=== PATIENT | female | born 1930 ===

== ENCOUNTER 2017-01-12 11:45 | Emergency (ER) | payer MEDICARE ==
[2017-01-12 11:45] VITALS: PULSE 76; BMI 27.4
--- NOTE | 2017-01-12 12:41 | RAD ---
PROCEDURE: CHEST RADIOGRAPH, 1 VIEW HISTORY: SOB COMPARISON: 08/20/2016. FINDINGS: LUNGS: There is persistent pulmonary venous congestion and redistribution. There is also mild interstitial pulmonary edema. No focal consolidation. PLEURA: No pneumothorax or pleural fluid seen. CARDIOVASCULAR: There is mild cardiomegaly. Status post CABG and prosthetic while. OSSEOUS STRUCTURES: No significant abnormalities. VISUALIZED UPPER ABDOMEN: Normal. OTHER FINDINGS: None. IMPRESSION: Persistent pulmonary venous congestion and mild interstitial pulmonary edema.
--- NOTE | 2017-01-12 12:43 | C.PDOC ---
History Of Present Illness <Karla Ferrell - Last Filed: 01/12/17 16:48> <Carmine Daigle - Last Filed: 01/12/17 17:18> Patient is a 86 y/o female, whose past medical history includes Afib, HTN, CHF, and valvular replacement, presents to the emergency department for evaluation of bilateral leg swelling for the last 3 days. Patient states her legs feels heavy, but denies any pain. Notes that yesterday her legs were more swollen than today. Patient is complaint with all her meds. Patient admits to shortness of breath with excertion, but denies any chest pain, palpitations, extremity weakness/numbness, headache, dizziness, fever, chills, or any other associated symptoms at this time. (Karla Ferrell) History Per: Patient History/Exam Limitations: no limitations Onset/Duration Of Symptoms: Days (3) Current Symptoms Are (Timing): Still Present Severity: None Pain Scale Rating Of: 0 Recent travel outside of the [place]: No Additional History Per: Patient <Karla Ferrell - Last Filed: 01/12/17 16:48> <Carmine Daigle - Last Filed: 01/12/17 17:18> Time Seen by Provider: 01/12/17 12:14 Chief Complaint (Nursing): Lower Extremity Problem/Injury Past Medical History Reviewed: Historical Data, Nursing Documentation, Vital Signs - Medical History PMH: Atrial Fibrillation, CHF, Depression, Diabetes, HTN, Hyperlipidemia, Hypothyroidism Denies: Chronic Kidney Disease Surgical History: Appendectomy, CABG, Coronary Stent Family History: States: Unknown Family Hx - Social History Hx Tobacco Use: No Hx Alcohol Use: No Hx Substance Use: No - Immunization History Hx Tetanus Toxoid Vaccination: No Hx Influenza Vaccination: No Hx Pneumococcal Vaccination: No <Karla Ferrell - Last Filed: 01/12/17 16:48> Review Of Systems Except As Marked, All Systems Reviewed And Found Negative. Constitutional: Negative for: Fever, Chills Cardiovascular: Positive for: Edema (swelling to bilateral legs). Negative for : Chest Pain, Palpitations, Light Headedness Respiratory: Positive for: SOB with Excertion. Negative for: Cough, Hemoptysis , Sputum Musculoskeletal: Negative for: Leg Pain Skin: Negative for: Rash, Bruising Neurological: Negative for: Weakness, Numbness, Headache, Dizziness <Karla Ferrell Rodrigo Last Filed: 01/12/17 16:48> Physical Exam - Physical Exam Appears: Non-toxic, No Acute Distress Skin: Normal Color, Warm, Dry Head: Atraumatic, Normacephalic Eye(s): bilateral: Normal Inspection Neck: Normal ROM, Supple Chest: Symmetrical Cardiovascular: Rhythm Regular, No Murmur Respiratory: Normal Breath Sounds, No Rales, No Rhonchi, No Wheezing Gastrointestinal/Abdominal: Soft, No Tenderness Extremity: Normal ROM, Pedal Edema (2+ bilateral), Calf Tenderness (right calf tenderness with palpation), Capillary Refill (< 2 sec.), No Deformity Extremity: Bilateral: Atraumatic Pulses: Left Dorsalis Pedis: Normal, Right Dorsalis Pedis: Normal Neurological/Psych: Oriented x3, Normal Speech, Normal Cognition, Normal Motor, Normal Sensation <Karla Ferrell Rodrigo Last Filed: 01/12/17 16:48> ED Course And Treatment - Laboratory Results Result Diagrams: 01/12/17 13:05 01/12/17 13:05 Lab Interpretation: Abnormal ECG: Interpreted By Me, Viewed By Me ECG Rhythm: Atrial Fibrillation ECG Interpretation: No Changes From Prior Interpretation Of ECG: T wave inversion in lateral leads. Unchanged from prior ECG on 08/21/16. Rate From EC (bpm) O2 Sat by Pulse Oximetry: 95 (on RA) Pulse Ox Interpretation: Normal - Radiology CXR: Interpreted by Me, Viewed By Me, Read By Radiologist CXR Interpretation: Yes: Other (Persistent pulmonary venous congestion and mild interstitial pulmonary edema.) Progress Note: EKG, CXR, blood work, venous duplex scan ordered. Patient was treated with Lasix. INR elevated. Labs and case discussed with Dr Daigle Reassessment Condition: Improved (On reassessment, patient is resting comfortably, no acute distress. Denies any chest pain at this time.) <Karla Ferrell Last Filed: 01/12/17 16:48> - Laboratory Results Result Diagrams: 01/12/17 13:05 01/12/17 13:05 <Carmine Daigle Last Filed: 01/12/17 17:18> Medical Decision Making <Karla Ferrell Sonu Filed: 01/12/17 16:48> <Carmine Daigle - Last Filed: 01/12/17 17:18> Medical Decision Makin Venous doppler report reviewed with no abnormal findings Case was discussed with attending who also examined patient at bedside. Dr Daigle agreed patient stable for discharge. Patient was instructed to continue with all her medications and to elevate legs at home. Advise follow up with PCP or return to ER for any worsening symptoms including chest pain or SOB. Patient verbalized understanding (Karla Ferrell) Disposition Counseled Patient/Family Regarding: Diagnosis, Need For Followup - Disposition Disposition Time: 15:03 - POA Present On Arrival: None <Karla Ferrell - Last Filed: 01/12/17 16:48> <Carmine Daigle - Last Filed: 01/12/17 17:18> - Disposition Referrals: Samuel Rome MD [Non-Staff] - Disposition: HOME/ ROUTINE Condition: STABLE Additional Instructions: Courtney laboratorios y ultrasonido ash normales Por favor contine tomando courtney medicamentos y trate de mantener las piernas levantadas cuando est en casa descansando Realice el seguimiento con vazquez mdico de cabecera o regrese al servicio de urgencias en cualquier momento si los sntomas persisten o empeoran. Instructions: Heart Failure (DC), Leg Edema (ED) Print Language: [place] - Clinical Impression Clinical Impression: CHF (congestive heart failure), Leg edema - PA / ROTARY FURNACE TENDER / Resident Statement JEREMY has reviewed & agrees with the documentation as recorded. - Scribe Statement The provider has reviewed the documentation as recorded by the Scribe <Karla Ferrell - Last Filed: 01/12/17 16:48> - PA / ROTARY FURNACE TENDER / Resident Statement JEREMY has reviewed & agrees with the documentation as recorded. JEREMY has examined the patient and agrees with the treatment plan. <Carmine Daigle - Last Filed: 01/12/17 17:18> - Scribe Statement Corey Boucher All medical record entries made by the Scribe were at my direction and personally dictated by me. I have reviewed the chart and agree that the record accurately reflects my personal performance of the history, physical exam, medical decision making, and the department course for this patient. I have also personally directed, reviewed, and agree with the discharge instructions and disposition. (Karla Ferrell)
[2017-01-12 13:11] VITALS: RESP 18
[2017-01-12 13:20] LABS: BASO % 0.7 % (0.0-2.0); EOS # 0.1 K/uL (0.0-0.7); EOS % 2.3 % (0.0-4.0); HEMOGLOBIN 11.3 g/dL (11.0-16.0); LYMPH # 1.4 K/uL (1.0-4.3); MEAN CORPUSCULAR HEMOGLOBIN 29.5 pg (27.0-31.0); MEAN CORPUSCULAR HGB CONC 32.2 g/dL (33.0-37.0); MEAN PLATELET VOLUME 7.7 fL (7.2-11.7); MONO # 0.6 K/uL (0.0-0.8); MONO % 13.5 % (0.0-10.0); NEUT # 2.3 K/uL (1.8-7.0); NEUT % 52.5 % (50.0-75.0); RBC 3.82 Mil/uL (3.80-5.20); RED CELL DISTRIBUTION WIDTH 14.4 % (11.5-14.5); WHITE BLOOD COUNT 4.5 K/uL (4.8-10.8)
[2017-01-12 13:22] LABS: MEAN CELL VOLUME 91.6 fL (81.0-99.0)
[2017-01-12 13:27] LABS: ALBUMIN 3.4 g/dL (3.5-5.0)
[2017-01-12 13:30] LABS: GFR AFRICAN-AMERICAN > 60; GFR NON-AFRICAN AMERICAN 53
[2017-01-12 13:31] LABS: ALB/GLOB RATIO 0.9 (1.0-2.1); ALT/SGPT 44 U/L (9-52); AST/SGOT 48 U/L (14-36); BLOOD UREA NITROGEN 19 mg/dL (7-17); CALCIUM 8.6 mg/dl (8.6-10.4)
[2017-01-12 13:35] LABS: INR 7.2
[2017-01-12 13:37] LABS: PROTHROMBIN TIME 87.3 SECONDS (9.7-12.2)
[2017-01-12 13:40] LABS: B-TYPE NATRIURETIC PEPTIDE 1070 pg/mL (0-900)
[2017-01-12 15:37] VITALS: BP 151/91; PULSE 69; TEMP 97.1
[2017-01-12 16:50] VITALS: O2SAT 95
--- NOTE | 2017-01-13 12:16 | CARD ---
APPROVED REPORT EKG Measurement Heart [id number] <Conclusion> Atrial fibrillation T wave abnormality, consider anterior ischemia Abnormal ECG
--- NOTE | 2017-01-13 14:51 | VASCLAB ---
PROCEDURE: Right Lower Extremity Venous Duplex Exam. HISTORY: right calf pain PRIORS: None. TECHNIQUE: Right common femoral, femoral, popliteal and posterior tibial, peroneal and great saphenous veins were evaluated. Flow was assessed with color Doppler, compressibility, assessment of phasic flow and augmentation response. Report prepared by LUCI Crane, RVT FINDINGS: RIGHT: 1. Common Femoral Vein: 1.1. Compressibility - Fully compressible: Thrombus - None: Flow - Phasic: Augmentation -Normal: Reflux - None. 2. Femoral Vein: 2.1. Compressibility - Fully compressible: Thrombus - None: Flow - Phasic: Augmentation -Normal: Reflux - None. 3. Popliteal Vein: 3.1. Compressibility - Fully compressible: Thrombus - None: Flow - Phasic: Augmentation -Normal: Reflux - None. 4. Posterior Tibial Vein: 4.1. Compressibility - Fully compressible: Thrombus - None: Flow - Phasic: Augmentation -Normal: Reflux - None. 5. Peroneal Vein: 5.1. Compressibility - Fully compressible: Thrombus - None: Flow - Phasic: Augmentation -Normal: Reflux - None. 6. Great Saphenous Vein: 6.1. Compressibility - Fully compressible: Thrombus -None: Flow - Phasic: Augmentation - Normal: Reflux - Severe. OTHER FINDINGS: Severe valvular incompetence of the right greater saphenous vein. IMPRESSION: No evidence of deep or superficial vein thrombosis of the right lower extremity with excellent venous flow. Normal venous flow noted in the left common femoral vein.
== END 2017-01-12 15:35 | disposition home or self-care (01) ==
LOC: C.ER 11:45
DX: I50.9 Heart failure, unspecified (principal); R60.0 Localized edema
CPT/HCPCS: 71010; 80053; 83880; 85025; 85610; 85730; 93005; 93971; 96374; 99285; J1940

== ENCOUNTER 2017-02-04 15:33 | Emergency (ER) | payer MEDICARE ==
[2017-02-04 15:33] VITALS: PULSE 76; BMI 27.4
[2017-02-04 15:47] VITALS: RESP 18
--- NOTE | 2017-02-04 16:21 | C.PDOC ---
History Of Present Illness 87 year old female presents to the ED with complaints of a diffuse itchy rash for two days. Patient states she applied alcohol to the area and took Tylenol with no relief. She notes she has experienced similar symptoms previously. No change in chronic medication. Patient denies fever, lip swelling, difficulty breathing, or other complaints at this time. Time Seen by Provider: 02/04/17 15:57 Chief Complaint (Nursing): Abnormal Skin Integrity History Per: Patient History/Exam Limitations: no limitations Onset/Duration Of Symptoms: Days (2 days) Current Symptoms Are (Timing): Still Present Location Of Injury: Right: Abdomen, Arm (upper arms), Chest, Left: Abdomen, Arm , Chest Quality Of Symptoms: Itching. denies: Draining Recent travel outside of the [place]: No Additional History Per: Prior Records Past Medical History Reviewed: Historical Data, Nursing Documentation, Vital Signs Vital Signs: Last Vital Signs Temp 98.3 F 02/04/17 17:06 Pulse 88 02/04/17 17:06 Resp 18 02/04/17 17:06 BP 118/68 02/04/17 17:06 Pulse Ox 95 02/04/17 17:24 - Medical History PMH: Atrial Fibrillation, CHF, Depression, Diabetes, HTN, Hyperlipidemia, Hypothyroidism Surgical History: Appendectomy, CABG, Coronary Stent - [facility] Procedures FLUOROSCOPY OF LEFT HEART USING LOW OSMOLAR CONTRAST (08/08/16) FLUOROSCOPY OF MULT COR ART USING L OSM CONTRAST (08/08/16) MEASURE OF CARDIAC SAMPL & PRESSURE, L HEART, PERC APPROACH (08/08/16) Family History: States: Unknown Family Hx - Social History Hx Tobacco Use: No Hx Alcohol Use: No Hx Substance Use: No - Immunization History Hx Tetanus Toxoid Vaccination: No Hx Influenza Vaccination: No Hx Pneumococcal Vaccination: No Review Of Systems Constitutional: Negative for: Fever, Chills Cardiovascular: Negative for: Chest Pain Respiratory: Negative for: Cough, Shortness of Breath Gastrointestinal: Negative for: Nausea, Abdominal Pain Skin: Positive for: Rash Physical Exam - Physical Exam Appears: Non-toxic, No Acute Distress Skin: Warm, Dry, Rash (multiple 0.5 cm erythematus papules on the abdomen, chest , and sparsly on the upper arms. ) Head: Atraumatic, Normacephalic Eye(s): bilateral: Normal Inspection, PERRL, EOMI Nose: Normal, No Discharge Oral Mucosa: Moist Tongue: Normal Appearing, No Swelling Lips: Normal Appearing, No Swelling Throat: Normal, No Erythema, No Exudate Neck: Normal ROM, Supple Chest: Symmetrical Cardiovascular: Rhythm Regular Respiratory: Normal Breath Sounds, No Rhonchi, No Wheezing Gastrointestinal/Abdominal: Soft, No Tenderness Neurological/Psych: Oriented x3, Normal Speech, Normal Cognition, Normal Motor, Normal Sensation ED Course And Treatment O2 Sat by Pulse Oximetry: 95 (room air) Progress Note: Pt was seen and evaluated by DR Tafoya, agreed upon plan and discharge. Discussed signs of concnern and instructed to follow up with dermatology. Disposition - Disposition Disposition: HOME/ ROUTINE Disposition Time: 16:21 Condition: STABLE Additional Instructions: Vaya a vazquez mdico o la clnica en 1-3 perez sin falta, para mas evaluacin. [place] los medicamentos alexia indicado. Volver a la adilson de emergencia en cualquier momento si los sntomas persisten o empeoran. Prescriptions: DiphenhydrAMINE [Benadryl] 25 mg PO Q6 #20 cap Hydrocortisone 1% Cream [Cortizone 1% Cream] 1 appl TP BID #1 tube Instructions: Acute Rash (ED) Forms: [employer] (Sammarinese) Print Language: TURKISH - Clinical Impression Clinical Impression: Rash - Scribe Statement The provider has reviewed the documentation as recorded by the Scribe Socorro Caraballo All medical record entries made by the Scribe were at my direction and personally dictated by me. I have reviewed the chart and agree that the record accurately reflects my personal performance of the history, physical exam, medical decision making, and the department course for this patient. I have also personally directed, reviewed, and agree with the discharge instructions and disposition.
[2017-02-04 17:07] VITALS: BP 118/68; PULSE 88; TEMP 98.3
[2017-02-04 17:16] VITALS: O2SAT 95
== END 2017-02-04 17:07 | disposition home or self-care (01) ==
LOC: C.ER 15:33
DX: R21 Rash and other nonspecific skin eruption (principal)

== ENCOUNTER 2017-02-16 16:11 | Emergency (ER) | payer MEDICARE ==
[2017-02-16 16:12] VITALS: PULSE 76; BMI 27.4
[2017-02-16 16:19] VITALS: BP 148/76; O2SAT 96
[2017-02-16 16:37] VITALS: RESP 20
[2017-02-16] MEDS ORDERED: Albuterol-Ipratrop 3 mg / 0.5 (3 ml) UD INH STA (16:53)
[2017-02-16 17:09] LABS: BASO # 0.1 K/uL (0.0-0.2); EOS # 0.1 K/uL (0.0-0.7); EOS % 1.6 % (0.0-4.0); HEMATOCRIT 37.5 % (34.0-47.0); LYMPH # 1.9 K/uL (1.0-4.3); LYMPH % 36.3 % (20.0-40.0); MEAN CELL VOLUME 90.6 fL (81.0-99.0); MEAN CORPUSCULAR HEMOGLOBIN 30.3 pg (27.0-31.0); MEAN CORPUSCULAR HGB CONC 33.5 g/dL (33.0-37.0); MONO # 0.6 K/uL (0.0-0.8); MONO % 11.1 % (0.0-10.0); NRBC % 0.2 % (0.0-2.0); WHITE BLOOD COUNT 5.4 K/uL (4.8-10.8)
--- NOTE | 2017-02-16 17:09 | RAD ---
HISTORY: SOB COMPARISON: Chest x-ray performed 01/12/17 TECHNIQUE: Chest, one view. FINDINGS: LUNGS: Mild pulmonary venous congestion. No focal consolidation. Please note that chest x-ray has limited sensitivity for the detection of pulmonary masses. PLEURA: No significant pleural effusion identified. No definite pneumothorax . CARDIOVASCULAR: Median sternotomy wires. Cardiomegaly. Prosthetic cardiac valve. Atherosclerotic calcification of the aortic knob. OSSEOUS STRUCTURES: Osseous demineralization. Degenerative changes. VISUALIZED UPPER ABDOMEN: Unremarkable. OTHER FINDINGS: None. IMPRESSION: Mild pulmonary venous congestion. Cardiomegaly.
[2017-02-16] MEDS ORDERED: Albuterol-Ipratrop 3 mg / 0.5 (3 ml) UD ONE (17:20)
[2017-02-16 17:21] LABS: CHLORIDE 98 mmol/L (98-107); SODIUM 138 mmol/L (132-148)
[2017-02-16] MEDS ORDERED: Aspirin 325 mg EC Tablets PO ONE (17:21)
[2017-02-16 17:23] LABS: ALB/GLOB RATIO 0.9 (1.0-2.1); ALKALINE PHOSPHATASE 121 U/L (38-126); AST/SGOT 34 U/L (14-36); BILIRUBIN,TOTAL 0.8 mg/dL (0.2-1.3); CARBON DIOXIDE 29 mmol/L (22-30); GFR AFRICAN-AMERICAN > 60; TOTAL PROTEIN 7.5 g/dL (6.3-8.3)
[2017-02-16 17:24] LABS: ALT/SGPT 28 U/L (9-52); BLOOD UREA NITROGEN 18 mg/dL (7-17); CALCIUM 9.1 mg/dl (8.6-10.4); GLUCOSE,RANDOM 84 mg/dL (65-105)
[2017-02-16] MEDS: Aspirin 325 mg EC Tablets PO STA ×2 (17:45→17:49)
--- NOTE | 2017-02-16 18:17 | C.PDOC ---
History Of Present Illness 87 y/o female with a hx of COPD, c/o SOB that began today. Patient has had no nebulizer treatment today because she notes forgetting. Denies palpitations, diaphoresis, fever, chills, abdominal pain, trauma to the chest, lower extremity pain, or weakness. Time Seen by Provider: 02/16/17 16:46 Chief Complaint (Nursing): Shortness Of Breath History Per: Patient History/Exam Limitations: no limitations Onset/Duration Of Symptoms: Hrs Current Symptoms Are (Timing): Still Present Current Respiratory Medications: See Home Med List Severity: Mild Associated Symptoms: denies: Fever, Chills, Sweating, Heart Racing, Leg/Calf Pain, Ankle/Leg Swelling Recent travel outside of the [place]: No Additional History Per: Patient Past Medical History Reviewed: Historical Data, Nursing Documentation, Vital Signs Vital Signs: Last Vital Signs Temp 98.5 F 02/16/17 18:47 Pulse 86 02/16/17 18:47 Resp 20 02/16/17 18:47 BP 148/76 02/16/17 18:47 Pulse Ox 96 02/16/17 20:01 - Medical History PMH: Atrial Fibrillation, CHF, Depression, Diabetes, HTN, Hyperlipidemia, Hypothyroidism Denies: Chronic Kidney Disease Surgical History: Appendectomy, CABG, Coronary Stent - [facility] Procedures FLUOROSCOPY OF LEFT HEART USING LOW OSMOLAR CONTRAST (08/08/16) FLUOROSCOPY OF MULT COR ART USING L OSM CONTRAST (08/08/16) MEASURE OF CARDIAC SAMPL & PRESSURE, L HEART, PERC APPROACH (08/08/16) Family History: States: Unknown Family Hx - Social History Hx Tobacco Use: No Hx Alcohol Use: No Hx Substance Use: No - Immunization History Hx Tetanus Toxoid Vaccination: No Hx Influenza Vaccination: No Hx Pneumococcal Vaccination: No Review Of Systems Except As Marked, All Systems Reviewed And Found Negative. Constitutional: Negative for: Fever, Chills, Sweats, Weakness, Other (Trauma) Cardiovascular: Negative for: Palpitations Respiratory: Positive for: Shortness of Breath Musculoskeletal: Negative for: Leg Pain, Foot Pain Physical Exam - Physical Exam Appears: Non-toxic, No Acute Distress Skin: Warm, Dry Head: Atraumatic, Normacephalic Oral Mucosa: Moist Neck: Supple Cardiovascular: Rhythm Irregular (AFIB at 65) Respiratory: Decreased Breath Sounds (Slightly distint breath sounds), No Rales , No Rhonchi, No Wheezing, Other (No SOB) Gastrointestinal/Abdominal: Soft, No Tenderness Extremity: Normal ROM, No Pedal Edema, Capillary Refill (<2secs) Pulses: Left Dorsalis Pedis: Normal, Right Dorsalis Pedis: Normal Neurological/Psych: Oriented x3, Normal Speech, Normal Cognition Gait: Steady ED Course And Treatment - Laboratory Results Result Diagrams: 02/16/17 17:01 02/16/17 17:01 Lab Interpretation: Normal (trop/bnp neg.) ECG: Interpreted By Me ECG Rhythm: Atrial Fibrillation ECG Interpretation: Normal Rate From EC O2 Sat by Pulse Oximetry: 96 (RA/Neb treatment) Pulse Ox Interpretation: Normal - Radiology CXR: Interpreted by Me CXR Interpretation: Yes: No Acute Disease Progress Note: nancy arboleda Reevaluation Time: 18:16 Reassessment Condition: Improved (feels better wants d/c home.) - Physician Consult Information Outcome Of Conversation: 1814: d/w Dr. Walton- PMD- ok to d/c pt home and opt f/ u in office. Medical Decision Making Medical Decision Making: Impression: 87 y/o female c/o SOB that began today. Plans: * EKG * Ecotrin * Prednisolone * IV fluids * Nebulizer treatment * Blood work up * UA * CXR mild copd exacerbation, "forgot" to use her nebs today @ home. Very hot/humid today Disposition Doctor Will See Patient In The: Office Counseled Patient/Family Regarding: Studies Performed, Diagnosis - Disposition Referrals: Samuel Rome MD [Non-Staff] - Disposition: HOME/ ROUTINE Disposition Time: 18:17 Condition: GOOD Additional Instructions: naresh kwasi tratamientos respiratorios alexia normal Llama a Dr. Walton para hacer josé luis Instructions: COPD (Chronic Obstructive Pulmonary Disease) (ED) Forms: [facility] (Lithuanian) Print Language: NEPALI - Clinical Impression Clinical Impression: COPD (chronic obstructive pulmonary disease) - Scribe Statement The provider has reviewed the documentation as recorded by the Scribe Bailey gurrola All medical record entries made by the Scribe were at my direction and personally dictated by me. I have reviewed the chart and agree that the record accurately reflects my personal performance of the history, physical exam, medical decision making, and the department course for this patient. I have also personally directed, reviewed, and agree with the discharge instructions and disposition.
[2017-02-16 18:48] VITALS: PULSE 86; TEMP 98.5
--- NOTE | 2017-02-17 11:57 | CARD ---
APPROVED REPORT EKG Measurement Heart [id number] <Conclusion> Atrial fibrillation Abnormal ECG
== END 2017-02-16 18:48 | disposition home or self-care (01) ==
LOC: C.ER 16:11
DX: J44.9 Chronic obstructive pulmonary disease, unspecified (principal)
CPT/HCPCS: 71010; 80053; 83880; 84484; 85025; 85378; 87040; 93005; 94150; 94640; 94760; 96374; 99285; J2930

== ENCOUNTER 2017-04-13 15:19 | Emergency (ER) | payer MEDICARE ==
[2017-04-13 15:19] VITALS: PULSE 76; BMI 27.4
--- NOTE | 2017-04-13 16:10 | C.PDOC ---
History Of Present Illness 87 Y/O FEMALE SENT BY PMD FOR ABNORMAL BLOOD TESTS. PT STATES SHE WAS TOLD HER "BLOOD IS WATERY". PT CURRENTLY ASYMPTOMATIC. DENIES FEVER, CHILLS, NAUSEA, VOMITING, CHEST PAIN, SOB, OR OTHER ASSOCIATED SYMPTOMS. PMD: DR. ENGEL Time Seen by Provider: 04/13/17 15:43 Chief Complaint (Nursing): Abnormal Labs History Per: Patient History/Exam Limitations: no limitations Current Symptoms Are (Timing): Still Present Reports Recently: Treated By A Physician Recent travel outside of the [place]: No Past Medical History Reviewed: Historical Data, Nursing Documentation, Vital Signs Vital Signs: Last Vital Signs Temp 97.3 F L 04/13/17 15:37 Pulse 75 04/13/17 15:54 Resp 20 04/13/17 15:54 BP 115/58 L 04/13/17 15:54 Pulse Ox 96 04/13/17 16:14 - Medical History PMH: Atrial Fibrillation, CHF, Depression, Diabetes, HTN, Hyperlipidemia, Hypothyroidism Surgical History: Appendectomy, CABG, Coronary Stent - [facility] Procedures FLUOROSCOPY OF LEFT HEART USING LOW OSMOLAR CONTRAST (08/08/16) FLUOROSCOPY OF MULT COR ART USING L OSM CONTRAST (08/08/16) MEASURE OF CARDIAC SAMPL & PRESSURE, L HEART, PERC APPROACH (08/08/16) Family History: States: Unknown Family Hx - Social History Hx Tobacco Use: No Hx Alcohol Use: No Hx Substance Use: No - Immunization History Hx Tetanus Toxoid Vaccination: No Hx Influenza Vaccination: No Hx Pneumococcal Vaccination: No Review Of Systems Except As Marked, All Systems Reviewed And Found Negative. Constitutional: Negative for: Fever, Chills Cardiovascular: Negative for: Chest Pain, Palpitations Respiratory: Negative for: Shortness of Breath Gastrointestinal: Negative for: Nausea, Vomiting, Abdominal Pain Skin: Negative for: Rash Neurological: Negative for: Headache, Dizziness Physical Exam - Physical Exam Appears: Non-toxic, No Acute Distress Skin: Warm, Dry Head: Atraumatic, Normacephalic Oral Mucosa: Moist Chest: Symmetrical Cardiovascular: Rhythm Regular Respiratory: Normal Breath Sounds, No Rales, No Rhonchi, No Wheezing Gastrointestinal/Abdominal: Soft, No Tenderness Back: Normal Inspection Extremity: Normal ROM, Capillary Refill (< 2 SEC.) Neurological/Psych: Oriented x3, Normal Speech, Normal Cognition ED Course And Treatment - Laboratory Results Result Diagrams: 04/13/17 17:01 O2 Sat by Pulse Oximetry: 96 (RA) Pulse Ox Interpretation: Normal Progress - Re-Evaluation Re-evaluation Note: 04/13/17 16:10 PT, PTT ORDERED. 04/13/17 17:34 APPEARS COMFORTABLE VSS. VIT K GIVEN, ADVISED TO SKIP NEXT 2-3 DOSES. RETURN TOMORROW MORNING FOR REPEAT INR - Data Reviewed Data Reviewed: Lab, Old records Disposition Counseled Patient/Family Regarding: Diagnosis, Need For Followup - Disposition Referrals: [facility] [Provider Group] Disposition: HOME/ ROUTINE Disposition Time: 17:36 Condition: IMPROVED Additional Instructions: DEVUELVA MAANA PARA REPETIR LA PRUEBA DE GOLD[place]. NO TOME WARFARIN / COUMADIN HASTA LAS PRUEBAS REPETIDAS 14/04/17 Instructions: Elevated INR (ED) Forms: [employer] (Italian) Print Language: YORUBA - Clinical Impression Clinical Impression: Elevated INR - Scribe Statement The provider has reviewed the documentation as recorded by the Scribe SM All medical record entries made by the Scribe were at my direction and personally dictated by me. I have reviewed the chart and agree that the record accurately reflects my personal performance of the history, physical exam, medical decision making, and the department course for this patient. I have also personally directed, reviewed, and agree with the discharge instructions and disposition.
[2017-04-13 16:46] LABS: INR 13.6
[2017-04-13] MEDS ORDERED: Phytonadione 2.5 MG/0.5 TAB TAB PO STA (16:49)
[2017-04-13 17:10] LABS: HEMATOCRIT 38.3 % (34.0-47.0); MEAN CELL VOLUME 91.3 fL (81.0-99.0); MEAN CORPUSCULAR HEMOGLOBIN 30.4 pg (27.0-31.0); MEAN CORPUSCULAR HGB CONC 33.3 g/dL (33.0-37.0); MEAN PLATELET VOLUME 7.6 fL (7.2-11.7); RED CELL DISTRIBUTION WIDTH 14.2 % (11.5-14.5); WHITE BLOOD COUNT 5.7 K/uL (4.8-10.8)
[2017-04-13 17:44] VITALS: BP 121/63; PULSE 72; RESP 21; TEMP 97.4; O2SAT 97
--- NOTE | 2017-04-14 13:38 | CARD ---
APPROVED REPORT EKG Measurement Heart [id number] <Conclusion> Accelerated Junctional rhythm with premature supraventricular complexes ST & T wave abnormality, consider inferior ischemia ST & T wave abnormality, consider anterolateral ischemia Abnormal ECG
== END 2017-04-13 18:17 | disposition home or self-care (01) ==
LOC: C.ER 15:19
DX: R79.1 Abnormal coagulation profile (principal); I10 Essential (primary) hypertension; I48.91 Unspecified atrial fibrillation; E11.9 Type 2 diabetes mellitus without complications

== ENCOUNTER 2017-04-14 07:54 | Inpatient (IN) | payer MEDICARE ==
[2017-04-14 07:54] VITALS: BMI 27.4
[2017-04-14 08:58] LABS: BASO % 0.6 % (0.0-2.0); EOS # 0.1 K/uL (0.0-0.7); HEMATOCRIT 38.9 % (34.0-47.0); LYMPH # 1.3 K/uL (1.0-4.3); LYMPH % 26.8 % (20.0-40.0); MEAN CELL VOLUME 90.4 fL (81.0-99.0); MEAN CORPUSCULAR HEMOGLOBIN 30.6 pg (27.0-31.0); MEAN CORPUSCULAR HGB CONC 33.9 g/dL (33.0-37.0); MEAN PLATELET VOLUME 7.3 fL (7.2-11.7); MONO # 0.6 K/uL (0.0-0.8); MONO % 11.9 % (0.0-10.0); RED CELL DISTRIBUTION WIDTH 14.2 % (11.5-14.5); WHITE BLOOD COUNT 4.7 K/uL (4.8-10.8)
[2017-04-14 09:04] LABS: CHLORIDE 97 mmol/L (98-107); POTASSIUM 3.8 mmol/L (3.6-5.2); SODIUM 135 mmol/L (132-148)
[2017-04-14 09:05] LABS: INR 2.4
[2017-04-14 09:07] LABS: BLOOD UREA NITROGEN 23 mg/dL (7-17); CARBON DIOXIDE 30 mmol/L (22-30); GFR AFRICAN-AMERICAN > 60; GLUCOSE,RANDOM 79 mg/dL (65-105)
--- NOTE | 2017-04-14 09:24 | C.PDOC ---
Time Seen by Provider: 04/14/17 08:06 Chief Complaint (Nursing): Medical Clearance Past Medical History Vital Signs: Last Vital Signs Temp 97.6 F 04/14/17 08:07 Pulse 104 H 04/14/17 08:07 Resp 16 04/14/17 08:07 BP 107/66 04/14/17 08:07 Pulse Ox 96 04/14/17 08:07 - Medical History PMH: Atrial Fibrillation, CHF, Depression, Diabetes, HTN, Hyperlipidemia, Hypothyroidism Denies: Chronic Kidney Disease Surgical History: Appendectomy, CABG, Coronary Stent - [facility] Procedures FLUOROSCOPY OF LEFT HEART USING LOW OSMOLAR CONTRAST (08/08/16) FLUOROSCOPY OF MULT COR ART USING L OSM CONTRAST (08/08/16) MEASURE OF CARDIAC SAMPL & PRESSURE, L HEART, PERC APPROACH (08/08/16) Family History: States: Unknown Family Hx - Social History Hx Tobacco Use: No Hx Alcohol Use: No Hx Substance Use: No - Immunization History Hx Tetanus Toxoid Vaccination: No Hx Influenza Vaccination: No Hx Pneumococcal Vaccination: No ED Course And Treatment - Laboratory Results Result Diagrams: 04/14/17 08:51 04/14/17 08:51 O2 Sat by Pulse Oximetry: 96 Disposition - Disposition
--- NOTE | 2017-04-14 09:27 | C.PDOC ---
History Of Present Illness 87 y/o female presents to ED for repeat blood work and with complaints of "feeling dizzy" and listing to one side when walking. Patient was seen at ED yesterday and told she had elevated INR, vitamin K given and told to come back for blood work. Patient states she has been bumping to things and has unsteady gait secondary to symptoms. Patient denies chest pain, headache, nausea, vomiting, fever or any other complaints at this time. Time Seen by Provider: 04/14/17 08:06 Chief Complaint (Nursing): Medical Clearance History Per: Patient History/Exam Limitations: no limitations Onset/Duration Of Symptoms: Days Current Symptoms Are (Timing): Still Present Past Medical History Reviewed: Historical Data, Nursing Documentation, Vital Signs Vital Signs: Last Vital Signs Temp 98.1 F 04/14/17 15:06 Pulse 76 04/14/17 15:06 Resp 20 04/14/17 15:06 BP 113/51 L 04/14/17 15:06 Pulse Ox 96 04/14/17 15:06 - Medical History PMH: Atrial Fibrillation, CHF, Depression, Diabetes, HTN, Hyperlipidemia, Hypothyroidism Surgical History: Appendectomy, CABG, Coronary Stent - [facility] Procedures FLUOROSCOPY OF LEFT HEART USING LOW OSMOLAR CONTRAST (08/08/16) FLUOROSCOPY OF MULT COR ART USING L OSM CONTRAST (08/08/16) MEASURE OF CARDIAC SAMPL & PRESSURE, L HEART, PERC APPROACH (08/08/16) Family History: States: No Known Family Hx - Social History Hx Tobacco Use: No Hx Alcohol Use: No Hx Substance Use: No - Immunization History Hx Tetanus Toxoid Vaccination: No Hx Influenza Vaccination: No Hx Pneumococcal Vaccination: No Review Of Systems Constitutional: Negative for: Fever, Chills Cardiovascular: Negative for: Chest Pain Respiratory: Negative for: Shortness of Breath Gastrointestinal: Negative for: Nausea, Vomiting Skin: Negative for: Rash Neurological: Positive for: Weakness, Dizziness. Negative for: Change in Speech , Headache Physical Exam - Physical Exam Appears: Non-toxic, No Acute Distress Skin: Warm, Dry, Other (Bruises to arms and legs bilaterally) Head: Atraumatic, Normacephalic Eye(s): bilateral: Normal Inspection Oral Mucosa: Moist Neck: Normal ROM, Supple Chest: Symmetrical Cardiovascular: Rhythm Regular Respiratory: Normal Breath Sounds, No Rales, No Rhonchi, No Wheezing Gastrointestinal/Abdominal: Soft, No Tenderness, No Guarding, No Rebound Neurological/Psych: Oriented x3, Normal Speech, Normal Motor, Normal Sensation Gait: Unsteady ED Course And Treatment - Laboratory Results Result Diagrams: 04/14/17 08:51 04/14/17 08:51 ECG: Interpreted By Me, Viewed By Me ECG Rhythm: Atrial Fibrillation (with a competing junctional pacemaker) Rate From EC (bpm) O2 Sat by Pulse Oximetry: 96 (RA) Pulse Ox Interpretation: Normal Disposition Discussed With Dr.: Juan José Teague Jr. - Disposition Disposition: HOSPITALIZED Disposition Time: 11:56 Condition: GUARDED - Clinical Impression Clinical Impression: Dizziness, Falls frequently, Dehydration - Scribe Statement The provider has reviewed the documentation as recorded by the Scribsergio Hartley All medical record entries made by the Scribe were at my direction and personally dictated by me. I have reviewed the chart and agree that the record accurately reflects my personal performance of the history, physical exam, medical decision making, and the department course for this patient. I have also personally directed, reviewed, and agree with the discharge instructions and disposition. Decision To Admit - Pt Status Changed To: Hospital Disposition Of: Observation - . Bed Request Type: Regular Patient Diagnosis: Dizziness, Falls frequently, Dehydration
[2017-04-14] MEDS ORDERED: Sodium Chloride 0.9% 1,000 ML IV ONE (11:59)
[2017-04-14] MEDS ORDERED: Sodium Chloride 0.9% 1,000 ML ONE (12:08)
[2017-04-14] MEDS ORDERED: RISEDRONATE SODIUM 150 MG PO SCH (13:15)
[2017-04-14] MEDS: Sodium Chloride 0.9% 1,000 ML IV SCH (13:18)
--- NOTE | 2017-04-14 13:21 | CP.PCM.HP ---
History of Present Illness - History of Present Illness History of Present Illness: CC: Dizziness HPI: 87 y/o female presents to the ED with complaint of dizziness that started today. Patient states that the dizziness only occurs when she is walking, not when sitting. Patient was in the ED yesterday (04/13/2017) due to chest pain. Pt was found to have an INR of 13.6, was given Vitamin K and discharged to home. Patient denies any falls, LOC, or headache. Patient also complains of urinary frequency, shortness of breath, cough, and diarrhea. Patient denies chest pain, nausea, vomiting, hematuria, hematachezia, or fever. PMH: HTN, Atrial Fibrillation, Pacemaker, Takatsubo's cardiomyopathy PSH: CABGx2 10 yrs ago, Appendectomy Social: Denies alcohol use. Tobacco: smoked one or two cigarettes when 18-21 yrs old. Denies illicit drug use. Patient lives alone. Neftali Gonzalez [phone] PMD: Dr. Rome Allergies: NDKA Medications: Ferrous sulfate 325mg BID Furosemide 40mg Atorvastatin 20mg Meclizine 12.5mg TID Warfarin 6mg and 4mg (varied regimen of 6mg only or 6mg in AM + 4mg in PM) Ranexa 500mg BID Carvedilol 6.25mg BID Digoxin 125mcg Lorazepam 0.5mg Donepizil 10mg PO QID Klor-con 10meq Present on Admission - Present on Admission Any Indicators Present on Admission: No History of DVT/PE: No History of Uncontrolled Diabetes: No Urinary Catheter: No Decubitus Ulcer Present: No Past Patient History - Infectious Disease Hx of Infectious Diseases: None - Tetanus Immunizations Tetanus Immunization: Unknown - Past Medical History & Family History Past Medical History?: Yes - Past Social History Smoking Status: Never Smoked - CARDIAC Hx Atrial Fibrillation: Yes Hx Congestive Heart Failure: Yes Hx Hypertension: Yes - PULMONARY Hx Respiratory Disorders: No - NEUROLOGICAL Hx Neurological Disorder: No - HEENT Hx HEENT Problems: Yes Hx Cataracts: Yes - RENAL Hx Chronic Kidney Disease: No - ENDOCRINE/METABOLIC Hx Hypothyroidism: Yes - HEMATOLOGICAL/ONCOLOGICAL Hx Blood Disorders: No - INTEGUMENTARY Hx Dermatological Problems: No - MUSCULOSKELETAL/RHEUMATOLOGICAL Hx Falls: No - GASTROINTESTINAL Hx Gastrointestinal Disorders: No - GENITOURINARY/GYNECOLOGICAL Hx Genitourinary Disorders: No - PSYCHIATRIC Hx Depression: Yes Hx Substance Use: No - SURGICAL HISTORY Hx Appendectomy: Yes Hx Coronary Artery Bypass Graft: Yes Hx Coronary Stent: Yes - ANESTHESIA Hx Anesthesia: Yes Hx Anesthesia Reactions: No Hx Malignant Hyperthermia: No Meds Allergies/Adverse Reactions: Allergies Allergy/AdvReac Type Severity Reaction Status Date / Time No Known Allergies Allergy Verified 04/14/17 08:10 Physical Exam - Constitutional Appears: Well, No Acute Distress - Head Exam Head Exam: NORMAL INSPECTION - Eye Exam Eye Exam: EOMI, Normal appearance Pupil Exam: NORMAL ACCOMODATION - ENT Exam ENT Exam: Mucous Membranes Moist - Neck Exam Neck exam: Positive for: Full Rom. Negative for: Tenderness - Respiratory Exam Respiratory Exam: Clear to Auscultation Bilateral. absent: Accessory Muscle Use , Respiratory Distress - Cardiovascular Exam Cardiovascular Exam: Clicks, Irregular Rhythm, +S1, +S2 - GI/Abdominal Exam GI & Abdominal Exam: Normal Bowel Sounds, Soft. absent: Guarding, Tenderness - Extremities Exam Extremities exam: Positive for: full ROM, normal inspection. Negative for: pedal edema - Neurological Exam Neurological exam: Alert, CN II-XII Intact, Oriented x3 - Expanded Neurological Exam Expanded Cranial nerves: EOM's Intact: Normal, Facial Sensation: Normal, Nystagmus: Normal, Tongue Deviation: Normal Neuro motor strength exam: Left Upper Extremity: 5, Right Upper Extremity: 5, Left Lower Extremity: 5, Right Lower Extremity: 5 Coma Scale Eye Opening: SPONTANEOUS Coma Scale Motor Response: OBEYS COMMANDS Coma Scale Verbal: Oriented Coma Scale Total: 15 - Psychiatric Exam Psychiatric exam: Normal Affect, Normal Mood - Skin Skin Exam: Intact Results - Vital Signs Recent Vital Signs: Last Vital Signs Temp 97.6 F 04/14/17 08:07 Pulse 72 04/14/17 11:10 Resp 20 04/14/17 11:10 BP 137/61 04/14/17 11:10 Pulse Ox 96 04/14/17 11:58 - Labs Result Diagrams: 04/14/17 08:51 04/14/17 08:51 Labs: Laboratory Results - last 24 hr 04/14/17 04/14/17 04/14/17 08:51 08:51 08:51 WBC 4.7 L RBC 4.31 Hgb 13.2 Hct 38.9 MCV 90.4 MCH 30.6 MCHC 33.9 RDW 14.2 Plt Count 212 MPV 7.3 Neut % (Auto) 58.7 Lymph % (Auto) 26.8 [place] % (Auto) 11.9 H Eos % (Auto) 2.0 Baso % (Auto) 0.6 Neut # 2.8 Lymph # 1.3 [place] # 0.6 Eos # 0.1 Baso # 0.0 PT 28.8 H D INR 2.4 D APTT 39 H D Sodium 135 Potassium 3.8 Chloride 97 L Carbon Dioxide 30 Anion Gap 12 BUN 23 H Creatinine 1.0 Est GFR ( Amer) > 60 Est GFR (Non-Af Amer) 53 Random Glucose 79 Calcium 9.0 Troponin I 0.0170 NT-Pro-B Natriuret Pep 1140 H Assessment & Plan - Assessment and Plan (Free Text) Assessment: Dizziness f/u head CT w/o contrast Meclizine 12.5mg TID HTN Furosemide 40mg A fib without RVR Warfarin 6mg and 4mg (varied regimen of 6mg only or 6mg in AM + 4mg in PM) Digoxin 125mcg Difficulty sleeping Alprazolam 0.25mg POQHS PRN (home medication Lorazepam 0.5mg) Donepizil 10mg PO QID History of CABG x 2 Carvedilol 6.25mg BID Atorvastatin 20mg Ranexa 500mg BID Iron Deficiency Anemia Ferrous sulfate 325mg BID Klor-con 10meq Prophylaxis: SCDs GI: Diet: Heart Healthy, Low fat diet NS@50cc/hr Discussed with Dr. Zahida Pickett DO PGY1 - Date & Time Date: 04/14/17 Time: 16:08
--- NOTE | 2017-04-14 16:49 | CT ---
PROCEDURE: CT HEAD WITHOUT CONTRAST. HISTORY: high INR on previous admission. Dizziness COMPARISON: 10/17/2015 TECHNIQUE: Axial computed tomography images were obtained through the head/brain without intravenous contrast. Radiation dose: Total exam DLP = 982.82 mGy-cm. This CT exam was performed using one or more of the following dose reduction techniques: Automated exposure control, adjustment of the mA and/or kV according to patient size, and/or use of iterative reconstruction technique. FINDINGS: HEMORRHAGE: No intracranial hemorrhage. BRAIN: No mass effect or edema. Mild diffuse atrophy consistent with patient age. Mild periventricular white matter lucency with focal white matter ischemic change adjacent to the atrium of the right lateral ventricle extending cephalad along the cardenas radiata. This is unchanged compared to prior examination. No evidence of acute infarct. VENTRICLES: Unremarkable. No hydrocephalus. CALVARIUM: Unremarkable. PARANASAL SINUSES: Unremarkable as visualized. No significant inflammatory changes. MASTOID AIR CELLS: Unremarkable as visualized. No inflammatory changes. OTHER FINDINGS: None. IMPRESSION: No intracranial mass, hemorrhage or evidence of acute infarct. Age related atrophy and white matter ischemic change.
[2017-04-14] MEDS: Ranolazine 500 mg Extended Release Tablets PO SCH (18:00)
[2017-04-15 08:01] LABS: BASO % 0.7 % (0.0-2.0); EOS # 0.1 K/uL (0.0-0.7); EOS % 2.2 % (0.0-4.0); HEMATOCRIT 37.4 % (34.0-47.0); LYMPH # 1.5 K/uL (1.0-4.3); MEAN CELL VOLUME 91.4 fL (81.0-99.0); MEAN CORPUSCULAR HEMOGLOBIN 30.3 pg (27.0-31.0); MEAN CORPUSCULAR HGB CONC 33.1 g/dL (33.0-37.0); MEAN PLATELET VOLUME 7.8 fL (7.2-11.7); MONO # 0.5 K/uL (0.0-0.8); MONO % 10.7 % (0.0-10.0); NRBC % 0.1 % (0.0-2.0); RED CELL DISTRIBUTION WIDTH 14.4 % (11.5-14.5); WHITE BLOOD COUNT 4.8 K/uL (4.8-10.8)
[2017-04-15 08:27] LABS: CHLORIDE 101 mmol/L (98-107)
[2017-04-15 08:28] LABS: POTASSIUM 3.9 mmol/L (3.6-5.2); SODIUM 136 mmol/L (132-148)
[2017-04-15 08:30] LABS: INR 1.9
[2017-04-15 08:31] LABS: ALB/GLOB RATIO 0.9 (1.0-2.1); ALKALINE PHOSPHATASE 102 U/L (38-126); ALT/SGPT 26 U/L (9-52); AST/SGOT 35 U/L (14-36); BILIRUBIN,TOTAL 0.9 mg/dL (0.2-1.3); BLOOD UREA NITROGEN 16 mg/dL (7-17); CALCIUM 8.2 mg/dl (8.6-10.4); CARBON DIOXIDE 28 mmol/L (22-30); GFR AFRICAN-AMERICAN > 60; GLUCOSE,RANDOM 82 mg/dL (65-105); TOTAL PROTEIN 7.1 g/dL (6.3-8.3)
[2017-04-15] MEDS: Potassium Chloride 10 mEq ER Tab PO SCH (09:42)
[2017-04-15] MEDS: Sodium Chloride 0.9% 1,000 ML IV SCH (09:45)
[2017-04-15] MEDS: Ranolazine 500 mg Extended Release Tablets PO SCH ×2 (09:55→18:17)
[2017-04-15] MEDS ORDERED: Digoxin 125 mcg (0.125 mg) Tab PO SCH (10:00)
--- NOTE | 2017-04-15 17:09 | CP.PCM.PN ---
<Eyal Bolanos - Last Filed: 04/15/17 18:24> Subjective - Date & Time of Evaluation Date of Evaluation: 04/15/17 Time of Evaluation: 07:50 - Subjective Subjective: PGY-[address] Teague Patient seen and examined at bedside. Patient denies dizziness at this time. Patient denies fever, chills, chest pain, dyspnea, abdominal pain, dysuria. Objective - Vital Signs/Intake and Output Vital Signs (last 24 hours): Temp Pulse Resp BP Pulse Ox 97.5 F L 73 20 127/76 95 04/15/17 16:00 04/15/17 16:00 04/15/17 16:00 04/15/17 16:00 04/15/17 16:00 Intake and Output: 04/15/17 04/15/17 06:59 18:59 Intake Total 520 900 Balance 520 900 - Medications Medications: Current Medications Carvedilol (Coreg) 3.125 mg PO BID [facility] Last Admin: 04/15/17 09:43 Dose: 3.125 mg Digoxin (Lanoxin) 0.125 mg PO DAILY@1800 [facility] Donepezil HCl (Aricept) 10 mg PO HS [facility] Last Admin: 04/14/17 21:23 Dose: 10 mg Ferrous Sulfate (Feosol) 325 mg PO BID [facility] Last Admin: 04/15/17 09:42 Dose: 325 mg Furosemide (Lasix) 40 mg PO DAILY [facility] Last Admin: 04/15/17 09:43 Dose: 40 mg Hydroxyzine HCl (Atarax) 10 mg PO HS PRN PRN Reason: Insomnia Sodium Chloride (Sodium Chloride 0.9%) 1,000 mls @ 50 mls/hr IV .Q20H [facility] Last Admin: 04/15/17 09:45 Dose: 50 mls/hr Meclizine HCl (Antivert) 12.5 mg PO DAILY [facility] Last Admin: 04/15/17 09:42 Dose: 12.5 mg Ondansetron HCl (Zofran Inj) 4 mg IVP Q6 PRN PRN Reason: Nausea/Vomiting Pantoprazole Sodium (Protonix Inj) 40 mg IVP DAILY [facility] Last Admin: 04/15/17 09:55 Dose: 40 mg Pneumococcal Polyvalent Vaccine (Pneumovax 23 Vaccine) 0.5 ml IM .ONCE ONE Stop: 04/16/17 10:01 Potassium Chloride (Klor-Con 10) 10 meq PO DAILY [facility] Last Admin: 04/15/17 09:42 Dose: 10 meq Ranolazine (Ranexa) 500 mg PO BID [facility] Last Admin: 04/15/17 09:55 Dose: 500 mg Rosuvastatin Calcium (Crestor) 10 mg PO HS [facility] Last Admin: 04/14/17 21:23 Dose: 10 mg Warfarin Sodium (Coumadin) 5 mg PO 1800 [facility] Stop: 04/15/17 18:01 - Labs Labs: 04/15/17 07:50 04/15/17 07:50 PT 22.1 SECONDS (9.7-12.2) H D 04/15/17 07:50 INR 1.9 D 04/15/17 07:50 APTT 39 SECONDS (21-34) H D 04/14/17 08:51 - Constitutional Appears: No Acute Distress - Head Exam Head Exam: ATRAUMATIC, NORMOCEPHALIC - Eye Exam Eye Exam: EOMI, PERRL - ENT Exam ENT Exam: Mucous Membranes Moist - Respiratory Exam Respiratory Exam: Clear to Ausculation Bilateral. absent: Rales, Rhonchi, Wheezes - Cardiovascular Exam Cardiovascular Exam: Clicks, Irregular Rhythm, +S1, +S2 - GI/Abdominal Exam GI & Abdominal Exam: Soft, Normal Bowel Sounds. absent: Tenderness - Extremities Exam Extremities Exam: absent: Calf Tenderness, Pedal Edema - Neurological Exam Neurological Exam: Alert, Awake, Oriented x3 - Psychiatric Exam Psychiatric exam: Normal Affect, Normal Mood - Skin Skin Exam: Dry, Warm Additional comments: Bruising noted along the 4 extremities Assessment and Plan - Assessment and Plan (Free Text) Plan: Dizziness Head CT w.o. contrast negative for acute pathology. Age related findings seen on study. PT evaluation and treatment Hypertension Furosemide 40mg A fib without RVR Home regimen: Warfarin 6mg MWF and 4mg TTS (At home, patient varied regimen of 6mg only or 6mg in AM + 4mg in PM) Digoxin 125 mg PO daily Coreg 3.125 mg PO BID Insomnia Alprazolam 0.25mg POQHS PRN discontinued. Replaced with Atarax 10 mg PO HS prn insomnia History of CABG x 2 Carvedilol 6.25mg BID Atorvastatin 20mg NF--Crestor 10mg HS Ranexa 500mg BID Based on Echo from 07/2016, patient has bioprosthetic Aortic and mitral valve replacements Iron Deficiency Anemia Ferrous sulfate 325mg BID Klor-con 10meq Prophylactic Measure SCDs Warfarin 5 mg PO tonight with repeat INR in the AM GI:Protonix 40 mg PO daily Diet: Heart Healthy, Low fat diet NS@50cc/hr Donepezil 10mg PO QID Disposition: Plan for [facility]. Case DW Dr. Zahida Bolanos <Juan José Teague Jr. - Last Filed: 04/17/17 11:09> Objective - Vital Signs/Intake and Output Vital Signs (last 24 hours): Temp Pulse Resp BP Pulse Ox 98.2 F 82 20 126/70 94 L 04/17/17 07:00 04/17/17 07:00 04/17/17 07:00 04/17/17 09:27 04/17/17 07:00 Intake and Output: 04/17/17 04/17/17 06:59 18:59 Intake Total 520 Balance 520 - Medications Medications: Current Medications Carvedilol (Coreg) 3.125 mg PO BID [facility] Last Admin: 04/17/17 09:27 Dose: 3.125 mg Digoxin (Lanoxin) 0.125 mg PO DAILY@1800 [facility] Last Admin: 04/16/17 17:57 Dose: 0.125 mg Ferrous Sulfate (Feosol) 325 mg PO BID [facility] Last Admin: 04/17/17 09:27 Dose: 325 mg Furosemide (Lasix) 40 mg PO DAILY [facility] Last Admin: 04/17/17 09:27 Dose: 40 mg Hydroxyzine HCl (Atarax) 10 mg PO HS PRN PRN Reason: Insomnia Sodium Chloride (Sodium Chloride 0.9%) 1,000 mls @ 50 mls/hr IV .Q20H [facility] Last Admin: 04/16/17 05:15 Dose: Not Given Ondansetron HCl (Zofran Inj) 4 mg IVP Q6 PRN PRN Reason: Nausea/Vomiting Pantoprazole Sodium (Protonix Inj) 40 mg IVP DAILY [facility] Last Admin: 04/17/17 09:27 Dose: 40 mg Potassium Chloride (Klor-Con 10) 10 meq PO DAILY [facility] Last Admin: 04/17/17 09:27 Dose: 10 meq Ranolazine (Ranexa) 500 mg PO BID [facility] Last Admin: 04/17/17 09:27 Dose: 500 mg Rosuvastatin Calcium (Crestor) 10 mg PO HS [facility] Last Admin: 04/16/17 22:53 Dose: 10 mg - Labs Labs: 04/17/17 06:07 04/17/17 06:07 PT 30.1 SECONDS (9.7-12.2) H* 04/17/17 06:07 INR 2.6 04/17/17 06:07 APTT 39 SECONDS (21-34) H D 04/14/17 08:51 Attending/Attestation - Attestation I have personally seen and examined this patient.: Yes I have fully participated in the care of the patient.: Yes I have reviewed all pertinent clinical information, including history, physical exam and plan: Yes Notes (Text): 04/17/17 11:09 Agree with resident note and plan of care
[2017-04-15] MEDS: Digoxin 125 mcg (0.125 mg) Tab PO SCH (19:01)
[2017-04-16] MEDS ORDERED: Metoprolol 1 mg/ml Inj IVP ONE (01:15)
--- NOTE | 2017-04-16 01:27 | PCM.RRT ---
<Maria Isabel Thomas - Last Filed: 04/16/17 01:44> PROPOSAL ENGINEER Nurses Assessment - Situation Date: 04/16/17 Time PROPOSAL ENGINEER was called: 12:55 PROPOSAL ENGINEER Responder Arrival Time:: 12:56 PROPOSAL ENGINEER Location:: 3T Med/Oncology I.Reason for PROPOSAL ENGINEER - A) Acute Change in Patient: Subjective: PROPOSAL ENGINEER was called at 12:55am for patient having seizures. Patient has a past medical history of a fib, htn, hld, chf, hypothyroidism, pacemaker, and copd, and no history of seizure disorder. On arrival, patient was still actively seizing for approximately 1-2mintues, followed by post-ictal state. Vitals were taken, BP 163/68, HR154, 100% on nasal cannula, and 98.3F. EKG showed Afib@ 103bpm. Patient nonverbal, but alert for several minutes. During my exam, patient became verbal, responded to questions, oriented to person, moving all extremities, and smiling. No signs of tongue biting or incontinence. Head CT ordered, repeat vitals were BP150/78, HR133, T97.8, 100% on nasal cannula. One dose of 2.5mg lopressor given. Patient was taken up for head CT and transferred to telemetry, T. - Constitutional Appears: Confused (initially, post-ictal; then became alert and verbal.) - Head Head Exam: ATRAUMATIC, NORMAL INSPECTION - Eyes Eye Exam: Normal appearance - Respiratory Exam Respiratory Exam: Rales, NORMAL BREATHING PATTERN. absent: Clear to Ausculation Bilateral, Respiratory Distress - Cardiovascular Exam Cardiovascular Exam: Tachycardia, Irregular Rhythm (Afib), +S1, +S2 - GI/Abdominal Exam GI & Abdominal Exam: Soft - Neurological Exam Neurological Exam: Alert, Awake Additional exam: initially post-ictal, then became alert and verbal - Extremities Exam Extremities Exam: Full ROM, Normal Inspection <Jaziel Arzola - Last Filed: 04/16/17 06:44> PROPOSAL ENGINEER Nurses Assessment - Vital Signs Vital Signs: Rapid Response Vital Sign Blood Pressure 163/68 Pulse Rate 154 Respiratory Rate 20 Temperature 98.3 F Oxygen Saturation 100 - Vital Signs at end of PROPOSAL ENGINEER Vital Signs at end of PROPOSAL ENGINEER: Rapid Response End Vital Sign Blood Pressure 150/78 Pulse Rate 125 Respiratory Rate 20 Temperature 97.8 F O2 Sat by Pulse Oximetry 100 Attending/Attestation - Attestation I have personally seen and examined this patient.: Yes I have fully participated in the care of the patient.: Yes I have reviewed all pertinent clinical information, including history, physical exam and plan: Yes Notes (Text): 04/16/17 06:41 PROPOSAL ENGINEER for seizure episode tonic-clonic resolved prior to my eval, patient was confused, post ictal, gradually MS improved and patient moved all ext, was able to speak and respond appropriately, chest clear, cvs irregular tachycardia given metoprolol 2.5mg, improved hr in 90's. PMH reviewed aortic and mitral valve replacements, inr 1.9, am labs ordered. Head CT reviewed by me no bleeding , motion artifacts. Patient transferred to tele.
--- NOTE | 2017-04-16 01:50 | CT ---
EXAM: CT Head Without Intravenous Contrast CLINICAL HISTORY: 87 years old, female; Pain; Headache and other: Seizur; Patient HX: 04-14-17 images sent; Additional info: Seizure TECHNIQUE: Axial computed tomography images of the head/brain without intravenous contrast. All CT scans at this facility use one or more dose reduction techniques, viz.: automated exposure control; ma/kV adjustment per patient size (including targeted exams where dose is matched to indication; i.e. head); or iterative reconstruction technique. Coronal and sagittal reformatted images were created and reviewed. COMPARISON: CT - HEAD W/O CONTRAST 2017-04-14 15:50 FINDINGS: Brain: No acute intracranial hemorrhage. Decreased attenuation adjacent to the posterior horn of the right lateral ventricle, unchanged. Otherwise age appropriate periventricular white matter disease. No edema. Ventricles: Age-appropriate ventriculomegaly. Bones: No acute displaced fracture. Sinuses: Unremarkable as visualized. No acute sinusitis. Mastoid air cells: Unremarkable as visualized. No mastoid effusion. IMPRESSION: No acute intracranial hemorrhage, or suspicious mass effect.
[2017-04-16] MEDS: Sodium Chloride 0.9% 1,000 ML IV SCH (05:15)
[2017-04-16] MEDS ORDERED: Simethicone 40 mg/0.6 ml Liquid (30 ml) PO ONE (05:25)
[2017-04-16] MEDS ORDERED: Simethicone 80 mg Chewtab PO ONE (05:45)
[2017-04-16 07:19] LABS: BASO % 0.3 % (0.0-2.0); HEMATOCRIT 38.6 % (34.0-47.0); LYMPH # 0.5 K/uL (1.0-4.3); LYMPH % 5.6 % (20.0-40.0); MEAN CELL VOLUME 90.6 fL (81.0-99.0); MEAN CORPUSCULAR HGB CONC 34.2 g/dL (33.0-37.0); MEAN PLATELET VOLUME 7.9 fL (7.2-11.7); MONO # 0.5 K/uL (0.0-0.8); PLATELET COUNT 187 K/uL (130-400); RED CELL DISTRIBUTION WIDTH 14.2 % (11.5-14.5); WHITE BLOOD COUNT 9.8 K/uL (4.8-10.8)
[2017-04-16 07:21] LABS: INR 2.2
[2017-04-16 07:31] LABS: POTASSIUM 3.7 mmol/L (3.6-5.2)
[2017-04-16 07:33] LABS: BILIRUBIN,TOTAL 0.8 mg/dL (0.2-1.3); TOTAL PROTEIN 7.7 g/dL (6.3-8.3)
[2017-04-16 07:34] LABS: CALCIUM 8.4 mg/dl (8.6-10.4)
[2017-04-16] MEDS ORDERED: WARFARIN SODIUM 6 MG PO SCH (09:00)
[2017-04-16 09:30] LABS: NEUTROPHIL 89 % (50-75); REACTIVE LYMPHOCYTES 1 % (0-0); TOTAL CELLS COUNTED 100
[2017-04-16] MEDS ORDERED: Influenza Vaccine 60 mcg/0.5 mL SYR (4YR UP) IM ONE (10:00)
[2017-04-16] MEDS ORDERED: Pneumococcal 23-Valent Vaccine IM ONE (10:00)
[2017-04-16] MEDS: Potassium Chloride 10 mEq ER Tab PO SCH (10:06)
[2017-04-16] MEDS: Ranolazine 500 mg Extended Release Tablets PO SCH ×2 (10:06→17:57)
--- NOTE | 2017-04-16 17:49 | CP.PCM.PN ---
<Eyal Bolanos - Last Filed: 04/16/17 18:10> Subjective - Date & Time of Evaluation Date of Evaluation: 04/16/17 Time of Evaluation: 09:20 - Subjective Subjective: PGY-[address] Teague Patient seen and examined at bedside. Patient denies dizziness at this time. Patient does not recall the events of the previous night with regards to her seizure activity. Patient denies fever, chills, chest pain, dyspnea, abdominal pain, dysuria. Objective - Vital Signs/Intake and Output Vital Signs (last 24 hours): Temp Pulse Resp BP Pulse Ox 98.3 F 58 L 18 124/67 100 04/16/17 16:00 04/16/17 16:00 04/16/17 16:00 04/16/17 16:00 04/16/17 16:00 Intake and Output: 04/16/17 04/16/17 06:59 18:59 Intake Total 1150 Balance 1150 - Medications Medications: Current Medications Carvedilol (Coreg) 3.125 mg PO BID [facility] Last Admin: 04/16/17 10:07 Dose: 3.125 mg Digoxin (Lanoxin) 0.125 mg PO DAILY@1800 [facility] Last Admin: 04/15/17 19:01 Dose: 0.125 mg Ferrous Sulfate (Feosol) 325 mg PO BID [facility] Last Admin: 04/16/17 10:06 Dose: 325 mg Furosemide (Lasix) 40 mg PO DAILY [facility] Last Admin: 04/16/17 10:07 Dose: 40 mg Hydroxyzine HCl (Atarax) 10 mg PO HS PRN PRN Reason: Insomnia Sodium Chloride (Sodium Chloride 0.9%) 1,000 mls @ 50 mls/hr IV .Q20H [facility] Last Admin: 04/16/17 05:15 Dose: Not Given Ondansetron HCl (Zofran Inj) 4 mg IVP Q6 PRN PRN Reason: Nausea/Vomiting Pantoprazole Sodium (Protonix Inj) 40 mg IVP DAILY [facility] Last Admin: 04/16/17 10:08 Dose: 40 mg Potassium Chloride (Klor-Con 10) 10 meq PO DAILY [facility] Last Admin: 04/16/17 10:06 Dose: 10 meq Ranolazine (Ranexa) 500 mg PO BID [facility] Last Admin: 10/20/17 10:06 Dose: 500 mg Rosuvastatin Calcium (Crestor) 10 mg PO HS [facility] Last Admin: 04/15/17 22:06 Dose: 10 mg - Labs Labs: 04/16/17 07:10 04/16/17 07:10 PT 25.1 SECONDS (9.7-12.2) H 04/16/17 07:10 INR 2.2 04/16/17 07:10 APTT 39 SECONDS (21-34) H D 04/14/17 08:51 - Constitutional Appears: No Acute Distress - Head Exam Head Exam: ATRAUMATIC, NORMOCEPHALIC - Eye Exam Eye Exam: EOMI, PERRL - ENT Exam ENT Exam: Mucous Membranes Moist - Respiratory Exam Respiratory Exam: Clear to Ausculation Bilateral. absent: Rales, Rhonchi, Wheezes - Cardiovascular Exam Cardiovascular Exam: Clicks, Irregular Rhythm, +S1, +S2 - GI/Abdominal Exam GI & Abdominal Exam: Soft, Normal Bowel Sounds. absent: Tenderness - Extremities Exam Extremities Exam: absent: Calf Tenderness, Pedal Edema - Neurological Exam Neurological Exam: Alert, Awake, Oriented x3 - Psychiatric Exam Psychiatric exam: Normal Affect, Normal Mood - Skin Skin Exam: Dry, Intact, Warm Additional comments: bruising noted along the 4 extremities Assessment and Plan - Assessment and Plan (Free Text) Plan: Dizziness Head CT w.o. contrast negative for acute pathology. Age related findings seen on study. PT evaluation and treatment Possible Seizure Repeat Head CT negative. Prolactin elevated 44.[address] Ford consulted. f/u EEG f/u repeat prolactin in AM Hypertension Furosemide 40mg Coreg 3.125 mg PO BID A fib without RVR Home regimen: Warfarin 6mg MWF and 4mg TTS (At home, patient varied regimen of 6mg only or 6mg in AM + 4mg in PM). This caused patient confusion and resulted in supratherapeutic INR. Digoxin 125 mg PO daily Coreg 3.125 mg PO BID 04/15: 5 mg Coumadin given--morning INR 2.4 04/16: morning INR 2.4---5 mg Coumadin given tonight Insomnia Home med Alprazolam 0.25mg POQHS PRN discontinued. Replaced with Atarax 10 mg PO HS prn insomnia History of CABG x 2 Carvedilol 6.25mg BID Atorvastatin 20mg NF--Crestor 10mg HS Ranexa 500mg BID Based on Echo from 07/2016, patient has bioprosthetic Aortic and mitral valve replacements Iron Deficiency Anemia Ferrous sulfate 325mg BID Klor-con 10meq Prophylactic Measure SCDs Warfarin 5 mg PO tonight with repeat INR in the AM GI:Protonix 40 mg PO daily Diet: Heart Healthy, Low fat diet NS@50cc/hr Donepezil 10mg PO QID Disposition: Plan for [facility]. Case DW Dr. Zahida Bolanos <Juan José Teague Jr. - Last Filed: 04/17/17 11:10> Objective - Vital Signs/Intake and Output Vital Signs (last 24 hours): Temp Pulse Resp BP Pulse Ox 98.2 F 82 20 126/70 94 L 04/17/17 07:00 04/17/17 07:00 04/17/17 07:00 04/17/17 09:27 04/17/17 07:00 Intake and Output: 04/17/17 04/17/17 06:59 18:59 Intake Total 520 Balance 520 - Medications Medications: Current Medications Carvedilol (Coreg) 3.125 mg PO BID [facility] Last Admin: 04/17/17 09:27 Dose: 3.125 mg Digoxin (Lanoxin) 0.125 mg PO DAILY@1800 [facility] Last Admin: 04/16/17 17:57 Dose: 0.125 mg Ferrous Sulfate (Feosol) 325 mg PO BID [facility] Last Admin: 04/17/17 09:27 Dose: 325 mg Furosemide (Lasix) 40 mg PO DAILY [facility] Last Admin: 04/17/17 09:27 Dose: 40 mg Hydroxyzine HCl (Atarax) 10 mg PO HS PRN PRN Reason: Insomnia Sodium Chloride (Sodium Chloride 0.9%) 1,000 mls @ 50 mls/hr IV .Q20H [facility] Last Admin: 04/16/17 05:15 Dose: Not Given Ondansetron HCl (Zofran Inj) 4 mg IVP Q6 PRN PRN Reason: Nausea/Vomiting Pantoprazole Sodium (Protonix Inj) 40 mg IVP DAILY [facility] Last Admin: 04/17/17 09:27 Dose: 40 mg Potassium Chloride (Klor-Con 10) 10 meq PO DAILY [facility] Last Admin: 04/17/17 09:27 Dose: 10 meq Ranolazine (Ranexa) 500 mg PO BID [facility] Last Admin: 04/17/17 09:27 Dose: 500 mg Rosuvastatin Calcium (Crestor) [address] [facility] Last Admin: 04/16/17 22:53 Dose: 10 mg - Labs Labs: 04/17/17 06:07 04/17/17 06:07 PT 30.1 SECONDS (9.7-12.2) H* 04/17/17 06:07 INR 2.6 04/17/17 06:07 APTT 39 SECONDS (21-34) H D 04/14/17 08:51 Attending/Attestation - Attestation I have personally seen and examined this patient.: Yes I have fully participated in the care of the patient.: Yes I have reviewed all pertinent clinical information, including history, physical exam and plan: Yes Notes (Text): 04/17/17 11:10 Agree with resident note and plan of care
[2017-04-16] MEDS: Digoxin 125 mcg (0.125 mg) Tab PO SCH (17:57)
[2017-04-16 20:01] LABS: INR 2.4
--- NOTE | 2017-04-16 23:32 | CON ---
NEUROLOGY CONSULTATION REPORT DATE: REASON FOR CONSULTATION: New onset of seizure. HISTORY OF PRESENTING ILLNESS: The patient is an 87-year-old female who was admitted in hospital with complaints of dizziness, last night the patient was noted to have tonic-clonic seizure, rapid response was called. The patient was confused and was tachycardic. The patient never had seizure before. She has been having dizziness over the last few days. Dizziness lightheaded feeling. There was no nausea, vomiting or ringing of the ears. She denies any focal weakness in arms or legs. Denies any loss of vision. PAST MEDICAL HISTORY: Includes hypertension, atrial fibrillation, cardiomyopathy. PAST SURGICAL HISTORY: Includes permanent pacemaker placement, coronary artery bypass graft and appendectomy. MEDICATIONS AT HOME: Included Warfarin, Actonel, Ranexa, Klor-Con, Antivert, Lasix, Feosol, Aricept, digoxin, Coreg, Lipitor, and Xanax. ALLERGIES: NO KNOWN DRUG ALLERGIES. FAMILY HISTORY: Reviewed and contributory to the case. SOCIAL HISTORY: The patient is a nonsmoker, nonalcoholic and does not use any illicit drugs. PHYSICAL EXAMINATION GENERAL: The patient is an elderly female lying on the bed, in no acute distress. VITAL SIGNS: Blood pressure is 119/59, heart rate is 86 per minute, breathing at the rate of 16 per minute, and temperature is 97.6 degree Fahrenheit. HEENT: Head is normocephalic and atraumatic. NECK: Supple. There are no carotid bruit. LUNGS: Clear. CARDIOVASCULAR SYSTEMS: S1 and S2 audible. No murmurs. GASTROINTESTINAL: Abdomen is soft and nontender with bowel sounds are present. NEUROLOGY: Mental status; the patient is awake, alert, oriented to place, person and year. She follows all simple commands. Cranial nerve examination; pupils, left is 2 mm status post surgery, right is 1 mm nonreactive to light. Extraocular movements are intact. There is no visual field defect. There is no facial asymmetry. Palate is upgoing bilaterally and tongue is midline. Motor examination; tone is normal. Power is 5/5 bilaterally in all extremities. Reflexes are 1+ and symmetrical. Plantar's are downgoing bilaterally. Cerebellar examination; [id number] shows no dysmetria. The gait is deferred at the moment. LABORATORY DATA: Labs reviewed. Shows WBC of 9.8, hemoglobin is 13.2, hematocrit of 38.6 and platelets of 187. INR is 2.2. Sodium is 134, potassium of 3.7, chloride 98, carbon dioxide content 27, BUN of 20, creatinine 1.1 and glucose of 146. She had a CT scan of the head done, which is negative for any acute intracranial pathology. IMPRESSION: 1. New onset of seizures. 2. Dizziness. RECOMMENDATIONS: 1. The patient to have an electroencephalogram. 2. We will hold off antiepileptic medication at present; however, if EEG shows any abnormality, we will consider starting her on antiepileptic medication or if the patient was noticed to have another seizure,we will consider starting antiepileptic medication. 3. The patient will have physical therapy for gait imbalance. 4. I will stop patient's Aricept as it should be used with extreme caution in the patient with seizures. 5. The patient may be continued on Meclizine for dizziness. 6. Please continue supportive care and treatment and I agree with physical therapy. Thank you for the opportunity to participate in the care of this patient. Daysi Ford MD
[2017-04-17 06:24] LABS: BASO % 0.4 % (0.0-2.0); EOS % 0.3 % (0.0-4.0); HEMATOCRIT 39.3 % (34.0-47.0); LYMPH # 1.4 K/uL (1.0-4.3); LYMPH % 22.2 % (20.0-40.0); MEAN CELL VOLUME 90.7 fL (81.0-99.0); MEAN CORPUSCULAR HEMOGLOBIN 30.6 pg (27.0-31.0); MEAN CORPUSCULAR HGB CONC 33.7 g/dL (33.0-37.0); MEAN PLATELET VOLUME 7.7 fL (7.2-11.7); MONO # 0.6 K/uL (0.0-0.8); MONO % 9.6 % (0.0-10.0); RED CELL DISTRIBUTION WIDTH 14.1 % (11.5-14.5); WHITE BLOOD COUNT 6.5 K/uL (4.8-10.8)
[2017-04-17 06:35] LABS: INR 2.6
[2017-04-17 07:51] LABS: CHLORIDE 97 mmol/L (98-107); POTASSIUM 3.7 mmol/L (3.6-5.2); SODIUM 135 mmol/L (132-148)
[2017-04-17 07:53] LABS: GFR AFRICAN-AMERICAN > 60
[2017-04-17 07:54] LABS: ALB/GLOB RATIO 0.8 (1.0-2.1); ALKALINE PHOSPHATASE 106 U/L (38-126); ALT/SGPT 33 U/L (9-52); AST/SGOT 32 U/L (14-36); BILIRUBIN,TOTAL 0.9 mg/dL (0.2-1.3); BLOOD UREA NITROGEN 18 mg/dL (7-17); CARBON DIOXIDE 29 mmol/L (22-30); GLUCOSE,RANDOM 103 mg/dL (65-105); TOTAL PROTEIN 8.3 g/dL (6.3-8.3)
[2017-04-17 07:55] LABS: CALCIUM 8.8 mg/dl (8.6-10.4)
[2017-04-17] MEDS: Potassium Chloride 10 mEq ER Tab PO SCH (09:27)
[2017-04-17] MEDS: Ranolazine 500 mg Extended Release Tablets PO SCH ×2 (09:27→18:42)
--- NOTE | 2017-04-17 14:13 | CARD ---
APPROVED REPORT EKG Measurement Heart [id number] <Conclusion> Atrial fibrillation Nonspecific T wave abnormality Abnormal ECG
--- NOTE | 2017-04-17 14:20 | CP.PCM.PN ---
Subjective - Date & Time of Evaluation Date of Evaluation: 04/17/17 Time of Evaluation: 09:00 - Subjective Subjective: Medicine Progress Note- Dr. Teague's Service: Patient seen and examined at bedside this AM. Patient reports she is feeling well this morning. She answers questions appropriately. However, when asked what year it is, patient answers 1970. She is otherwise alert to person and place. She has no concerns today. Patient had [employer] for seizure activity two nights ago. No further episodes reported by nursing. She denies chest pain, palpitations SOB, diarrhea, dizziness, fevers, chills, dysuria, pain. Objective - Vital Signs/Intake and Output Vital Signs (last 24 hours): Temp Pulse Resp BP Pulse Ox 98.3 F 87 20 149/70 99 04/17/17 12:30 04/17/17 12:30 04/17/17 12:30 04/17/17 12:30 04/17/17 12:30 Intake and Output: 04/17/17 04/17/17 06:59 18:59 Intake Total 520 Balance 520 - Medications Medications: Current Medications Carvedilol (Coreg) 3.125 mg PO BID [facility] Last Admin: 04/17/17 09:27 Dose: 3.125 mg Digoxin (Lanoxin) 0.125 mg PO DAILY@1800 [facility] Last Admin: 04/16/17 17:57 Dose: 0.125 mg Ferrous Sulfate (Feosol) 325 mg PO BID [facility] Last Admin: 04/17/17 09:27 Dose: 325 mg Furosemide (Lasix) 40 mg PO DAILY [facility] Last Admin: 04/17/17 09:27 Dose: 40 mg Hydroxyzine HCl (Atarax) 10 mg PO HS PRN PRN Reason: Insomnia Sodium Chloride (Sodium Chloride 0.9%) 1,000 mls @ 50 mls/hr IV .Q20H [facility] Last Admin: 04/16/17 05:15 Dose: Not Given Ondansetron HCl (Zofran Inj) 4 mg IVP Q6 PRN PRN Reason: Nausea/Vomiting Pantoprazole Sodium (Protonix Inj) 40 mg IVP DAILY [facility] Last Admin: 04/17/17 09:27 Dose: 40 mg Potassium Chloride (Klor-Con 10) 10 meq PO DAILY [facility] Last Admin: 04/17/17 09:27 Dose: 10 meq Ranolazine (Ranexa) 500 mg PO BID [facility] Last Admin: 04/17/17 09:27 Dose: 500 mg Rosuvastatin Calcium (Crestor) 10 mg PO HS [facility] Last Admin: 04/16/17 22:53 Dose: 10 mg - Labs Labs: 04/17/17 06:07 04/17/17 06:07 PT 30.1 SECONDS (9.7-12.2) H* 04/17/17 06:07 INR 2.6 04/17/17 06:07 APTT 39 SECONDS (21-34) H D 04/14/17 08:51 - Constitutional Appears: No Acute Distress - Head Exam Head Exam: NORMAL INSPECTION, NORMOCEPHALIC - Eye Exam Eye Exam: EOMI, Normal appearance - ENT Exam ENT Exam: Mucous Membranes Moist - Neck Exam Neck Exam: Full ROM - Respiratory Exam Respiratory Exam: Clear to Ausculation Bilateral, NORMAL BREATHING PATTERN - Cardiovascular Exam Cardiovascular Exam: REGULAR RHYTHM, +S1, +S2 - GI/Abdominal Exam GI & Abdominal Exam: Soft. absent: Distended, Tenderness - Extremities Exam Extremities Exam: Full ROM, Normal Inspection, Pedal Edema - Back Exam Back Exam: NORMAL INSPECTION - Neurological Exam Neurological Exam: Alert, Awake. absent: Oriented x3 Assessment and Plan - Assessment and Plan (Free Text) Assessment: Possible Seizure Repeat Head CT 04/16 negative. Prolactin elevated 44.5. Repeat Prolactin was 29.[address] Neurologist [address]. Ford consulted. D/C Donepezil 10mg PO QID as per Dr. Ford. Seizure precautions f/u EEG. Done today. Dizziness Head CT 04/14 w.o. contrast negative for acute pathology. Age related findings seen on study. PT evaluation and treatment A fib without RVR Home regimen: Warfarin 6mg MWF and 4mg TTS (At home, patient varied regimen of 6mg only or 6mg in AM + 4mg in PM). This caused patient confusion and resulted in supratherapeutic INR. Coreg 3.125 mg PO BID 04/15: 5 mg Coumadin given--morning INR 2.4 04/16: morning INR 2.4---5 mg Coumadin given tonight 04/17: INR 2.6- Coumadin 5 mg tonight. f/u INR in the AM. History of CABG x 2 Carvedilol 6.25mg BID Atorvastatin 20mg NF--Crestor 10mg HS Ranexa 500mg BID Takatsubo's cardiomyopathy Based on Echo from 07/2016, LVF normal. Biatrial enlargement. Patient has bioprosthetic Aortic and mitral valve replacements. pro BNP 1140 on admission Digoxin 125mcg Coreg 3.125 mg PO BID Furosemide 40mg PO daily Prosthetic Valve Based on Echo from 07/2016, LVF normal. Biatrial enlargement. Patient has bioprosthetic Aortic and mitral valve replacements. 04/17: INR 2.6- Coumadin 5 mg tonight. f/u INR in the AM. Hypertension Furosemide 40mg PO daily Coreg 3.125 mg PO BID Iron Deficiency Anemia H/H stable Ferrous sulfate 325mg BID Klor-con 10meq Insomnia Home med Alprazolam 0.25mg POQHS PRN discontinued. Replaced with Atarax 10 mg PO HS prn insomnia Prophylactic Measure SCDs Warfarin 5 mg PO tonight with repeat INR in the AM GI:Protonix 40 mg PO daily Diet: Heart Healthy, Low fat diet Disposition: Plan for [facility].
[2017-04-17] MEDS: Digoxin 125 mcg (0.125 mg) Tab PO SCH (18:42)
--- NOTE | 2017-04-17 22:02 | PN ---
NEUROLOGY PROGRESS NOTE SUBJECTIVE: The patient is lying on the bed, in no acute distress. Denies any headache. She has mild dizziness. PHYSICAL EXAMINATION: VITAL SIGNS: Her blood pressure is 149/70, heart rate is 87 per minute, breathing at a rate of 16 per minute and temperature is 98.3 degree Fahrenheit. HEENT EXAM: Head is normocephalic and atraumatic. NECK: Supple. There are no carotid bruits. LUNGS: Clear. CARDIOVASCULAR EXAM: S1 and S2 audible. No murmurs. ABDOMEN: Soft, nontender. Bowel sounds are present. NEUROLOGIC EXAMINATION: Mental Status: The patient is awake, alert and oriented to time, place and person. Speech is fluent. Naming and repetition are normal. Memory and cognition appear intact. Cranial nerve examination: Pupils: Right is 1 mm, nonreactive to light; left is 2 mm, status post surgery. Extraocular movements are intact. There is no clear visual field defect. Tongue is midline. She is moving all 4 extremities symmetrically. Power appears to be 4 to 5/5 all over. Plantars downgoing bilaterally. IMPRESSION: 1. New onset of seizure. 2. Dizziness. RECOMMENDATIONS: 1. The patient had no further episode of passing out. 2. We will continue to hold antiepileptic medication. 3. Follow up on the electroencephalogram report; if abnormal, we will consider starting the patient on antiepileptic medication. 4. The patient to be continued on meclizine. 5. The patient to have physical therapy for gait imbalance. Thank you for the opportunity to participate in the care of this patient. Daysi Ford MD
[2017-04-18 08:42] LABS: BASO % 0.6 % (0.0-2.0); EOS # 0.1 K/uL (0.0-0.7); EOS % 1.5 % (0.0-4.0); HEMATOCRIT 42.6 % (34.0-47.0); LYMPH # 2.1 K/uL (1.0-4.3); LYMPH % 30.7 % (20.0-40.0); MEAN CELL VOLUME 90.2 fL (81.0-99.0); MEAN CORPUSCULAR HEMOGLOBIN 30.7 pg (27.0-31.0); MEAN PLATELET VOLUME 7.7 fL (7.2-11.7); MONO # 0.7 K/uL (0.0-0.8); MONO % 10.3 % (0.0-10.0); RED CELL DISTRIBUTION WIDTH 14.2 % (11.5-14.5); WHITE BLOOD COUNT 6.7 K/uL (4.8-10.8)
[2017-04-18 08:46] LABS: INR 3.1
[2017-04-18 08:55] LABS: POTASSIUM 3.9 mmol/L (3.6-5.2)
[2017-04-18 08:58] LABS: ALB/GLOB RATIO 1.1 (1.0-2.1); BILIRUBIN,TOTAL 1.1 mg/dL (0.2-1.3); TOTAL PROTEIN 8.1 g/dL (6.3-8.3)
[2017-04-18] MEDS: Ranolazine 500 mg Extended Release Tablets PO SCH ×2 (09:17→17:07)
[2017-04-18] MEDS: Potassium Chloride 10 mEq ER Tab PO SCH (09:18)
--- NOTE | 2017-04-18 10:22 | CP.PCM.PN ---
Subjective - Date & Time of Evaluation Date of Evaluation: 04/18/17 Time of Evaluation: 08:00 - Subjective Subjective: Medicine Progress Note- Dr. Teague's service: Patient seen and examined at bedside this AM. Patient is very confused this morning and was started on 1:1 this AM. She thinks she is at a hotel and does not know the year. As per staff, patient giving away all the contents of her purse this AM. Patient was redirected successfully. She is feeling well and eating with good appetite. Objective - Vital Signs/Intake and Output Vital Signs (last 24 hours): Temp Pulse Resp BP Pulse Ox 98 F 77 20 122/61 96 04/18/17 09:15 04/18/17 09:15 04/18/17 09:15 04/18/17 09:17 04/18/17 09:15 - Medications Medications: Current Medications Carvedilol (Coreg) 3.125 mg PO BID [facility] Last Admin: 04/18/17 09:18 Dose: 3.125 mg Digoxin (Lanoxin) 0.125 mg PO DAILY@1800 [facility] Last Admin: 04/17/17 18:42 Dose: 0.125 mg Ferrous Sulfate (Feosol) 325 mg PO BID [facility] Last Admin: 04/18/17 09:18 Dose: 325 mg Furosemide (Lasix) 40 mg PO DAILY [facility] Last Admin: 04/18/17 09:17 Dose: 40 mg Hydroxyzine HCl (Atarax) 10 mg PO HS PRN PRN Reason: Insomnia Last Admin: 04/18/17 01:01 Dose: 10 mg Ondansetron HCl (Zofran Inj) 4 mg IVP Q6 PRN PRN Reason: Nausea/Vomiting Pantoprazole Sodium (Protonix Inj) 40 mg IVP DAILY [facility] Last Admin: 04/18/17 09:17 Dose: 40 mg Potassium Chloride (Klor-Con 10) 10 meq PO DAILY [facility] Last Admin: 04/18/17 09:18 Dose: 10 meq Ranolazine (Ranexa) 500 mg PO BID [facility] Last Admin: 04/18/17 09:17 Dose: 500 mg Rosuvastatin Calcium (Crestor) 10 mg PO HS [facility] Last Admin: 04/17/17 22:28 Dose: 10 mg - Labs Labs: 04/18/17 08:20 04/18/17 08:20 PT 36.7 SECONDS (9.7-12.2) H* D 04/18/17 08:20 INR 3.1 04/18/17 08:20 APTT 39 SECONDS (21-34) H D 04/14/17 08:51 - Constitutional Appears: No Acute Distress - Head Exam Head Exam: NORMAL INSPECTION, NORMOCEPHALIC - Eye Exam Eye Exam: EOMI, Normal appearance - ENT Exam ENT Exam: Mucous Membranes Moist - Neck Exam Neck Exam: Full ROM, Normal Inspection - Respiratory Exam Respiratory Exam: Clear to Ausculation Bilateral - Cardiovascular Exam Cardiovascular Exam: Irregular Rhythm - GI/Abdominal Exam GI & Abdominal Exam: Soft. absent: Distended, Tenderness - Extremities Exam Extremities Exam: Normal Inspection. absent: Pedal Edema - Back Exam Back Exam: NORMAL INSPECTION - Neurological Exam Neurological Exam: Alert, Awake. absent: Oriented x3 - Psychiatric Exam Psychiatric exam: Normal Affect, Normal Mood - Skin Skin Exam: Dry, Normal Color, Warm Assessment and Plan - Assessment and Plan (Free Text) Assessment: Possible Seizure Repeat Head CT 04/16 negative. Prolactin elevated 44.5. Repeat Prolactin was 29.[address] Neurologist Dr. Ford consulted. D/C Donepezil 10mg PO QID as per Dr. Ford. Seizure precautions f/u EEG. Done 04/17/17. As per Dr. Ford, hold seizure medications. If seizure activity found, resume seizure meds. Dementia Neurologist Dr. Ford consulted. D/C Donepezil 10mg PO QID as per Dr. Ford. Dizziness Head CT 04/14 w.o. contrast negative for acute pathology. Age related findings seen on study. Continue Meclizine as per neuro. PT evaluation and treatment A fib without RVR Home regimen: Warfarin 6mg MWF and 4mg TTS (At home, patient varied regimen of 6mg only or 6mg in AM + 4mg in PM). This caused patient confusion and resulted in supratherapeutic INR. Coreg 3.125 mg PO BID 04/15: 5 mg Coumadin given--morning INR 2.4 04/16: morning INR 2.4---5 mg Coumadin given tonight 04/17: INR 2.6- Coumadin 5 mg tonight. f/u INR in the AM. 04/18: INR 3.1. Will hold coumadin today. History of CABG x 2 Carvedilol 6.25mg BID Crestor 10mg HS Ranexa 500mg BID Takatsubo's cardiomyopathy Based on Echo from 07/2016, LVF normal. Biatrial enlargement. Patient has bioprosthetic Aortic and mitral valve replacements. pro BNP 1140 on admission Digoxin 125mcg Coreg 3.125 mg PO BID Furosemide 40mg PO daily Prosthetic Valve Based on Echo from 07/2016, LVF normal. Biatrial enlargement. Patient has bioprosthetic Aortic and mitral valve replacements. 04/17: INR 2.6- Coumadin 5 mg tonight. f/u INR in the AM. Hypertension Furosemide 40mg PO daily Coreg 3.125 mg PO BID Iron Deficiency Anemia H/H stable Ferrous sulfate 325mg BID Klor-con 10meq Insomnia Home med Alprazolam 0.25mg POQHS PRN discontinued. Replaced with Atarax 10 mg PO HS prn insomnia Prophylactic Measure SCDs Warfarin 5 mg PO tonight with repeat INR in the AM GI:Protonix 40 mg PO daily Diet: Heart Healthy, Low fat diet Disposition: Plan for [facility].
--- NOTE | 2017-04-18 15:30 | EEG ---
ELECTROENCEPHALOGRAM REPORT DATE: INTRODUCTION: This is a digitally recorded EEG monitoring using standard EEG montages. BACKGROUND RHYTHM: The EEG shows a background activity of 8 Hertz alpha activity in parieto-occipital region. The EEG activity is bilaterally symmetrical and synchronous. There is attenuation of the background activity on eye opening. No sleep recording was noted. Small amount of myogenic artifact noticed in this EEG recording. ABNORMAL POTENTIALS: No spike, sharp waves or focal slowing was seen. PHOTIC STIMULATION AND HYPERVENTILATION: Photic stimulation did not reveal any abnormality. Hyperventilation was not performed. IMPRESSION: Normal electroencephalogram. No epileptiform activity seen in this electroencephalogram recording. Daysi Ford MD
[2017-04-18] MEDS: Digoxin 125 mcg (0.125 mg) Tab PO SCH (17:07)
--- NOTE | 2017-04-18 21:00 | PN ---
NEUROLOGY PROGRESS NOTE DATE: SUBJECTIVE: The patient is lying on the bed, in no acute distress. Denies any headache or dizziness today Earlier, I was called by the nurse that the patient's family noticed that the patient was confused last night as well as was having difficulty with walking. PHYSICAL EXAMINATION: VITAL SIGNS: Her blood pressure is 104/64, heart rate is 83 per minute, breathing at a rate of 16 per minute and temperature is 98.1 degree Fahrenheit. HEENT EXAM: Head is normocephalic and atraumatic. NECK: Supple. There are no carotid bruits. LUNGS: Clear. CARDIOVASCULAR EXAM: S1 and S2 audible. No murmurs. ABDOMEN: Soft, nontender. Bowel sounds are positive. NEUROLOGIC EXAMINATION: Mental Status: The patient is awake, alert and oriented to place and person and year. She follows simple commands. Cranial nerve examination: Pupils, left is 2 mm, status post surgery and right is 1 mm , nonreactive to light. Extraocular movements are intact. There is n visual field defect. There is no facial asymmetry. Plantars are downgoing bilaterally and tongue is midline. Motor examination: Tone is normal. Power is 5/5 bilaterally in all extremities. Gait is deferred at the moment. IMPRESSION: 1. New onset of seizure. 2. Status post altered mental status, which is probably sundowning phenomena. 3. Dizziness. RECOMMENDATIONS: 1. The patient to have MRI of the brain without contrast. 2. The patient to have urine for urinalysis. 3. The patient had no further seizure, we will hold off any antiepileptic medication at present. 4. The patient to have physical therapy for gait imbalance. 5. Please continue support care and treatment. Thank you for the opportunity to participate in the care of this patient. Daysi Ford MD
[2017-04-19 07:14] LABS: BASO % 0.7 % (0.0-2.0); EOS # 0.2 K/uL (0.0-0.7); EOS % 3.9 % (0.0-4.0); HEMATOCRIT 43.5 % (34.0-47.0); LYMPH # 1.8 K/uL (1.0-4.3); LYMPH % 29.3 % (20.0-40.0); MEAN CELL VOLUME 90.6 fL (81.0-99.0); MEAN CORPUSCULAR HEMOGLOBIN 30.5 pg (27.0-31.0); MEAN CORPUSCULAR HGB CONC 33.6 g/dL (33.0-37.0); MEAN PLATELET VOLUME 7.7 fL (7.2-11.7); MONO # 0.7 K/uL (0.0-0.8); MONO % 10.9 % (0.0-10.0); RED CELL DISTRIBUTION WIDTH 14.2 % (11.5-14.5); WHITE BLOOD COUNT 6.2 K/uL (4.8-10.8)
[2017-04-19 07:20] LABS: INR 3.5
[2017-04-19 07:31] LABS: ALB/GLOB RATIO 1.1 (1.0-2.1); BILIRUBIN,TOTAL 0.9 mg/dL (0.2-1.3); TOTAL PROTEIN 7.5 g/dL (6.3-8.3)
[2017-04-19 07:32] LABS: CALCIUM 8.8 mg/dl (8.6-10.4)
--- NOTE | 2017-04-19 08:16 | CP.PCM.PN ---
Subjective - Date & Time of Evaluation Date of Evaluation: 04/19/17 Time of Evaluation: 07:57 - Subjective Subjective: Medicine Progress Note for Dr. Teague HPI: Patient seen and examined at bedside. Patient was awaken from sleep in a pleasant demeanor. Through a hungarian-speaking nurse, patient was oriented to time and person but not place (believed she was at home). According to previous reports, patient's son stated the patient was previously able to drive on her own and was living on her own prior to admission. Patient stated she was feeling "better." Patient denied chest pain, headache, trouble breathing, or abdominal pain. Objective - Vital Signs/Intake and Output Vital Signs (last 24 hours): Temp Pulse Resp BP Pulse Ox 98.2 F 67 20 129/67 99 04/18/17 23:25 04/18/17 23:25 04/18/17 23:25 04/18/17 23:25 04/18/17 23:25 Intake and Output: 04/19/17 04/19/17 06:59 18:59 Intake Total 500 Balance 500 - Medications Medications: Current Medications Carvedilol (Coreg) 3.125 mg PO BID [facility] Last Admin: 04/18/17 17:09 Dose: Not Given Digoxin (Lanoxin) 0.125 mg PO DAILY@1800 [facility] Last Admin: 04/18/17 17:07 Dose: 0.125 mg Ferrous Sulfate (Feosol) 325 mg PO BID [facility] Last Admin: 04/18/17 17:08 Dose: 325 mg Furosemide (Lasix) 40 mg PO DAILY [facility] Last Admin: 04/18/17 09:17 Dose: 40 mg Hydroxyzine HCl (Atarax) 10 mg PO HS PRN PRN Reason: Insomnia Last Admin: 04/18/17 01:01 Dose: 10 mg Ondansetron HCl (Zofran Inj) 4 mg IVP Q6 PRN PRN Reason: Nausea/Vomiting Pantoprazole Sodium (Protonix Ec Tab) 40 mg PO DAILY [facility] Potassium Chloride (Klor-Con 10) 10 meq PO DAILY [facility] Last Admin: 04/18/17 09:18 Dose: 10 meq Ranolazine (Ranexa) 500 mg PO BID [facility] Last Admin: 04/18/17 17:07 Dose: 500 mg Rosuvastatin Calcium (Crestor) 10 mg PO HS [facility] Last Admin: 04/18/17 21:10 Dose: 10 mg - Labs Labs: 04/19/17 07:04 04/19/17 07:04 PT 41.2 SECONDS (9.7-12.2) H* 04/19/17 07:04 INR 3.5 04/19/17 07:04 APTT 39 SECONDS (21-34) H D 04/14/17 08:51 - Constitutional Appears: Well, Non-toxic, No Acute Distress - Head Exam Head Exam: ATRAUMATIC, NORMAL INSPECTION, NORMOCEPHALIC - Eye Exam Eye Exam: EOMI Pupil Exam: NORMAL ACCOMODATION - ENT Exam ENT Exam: Mucous Membranes Moist - Neck Exam Neck Exam: Normal Inspection - Respiratory Exam Respiratory Exam: Clear to Ausculation Bilateral, NORMAL BREATHING PATTERN - Cardiovascular Exam Cardiovascular Exam: Irregular Rhythm - GI/Abdominal Exam GI & Abdominal Exam: Soft, Normal Bowel Sounds. absent: Distended, Tenderness - Extremities Exam Extremities Exam: Pedal Edema (1+), Tenderness (mild) - Neurological Exam Neurological Exam: Alert, Awake, Oriented x3 - Psychiatric Exam Psychiatric exam: Normal Affect, Normal Mood - Skin Skin Exam: Dry, Intact, Normal Color, Warm Assessment and Plan - Assessment and Plan (Free Text) Assessment: Possible Seizure * Repeat Head CT 04/16 negative. * Neuro (Liliana) * D/C Donepezil 10mg PO QID * Seizure precautions * EEG - normal * MRI - no acute intracranial findings * F/U UA Dementia * Neuro (Liliana) * D/C Donepezil 10mg PO QID as per Dr. Ford. Dizziness * Head CT - negative * Continue Meclizine * PT A fib without RVR * Warfarin 5mg PO * F/U INR * therapeutic bw 2.5-3.5 * Coreg 3.125 mg PO BID History of CABG x 2 * Carvedilol 6.25mg BID * Crestor 10mg HS * Ranexa 500mg BID Takatsubo's cardiomyopathy * Echo from 07/2016, LVF normal. Biatrial enlargement. * bioprosthetic Aortic and mitral valve replacements. * pro BNP 1140 on admission * Digoxin 125mcg * Coreg 3.125 mg PO BID * Furosemide 40mg PO daily Hypertension * Furosemide 40mg PO daily * Coreg 3.125 mg PO BID Iron Deficiency Anemia * Ferrous sulfate 325mg BID * Klor-con 10meq Insomnia * Atarax 10 mg PO HS prn Prophylactic Measure * SCDs * GI:Protonix 40 mg PO daily * Diet: Heart Healthy, Low fat diet Disposition: [facility] approved
[2017-04-19] MEDS: Pantoprazole 40 mg EC Tab PO SCH (10:22)
[2017-04-19] MEDS: Ranolazine 500 mg Extended Release Tablets PO SCH ×2 (10:22→18:52)
[2017-04-19] MEDS: Potassium Chloride 10 mEq ER Tab PO SCH (10:22)
--- NOTE | 2017-04-19 13:17 | MRI ---
PROCEDURE: MRI BRAIN WITHOUT CONTRAST HISTORY: seizure COMPARISON: None. TECHNIQUE: Multiplanar, multisequence MR images of the brain were obtained without intravenous contrast enhancement. FINDINGS: HEMORRHAGE: None DWI: No evidence of an acute or early subacute infarction. BRAIN PARENCHYMA: Diffuse cerebral atrophy chronic microangiopathy are reiterated. A small chronic lacune is again seen the caudate lobe and the left cerebellar hemisphere inferiorly and posteriorly. There is no mass effect or suspicious extra-axial fluid collection identified. Midline brain anatomy appears unremarkable as well as the craniocervical junction. VENTRICLES: Unremarkable. No hydrocephalus. CRANIUM: Unremarkable. ORBITS: Grossly unremarkable. PARANASAL SINUSES/MASTOIDS: Clear VASCULAR SYSTEM: Skull base flow voids intact. OTHER FINDINGS: None. IMPRESSION: Stable age related neuro degenerative changes are identified without definite acute intracranial findings. Chronic lacunes are seen at the left caudate lobe and left cerebellum once again.
--- NOTE | 2017-04-19 13:28 | CARD ---
APPROVED REPORT EKG Measurement Heart [id number] <Conclusion> Atrial fibrillation with a competing junctional pacemaker ST & T wave abnormality, consider anterior ischemia Abnormal ECG
[2017-04-19] MEDS: Digoxin 125 mcg (0.125 mg) Tab PO SCH (18:50)
[2017-04-19 18:52] VITALS: PULSE 88
[2017-04-19 21:52] LABS: RBC URINE 5 /hpf (0-3); URINE BACTERIA FEW (<OCC); URINE BILIRUBIN NEGATIVE (NEGATIVE); URINE BLOOD NEGATIVE (NEGATIVE); URINE GLUCOSE (UA) NORMAL (Normal); URINE KETONE NEGATIVE (NEGATIVE); URINE LEUKOCYTE ESTERASE 3+ Leu/uL (Negative); URINE PROTEIN NEGATIVE (NEGATIVE); URINE UROBILINOGEN NORMAL mg/dL (0.2-1.0); WBC CLUMPS FEW /hpf; WBC URINE 1963 /hpf (0-5)
[2017-04-19 21:58] LABS: URINE COLOR YELLOW (YELLOW)
--- NOTE | 2017-04-19 23:40 | PN ---
DATE: SUBJECTIVE: The patient is lying on the bed, in no acute distress. PHYSICAL EXAMINATION VITAL SIGNS: Her blood pressure is 108/63, heart rate is 77 per minute, breathing at a rate of 16 per minute and temperature is 98.2 degree Fahrenheit. HEENT: Head is normocephalic and atraumatic. NECK: Supple. There are no carotid bruits. LUNGS: Clear. CARDIOVASCULAR EXAM: S1 and S2 audible. No murmurs. ABDOMEN: Soft, nontender. Bowel sounds are present. NEUROLOGIC EXAMINATION: Mental Status: The patient is awake, alert and oriented to time, place. Speech is fluent. Naming and repetition are normal. Memory and cognition appear intact. Cranial nerve examination: Pupils are 2 mm bilaterally, reactive to light. There is no visual field defect. Extraocular movements are intact. There is no facial asymmetry. She is moving all 4 extremities symmetrically. Plantars are downgoing bilaterally. LABORATORY DATA: Reviewed. MRI of the brain shows stable age related neurodegenerative changes without definite acute intracranial findings. Chronic lacunar is seen at the left carotid lobe and left cerebellum. IMPRESSION: 1. New onset of seizure. 2. Status post altered mental status, which is likely sundowning phenomena. 3. Status post dizziness. RECOMMENDATIONS: 1. The patient had no further seizures. 2. We will hold off any antiepileptic medication at present. 3. The patient to have physical therapy for gait imbalance. 4. Please continue support care and other treatment. Thank you for the opportunity to participate in the care of this patient. Daysi Ford MD
[2017-04-20 07:43] LABS: INR 3.2
[2017-04-20 07:50] LABS: BASO % 0.6 % (0.0-2.0); EOS # 0.2 K/uL (0.0-0.7); EOS % 3.5 % (0.0-4.0); HEMATOCRIT 41.1 % (34.0-47.0); LYMPH # 1.8 K/uL (1.0-4.3); LYMPH % 26.6 % (20.0-40.0); MEAN CELL VOLUME 90.5 fL (81.0-99.0); MEAN CORPUSCULAR HEMOGLOBIN 31.1 pg (27.0-31.0); MEAN CORPUSCULAR HGB CONC 34.4 g/dL (33.0-37.0); MONO # 0.8 K/uL (0.0-0.8); MONO % 10.9 % (0.0-10.0); NRBC % 0.1 % (0.0-2.0); WHITE BLOOD COUNT 6.9 K/uL (4.8-10.8)
[2017-04-20 08:01] LABS: POTASSIUM 3.7 mmol/L (3.6-5.2)
[2017-04-20 08:03] LABS: ALB/GLOB RATIO 0.8 (1.0-2.1); BILIRUBIN,TOTAL 0.7 mg/dL (0.2-1.3); TOTAL PROTEIN 8.2 g/dL (6.3-8.3)
[2017-04-20 08:04] LABS: CALCIUM 8.9 mg/dl (8.6-10.4)
[2017-04-20] MEDS: Pantoprazole 40 mg EC Tab PO SCH (10:55)
[2017-04-20] MEDS: Ranolazine 500 mg Extended Release Tablets PO SCH (10:56)
[2017-04-20] MEDS: Potassium Chloride 10 mEq ER Tab PO SCH (11:03)
--- NOTE | 2017-04-20 13:37 | CP.PCM.DIS ---
Provider - Provider Date of Admission: 04/16/17 14:03 Attending physician: Juan José Teague Jr, MD Primary care physician: Wild Consults: Neuro: Liliana Time Spent in preparation of Discharge (in minutes): 45 Diagnosis - Discharge Diagnosis (1) Dizziness Status: Resolved Priority: Medium (2) Elevated INR Status: Resolved Priority: High Hospital Course - Lab Results Lab Results: Most Recent Lab Values WBC 6.9 K/uL (4.8-10.8) 04/20/17 07:05 RBC 4.54 Mil/uL (3.80-5.20) 04/20/17 07:05 Hgb 14.1 g/dL (11.0-16.0) 04/20/17 07:05 Hct 41.1 % (34.0-47.0) 04/20/17 07:05 MCV 90.5 fL (81.0-99.0) 04/20/17 07:05 MCH 31.1 pg (27.0-31.0) H 04/20/17 07:05 MCHC 34.4 g/dL (33.0-37.0) 04/20/17 07:05 RDW 14.0 % (11.5-14.5) 04/20/17 07:05 Plt Count 211 K/uL (130-400) 04/20/17 07:05 MPV 8.0 fL (7.2-11.7) 04/20/17 07:05 Neut % (Auto) 58.4 % (50.0-75.0) 04/20/17 07:05 Lymph % (Auto) 26.6 % (20.0-40.0) 04/20/17 07:05 [place] % (Auto) 10.9 % (0.0-10.0) H 04/20/17 07:05 Eos % (Auto) 3.5 % (0.0-4.0) 04/20/17 07:05 Baso % (Auto) 0.6 % (0.0-2.0) 04/20/17 07:05 Neut # 4.0 K/uL (1.8-7.0) 04/20/17 07:05 Lymph # 1.8 K/uL (1.0-4.3) 04/20/17 07:05 [place] # 0.8 K/uL (0.0-0.8) 04/20/17 07:05 Eos # 0.2 K/uL (0.0-0.7) 04/20/17 07:05 Baso # 0.0 K/uL (0.0-0.2) 04/20/17 07:05 Neutrophils % (Manual) 89 % (50-75) H 04/16/17 07:10 Band Neutrophils % 1 % (0-2) 04/16/17 07:10 Lymphocytes % (Manual) 3 % (20-40) L 04/16/17 07:10 Reactive Lymphs % 1 % (0-0) H 04/16/17 07:10 Monocytes % (Manual) 6 % (0-10) 04/16/17 07:10 Platelet Estimate Normal (NORMAL) 04/16/17 07:10 RBC Morphology Normal 04/16/17 07:10 PT 37.9 SECONDS (9.7-12.2) H* 04/20/17 07:05 INR 3.2 04/20/17 07:05 APTT 39 SECONDS (21-34) H D 04/14/17 08:51 Sodium 134 mmol/L (132-148) 04/20/17 07:05 Potassium 3.7 mmol/L (3.6-5.2) 04/20/17 07:05 Chloride 97 mmol/L (98-107) L 04/20/17 07:05 Carbon Dioxide 29 mmol/L (22-30) 04/20/17 07:05 Anion Gap 12 (10-20) 04/20/17 07:05 BUN 26 mg/dL (7-17) H 04/20/17 07:05 Creatinine 1.1 mg/dL (0.7-1.2) 04/20/17 07:05 Est GFR ( Amer) 57 04/20/17 07:05 Est GFR (Non-Af Amer) 47 04/20/17 07:05 POC Glucose (mg/dL) 106 mg/dL (65-110) 04/20/17 06:39 Random Glucose 91 mg/dL (65-105) 04/20/17 07:05 Calcium 8.9 mg/dl (8.6-10.4) 04/20/17 07:05 Total Bilirubin 0.7 mg/dL (0.2-1.3) 04/20/17 07:05 AST 26 U/L (14-36) 04/20/17 07:05 ALT 28 U/L (9-52) 04/20/17 07:05 Alkaline Phosphatase 108 U/L (38-126) 04/20/17 07:05 Troponin I 0.0170 ng/mL (0.00-0.120) 04/14/17 08:51 NT-Pro-B Natriuret Pep 1140 pg/mL (0-900) H 04/14/17 08:51 Total Protein 8.2 g/dL (6.3-8.3) 04/20/17 07:05 Albumin 3.7 g/dL (3.5-5.0) 04/20/17 07:05 Globulin 4.5 gm/dL (2.2-3.9) H 04/20/17 07:05 Albumin/Globulin Ratio 0.8 (1.0-2.1) L 04/20/17 07:05 Prolactin 29.6 ng/mL (3.0-18.9) H 04/17/17 06:07 Urine Color Yellow (YELLOW) 04/19/17 21:35 Urine Clarity Turbid (Clear) 04/19/17 21:35 Urine pH 5.0 (5.0-8.0) 04/19/17 21:35 Ur Specific [place] 1.017 (1.003-1.030) 04/19/17 21:35 Urine Protein Negative mg/dL (NEGATIVE) 04/19/17 21:35 Urine Glucose (UA) Normal mg/dL (Normal) 04/19/17 21:35 Urine Ketones Negative mg/dL (NEGATIVE) 04/19/17 21:35 Urine Blood Negative (NEGATIVE) 04/19/17 21:35 Urine Nitrate Positive (NEGATIVE) H 04/19/17 21:35 Urine Bilirubin Negative (NEGATIVE) 04/19/17 21:35 Urine Urobilinogen Normal mg/dL (0.2-1.0) 04/19/17 21:35 Ur Leukocyte Esterase 3+ [place]/uL (Negative) H 04/19/17 21:35 Urine WBC (Auto) 1963 /hpf (0-5) H 04/19/17 21:35 Urine RBC (Auto) 5 /hpf (0-3) H 04/19/17 21:35 Urine WBC Clumps (Auto) Few /hpf (NONE) H 04/19/17 21:35 Ur Squamous Epith Cells 16 /hpf (0-5) H 04/19/17 21:35 Urine Bacteria Few (<OCC) H 04/19/17 21:35 Digoxin 0.8 ng/mL (0.8-2.0) 04/14/17 15:16 - Date & Time of H&P Date of H&P: 04/14/17 Time of H&P: 13:16 Discharge Exam - Head Exam Head Exam: ATRAUMATIC, NORMAL INSPECTION, NORMOCEPHALIC - Eye Exam Eye Exam: EOMI Pupil Exam: NORMAL ACCOMODATION - ENT Exam ENT Exam: Mucous Membranes Moist - Respiratory Exam Respiratory Exam: NORMAL BREATHING PATTERN, UNREMARKABLE - Cardiovascular Exam Cardiovascular Exam: REGULAR RHYTHM - GI/Abdominal Exam GI & Abdominal Exam: Normal Bowel Sounds, Soft. absent: Distended, Tenderness - Extremities Exam Extremities exam: tenderness (mild) - Neurological Exam Neurological exam: Alert, Oriented x3 - Psychiatric Exam Psychiatric exam: Normal Affect, Normal Mood - Skin Skin Exam: Dry, Intact, Normal Color, Warm Discharge Plan - Follow Up Plan Condition: STABLE Disposition: REHAB FACILITY/REHAB UNIT Additional Instructions: Patient is stable for discharge to subacute rehab at [facility] Patient is to continue to take warfarin 4 mg everyday with daily INR checks. Do not taker the previously prescribed Warfarin 6mg. Patient is to continue home medications Patient is to follow up with their primary care provider in one week. Please call to make an appointment Patient should come back to the ER if symptoms return.
[2017-04-20 16:23] VITALS: BP 99/62; PULSE 84; RESP 20; TEMP 98.1; O2SAT 95
== END 2017-04-20 16:26 | DRG 101 ==
LOC: C.ER 07:54 → C.9E 11:58 → C.3T 14:49 → C.6T 04-16 02:02 → OBSVTOIN 04-16 14:03
PROVIDERS: ADMIT Internal Medicine; ATTEND Internal Medicine
DX: G40.89 Other seizures (principal); E86.0 Dehydration; M31.4 Aortic arch syndrome [Takayasu]; I42.8 Other cardiomyopathies; I48.91 Unspecified atrial fibrillation; E11.9 Type 2 diabetes mellitus without complications; F03.90 Unspecified dementia, unspecified severity, without behavioral disturbance, psychotic disturbance, mood disturbance, and anxiety; I11.0 Hypertensive heart disease with heart failure; I50.9 Heart failure, unspecified; D50.9 Iron deficiency anemia, unspecified; E03.9 Hypothyroidism, unspecified; E78.5 Hyperlipidemia, unspecified; I42.9 Cardiomyopathy, unspecified; G47.00 Insomnia, unspecified; R29.6 Repeated falls; R79.1 Abnormal coagulation profile; Z79.01 Long term (current) use of anticoagulants; Z23 Encounter for immunization; Z95.0 Presence of cardiac pacemaker; Z95.1 Presence of aortocoronary bypass graft; Z95.5 Presence of coronary angioplasty implant and graft; Z90.49 Acquired absence of other specified parts of digestive tract

== ENCOUNTER 2017-06-30 13:17 | Inpatient (IN) | payer MEDICARE ==
[2017-06-30 13:18] VITALS: BMI 27.4
--- NOTE | 2017-06-30 13:57 | C.PDOC ---
History Of Present Illness 87 year old female, whose PMHx includes valve replacement, atrial fibrillation, pacemaker, is brought to the ED by EMS for evaluation after home nurse found patient to be hypotensive (systolic in 80s) and complaining of chest pain earlier today. Home nurse states she came to give patient an extra dosage of Coumadin when she found patient complaining of symptoms. She reports mild cough and congestion. Patient was given fluids en route to ED and currently denies fever, chest pain and shortness of breath. Time Seen by Provider: 06/30/17 13:27 Chief Complaint (Nursing): Chest Pain History Per: Patient, Other (home nurse ) History/Exam Limitations: no limitations Onset/Duration Of Symptoms: Hrs Current Symptoms Are (Timing): Better Quality: denies: "Pain" Additional History Per: Patient Past Medical History Reviewed: Historical Data, Nursing Documentation, Vital Signs Vital Signs: Last Vital Signs Temp 98.1 F 06/30/17 13:42 Pulse 89 06/30/17 15:17 Resp 16 06/30/17 15:17 BP 143/108 H 06/30/17 15:17 Pulse Ox 100 06/30/17 15:27 - Medical History PMH: Atrial Fibrillation, CHF, COPD, Depression, Diabetes, HTN, Hyperlipidemia, Hypothyroidism Denies: Chronic Kidney Disease Surgical History: Appendectomy, CABG, Coronary Stent, Pacemaker - [facility] Procedures FLUOROSCOPY OF LEFT HEART USING LOW OSMOLAR CONTRAST (08/08/16) FLUOROSCOPY OF MULT COR ART USING L OSM CONTRAST (08/08/16) MEASURE OF CARDIAC SAMPL & PRESSURE, L HEART, PERC APPROACH (08/08/16) Family History: States: Unknown Family Hx - Social History Hx Tobacco Use: No Hx Alcohol Use: No Hx Substance Use: No - Immunization History Hx Tetanus Toxoid Vaccination: No Hx Influenza Vaccination: No Hx Pneumococcal Vaccination: No Review Of Systems Constitutional: Positive for: Other (hypotensive). Negative for: Fever, Chills ENT: Positive for: Nose Congestion Cardiovascular: Negative for: Chest Pain Respiratory: Positive for: Cough. Negative for: Shortness of Breath Physical Exam - Physical Exam Appears: Non-toxic, No Acute Distress Skin: Normal Color, Warm, Dry Head: Atraumatic, Normacephalic Eye(s): bilateral: Normal Inspection Ear(s): Bilateral: Normal Nose: Normal, No Discharge Oral Mucosa: Moist Throat: Normal, No Erythema, No Exudate Neck: Supple Chest: Symmetrical, No Deformity, No Tenderness Cardiovascular: Rhythm Irregular, No Murmur, No Other (tachycardia ) Respiratory: Normal Breath Sounds, No Rales, No Rhonchi, No Wheezing Gastrointestinal/Abdominal: Soft, No Tenderness, No Guarding, No Rebound Extremity: Normal ROM, Capillary Refill (less than 2 seconds ) Neurological/Psych: Oriented x3, Normal Speech, Normal Cognition Gait: Steady ED Course And Treatment - Laboratory Results Result Diagrams: 06/30/17 15:56 06/30/17 15:56 Lab Interpretation: Abnormal (Hgb and plta ct normal, INR 6.9) ECG: Interpreted By Me ECG Rhythm: Atrial Fibrillation ECG Interpretation: No Acute Changes O2 Sat by Pulse Oximetry: 100 (on RA) Pulse Ox Interpretation: Normal - Radiology CXR: Viewed By Me CXR Interpretation: Yes: No Acute Disease - Other Rad CXR X-Ray: Interpreted by Me, Viewed By Me, Read By Radiologist Interpretation: PROCEDURE: CHEST RADIOGRAPH, 1 VIEW. HISTORY: SOB. COMPARISON: 02/16/2017. FINDINGS: LUNGS: Clear. PLEURA: No pneumothorax or pleural fluid seen. CARDIOVASCULAR: Normal heart size. Cardiac valvular prosthesis. Sternotomy wires. OSSEOUS STRUCTURES: No significant abnormalities. VISUALIZED UPPER ABDOMEN: Normal. OTHER FINDINGS: None. IMPRESSION: No active disease. Progress Note: Bloodwork, CXR, and EKG ordered and reviewed. Reevaluation Time: 16:39 Reassessment Condition: Improved (BP and heart rate stable) - Physician Consult Information Time Consulting Physician Contacted: 16:40 Physician Contacted: Samy Dickinson Outcome Of Conversation: He agrees to keep patient for observation. She has possible transient hypotension. INR elevated. Will follow repeat labs and monitor. Disposition - Disposition Disposition: HOSPITALIZED Disposition Time: 16:41 Condition: IMPROVED - POA Present On Arrival: None - Clinical Impression Clinical Impression: Transient hypotension, Coumadin toxicity - Scribe Statement The provider has reviewed the documentation as recorded by the Scribe (Tori Boucher) Provider Attestation: All medical record entries made by the Scribe were at my direction and personally dictated by me. I have reviewed the chart and agree that the record accurately reflects my personal performance of the history, physical exam, medical decision making, and the department course for this patient. I have also personally directed, reviewed, and agree with the discharge instructions and disposition.
--- NOTE | 2017-06-30 14:02 | RAD ---
PROCEDURE: CHEST RADIOGRAPH, 1 VIEW HISTORY: SOB COMPARISON: 02/16/2017 FINDINGS: LUNGS: Clear. PLEURA: No pneumothorax or pleural fluid seen. CARDIOVASCULAR: Normal heart size. Cardiac valvular prosthesis. Sternotomy wires. OSSEOUS STRUCTURES: No significant abnormalities. VISUALIZED UPPER ABDOMEN: Normal. OTHER FINDINGS: None. IMPRESSION: No active disease.
[2017-06-30 16:16] LABS: BASO % 0.8 % (0.0-2.0); EOS # 0.1 K/uL (0.0-0.7); EOS % 2.3 % (0.0-4.0); LYMPH # 1.5 K/uL (1.0-4.3); LYMPH % 31.6 % (20.0-40.0); MEAN CELL VOLUME 93.2 fL (81.0-99.0); MEAN CORPUSCULAR HEMOGLOBIN 30.2 pg (27.0-31.0); MEAN CORPUSCULAR HGB CONC 32.5 g/dL (33.0-37.0); MEAN PLATELET VOLUME 7.6 fL (7.2-11.7); MONO # 0.6 K/uL (0.0-0.8); MONO % 12.9 % (0.0-10.0); NEUT # 2.5 K/uL (1.8-7.0); NEUT % 52.4 % (50.0-75.0); NRBC % 0.1 % (0.0-2.0); RBC 3.95 Mil/uL (3.80-5.20); RED CELL DISTRIBUTION WIDTH 15.3 % (11.5-14.5); WHITE BLOOD COUNT 4.8 K/uL (4.8-10.8)
[2017-06-30 16:26] LABS: INR 6.9
[2017-06-30 16:29] LABS: ALB/GLOB RATIO 0.9 (1.0-2.1); ALBUMIN 3.5 g/dL (3.5-5.0); ALT/SGPT 27 U/L (9-52); AST/SGOT 32 U/L (14-36); BLOOD UREA NITROGEN 16 mg/dL (7-17); CALCIUM 8.2 mg/dl (8.6-10.4); GFR AFRICAN-AMERICAN > 60; GFR NON-AFRICAN AMERICAN 59
[2017-06-30 16:30] LABS: PROTHROMBIN TIME 85.1 SECONDS (9.7-12.2)
[2017-06-30] MEDS ORDERED: Phytonadione 10 mg/ml Inj (Adult) SC STA (17:43)
[2017-06-30] MEDS ORDERED: Ranolazine 500 mg Extended Release Tablets PO SCH (18:00)
[2017-06-30] MEDS ORDERED: Digoxin 125 mcg (0.125 mg) Tab ONE (18:24)
[2017-06-30] MEDS ORDERED: Phytonadione 10 mg/ml Inj (Adult) ONE (18:24)
[2017-06-30] MEDS: Digoxin 125 mcg (0.125 mg) Tab PO SCH (18:28)
[2017-06-30 19:34] LABS: CK-MB 0.68 ng/mL (0.0-3.38)
[2017-06-30] MEDS ORDERED: Sodium Chloride 0.9% 500 ML IV ONE (19:50)
[2017-06-30] MEDS ORDERED: Sodium Chloride 0.9% 1,000 ML IV SCH (20:30)
--- NOTE | 2017-06-30 20:57 | CT ---
EXAM: CT Head Without Intravenous Contrast CLINICAL HISTORY: 87 years old, female; Condition or disease; Headache; Headache not specified; Additional info: Coumadin toxicity TECHNIQUE: Axial computed tomography images of the head/brain without intravenous contrast. All CT scans at this facility use one or more dose reduction techniques, viz.: automated exposure control; ma/kV adjustment per patient size (including targeted exams where dose is matched to indication; i.e. head); or iterative reconstruction technique. COMPARISON: CT - HEAD W/O CONTRAST 2015-10-17 08:45 FINDINGS: Brain: Moderate atrophy. No intracranial hemorrhage. No mass. Few scattered foci of decreased attenuation within periventricular/subcortical white matter. No definite edema. Ventricles: No hydrocephalus. Bones/joints: No acute fracture. Soft tissues: Unremarkable. Vasculature: Mild atherosclerotic disease of intracranial arteries. Sinuses: No acute sinusitis. Mastoid air cells: No mastoid effusion. Orbits: Unremarkable as visualized. IMPRESSION: 1. Nonspecific white matter changes. Acute infarction may be CT occult within first 24 hours. If a focal deficit persists, consider followup CT or MRI for further evaluation. 2. Incidental/non-acute findings are described above.
[2017-06-30] MEDS: Sodium Chloride 0.9% 1,000 ML IV SCH (22:14)
[2017-06-30 22:41] LABS: HEMOGLOBIN 11.4 g/dL (11.0-16.0); MEAN CORPUSCULAR HEMOGLOBIN 30.8 pg (27.0-31.0); MEAN CORPUSCULAR HGB CONC 33.1 g/dL (33.0-37.0); MEAN PLATELET VOLUME 7.3 fL (7.2-11.7); RBC 3.72 Mil/uL (3.80-5.20); RED CELL DISTRIBUTION WIDTH 15.3 % (11.5-14.5); WHITE BLOOD COUNT 4.6 K/uL (4.8-10.8)
[2017-06-30] MEDS ORDERED: Pneumococcal 23-Valent Vaccine IM ONE (22:41)
[2017-06-30] MEDS ORDERED: Sodium Chloride 0.9% 250 ML IV ONE (22:55)
[2017-06-30 23:00] LABS: BLOOD UREA NITROGEN 15 mg/dL (7-17); CALCIUM 8.1 mg/dl (8.6-10.4); GFR AFRICAN-AMERICAN > 60; GFR NON-AFRICAN AMERICAN 53
--- NOTE | 2017-06-30 23:57 | CP.PCM.HP ---
History of Present Illness - History of Present Illness History of Present Illness: 87 year old female, whose PMHx includes valve replacement, atrial fibrillation, pacemaker, is brought to the ED by EMS for evaluation after home nurse found patient to be hypotensive (systolic in 80s) and complaining of chest pain earlier today. Home nurse states she came to give patient an extra dosage of Coumadin when she found patient complaining of symptoms. She reports mild cough and congestion. Patient was given fluids en route to ED and currently denies fever, chest pain and shortness of breath. Present on Admission - Present on Admission Any Indicators Present on Admission: Yes Past Patient History - Infectious Disease Hx of Infectious Diseases: None - Tetanus Immunizations Tetanus Immunization: Unknown - Past Medical History & Family History Past Medical History?: Yes - Past Social History Smoking Status: Never Smoked - CARDIAC Hx Atrial Fibrillation: Yes Hx Congestive Heart Failure: Yes Hx Hypertension: Yes Hx Pacemaker: Yes - PULMONARY Hx Chronic Obstructive Pulmonary Disease (COPD): Yes - NEUROLOGICAL Hx Neurological Disorder: No - HEENT Hx HEENT Problems: Yes Hx Cataracts: Yes - RENAL Hx Chronic Kidney Disease: No - ENDOCRINE/METABOLIC Hx Hypothyroidism: Yes - HEMATOLOGICAL/ONCOLOGICAL Hx Blood Disorders: No - INTEGUMENTARY Hx Dermatological Problems: No - MUSCULOSKELETAL/RHEUMATOLOGICAL Hx Falls: No - GASTROINTESTINAL Hx Gastrointestinal Disorders: No - GENITOURINARY/GYNECOLOGICAL Hx Genitourinary Disorders: No - PSYCHIATRIC Hx Depression: Yes Hx Substance Use: No - SURGICAL HISTORY Hx Appendectomy: Yes Hx Coronary Artery Bypass Graft: Yes Hx Coronary Stent: Yes - ANESTHESIA Hx Anesthesia: Yes Hx Anesthesia Reactions: No Hx Malignant Hyperthermia: No Meds Allergies/Adverse Reactions: Allergies Allergy/AdvReac Type Severity Reaction Status Date / Time No Known Allergies Allergy Verified 06/30/17 13:32 Results - Vital Signs Recent Vital Signs: Last Vital Signs Temp 97.8 F 06/30/17 23:31 Pulse 66 06/30/17 23:31 Resp 18 06/30/17 23:31 BP 115/53 L 06/30/17 23:31 Pulse Ox 96 06/30/17 23:31 - Labs Result Diagrams: 07/03/17 07:51 07/03/17 07:51 Labs: Laboratory Results - last 24 hr 06/30/17 06/30/17 06/30/17 15:56 15:56 15:56 WBC 4.8 RBC 3.95 Hgb 12.0 D Hct 36.8 MCV 93.2 D MCH 30.2 MCHC 32.5 L RDW 15.3 H Plt Count 260 MPV 7.6 Neut % (Auto) 52.4 Lymph % (Auto) 31.6 [place] % (Auto) 12.9 H Eos % (Auto) 2.3 Baso % (Auto) 0.8 Neut # 2.5 Lymph # 1.5 [place] # 0.6 Eos # 0.1 Baso # 0.0 PT 85.1 H* INR 6.9 Sodium 132 Potassium 3.9 Chloride 95 L Carbon Dioxide 32 H Anion Gap 10 BUN 16 Creatinine 0.9 Est GFR ( Amer) > 60 Est GFR (Non-Af Amer) 59 Random Glucose 95 Calcium 8.2 L Total Bilirubin 0.5 AST 32 ALT 27 Alkaline Phosphatase 163 H D Total Creatine Kinase CK-MB (Mass) Troponin I < 0.0120 Total Protein 7.6 Albumin 3.5 Globulin 4.1 H Albumin/Globulin Ratio 0.9 L 06/30/17 06/30/17 06/30/17 18:49 22:36 22:36 WBC 4.6 L RBC 3.72 L Hgb 11.4 Hct 34.5 MCV 93.0 MCH 30.8 MCHC 33.1 RDW 15.3 H Plt Count 276 MPV 7.3 Neut % (Auto) Lymph % (Auto) [place] % (Auto) Eos % (Auto) Baso % (Auto) Neut # Lymph # [place] # Eos # Baso # PT INR Sodium 134 Potassium 4.0 Chloride 98 Carbon Dioxide 31 H Anion Gap 8 L BUN 15 Creatinine 1.0 Est GFR ( Amer) > 60 Est GFR (Non-Af Amer) 53 Random Glucose 85 Calcium 8.1 L Total Bilirubin AST ALT Alkaline Phosphatase Total Creatine Kinase 96 CK-MB (Mass) 0.68 Troponin I < 0.0120 Total Protein Albumin Globulin Albumin/Globulin Ratio Assessment & Plan (1) Coumadin toxicity Status: Acute (2) CHF (congestive heart failure) Status: Acute (3) COPD (chronic obstructive pulmonary disease) Status: Acute (4) Chest pain Status: Acute
[2017-07-01 01:34] LABS: CK-MB 0.69 ng/mL (0.0-3.38); TROPONIN I 0.014 ng/mL (0.00-0.120)
[2017-07-01] MEDS: Sodium Chloride 0.9% 1,000 ML IV SCH ×2 (06:23→16:52)
[2017-07-01 08:01] LABS: HEMOGLOBIN 11.4 g/dL (11.0-16.0); MEAN CELL VOLUME 93.2 fL (81.0-99.0); MEAN CORPUSCULAR HEMOGLOBIN 31.1 pg (27.0-31.0); MEAN CORPUSCULAR HGB CONC 33.4 g/dL (33.0-37.0); MEAN PLATELET VOLUME 7.6 fL (7.2-11.7); RBC 3.66 Mil/uL (3.80-5.20); RED CELL DISTRIBUTION WIDTH 15.1 % (11.5-14.5); WHITE BLOOD COUNT 4.8 K/uL (4.8-10.8)
[2017-07-01 08:07] LABS: INR 3.3
[2017-07-01 08:12] LABS: PROTHROMBIN TIME 38.5 SECONDS (9.7-12.2)
[2017-07-01 08:21] LABS: BLOOD UREA NITROGEN 12 mg/dL (7-17); CALCIUM 7.4 mg/dl (8.6-10.4); GFR AFRICAN-AMERICAN > 60; GFR NON-AFRICAN AMERICAN > 60
[2017-07-01] MEDS ORDERED: Potassium Chloride 10 mEq ER Tab PO SCH (10:00)
--- NOTE | 2017-07-01 14:40 | CARD ---
APPROVED REPORT EKG Measurement Heart [id number] <Conclusion> Atrial fibrillation Abnormal ECG
[2017-07-01] MEDS: Digoxin 125 mcg (0.125 mg) Tab PO SCH (17:42)
--- NOTE | 2017-07-01 23:13 | CP.PCM.PN ---
Subjective - Date & Time of Evaluation Date of Evaluation: 07/01/17 Time of Evaluation: 18:50 - Subjective Subjective: Pt seen and evalauted, Jen went down yesterday , is now stable, she recieved multiple bluses,troponins are neg Objective - Vital Signs/Intake and Output Vital Signs (last 24 hours): Temp Pulse Resp BP Pulse Ox 98 F 83 18 163/76 H 97 07/01/17 22:11 07/01/17 22:11 07/01/17 22:11 07/01/17 22:11 07/01/17 15:10 Intake and Output: 07/01/17 07/02/17 18:59 06:59 Intake Total 370 100 Balance 370 100 - Medications Medications: Current Medications Alprazolam (Xanax) 0.25 mg PO DAILY PRN PRN Reason: Anxiety Stop: 07/07/17 17:58 Last Admin: 07/01/17 13:02 Dose: 0.25 mg Carvedilol (Coreg) 3.125 mg PO BID [facility] Last Admin: 07/01/17 17:42 Dose: 3.125 mg Digoxin (Lanoxin) 0.125 mg PO DAILY@1800 [facility] Last Admin: 07/01/17 17:42 Dose: 0.125 mg Ferrous Sulfate (Feosol) 325 mg PO QAM [facility] Last Admin: 07/01/17 10:50 Dose: 325 mg Sodium Chloride (Sodium Chloride 0.9%) 1,000 mls @ 100 mls/hr IV .Q10H [facility] Last Admin: 07/01/17 16:52 Dose: 100 mls/hr Pneumococcal Polyvalent Vaccine (Pneumovax 23 Vaccine) 0.5 ml IM .ONCE ONE Stop: 07/02/17 10:01 Rosuvastatin Calcium (Crestor) 10 mg PO HS [facility] Last Admin: 07/01/17 21:54 Dose: 10 mg - Labs Labs: 07/01/17 07:54 07/01/17 07:54 PT 38.5 SECONDS (9.7-12.2) H* D 07/01/17 07:54 INR 3.3 D 07/01/17 07:54 - Constitutional Appears: No Acute Distress - Head Exam Head Exam: ATRAUMATIC, NORMAL INSPECTION, NORMOCEPHALIC - Eye Exam Eye Exam: EOMI, Normal appearance, PERRL Pupil Exam: NORMAL ACCOMODATION, PERRL - Respiratory Exam Respiratory Exam: Decreased Breath Sounds - Cardiovascular Exam Cardiovascular Exam: Irregular Rhythm, +S1, +S2 - GI/Abdominal Exam GI & Abdominal Exam: Soft, Normal Bowel Sounds. absent: Tenderness Assessment and Plan (1) CHF (congestive heart failure) Status: Acute (2) COPD (chronic obstructive pulmonary disease) Status: Acute (3) Chest pain Assessment & Plan: cardiac enzymes neg Status: Acute (4) Atrial fibrillation Assessment & Plan: on coumadin Status: Chronic
[2017-07-02] MEDS: Sodium Chloride 0.9% 1,000 ML IV SCH ×3 (06:58→16:28)
[2017-07-02] MEDS ORDERED: Pneumococcal 23-Valent Vaccine IM ONE (10:00)
[2017-07-02 14:00] LABS: INR 1.2
[2017-07-02 14:09] LABS: PROTHROMBIN TIME 13.9 SECONDS (9.7-12.2)
[2017-07-02] MEDS: Digoxin 125 mcg (0.125 mg) Tab PO SCH (17:18)
--- NOTE | 2017-07-02 22:43 | CP.PCM.PN ---
Subjective - Date & Time of Evaluation Date of Evaluation: 07/02/17 Time of Evaluation: 18:00 - Subjective Subjective: Pt is seen and examined, cardiac enzymes x 3 neg, pt is mildyly confused, Confused about date, knows her name, age and that she is in the hospital. She is looking for objects that are not in the room. Objective - Vital Signs/Intake and Output Vital Signs (last 24 hours): Temp Pulse Resp BP Pulse Ox 97.5 F L 74 20 147/72 95 07/02/17 15:30 07/02/17 18:58 07/02/17 15:30 07/02/17 17:18 07/02/17 15:30 Intake and Output: 07/02/17 07/03/17 18:59 06:59 Intake Total 1280 1300 Balance 1280 1300 - Medications Medications: Current Medications Alprazolam (Xanax) 0.25 mg PO DAILY PRN PRN Reason: Anxiety Stop: 07/07/17 17:58 Last Admin: 07/01/17 13:02 Dose: 0.25 mg Carvedilol (Coreg) 3.125 mg PO BID [facility] Last Admin: 07/02/17 17:18 Dose: 3.125 mg Digoxin (Lanoxin) 0.125 mg PO DAILY@1800 [facility] Last Admin: 07/02/17 17:18 Dose: 0.125 mg Ferrous Sulfate (Feosol) 325 mg PO QAM [facility] Last Admin: 07/02/17 09:19 Dose: 325 mg Rosuvastatin Calcium (Crestor) 10 mg PO HS [facility] Last Admin: 07/02/17 21:23 Dose: 10 mg - Labs Labs: 07/01/17 07:54 07/01/17 07:54 PT 13.9 SECONDS (9.7-12.2) H D 07/02/17 13:47 INR 1.2 D 07/02/17 13:47 - Constitutional Appears: No Acute Distress - Head Exam Head Exam: ATRAUMATIC, NORMAL INSPECTION, NORMOCEPHALIC - Eye Exam Eye Exam: EOMI, Normal appearance, PERRL Pupil Exam: NORMAL ACCOMODATION, PERRL - Respiratory Exam Respiratory Exam: Clear to Ausculation Bilateral, NORMAL BREATHING PATTERN - Cardiovascular Exam Cardiovascular Exam: REGULAR RHYTHM, +S1, +S2. absent: Murmur - GI/Abdominal Exam GI & Abdominal Exam: Soft, Normal Bowel Sounds. absent: Tenderness - Rectal Exam Rectal Exam: Deferred Assessment and Plan (1) CHF (congestive heart failure) Status: Acute (2) COPD (chronic obstructive pulmonary disease) Status: Acute (3) Chest pain Status: Acute (4) Atrial fibrillation Status: Chronic (5) Encephalopathy acute Status: Acute
--- NOTE | 2017-07-03 01:09 | CT ---
EXAM: CT Head Without Intravenous Contrast CLINICAL HISTORY: 87 years old, female; Pain; Headache and other: Confused; Patient HX: 06-30-17; Additional info: Code stroke TECHNIQUE: Axial computed tomography images of the head/brain without intravenous contrast. All CT scans at this facility use one or more dose reduction techniques, viz.: automated exposure control; ma/kV adjustment per patient size (including targeted exams where dose is matched to indication; i.e. head); or iterative reconstruction technique. Coronal and sagittal reformatted images were created and reviewed. COMPARISON: CT - HEAD W/O CONTRAST 2017-06-30 20:40Limitations: Motion artifact - moderate. FINDINGS: Brain: Moderate atrophy. No definite intracranial hemorrhage. Few scattered foci of decreased attenuation within periventricular/subcortical white matter. No gross edema. Ventricles: No hydrocephalus. Bones/joints: No definite fracture. Soft tissues: Unremarkable. Vasculature: Mild atherosclerotic disease of intracranial arteries. Sinuses: No acute sinusitis. Mastoid air cells: No mastoid effusion. Orbits: Unremarkable as visualized. IMPRESSION: 1. Nonspecific white matter changes. Acute infarction may be CT occult within first 24 hours. If a focal deficit persists, consider followup CT or MRI for further evaluation. 2. Incidental/non-acute findings are described above.
--- NOTE | 2017-07-03 01:40 | PCM.RRT ---
ASSOCIATE ENTERTAINMENT EDITOR Nurses Assessment - Situation Date: 07/02/17 Time ASSOCIATE ENTERTAINMENT EDITOR was called: 23:50 ASSOCIATE ENTERTAINMENT EDITOR Responder Arrival Time:: 23:51 ASSOCIATE ENTERTAINMENT EDITOR Location:: Med/Surg Room Number: 558 ASSOCIATE ENTERTAINMENT EDITOR Reason for Call: Possible Stroke, Change in Mental Status ASSOCIATE ENTERTAINMENT EDITOR Called By: RN - IV IV Inserted during ASSOCIATE ENTERTAINMENT EDITOR?: No - Respiratory ASSOCIATE ENTERTAINMENT EDITOR Delivery Method: Venturi Mask @% Oxygen Flow Rate: 3 Received Nebulizer Treatments: No Was the Patient Ventilated with Bag/Mask 100% O2?: No Secretions Suctioned?: No Was the Patient Intubated?: No Was the Patient Placed on a Ventilator?: No - Diagnostic Test Ordered EKG: No Chest X-Ray: No CT Scan: Yes CPR started during ASSOCIATE ENTERTAINMENT EDITOR?: No - Vital Signs Vital Signs: Rapid Response Vital Sign Blood Pressure 95/65 Pulse Rate 80 Respiratory Rate 18 Temperature 98.1 F Oxygen Saturation 98 - Sepsis Screen Part 1 Sepsis Screen Part 1: Hypotensive - Time ASSOCIATE ENTERTAINMENT EDITOR Ended Time ASSOCIATE ENTERTAINMENT EDITOR Ended: 23:57 - Vital Signs at end of ASSOCIATE ENTERTAINMENT EDITOR Vital Signs at end of ASSOCIATE ENTERTAINMENT EDITOR: Rapid Response End Vital Sign Blood Pressure 138/79 Pulse Rate 103 Respiratory Rate 20 Temperature 95.5 F O2 Sat by Pulse Oximetry 99 - Recommendations Notifications: Attending Physician, Consultations I.Reason for ASSOCIATE ENTERTAINMENT EDITOR - A) Acute Change in Patient: (Select all that apply): Acute change in mental status - Neurological Status (Select all that apply): Confused - Respiratory Oxygen Delivery Method: Venturi Mask @% Oxygen Flow Rate: 3 - Constitutional Appears: Non-toxic, No Acute Distress - Head Head Exam: ATRAUMATIC, NORMAL INSPECTION, NORMOCEPHALIC - Eyes Eye Exam: EOMI, Normal appearance - Respiratory Exam Respiratory Exam: Clear to Ausculation Bilateral, NORMAL BREATHING PATTERN. absent: Rales, Rhonchi, Wheezes - Cardiovascular Exam Cardiovascular Exam: Tachycardia, Irregular Rhythm, +S1, +S2 - GI/Abdominal Exam GI & Abdominal Exam: Soft, Normal Bowel Sounds. absent: Guarding, Rigid, Tenderness - Neurological Exam Neurological Exam: Alert, Awake. absent: Oriented x3 (Oriented to person, not to time or place) Plan - Assessment of Findings&Treatment Plan ASSOCIATE ENTERTAINMENT EDITOR called at 11:40pm for unresponsiveness, altered mental status Patient was awake but non-verbal and not following commands Vitals were checked, patient O2 sat was 97% on NV Patient was placed on non-rebreather, became more alert and awake however was still non-verbal Code Stroke was called at 11:52pm Patient's primary, Dr Dickinson was consulted and requested Dr Goodson for Neurology consult On the way to CAT scan patient was moving all extremities and initially would not lay still for the imaging Patient was taken for STAT Head CT which showed nonspecific white matter changes (please see full report) Call placed to Dr Goodson through answering service, awaiting call back Patient re-evaluated when she returned back to her room, patient was verbal however not orientated to time or place. Patient was placed on bipap but later refused. Complaining of back pain Routine labs and Lipid panel ordered for the morning. Patient was transferred to for further monitoring NIHSS Stroke Scale - Date/Time Evaluation Performed Date Performed: 07/03/17 Time Performed: 00:15 When Was NIHSS Performed: Baseline - How Severe is the Stoke Level of Consciousness: 0=Alert LOC to Questions: 2=Neither correct LOC to commands: 0=Obeys both correctly Best Gaze: 0=Normal Visual: 0=No visual loss Facial: 0=Normal Motor Arm - Left: 0=No drift Motor Arm - Right: 0=No drift Motor Leg - Left: 0=No drift Motor Leg - Right: 0=No drift Limb Ataxia: 0=Absent Sensory: 0=Normal Best Language: 0=No aphasia Dysarthia: 0=Normal articulation Extinction & Inattention (Neglect): 0=Normal, no object Score: 2 Severity Of Stroke: 1-4= Minor Stroke
[2017-07-03 08:06] LABS: BASO % 0.6 % (0.0-2.0); EOS % 0.3 % (0.0-4.0); HEMOGLOBIN 12.1 g/dL (11.0-16.0); INR 1.1; LYMPH # 1.5 K/uL (1.0-4.3); LYMPH % 25.5 % (20.0-40.0); MEAN CELL VOLUME 92.2 fL (81.0-99.0); MEAN CORPUSCULAR HEMOGLOBIN 31.9 pg (27.0-31.0); MEAN CORPUSCULAR HGB CONC 34.6 g/dL (33.0-37.0); MEAN PLATELET VOLUME 7.9 fL (7.2-11.7); MONO # 0.5 K/uL (0.0-0.8); MONO % 8.3 % (0.0-10.0); NEUT # 3.8 K/uL (1.8-7.0); NEUT % 65.3 % (50.0-75.0); PROTHROMBIN TIME 12.4 SECONDS (9.7-12.2); RBC 3.78 Mil/uL (3.80-5.20); RED CELL DISTRIBUTION WIDTH 14.8 % (11.5-14.5); WHITE BLOOD COUNT 5.9 K/uL (4.8-10.8)
[2017-07-03 08:31] LABS: ALB/GLOB RATIO 0.9 (1.0-2.1); ALBUMIN 3.5 g/dL (3.5-5.0); ALT/SGPT 16 U/L (9-52); AST/SGOT 24 U/L (14-36); BLOOD UREA NITROGEN 12 mg/dL (7-17); CALCIUM 8.3 mg/dl (8.6-10.4); GFR AFRICAN-AMERICAN > 60; GFR NON-AFRICAN AMERICAN > 60; HDL CHOLESTEROL 50 mg/dL (30-70)
[2017-07-03 08:39] LABS: LDL CHOLESTEROL 108 mg/dL (0-129)
[2017-07-03] MEDS ORDERED: Enoxaparin 60 mg Syringe SC STA (14:31)
--- NOTE | 2017-07-03 14:36 | CP.PCM.CON ---
History of Present Illness - History of Present Illness History of Present Illness: Mrs. Gandhi is an 87-year-old woman with a past medical history of valve replacement, atrial fibrillation, pacemaker, on coumadin, who presented with symptoms of confusion, became hypotensive with SBP in the low 80's, and an BODY PIERCER was called. Today, she continues to have episodes of confusion and is not quite oriented or back to baseline. Review of Systems - Review of Systems All systems: reviewed and no additional remarkable complaints except Past Patient History - Infectious Disease Hx of Infectious Diseases: None - Tetanus Immunizations Tetanus Immunization: Unknown - Past Medical History & Family History Past Medical History?: Yes - Past Social History Smoking Status: Never Smoked - CARDIAC Hx Atrial Fibrillation: Yes Hx Congestive Heart Failure: Yes Hx Hypertension: Yes Hx Pacemaker: Yes - PULMONARY Hx Chronic Obstructive Pulmonary Disease (COPD): Yes - NEUROLOGICAL Hx Neurological Disorder: No - HEENT Hx HEENT Problems: Yes Hx Cataracts: Yes - RENAL Hx Chronic Kidney Disease: No - ENDOCRINE/METABOLIC Hx Hypothyroidism: Yes - HEMATOLOGICAL/ONCOLOGICAL Hx Blood Disorders: No - INTEGUMENTARY Hx Dermatological Problems: No - MUSCULOSKELETAL/RHEUMATOLOGICAL Hx Falls: No - GASTROINTESTINAL Hx Gastrointestinal Disorders: No - GENITOURINARY/GYNECOLOGICAL Hx Genitourinary Disorders: No - PSYCHIATRIC Hx Depression: Yes Hx Substance Use: No - SURGICAL HISTORY Hx Appendectomy: Yes Hx Coronary Artery Bypass Graft: Yes Hx Coronary Stent: Yes - ANESTHESIA Hx Anesthesia: Yes Hx Anesthesia Reactions: No Hx Malignant Hyperthermia: No Meds Allergies/Adverse Reactions: Allergies Allergy/AdvReac Type Severity Reaction Status Date / Time No Known Allergies Allergy Verified 06/30/17 13:32 - Medications Medications: Current Medications Alprazolam (Xanax) 0.25 mg PO DAILY PRN PRN Reason: Anxiety Stop: 07/07/17 17:58 Last Admin: 07/01/17 13:02 Dose: 0.25 mg Carvedilol (Coreg) 3.125 mg PO BID [facility] Last Admin: 07/03/17 10:24 Dose: 3.125 mg Digoxin (Lanoxin) 0.125 mg PO DAILY@1800 [facility] Last Admin: 07/02/17 17:18 Dose: 0.125 mg Ferrous Sulfate (Feosol) 325 mg PO QAM [facility] Last Admin: 07/03/17 10:29 Dose: 325 mg Rosuvastatin Calcium (Crestor) 10 mg PO HS [facility] Last Admin: 07/02/17 21:23 Dose: 10 mg Warfarin Sodium (Coumadin) 7.5 mg PO 1800 [facility] Stop: 07/03/17 18:01 Warfarin Sodium (Coumadin) 5 mg PO 1800 [facility] Stop: 07/03/17 18:01 Physical Exam - Head Exam Head Exam: ATRAUMATIC, NORMAL INSPECTION, NORMOCEPHALIC - Eye Exam Eye Exam: EOMI, Normal appearance, PERRL - ENT Exam ENT Exam: Mucous Membranes Moist, Normal Exam - Neck Exam Neck exam: Positive for: Normal Inspection - Respiratory Exam Respiratory Exam: Clear to Auscultation Bilateral, NORMAL BREATHING PATTERN - Cardiovascular Exam Cardiovascular Exam: Irregular Rhythm - GI/Abdominal Exam GI & Abdominal Exam: Normal Bowel Sounds, Soft. absent: Tenderness - Rectal Exam Rectal Exam: Deferred - Extremities Exam Extremities exam: Positive for: normal inspection - Back Exam Back exam: NORMAL INSPECTION - Neurological Exam Neurological exam: Abnormal Gait, Altered, CN II-XII Intact Additional comments: Confused about date, knows her name, age and that she is in the hospital. She is looking for objects that are not in the room. RUE pronator drift, weakness of hand almond huller on the left side as compared with the right. Otherwise, no other focal findings. Reflexes normal, gait not tested due to confusion. Results - Vital Signs Recent Vital Signs: Last Vital Signs Temp 97.8 F 07/03/17 08:38 Pulse 102 H 07/03/17 08:38 Resp 20 07/03/17 08:38 BP 155/83 H 07/03/17 08:38 Pulse Ox 97 07/03/17 08:38 - Labs Result Diagrams: 07/03/17 07:51 07/03/17 07:51 Labs: Laboratory Results - last 24 hr 07/02/17 07/03/17 07/03/17 23:45 06:28 07:51 WBC RBC Hgb Hct MCV MCH MCHC RDW Plt Count MPV Neut % (Auto) Lymph % (Auto) [place] % (Auto) Eos % (Auto) Baso % (Auto) Neut # Lymph # [place] # Eos # Baso # PT 12.4 H INR 1.1 Sodium Potassium Chloride Carbon Dioxide Anion Gap BUN Creatinine Est GFR ( Amer) Est GFR (Non-Af Amer) POC Glucose (mg/dL) 90 101 Random Glucose Calcium Total Bilirubin AST ALT Alkaline Phosphatase Total Protein Albumin Globulin Albumin/Globulin Ratio Triglycerides Cholesterol LDL Cholesterol Direct HDL Cholesterol 07/03/17 07/03/17 07/03/17 07:51 07:51 11:35 WBC 5.9 RBC 3.78 L Hgb 12.1 Hct 34.9 MCV 92.2 MCH 31.9 H MCHC 34.6 RDW 14.8 H Plt Count 256 MPV 7.9 Neut % (Auto) 65.3 Lymph % (Auto) 25.5 [place] % (Auto) 8.3 Eos % (Auto) 0.3 Baso % (Auto) 0.6 Neut # 3.8 Lymph # 1.5 [place] # 0.5 Eos # 0.0 Baso # 0.0 PT INR Sodium 133 Potassium 3.8 Chloride 98 Carbon Dioxide 29 Anion Gap 10 BUN 12 Creatinine 0.7 Est GFR ( Amer) > 60 Est GFR (Non-Af Amer) > 60 POC Glucose (mg/dL) 138 H Random Glucose 107 H Calcium 8.3 L Total Bilirubin 0.9 AST 24 ALT 16 Alkaline Phosphatase 132 H Total Protein 7.3 Albumin 3.5 Globulin 3.9 Albumin/Globulin Ratio 0.9 L Triglycerides 60 D Cholesterol 186 LDL Cholesterol Direct 108 HDL Cholesterol 50 - Imaging and Cardiology CT scan - head Status: Image reviewed by me, Report reviewed by me (Possible right MCA/UNDERCOAT SPRAYER watershed region infarct. ) Assessment & Plan (1) Encephalopathy acute Assessment and Plan: Likely due to cardiac disease, hypotension and other systemic causes; however, a new watershed infarct may be possible. I recommend a repeat CT head since she is unable to obtain MRI due to pacemaker. Continue coumadin to maintain INR 2- 3 since she does have atrial fibrillation and CHF. Furthermore, I recommend: 1. Telemetry 2. PT/OT eval and treat 3. CTA of the head/neck 4. Echocardiogram with bubble study 5. Case management consult Thank you. Status: Acute Priority: High
[2017-07-03] MEDS: Digoxin 125 mcg (0.125 mg) Tab PO SCH (18:44)
--- NOTE | 2017-07-03 22:08 | CP.PCM.PN ---
Subjective - Date & Time of Evaluation Date of Evaluation: 07/03/17 Time of Evaluation: 20:00 - Subjective Subjective: STEEL ERECTOR called at 11:40pm for unresponsiveness, altered mental status Patient was awake but non-verbal and not following commands Vitals were checked, patient O2 sat was 97% on NV Patient was placed on non-rebreather, became more alert and awake however was still non-verbal Code Stroke was called at 11:52pm I was consulted and requested Dr Goodson for Neurology consult On the way to CAT scan patient was moving all extremities and initially would not lay still for the imaging Patient was taken for STAT Head CT which showed nonspecific white matter changes (please see full report) Call placed to Dr Goodson through answering service, awaiting call back Patient re-evaluated when she returned back to her room, patient was verbal however not orientated to time or place. Patient was placed on bipap but later refused. Complaining of back pain Routine labs and Lipid panel ordered for the morning. Patient was transferred to for further monitoring Objective - Vital Signs/Intake and Output Vital Signs (last 24 hours): Temp Pulse Resp BP Pulse Ox 97.8 F 86 20 119/63 98 07/03/17 16:00 07/03/17 18:53 07/03/17 16:00 07/03/17 18:53 07/03/17 16:00 - Medications Medications: Current Medications Alprazolam (Xanax) 0.25 mg PO DAILY PRN PRN Reason: Anxiety Stop: 07/07/17 17:58 Last Admin: 07/01/17 13:02 Dose: 0.25 mg Carvedilol (Coreg) 3.125 mg PO BID [facility] Last Admin: 07/03/17 18:45 Dose: 3.125 mg Digoxin (Lanoxin) 0.125 mg PO DAILY@1800 [facility] Last Admin: 07/03/17 18:44 Dose: 0.125 mg Enalapril Maleate (Vasotec) 2.5 mg PO DAILY [facility] Ferrous Sulfate (Feosol) 325 mg PO QAM [facility] Last Admin: 07/03/17 10:29 Dose: 325 mg Rosuvastatin Calcium (Crestor) 10 mg PO HS [facility] Last Admin: 07/03/17 21:42 Dose: 10 mg - Labs Labs: 07/03/17 07:51 07/03/17 07:51 PT 12.4 SECONDS (9.7-12.2) H 07/03/17 07:51 INR 1.1 07/03/17 07:51 - Constitutional Appears: Chronically Ill - Head Exam Head Exam: ATRAUMATIC, NORMAL INSPECTION, NORMOCEPHALIC - Eye Exam Eye Exam: EOMI, Normal appearance, PERRL Pupil Exam: NORMAL ACCOMODATION, PERRL - Respiratory Exam Respiratory Exam: Clear to Ausculation Bilateral, NORMAL BREATHING PATTERN - Cardiovascular Exam Cardiovascular Exam: REGULAR RHYTHM, +S1, +S2. absent: Murmur - Rectal Exam Rectal Exam: Deferred Assessment and Plan (1) CHF (congestive heart failure) Status: Acute (2) COPD (chronic obstructive pulmonary disease) Status: Acute (3) Chest pain Status: Acute (4) Atrial fibrillation Status: Chronic
[2017-07-03] MEDS ORDERED: Iodixanol 320 mg/ml 150 ml Bottle IV ONE (22:12)
--- NOTE | 2017-07-03 23:40 | CT ---
EXAM: CT Head Without Intravenous Contrast CLINICAL HISTORY: 87 years old, female; Signs and symptoms; Other: Prior stroke; Additional info: Evaluate for right mca/tutoring manager watershed stroke TECHNIQUE: Axial computed tomography images of the head/brain without intravenous contrast. All CT scans at this facility use one or more dose reduction techniques, viz.: automated exposure control; ma/kV adjustment per patient size (including targeted exams where dose is matched to indication; i.e. head); or iterative reconstruction technique. Coronal and sagittal reformatted images were created and reviewed. COMPARISON: CT - HEAD W/O CONTRAST 2017-07-03 00:05 FINDINGS: Brain: Prominence of the sulci and ventricular system consistent with atrophy. Hypodensity in the white matter consistent with chronic small vessel disease. No intracranial mass, mass effect, or midline shift. No hemorrhage. Ventricles: The no hydrocephalus. Bones/joints: Unremarkable. No acute fracture. Soft tissues: Unremarkable. Sinuses: Unremarkable as visualized. No acute sinusitis. Mastoid air cells: Unremarkable as visualized. No mastoid effusion. IMPRESSION: No acute intracranial abnormality.
--- NOTE | 2017-07-03 23:43 | CON ---
DATE: CARDIOLOGY CONSULTATION REASON FOR CONSULTATION: Chronic atrial fibrillation as well as congestive heart failure and history of bioprosthetic aortic and mitral valve replacement. HISTORY OF PRESENTING ILLNESS: The patient is an 87-year-old female who has a history of bioprosthetic aortic and mitral valve replacement, history of chronic atrial fibrillation, and history of permanent pacemaker placement, who was admitted because of hypertension. The patient had Rapid Response today and was briefly unresponsive. Neurology evaluation was conducted to rule our possibility of CVA. A CT scan was done yesterday as a second one since admission and revealed nonspecific white matter changes. The history was taken by a burial needs salesperson and the patient denies any chest pain or shortness of breath at this point. I did review the workup that was done on the patient in 06/2016. The ventilation/perfusion scan was indeterminate, but was highly suspicious on 01/18/2017. Cardiac catheterization performed in 07/2016, which revealed unremarkable coronary circulation with atypical ballooning and ejection fraction estimated at around 45% with bioprosthetic mitral and aortic valves. I did review the cardiac catheterization images. SOCIAL HISTORY: Nonsmoker, nondrinker. She lives with her son. MEDICATIONS: Coreg 3.125 mg twice a day; Coumadin 7.5 mg to be given today, the usual dose 5 mg daily; Crestor 10 mg once a day; digoxin 0.125 mg daily; and Xanax 0.25 mg daily. REVIEW OF SYSTEMS: No nausea or vomiting. No productive cough. No retrosternal chest pain. No dizziness at this time. PHYSICAL EXAMINATION: GENERAL: The patient is an elderly female who does not appear to be in any distress. VITAL SIGNS: Blood pressure 155/83, heart rate 102, temperature 97.8, respirations 20. HEENT: Normocephalic. CHEST: Clear. HEART: S1 and S2, regular. ABDOMEN: Soft. EXTREMITIES: Trace leg edema. LABORATORY DATA: Today's hemoglobin and hematocrit 12.1 and 34.9, white count 5.9, platelet count 156,000. SMA-7 today; sodium 133, potassium 3.8, chloride 98, CO2 of 29, glucose 107, BUN 12, creatinine 0.7. Troponin is 0.014 and two other troponins were negative. Chest x-ray revealed prominent central vasculature, mitral and aortic valve rings were noted. EKG revealed atrial fibrillation at a rate of 78. Today's INR is 1.1. Admitting INR was 6.9. ASSESSMENT: 1. Hypertension on admission. 2. Brief unresponsiveness, rule out cerebrovascular accident. 3. Chronic atrial fibrillation. 4. Status post bioprosthetic mitral and aortic valve replacement with unremarkable coronary circulation. 5. Highly suspicious ventilation/perfusion scan for pulmonary embolus in December of this year. 6. Mildly depressed ejection fraction with atypical ballooning. RECOMMENDATIONS: Continue Coreg at 3.125 mg twice a day, Coumadin 7.5 will be given today. I recommend initiating therapeutic subcutaneous Lovenox until therapeutic INR is achieved. The patient did receive 60 mg of subcutaneous Lovenox today. Continue digoxin 0.125 mg daily. Start enalapril at 2.5 mg orally once a day. The most recent echo done in July 2016, revealed baseline bioprosthetic mitral and aortic valves enlargement, normal left ventricular systolic function, septal motion consistent with postoperative state. I will obtain serum digoxin level in the meantime. Pancho Mejia MD
--- NOTE | 2017-07-03 23:55 | CT ---
EXAM: CT Angiography Head With Intravenous Contrast CT Angiography Neck With Intravenous Contrast CLINICAL HISTORY: 87 years old, female; Signs and symptoms; Other: Prior stroke; Additional info: Hypotension, possible stroke TECHNIQUE: Axial computed tomographic angiography images of the head and neck with intravenous contrast using CT angiography protocol. All CT scans at this facility use one or more dose reduction techniques, viz.: automated exposure control; ma/kV adjustment per patient size (including targeted exams where dose is matched to indication; i.e. head); or iterative reconstruction technique. MIP reconstructed images were created and reviewed. Coronal and sagittal reformatted images were created and reviewed. CONTRAST: 100 mL of [id number] administered intravenously. COMPARISON: No relevant prior studies available. FINDINGS: HEAD: Right anterior cerebral artery: Unremarkable. No occlusion or significant stenosis. No aneurysm. Right middle cerebral artery: Unremarkable. No occlusion or significant stenosis. No aneurysm. Right posterior cerebral artery: Unremarkable. No occlusion or significant stenosis. No aneurysm. Left anterior cerebral artery: Unremarkable. No occlusion or significant stenosis. No aneurysm. Left middle cerebral artery: Unremarkable. No occlusion or significant stenosis. No aneurysm. Left posterior cerebral artery: Unremarkable. No occlusion or significant stenosis. No aneurysm. Basilar artery: Unremarkable. No occlusion or significant stenosis. No aneurysm. NECK: Right common carotid artery: No significant stenosis. No dissection or occlusion. Right internal carotid artery: No significant stenosis. No dissection or occlusion. Right external carotid artery: No occlusion. Right vertebral artery: No significant stenosis. No dissection or occlusion. Left common carotid artery: No significant stenosis. No dissection or occlusion. Left internal carotid artery: No significant stenosis. No dissection or occlusion. Left external carotid artery: No occlusion. Left vertebral artery: No significant stenosis. No dissection or occlusion. Thyroid: Multiple left thyroid nodules. Lung apices: Multiple bilateral tiny apical pulmonary nodules. HEAD and NECK: Bones/joints: Median sternotomy wires. Cervical spinal degenerative changes No acute fracture. No dislocation. Soft tissues: Unremarkable as visualized. No mass. CAROTID STENOSIS REFERENCE USING NASCET CRITERIA: % ICA stenosis = (1 - narrowest ICA diameter/diameter of distal cervical ICA) x 100. Mild - <50% stenosis. Moderate - 50-69% stenosis. Severe - 70-94% stenosis. Near occlusion - 95-99% stenosis. Occluded - 100% stenosis. IMPRESSION: 1. No evidence of cervical carotid artery stenosis or occlusion. 2. No intracranial arterial abnormality. 3. Remainder of findings as above.
[2017-07-04 09:09] LABS: INR 1.1; PROTHROMBIN TIME 12.5 SECONDS (9.7-12.2)
[2017-07-04] MEDS ORDERED: Enoxaparin 60 mg Syringe SC ONE (12:05)
--- NOTE | 2017-07-04 15:13 | PN ---
DATE: SUBJECTIVE: The patient is agitated and restless. She denies any chest pain. PHYSICAL EXAMINATION: VITAL SIGNS: Blood pressure 124/65, heart rate 89, temperature 98, respirations 20. HEENT: Normocephalic. CHEST: Clear. HEART: S1 and S2, regular. EXTREMITIES: No edema. LABORATORY DATA: Today's INR is 1.1. Digoxin level 0.6. CT angio of the head and neck revealed no evidence of cervical carotid artery stenosis or occlusion. ASSESSMENT: 1. Altered mental status. 2. Chronic atrial fibrillation. 3. 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 4. Mildly depressed ejection fraction with apical ballooning. RECOMMENDATIONS: Continue Coreg at 3.125 mg twice a day, Coumadin will be given at 7.5 mg today. Continue Crestor 10 mg once a day, Lanoxin 0.125 mg once a day, Lasix 20 mg p.o. once a day, Vasotec 2.5 mg once a day, Xanax 0.25 mg p.o. p.r.n. Psychiatry consult has been requested. I suggest giving the patient Haldol 1 mg IM as a single dose now. Pancho Mejia MD
[2017-07-04] MEDS: Digoxin 125 mcg (0.125 mg) Tab PO SCH (17:23)
--- NOTE | 2017-07-04 23:17 | CP.PCM.PN ---
Subjective - Date & Time of Evaluation Date of Evaluation: 07/04/17 Time of Evaluation: 13:00 - Subjective Subjective: Pt seen and evalauted, is confused, deleroious, not short of breath, she is on acoumadin, her INR is sub therapeutic Objective - Vital Signs/Intake and Output Vital Signs (last 24 hours): Temp Pulse Resp BP Pulse Ox 97.8 F 85 20 112/63 97 07/04/17 16:10 07/04/17 16:10 07/04/17 16:10 07/04/17 16:10 07/04/17 16:10 - Medications Medications: Current Medications Alprazolam (Xanax) 0.25 mg PO DAILY PRN PRN Reason: Anxiety Stop: 07/07/17 17:58 Last Admin: 07/04/17 21:43 Dose: 0.25 mg Carvedilol (Coreg) 3.125 mg PO BID [facility] Last Admin: 07/04/17 17:24 Dose: 3.125 mg Digoxin (Lanoxin) 0.125 mg PO DAILY@1800 [facility] Last Admin: 07/04/17 17:23 Dose: 0.125 mg Enalapril Maleate (Vasotec) 2.5 mg PO DAILY [facility] Last Admin: 07/04/17 10:12 Dose: 2.5 mg [facility]ous S[facility] ([facility]) [facility] Last Admin: 07/04/17 10:12 Dose: 325 mg Furosemide (Lasix) 20 mg PO DAILY [facility] Last Admin: 07/04/17 13:11 Dose: Not Given Lorazepam (Ativan) 1 mg IVP BID PRN PRN Reason: Agitation Rosuvastatin Calcium (Crestor) 10 mg PO [facility] Last Admin: 07/04/17 21:43 Dose: 10 mg - Labs Labs: 07/03/17 07:51 07/03/17 07:51 PT 12.5 SECONDS (9.7-12.2) H 07/04/17 08:50 INR 1.1 07/04/17 08:50 - Eye Exam Eye Exam: EOMI, Normal appearance, PERRL Pupil Exam: NORMAL ACCOMODATION, PERRL - ENT Exam ENT Exam: Mucous Membranes Moist, Normal Exam - Respiratory Exam Respiratory Exam: Clear to Ausculation Bilateral, NORMAL BREATHING PATTERN - Cardiovascular Exam Cardiovascular Exam: REGULAR RHYTHM, +S1, +S2. absent: Murmur - GI/Abdominal Exam GI & Abdominal Exam: Soft, Normal Bowel Sounds. absent: Tenderness Assessment and Plan (1) Coumadin toxicity Status: Acute (2) CHF (congestive heart failure) Status: Acute (3) COPD (chronic obstructive pulmonary disease) Status: Acute (4) Chest pain Status: Acute (5) Delirium Status: Acute (6) Encephalopathy acute Status: Acute
[2017-07-05 14:19] LABS: INR 1.8
[2017-07-05 14:22] LABS: PROTHROMBIN TIME 20.7 SECONDS (9.7-12.2)
[2017-07-05 15:32] LABS: FOLATE 8.4 ng/mL
--- NOTE | 2017-07-05 16:55 | CP.PCM.PN ---
Subjective - Date & Time of Evaluation Date of Evaluation: 07/05/17 Time of Evaluation: 16:52 - Subjective Subjective: Ms. Gandhi was seen and examined at the bedside. She is alert with episode of confusion. She is unable to participate during assessment. She is unable to answer questions, but able to request soup for dinner. According to staff, the patient has episode of confusion especially at nighttime. There was no untoward events overnight. Objective - Vital Signs/Intake and Output Vital Signs (last 24 hours): Temp Pulse Resp BP Pulse Ox 98.7 F 71 20 109/63 95 07/05/17 15:00 07/05/17 15:00 07/05/17 15:00 07/05/17 15:00 07/05/17 15:00 Intake and Output: 07/05/17 07/05/17 06:59 18:59 Intake Total 150 Balance 150 - Medications Medications: Current Medications Alprazolam (Xanax) 0.25 mg PO DAILY PRN PRN Reason: Anxiety Stop: 07/07/17 17:58 Last Admin: 07/04/17 21:43 Dose: 0.25 mg Carvedilol (Coreg) 3.125 mg PO BID [facility] Last Admin: 07/05/17 10:45 Dose: 3.125 mg Digoxin (Lanoxin) 0.125 mg PO DAILY@1800 [facility] Last Admin: 07/04/17 17:23 Dose: 0.125 mg Donepezil HCl (Aricept) 5 mg PO [facility] Enalapril Maleate (Vasotec) 2.5 mg PO DAILY [facility] Last Admin: 07/05/17 10:45 Dose: 2.5 mg Ferrous Sulfate (Feosol) 325 mg PO QAM [facility] Last Admin: 07/05/17 10:45 Dose: 325 mg Furosemide (Lasix) 20 mg PO DAILY [facility] Last Admin: 07/05/17 10:45 Dose: 20 mg Lorazepam (Ativan) 1 mg IVP BID PRN PRN Reason: Agitation Rosuvastatin Calcium (Crestor) 10 mg PO HS [facility] Last Admin: 07/04/17 21:43 Dose: 10 mg Warfarin Sodium (Coumadin) 7.5 mg PO 1800 [facility] Stop: 07/05/17 18:01 - Labs Labs: 07/03/17 07:51 07/03/17 07:51 PT 20.7 SECONDS (9.7-12.2) H D 07/05/17 13:55 INR 1.8 D 07/05/17 13:55 - Constitutional Appears: No Acute Distress - Head Exam Head Exam: NORMAL INSPECTION - Neurological Exam Neurological Exam: Awake Neuro motor strength exam: Left Upper Extremity: 4, Right Upper Extremity: 4, Left Lower Extremity: 4, Right Lower Extremity: 4 Additional comments: Confused about date, knows her name, age and that she is in the hospital. She is looking for objects that are not in the room. 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 Otherwise, no other focal findings. Reflexes normal, gait not tested due to confusion. Assessment and Plan (1) Encephalopathy acute Assessment & Plan: Case discussed with Dr. Goodson, continue all current medical regimen and per neurology clear to be transfer to a psych [facility]. Status: Acute
[2017-07-05] MEDS: Digoxin 125 mcg (0.125 mg) Tab PO SCH (17:49)
--- NOTE | 2017-07-05 20:56 | PN ---
DATE: SUBJECTIVE: The patient is in a much better mood today. She is cooperative and not agitated. PHYSICAL EXAMINATION VITAL SIGNS: Blood pressure 109/63, heart rate 71, temperature 98.7, and respirations 20. HEENT: Normocephalic. CHEST: Clear. HEART: S1 and S2 regular. ABDOMEN: Soft. EXTREMITIES: No edema. ASSESSMENT: 1. Chronic atrial fibrillation. 2. Altered mental status. 3. Status post mitral and aortic valve bioprosthesis. 4. Mildly depressed ejection fraction with apical ballooning. RECOMMENDATIONS: Continue current Aricept, Ativan, Coreg, Crestor, Lanoxin, Vasotec, and Feosol. Today's INR is 1.8 and the patient would receive Coumadin 7.5 mg. I would review the echocardiographic study for clearing the patient for Psychiatry [facility] at [facility]. Pancho Mejia MD
--- NOTE | 2017-07-05 22:57 | CP.PCM.PN ---
Subjective - Date & Time of Evaluation Date of Evaluation: 07/05/17 Time of Evaluation: 18:00 - Subjective Subjective: Pt seen and evalauted Objective - Vital Signs/Intake and Output Vital Signs (last 24 hours): Temp Pulse Resp BP Pulse Ox 98.7 F 77 20 109/63 95 07/05/17 15:00 07/05/17 18:35 07/05/17 15:00 07/05/17 15:00 07/05/17 15:00 - Medications Medications: Current Medications Alprazolam (Xanax) 0.25 mg PO DAILY PRN PRN Reason: Anxiety Stop: 07/07/17 17:58 Last Admin: 07/04/17 21:43 Dose: 0.25 mg Carvedilol (Coreg) 3.125 mg PO BID [facility] Last Admin: 07/05/17 17:49 Dose: 3.125 mg Digoxin (Lanoxin) 0.125 mg PO DAILY@1800 [facility] Last Admin: 07/05/17 17:49 Dose: 0.125 mg Donepezil HCl (Aricept) 5 mg PO [facility] Last Admin: 07/05/17 22:13 Dose: 5 mg Enalapril Maleate (Vasotec) 2.5 mg PO DAILY [facility] Last Admin: 07/05/17 10:45 Dose: 2.5 mg Ferrous Sulfate (Feosol) 325 mg PO QAM [facility] Last Admin: 07/05/17 10:45 Dose: 325 mg Furosemide (Lasix) 20 mg PO DAILY [facility] Last Admin: 07/05/17 10:45 Dose: 20 mg Lorazepam (Ativan) 1 mg IVP BID PRN PRN Reason: Agitation Rosuvastatin Calcium (Crestor) 10 mg PO [facility] Last Admin: 07/05/17 22:13 Dose: 10 mg - Labs Labs: 07/03/17 07:51 07/03/17 07:51 PT 20.7 SECONDS (9.7-12.2) H D 07/05/17 13:55 INR 1.8 D 07/05/17 13:55 Assessment and Plan (1) Coumadin toxicity Status: Acute (2) CHF (congestive heart failure) Status: Acute (3) COPD (chronic obstructive pulmonary disease) Status: Acute (4) Chest pain Status: Acute (5) Delirium Status: Acute (6) Encephalopathy acute Status: Acute
--- NOTE | 2017-07-06 00:18 | CON ---
DATE: 07/05/2017 CHIEF COMPLAINT AND REASON FOR CONSULTATION: The patient is referred by Dr. Dickinson. The patient has been exhibiting increasing bouts of confusion and agitation, especially at night. The patient is exhibiting owning. The patient is well-known to me with a history of anxiety. HISTORY OF PRESENT ILLNESS: The patient is an 87-year-old female with a history of aortic valve replacement, atrial fibrillation with pacemaker. The patient is well known to me, having been treated at [facility]. The patient was admitted here for hypertension and chest pain, and also the patient was admitted for possible Coumadin toxicity. The patient was referred as yesterday the patient was very agitated at night, combative and fighting with the nurse and very anxious, and noted to be getting more forgetful. Today when seen, she is much calmer. She was given Ativan IV before, but complaining of memory loss. She states that she lives by herself. Her , who used to be my patient, a few months ago. The patient now lives by herself. She says that she needs a homemaker to help her at home. She is complaining of chest pain and also increasing anxiety. The patient was taking Xanax 0.25 mg daily at home. PAST PSYCHIATRIC HISTORY: History of anxiety and possible dementia. PAST MEDICAL HISTORY: History of atrial fibrillation, CHF, COPD, depression, diabetes, hypertension, hyperlipidemia, and thyroid problems. DRUG AND ALCOHOL HISTORY: Denies any. ALLERGIES: NO KNOWN ALLERGIES. PSYCHOSOCIAL HISTORY: The patient is a . The patient has one son. The patient lives by herself. CURRENT MEDICATIONS: List of current medications includes Ativan 1 mg IV b.i.d. p.r.n, Coreg, Crestor, Feosol, Lasix, and Xanax 0.25 mg daily p.r.n. REVIEW OF SYSTEMS: GENERAL: The patient is alert and verbal, but forgetful. The patient is not aware of the current date, except 2017. Does not know the day or the week. Knows her age. She was seen with a sld teacher. SKIN: No diaphoresis. HEENT: No headache. No dizziness. NECK: Supple. RESPIRATORY: No dyspnea. CARDIOVASCULAR: No chest pain. GASTROINTESTINAL: No nausea, no vomiting. EXTREMITIES: The patient is moving extremities. MUSCULOSKELETAL: Feels weak. NEUROLOGIC: Alert and oriented x2, but forgetful. The patient does not follow. PHYSICAL EXAMINATION: VITAL SIGNS: Temperature is 97.8, pulse rate is 80, blood pressure is 127/69, respirations 20, and oxygen sat is 95% on room air. MENTAL STATUS EXAMINATION: An elderly female, looks her stated age, and oriented x2. Mood is anxious. Affect is reactive. Speech is spontaneous. Thought process is forgetful. Thought content, no overt psychosis. No suicidal or homicidal ideation. Attention and memory seemed to be limited. Insight and judgment limited. Impulse control is fair at this time. LABORATORY DATA: The patient had a V/Q scan, the results were negative. Stroke was ruled out. IMPRESSION: History of anxiety as well as depression with possible dementia with sundowning phenomenon. PLAN AND RECOMMENDATION: The patient is seen, meds reviewed. Continue Ativan 1 mg b.i.d. p.r.n. as ordered. The patient may benefit from Geropsych admission once medically cleared and once cleared from all the consulting services, [facility], we will order TSH, B12, folate, and then also, we will start her with something for dementia. The patient may benefit from Aricept 5 mg daily for dementia. We will follow up with the patient. Leandro Lagos MD [facility]
[2017-07-06 06:59] LABS: INR 2.2; PROTHROMBIN TIME 25.4 SECONDS (9.7-12.2)
--- NOTE | 2017-07-06 08:23 | CARD ---
APPROVED REPORT EXAM: Two-dimensional and M-mode echocardiogram with Doppler and color Doppler. Other Information Quality : GoodRhythm : INDICATION CVA/TIA Dyspnea Atrial Fibrillation Chest Pain Congestive Heart Failure MVR, AVR 2D DIMENSIONS IVSd0.9 (0.7-1.1cm)LVDd5.1 (3.9-5.9cm) LVOT Diameter2.2 (1.8-2.4cm)PWd0.9 (0.7-1.1cm) LVDs3.3 (2.5-4.0cm)FS (%) 34.9 % LVEF (%)63.8 (>50%) M-Mode DIMENSIONS Left Atrium (MM)3.94 (2.5-4.0cm)Aortic Root3.63 (2.2-3.7cm) Aortic Cusp Exc.1.90 (1.5-2.0cm) Aortic Valve AoV Peak Dpjjnfvi860.2cm/sAoV VTI50.4cmAO Peak GR.23mmHg LVOT Peak Spgdbfah693.6cm/sLVOT VTI32.93cmAO Mean GR.13mmHg CJ (VMAX)2.49ja9FGK (VTI)2.58cm2 Mitral Valve MV E Vcdumfrb334.8cm/sMV E Peak Gr.13mmHgMV E Mean Gr.6mmHg MV DYY349gaA/A ratio0.0MVA (PHT)1.67cm2 TDI E/Lateral E'0.0E/Medial E'0.0 Tricuspid Valve TR Peak Ygpcqibt690zz/sTR Peak Gr.40esYvIQLS01kkMh LEFT VENTRICLE The left ventricle is normal size. There is normal left ventricular wall thickness. Left ventricle systolic function is normal. The Ejection Fraction is 60-65%. There is normal LV segmental wall motion. The left ventricular diastolic function is normal. No left ventricle thrombus noted on this study. RIGHT VENTRICLE The right ventricle is normal size. The right ventricular systolic function is normal. ATRIA The left atrium size is normal. The right atrium size is normal. AORTIC VALVE The prosthetic aortic valve appears well seated and opens well. Bioprosthesis leaflets are thin and move normally. There are normal prosthetic aortic valve gradients. MITRAL VALVE Prosthetic mitral valve appears well seated. The opening of the prosthetic mitral valve appears to be limited. There are normal prosthetic mitral valve gradients. TRICUSPID VALVE The tricuspid valve is normal in structure. There is moderate to severe tricuspid regurgitation. Right ventricular systolic pressure is estimated at 40-50 mmHg. There is mild to moderate pulmonary hypertension. There is no tricuspid valve stenosis. PULMONIC VALVE The pulmonary valve is normal in structure. There is trace pulmonic valvular regurgitation. There is no pulmonic valvular stenosis. GREAT VESSELS The aortic root is normal in size. The IVC collapses <50% with inspiration. PERICARDIAL EFFUSION There is no pericardial effusion. There is no pleural effusion. <Conclusion> The left ventricle is normal size. Left ventricle systolic function is normal. The Ejection Fraction is 60-65%. The right ventricularsize and systolic function are normal. The left and right atrium size is normal. The prosthetic aortic valve appears well seated and opens well. There are normal prosthetic aortic valve gradients. Prosthetic mitral valve appears well seated. The opening of the prosthetic mitral valve appears to be limited. There are normal prosthetic mitral valve gradients. There is moderate to severe tricuspid regurgitation. There is mild to moderate pulmonary hypertension. There is trace pulmonic valvular regurgitation.
[2017-07-06 11:47] LABS: BARBITURATES, UR NEGATIVE (NEGATIVE); BENZODIAZEPINES, UR NEGATIVE (NEGATIVE); OPIATES, UR NEGATIVE (NEGATIVE); PHENCYCLIDINE, UR NEGATIVE (NEGATIVE)
--- NOTE | 2017-07-06 13:24 | PN ---
DATE: 07/06/2017 SUBJECTIVE: Patient is seen. Patient's behavior is much better today. She was started with Aricept for dementia and currently on Ativan and Xanax p.r.n. Patient is not exhibiting behavioral problems, is still feeling weak. Patient is not a candidate for Geropsych at this time as the behavior has improved. She has been compliant with care. She is still complaining of feeling weak and also she states she needs some home care services at home, but she states her application for Medicaid was denied. LABORATORY DATA: The blood sugar is 124, B12 is 497, folate is 8.4, and TSH is 1.41. PHYSICAL EXAMINATION: VITAL SIGNS: Temperature is 98.2, pulse is 74, blood pressure is 111/60, respirations 20, oxygen sat is 96%. REVIEW OF SYSTEMS: GENERAL: Patient is alert, verbal, forgetful, seen in her room, pleasant and cooperative with staff. She states that she needs some help at home. SKIN: No diaphoresis. HEENT: No headache or dizziness. NECK: Supple. RESPIRATORY: No dyspnea. CARDIOVASCULAR: No chest pain. GASTROINTESTINAL: She is eating fairly well. No nausea. No vomiting. EXTREMITIES: Gait is unsteady. MUSCULOSKELETAL: Feels weak. NEUROLOGIC: Alert and oriented x2. Forgetful. MENTAL STATUS EXAMINATION: Elderly female, who looks her stated age, oriented x2. Patient is forgetful. Speech is spontaneous, conversing in Greek. Affect is reactive. Mood is dysphoric. Thought process forgetful. Thought content, still misses her , [place] a few months ago. Patient wants some home care services at home. She also seems to be amenable to go for subacute rehab. As stated, no suicidal thought or ideation. Attention and memory seem to be limited. Insight and judgement limited. Impulse control is fair at this time. IMPRESSION: Depression, anxiety, as well as dementia with mood changes. PLAN AND RECOMMENDATION: Patient is seen, meds reviewed. Continue present psych meds as ordered. Patient at this is not a candidate for Geropsych admission at this time as her behavior seems to be better with addition of Aricept and also with the Xanax and Ativan p.r.n. Patient may benefit from subacute rehab for reconditioning once medically cleared. According to the nurse practitioner, patient has been cleared from Neuro and Cardio. Leandro Lagos MD [facility] # [id number]
--- NOTE | 2017-07-06 14:54 | PN ---
DATE: FOLLOWUP SUBJECTIVE: The patient is cooperative today. She is not agitated and does not appear to be in any distress. PHYSICAL EXAMINATION: VITAL SIGNS: Blood pressure 111/60, heart rate 74, temperature 98.2, respirations 20. HEENT: Normocephalic. CHEST: Clear. HEART: S1 and S2 regular. EXTREMITIES: No edema. LABORATORY DATA: Today's laboratories, today's INR is 2.2. Echocardiography study report revealed normal ejection fraction. The prosthetic aortic valve appears to be well seated and opens well. Normal prosthetic aortic valve gradient. Prosthetic mitral valve appears well seated. The opening of the prosthetic mitral valve appeared to be limited. There is normal prosthetic mitral valve gradient. There is moderate to severe tricuspid regurgitation with mild to moderate pulmonary hypertension. ASSESSMENT: 1. Status post mitral and aortic bioprosthetic valve replacement. 2. Chronic atrial fibrillation. 3. Mild to moderate pulmonary hypertension. RECOMMENDATIONS: Continue current Aricept 5 mg once a day, Coreg 3.125 mg twice a day, Lanoxin 0.125 mg once a day, Lasix 20 mg p.o. once a day, Vasotec 2.5 mg once a day. Start Coumadin at its original dose of 4 mg daily. The plan is to discharge the patient to subacute rehab. Pancho Mejia MD
[2017-07-06] MEDS: Digoxin 125 mcg (0.125 mg) Tab PO SCH (18:02)
[2017-07-06 23:22] VITALS: RESP 20
[2017-07-07 06:44] LABS: INR 2.1; PROTHROMBIN TIME 24.8 SECONDS (9.7-12.2)
[2017-07-07] MEDS ORDERED: Bacitracin Ointment 30 GM TUBE TOP SCH ×3 (10:30→10:45)
[2017-07-07] MEDS ORDERED: Clindamycin 300 MG in Sodium Chloride 0.9% 100 ML IVPB SCH (11:30)
--- NOTE | 2017-07-07 13:12 | CP.PCM.PN ---
Subjective - Date & Time of Evaluation Date of Evaluation: 07/07/17 Time of Evaluation: 13:10 - Subjective Subjective: Ms. Gandhi was seen and examined at the bedside. She is alert, but with episode of confusion. She thinks that she is in a street and that where her bruisingof her upper extremities. She is up in a chair, tolerated moderate amount of her PO intake. She is on 1:1 sitter for patient safety. There was no untoward events overnight. Objective - Vital Signs/Intake and Output Vital Signs (last 24 hours): Temp Pulse Resp BP Pulse Ox 98.4 F 96 H 20 112/63 96 07/07/17 07:00 07/07/17 07:00 07/07/17 07:00 07/07/17 10:18 07/07/17 07:00 - Medications Medications: Current Medications Alprazolam (Xanax) 0.25 mg PO DAILY PRN PRN Reason: Anxiety Stop: 07/07/17 17:58 Last Admin: 07/04/17 21:43 Dose: 0.25 mg Bacitracin (Bacitracin) 0 gm TOP BID [facility] Last Admin: 07/07/17 11:00 Dose: 1 applic Carvedilol (Coreg) 3.125 mg PO BID [facility] Last Admin: 07/07/17 10:18 Dose: 3.125 mg Digoxin (Lanoxin) 0.125 mg PO DAILY@1800 [facility] Last Admin: 07/06/17 18:02 Dose: 0.125 mg Donepezil HCl (Aricept) 5 mg PO HS [facility] Last Admin: 07/06/17 21:59 Dose: 5 mg Enalapril Maleate (Vasotec) 2.5 mg PO DAILY [facility] Last Admin: 07/07/17 10:18 Dose: 2.5 mg Ferrous Sulfate (Feosol) 325 mg PO QAM [facility] Last Admin: 07/07/17 10:17 Dose: 325 mg Furosemide (Lasix) 20 mg PO DAILY [facility] Last Admin: 07/07/17 10:17 Dose: 20 mg Clindamycin Phosphate 300 mg/ (Sodium Chloride) 102 mls @ 204 mls/hr IVPB Q12H [facility] Last Admin: 07/07/17 12:46 Dose: 204 mls/hr Lorazepam (Ativan) 1 mg IVP BID PRN PRN Reason: Agitation Rosuvastatin Calcium (Crestor) 10 mg PO HS [facility] Last Admin: 07/06/17 22:00 Dose: 10 mg Warfarin Sodium (Coumadin) 5 mg PO 1800 [facility] Stop: 07/07/17 18:01 - Labs Labs: 07/03/17 07:51 07/03/17 07:51 PT 24.8 SECONDS (9.7-12.2) H 07/07/17 06:33 INR 2.1 07/07/17 06:33 - Constitutional Appears: No Acute Distress - Head Exam Head Exam: NORMAL INSPECTION - Neurological Exam Neurological Exam: Awake Neuro motor strength exam: Left Upper Extremity: 4, Right Upper Extremity: 4, Left Lower Extremity: 3, Right Lower Extremity: 3 Additional comments: neurological unchanged form previous examination. Assessment and Plan (1) Encephalopathy acute Assessment & Plan: Case discussed with Dr. Goodson, continue all current medical regimen. There is no new recommendations from neurology. Status: Acute
--- NOTE | 2017-07-07 13:14 | PN ---
DATE: FOLLOWUP SUBJECTIVE: The patient denies chest pain. She is cooperative and not agitated. PHYSICAL EXAMINATION: VITAL SIGNS: Blood pressure 112/63, heart rate 96, temperature 98.4, respirations 20. HEENT: Normocephalic. CHEST: Clear. HEART: S1 and S2 irregular. ABDOMEN: Soft. EXTREMITIES: No edema. ASSESSMENT: 1. Chronic atrial fibrillation. 2. Status post bioprosthetic aortic and mitral valve replacement. 3. Mild to moderate pulmonary hypertension. 4. Altered mental status. RECOMMENDATIONS: Continue current Coumadin 5 mg daily, Coreg 3.125 mg twice a day, clindamycin 300 mg intravenously q. 12 hours, Vistaril 10 mg once a day, Lasix 20 mg p.o. once a day, enalapril 2.5 mg once a day. Today's INR is 2.1. Pancho Mejia MD
--- NOTE | 2017-07-07 15:06 | PN ---
DATE: 07/07/2017 SUBJECTIVE: The patient is seen. The patient is seen with staff. The patient is refusing to go for subacute rehab, stating she has to go home for 2 or 3 days to check her apartment. The patient has dementia; however, she is doing much better with the Aricept, but the patient is also on blood thinners and cannot remember how to take her meds. The patient had been followed by Lelo LLAMAS and major concern is patient is not taking her meds very well due to her dementia and insisting that she only needs home care services at home, but the patient will not qualify for Medicaid because she has lots of assets, which she denies. The patient is unsafe for discharge at this time to home without assistance. We need to contact her son. We can ask her son to help monitor her at home after discharge. Psych honeycutt, she is on Aricept 5 mg at bedtime as well as Ativan 1 mg IV p.r.n. and Xanax 0.25 mg daily p.r.n. PHYSICAL EXAMINATION: VITAL SIGNS: Temperature is 98.4, pulse rate 96, blood pressure 112/62, respirations 20, oxygen sat is 96%. REVIEW OF SYSTEMS: GENERAL: The patient is seen with staff, appears anxious and wants to go home, conversing in [place] with manager willow.SKIN: No diaphoresis. HEENT: No headache. No dizziness. NECK: Supple. RESPIRATORY: No dyspnea. CARDIOVASCULAR: No chest pain. GASTROINTESTINAL: Appetite is variable. No nausea. No vomiting. EXTREMITIES: Gait is still unsteady at times. MUSCULOSKELETAL: Feels week. NEUROLOGIC: Alert with periods of forgetfulness. GENITOURINARY: No dysuria. MENTAL STATUS EXAMINATION: Elderly female, who looked stated age, oriented to place and person, seen in her room with staff. The patient is refusing to go for subacute rehab. She doesn't want to go back to [facility] and has been offered to go to another facility. The patient still has periods of confusion and needs somebody to monitor her meds as well as the patient also needs assistance at home. Speech is spontaneous. Conversing in [place]. Affective is reactive. Mood is irritable, anxious. Thought process is forgetful. Thought content, preoccupied about going home. No overt psychosis. No suicidal thought or ideation. Attention and memory seem to be limited. Insight and judgment limited. Impulse control is fair at this time. IMPRESSION: History of depression, anxiety as well as dementia with mood changes, history of Coumadin toxicity. PLAN AND RECOMMENDATIONS: The patient is seen, meds reviewed. Continue present psych meds. The patient at this time is not safe for discharge without adequate help at home. The patient is refusing to go for subacute rehab. We will try to contact her son, if the son is willing to help as well as to convince his mother to go for subacute rehab in a different facility as the patient is not safe to be discharged to home alone without adequate help at this time. Leandro Lagos MD MTDDavie
--- NOTE | 2017-07-07 15:34 | CP.PCM.PN ---
Subjective - Date & Time of Evaluation Date of Evaluation: 07/07/17 Time of Evaluation: 15:20 - Subjective Subjective: Patient seen today , awake, alert, oriented to person place , calm and co operative , denies any complaints , wants to go home Patient referred to Rehab and refused to go wants to go home only No overnight events reported by RN Objective - Vital Signs/Intake and Output Vital Signs (last 24 hours): Temp Pulse Resp BP Pulse Ox 98.4 F 96 H 20 112/63 96 07/07/17 07:00 07/07/17 07:00 07/07/17 07:00 07/07/17 10:18 07/07/17 07:00 Intake and Output: 07/07/17 07/07/17 06:59 18:59 Intake Total 580 Balance 580 - Medications Medications: Current Medications Alprazolam (Xanax) 0.25 mg PO DAILY PRN PRN Reason: Anxiety Stop: 07/07/17 17:58 Last Admin: 07/04/17 21:43 Dose: 0.25 mg Bacitracin (Bacitracin) 0 gm TOP BID [facility] Last Admin: 07/07/17 11:00 Dose: 1 applic Carvedilol (Coreg) 3.125 mg PO BID [facility] Last Admin: 07/07/17 10:18 Dose: 3.125 mg Digoxin (Lanoxin) 0.125 mg PO DAILY@1800 [facility] Last Admin: 07/06/17 18:02 Dose: 0.125 mg Donepezil HCl (Aricept) 5 mg PO [facility] Last Admin: 07/06/17 21:59 Dose: 5 mg Enalapril Maleate (Vasotec) 2.5 mg PO DAILY [facility] Last Admin: 07/07/17 10:18 Dose: 2.5 mg Ferrous Sulfate (Feosol) 325 mg PO QAM [facility] Last Admin: 07/07/17 10:17 Dose: 325 mg Furosemide (Lasix) 20 mg PO DAILY [facility] Last Admin: 07/07/17 10:17 Dose: 20 mg Lorazepam (Ativan) 1 mg IVP BID PRN PRN Reason: Agitation Rosuvastatin Calcium (Crestor) 10 mg PO [facility] Last Admin: 07/06/17 22:00 Dose: 10 mg Warfarin Sodium (Coumadin) 5 mg PO 1800 [facility] Stop: 01/10/18 18:01 - Labs Labs: 07/03/17 07:51 07/03/17 07:51 PT 24.8 SECONDS (9.7-12.2) H 07/07/17 06:33 INR 2.1 07/07/17 06:33 - Constitutional Appears: Well, No Acute Distress - Respiratory Exam Respiratory Exam: Clear to Ausculation Bilateral, NORMAL BREATHING PATTERN - Cardiovascular Exam Cardiovascular Exam: Irregular Rhythm, +S1, +S2 - Neurological Exam Neurological Exam: Alert, Awake (oriented to person an dplac e) Assessment and Plan - Assessment and Plan (Free Text) Assessment: A/P 87 yr old female with Atrial Fibrillation, CHF, COPD, Depression, Diabetes, HTN , Hyperlipidemia, Hypothyroidism CABG, Coronary Stent, Pacemaker admitted for Transient hypotension, Coumadin toxicity INR- STABLE - 2.1 D Patient referred to [facility] and discussed with patient ref. rehab for few days via machine try out setter , patient refused and wants to go home CM spoke to son Gregg regarding disposition and offered [facility] patient son totally refused and stated he will take his mom home and manage her medications ( he will give medication on time to patient ) D/W Dr. Dickinson, stable for discharge home today and f/u with PMD in 3-5 days VNA service arranged by CM for f/u care and lab work ( INR) CM SPOKE TO SON STATED HE WILL COME AND NURSING CLINICAL DIRECTOR HER MOM AND NO TRANSPORTATIONS
[2017-07-07 16:07] VITALS: TEMP 97.8; O2SAT 97
[2017-07-07 17:02] VITALS: BP 102/63; PULSE 88
[2017-07-07] MEDS: Digoxin 125 mcg (0.125 mg) Tab PO SCH (17:11)
[2017-07-07 17:12] VITALS: PULSE 88
[2017-07-07] MEDS ORDERED: Clindamycin 300 MG in Sodium Chloride 0.9% 50 ML IVPB SCH (22:00)
--- NOTE | 2017-07-08 23:10 | CP.PCM.DIS ---
Provider - Provider Date of Admission: 07/01/17 17:24 Attending physician: Samy Dickinson MD Diagnosis - Discharge Diagnosis (1) Coumadin toxicity Status: Acute (2) CHF (congestive heart failure) Status: Acute (3) COPD (chronic obstructive pulmonary disease) Status: Acute (4) Chest pain Status: Acute (5) Delirium Status: Acute (6) Encephalopathy acute Status: Acute Priority: High Hospital Course - Lab Results Lab Results: Most Recent Lab Values WBC 5.9 K/uL (4.8-10.8) 07/03/17 07:51 RBC 3.78 Mil/uL (3.80-5.20) L 07/03/17 07:51 Hgb 12.1 g/dL (11.0-16.0) 07/03/17 07:51 Hct 34.9 % (34.0-47.0) 07/03/17 07:51 MCV 92.2 fL (81.0-99.0) 07/03/17 07:51 MCH 31.9 pg (27.0-31.0) H 07/03/17 07:51 MCHC 34.6 g/dL (33.0-37.0) 07/03/17 07:51 RDW 14.8 % (11.5-14.5) H 07/03/17 07:51 Plt Count 256 K/uL (130-400) 07/03/17 07:51 MPV 7.9 fL (7.2-11.7) 07/03/17 07:51 Neut % (Auto) 65.3 % (50.0-75.0) 07/03/17 07:51 Lymph % (Auto) 25.5 % (20.0-40.0) 07/03/17 07:51 [place] % (Auto) 8.3 % (0.0-10.0) 07/03/17 07:51 Eos % (Auto) 0.3 % (0.0-4.0) 07/03/17 07:51 Baso % (Auto) 0.6 % (0.0-2.0) 07/03/17 07:51 Neut # 3.8 K/uL (1.8-7.0) 07/03/17 07:51 Lymph # 1.5 K/uL (1.0-4.3) 07/03/17 07:51 [place] # 0.5 K/uL (0.0-0.8) 07/03/17 07:51 Eos # 0.0 K/uL (0.0-0.7) 07/03/17 07:51 Baso # 0.0 K/uL (0.0-0.2) 07/03/17 07:51 PT 24.8 SECONDS (9.7-12.2) H 07/07/17 06:33 INR 2.1 07/07/17 06:33 Sodium 133 mmol/L (132-148) 07/03/17 07:51 Potassium 3.8 mmol/L (3.6-5.2) 07/03/17 07:51 Chloride 98 mmol/L (98-107) 07/03/17 07:51 Carbon Dioxide 29 mmol/L (22-30) 07/03/17 07:51 Anion Gap 10 (10-20) 07/03/17 07:51 BUN 12 mg/dL (7-17) 07/03/17 07:51 Creatinine 0.7 mg/dL (0.7-1.2) 07/03/17 07:51 Est GFR ( Amer) > 60 07/03/17 07:51 Est GFR (Non-Af Amer) > 60 07/03/17 07:51 POC Glucose (mg/dL) 124 mg/dL (65-110) H 07/04/17 21:38 Random Glucose 107 mg/dL (65-105) H 07/03/17 07:51 Calcium 8.3 mg/dl (8.6-10.4) L 07/03/17 07:51 Total Bilirubin 0.9 mg/dL (0.2-1.3) 07/03/17 07:51 AST 24 U/L (14-36) 07/03/17 07:51 ALT 16 U/L (9-52) 07/03/17 07:51 Alkaline Phosphatase 132 U/L (38-126) H 07/03/17 07:51 Total Creatine Kinase 115 U/L (30-135) 07/01/17 00:52 CK-MB (Mass) 0.69 ng/mL (0.0-3.38) 07/01/17 00:52 Troponin I 0.0140 ng/mL (0.00-0.120) 07/01/17 00:52 Total Protein 7.3 g/dL (6.3-8.3) 07/03/17 07:51 Albumin 3.5 g/dL (3.5-5.0) 07/03/17 07:51 Globulin 3.9 gm/dL (2.2-3.9) 07/03/17 07:51 Albumin/Globulin Ratio 0.9 (1.0-2.1) L 07/03/17 07:51 Triglycerides 60 mg/dL (0-149) D 07/03/17 07:51 Cholesterol 186 mg/dL (0-199) 07/03/17 07:51 LDL Cholesterol Direct 108 mg/dL (0-129) 07/03/17 07:51 HDL Cholesterol 50 mg/dL (30-70) 07/03/17 07:51 Vitamin B12 497 pg/mL (239-931) 07/05/17 13:55 Folate 8.4 ng/mL 07/05/17 13:55 TSH 3rd Generation 1.41 mIU/L (0.46-4.68) 07/05/17 13:55 Digoxin 0.6 ng/mL (0.8-2.0) L 07/03/17 22:25 Urine Opiates Screen Negative (NEGATIVE) 07/06/17 11:04 Urine Methadone Screen Negative (NEGATIVE) 07/06/17 11:04 Ur Barbiturates Screen Negative (NEGATIVE) 07/06/17 11:04 Ur Phencyclidine Scrn Negative (NEGATIVE) 07/06/17 11:04 Ur Amphetamines Screen Negative (NEGATIVE) 07/06/17 11:04 U Benzodiazepines Scrn Negative (NEGATIVE) 07/06/17 11:04 U Oth Cocaine Metabols Negative (NEGATIVE) 07/06/17 11:04 U Cannabinoids Screen Negative (NEGATIVE) 07/06/17 11:04 Alcohol, Quantitative < 10 mg/dl (0-10) 07/05/17 21:32 - Hospital Course Hospital Course: A/P 87 yr old female with Atrial Fibrillation, CHF, COPD, Depression, Diabetes, HTN , Hyperlipidemia, Hypothyroidism CABG, Coronary Stent, Pacemaker admitted for Transient hypotension, Coumadin toxicity INR- STABLE - 2.1 D Patient referred to [facility] and discussed with patient ref. rehab for few days via currency exchange specialist , patient refused and wants to go home CM spoke to son Gregg regarding disposition and offered [facility] patient son totally refused and stated he will take his mom home and manage her medications ( he will give medication on time to patient ) PT is stable for discharge home today and f/u with PMD in 3-5 days VNA service arranged by CM for f/u care and lab work ( INR) CM SPOKE TO SON STATED HE WILL COME AND WHEEL WORKER HER MOM AND NO TRANSPORTATIONS Discharge Exam - Head Exam Head Exam: NORMAL INSPECTION Discharge Plan - Discharge Medications Prescriptions: Donepezil [Aricept] 5 mg PO HS #30 tab Bacitracin Ointment [Bacitracin] 1 gm TOP BID #1 tube Warfarin [Coumadin] 4 mg PO DAILY@1800 #5 tab Furosemide [Lasix] 20 mg PO DAILY #30 tablet Enalapril Maleate [Vasotec] 2.5 mg PO DAILY #30 tab - Follow Up Plan Condition: IMPROVED Disposition: HOME/ ROUTINE Instructions: Enalapril (By mouth), Furosemide (By mouth), Warfarin (By mouth) , Donepezil (By mouth), Bacitracin (On the skin), Heart Failure (DC), Heart Healthy Diet (DC) Additional Instructions: Please f/u with Dr. Kane ortiz / Dr. Dickinson in 3- 5 days - call and make appointment Please continue medication as per Med. rec. VNA SERVICE FOR HOME CARE AND MANAGEMENT OF COUMADIN/ PT/INR 2/WEEK AND FAX RESULT TO DR. ENGEL OFFICE PLEASE WHEEL WORKER MEDICATION FROM YOUR PHARMACY " PLEASE PREVENT ANY FALLS" Referrals: Samy Dickinson MD [Staff Provider] -
== END 2017-07-07 17:56 | disposition home or self-care (01) | DRG 917 ==
LOC: C.ER 13:17 → C.9E 16:37 → C.5S 19:59 → OBSVTOIN 07-01 17:24 → C.6T 07-03 02:26
PROVIDERS: ADMIT Internal Medicine; ATTEND Internal Medicine
DX: T45.511A Poisoning by anticoagulants, accidental (unintentional), initial encounter (principal); G93.40 Encephalopathy, unspecified; I27.20 Pulmonary hypertension, unspecified; I11.0 Hypertensive heart disease with heart failure; I48.2 Chronic atrial fibrillation; I50.9 Heart failure, unspecified; I95.1 Orthostatic hypotension; Y92.009 Unspecified place in unspecified non-institutional (private) residence as the place of occurrence of the external cause; E03.9 Hypothyroidism, unspecified; E11.9 Type 2 diabetes mellitus without complications; F03.90 Unspecified dementia, unspecified severity, without behavioral disturbance, psychotic disturbance, mood disturbance, and anxiety; E78.5 Hyperlipidemia, unspecified; F41.9 Anxiety disorder, unspecified; J44.9 Chronic obstructive pulmonary disease, unspecified; Z79.01 Long term (current) use of anticoagulants; Z86.711 Personal history of pulmonary embolism; Z95.0 Presence of cardiac pacemaker; Z95.2 Presence of prosthetic heart valve

== ENCOUNTER 2017-10-31 17:47 | Inpatient (IN) | payer MEDICARE ==
[2017-10-31 17:48] VITALS: BMI 27.4
[2017-10-31] MEDS ORDERED: Atropine Sulfate 1 mg/ml Vial (1 ml) IVP ONE (17:57)
--- NOTE | 2017-10-31 17:59 | C.PDOC ---
History Of Present Illness 87 year old female is brought to the ED by EMS for evaluation of altered mental status. As per EMS, patient was found lying on the ground at home unwitnessed and for an unknown duration. As per family, patient has baseline dementia and they note she developed slurred speech. It is unknown when patient was last seen at baseline. As per family, patient has prior history of CVA. Additional history limited secondary to patients clinical condition. Atrial Fibrillation, CHF, COPD, Depression, Diabetes, HTN, Hyperlipidemia, Hypothyroidism CABG, Coronary Stent, Pacemaker Chief Complaint (Nursing): Altered Mental Status History Per: EMS, Family History/Exam Limitations: Clinical Condition Onset/Duration Of Symptoms: Unknown Onset Of Symptoms: Cannot Confirm Onset Current Symptoms Are (Timing): Still Present Usual Baseline: Other (dementia ) Exacerbating Factor(s): Unknown Additional History Per: EMS, Family Past Medical History Reviewed: Historical Data, Nursing Documentation, Vital Signs Vital Signs: Last Vital Signs Temp 96.1 F L 10/31/17 17:50 Pulse 87 10/31/17 18:38 Resp 18 10/31/17 18:38 BP 101/70 10/31/17 18:38 Pulse Ox 98 10/31/17 18:38 - Medical History PMH: Atrial Fibrillation, CHF, COPD, Depression, Diabetes, HTN, Hyperlipidemia, Hypothyroidism Denies: Chronic Kidney Disease Surgical History: Appendectomy, CABG, Coronary Stent, Pacemaker - [facility] Procedures FLUOROSCOPY OF LEFT HEART USING LOW OSMOLAR CONTRAST (08/08/16) FLUOROSCOPY OF MULT COR ART USING L OSM CONTRAST (08/08/16) MEASURE OF CARDIAC SAMPL & PRESSURE, L HEART, PERC APPROACH (08/08/16) Family History: States: Unknown Family Hx - Social History Hx Tobacco Use: No Hx Alcohol Use: No Hx Substance Use: No - Immunization History Hx Tetanus Toxoid Vaccination: No Hx Influenza Vaccination: No Hx Pneumococcal Vaccination: No Review Of Systems Review Of Systems: ROS cannot be obtained secondary to pt's inabilty to answer questions. Physical Exam - Physical Exam Appears: Non-toxic Skin: Normal Color, Warm, Dry Head: Atraumatic, Normacephalic Eye(s): bilateral: Normal Inspection Oral Mucosa: Moist Neck: Supple Chest: Symmetrical, No Deformity, No Tenderness Cardiovascular: No Edema, Other (rhythm irregularly irregular. bradycardic) Respiratory: Other (poor effort. no retractions ) Extremity: Capillary Refill (less than 2 seconds ) Neurological/Psych: Other (awake, appropriate to stimulus, responsive to commands. see NIH ) ED Course And Treatment - Laboratory Results Result Diagrams: 10/31/17 18:06 10/31/17 18:06 ECG: Interpreted By Me, Viewed By Me ECG Rhythm: Atrial Fibrillation Rate From EC - Radiology CXR: Interpreted by Me CXR Interpretation: Yes: No Acute Disease - Other Rad PELVIS X-Ray: Interpreted by Me (NEG) Progress Note: Bloodwork, CTA Head, CT Head, CXR, EKG ordered. Atropine Sulfate IVP administered. NIHSS Stroke Scale - Date/Time Evaluation Performed Date Performed: 10/31/17 Time Performed: 17:58 When Was NIHSS Performed: Baseline - How Severe is the Stoke Level of Consciousness: 1=Drowsy LOC to Questions: 2=Neither correct LOC to commands: 0=Obeys both correctly Best Gaze: 0=Normal Visual: 0=No visual loss Facial: 0=Normal Motor Arm - Left: 3=No effort against gravity (falls immediately) Motor Arm - Right: 3=No effort against gravity (falls immediately) Motor Leg - Left: 3=No effort against gravity (falls immediately) Motor Leg - Right: 3=No effort against gravity (falls immediately) Limb Ataxia: 0=Absent Sensory: 0=Normal Best Language: 0=No aphasia Dysarthia: 1=Mild to moderate slurring Extinction & Inattention (Neglect): 0=Normal, no object Score: 16 Severity Of Stroke: 16-20=Moderate/Severe Stroke Progress - Re-Evaluation Re-evaluation Note: 10/31/17 18:17 SON @ BEDSIDE: STATES PT CALLED HIM @ 1600 CO FALL, SOB. SON ON WAY TO HOUSE, "CALL KEPT BEING DISCONNECTED", WOULD REPEAT CALL PT AND SHE WOULD ANSWER. WENT TO HOUSE, PT FOUND LAYING ON FLOOR "SCREAMING OUT LIKE SHE WAS IN PAIN" BUT NOT SAYING FOCAL LOCATION. PT LIVES ALONE, HO FREQ FALLS BUT DOES NOT USE WALKER/ CANE. LAST SEEN AT [facility] 3 DAYS AGO. 10/31/17 18:24 D/W DR VIVAS AWARE OF ER FINDINGS. PENDING CT REPORT 10/31/17 18:29 D/W DR VIVAS AWARE OF CT HEAD. NOT A TPA CANDIDATE D/W [facility]: 05/06/18 18:33 EXAM [facility]. D/W DR RILEY AWARE OF ER FINDINGS WILL ADMIT 10/31/17 18:39 IMPROVED ALERTNESS, INTERACTIVE AND APPROPRIATE W FAMILY. STATES "SHE SEEMS TO HAVE LOST HER VOICE" BUT NO SLURRED SPEECH, APHASIA. PT NOW CO "LOT OF DIARRHEA" X 2 DAYS ASSOC ABD CRAMPING. NO FEVER, NV. CURRENTLY ASYMPT. EXAM ABD SOFT NT ND NO R/G - Data Reviewed Data Reviewed: Lab, Diagnostic imaging, EKG, Old records - Critical Care Citical Care: Excluding Proc Time Critical Care Time: 120 minutes rTPA Inclusion/Exclusion - Refusal of Treatment Patient Refused Treatment: No - Inclusion Criteria for Altepase Patient is 18 years or Older: Yes Clinical DX Ischemic Stroke Cause Neurological Deficit: Yes Time of Onset Established Less Than 270 Mins Before TX Begin: No Risk/Benefit Discussed With Patient/Family Member Present: Yes - Exclusion Criteria for Altepase Uncontrolled Hypertension at Time of TX (SBP>185 or DBP>110): No Active Internal Bleeding: No Known Bleeding Diathesis: No Evidence of an Intracranial Hemorrhage: No Evidence Major Acute Infarct w/ Signs Greater Than 1/3 MCA: No Suspicion of Subarachnoid Bleed on PreTX Eval(CT: neg bleed): No - Warning to TPA With Conditions Following Conditions Weighed Against Anticipated Benefit: Yes Condition: Age Greater Than 75 years, Care Team Unable to Determine Eligibilty Additional Condition (For 3-4.5 Hour Window): Age Greater Than 80, Prior Stroke and Diabetes Disposition Counseled Patient/Family Regarding: Studies Performed, Diagnosis - Disposition Disposition: HOSPITALIZED Disposition Time: 18:33 Condition: STABLE - POA Present On Arrival: Falls Or Trauma - Clinical Impression Clinical Impression: Dyspnea, Atrial fibrillation, Falls frequently, Altered mental state, Diarrhea - Scribe Statement The provider has reviewed the documentation as recorded by the Scribe (Tori Boucher) Provider Attestation: All medical record entries made by the Scribe were at my direction and personally dictated by me. I have reviewed the chart and agree that the record accurately reflects my personal performance of the history, physical exam, medical decision making, and the department course for this patient. I have also personally directed, reviewed, and agree with the discharge instructions and disposition. Decision To Admit - Pt Status Changed To: Hospital Disposition Of: Inpatient - Admit Certification Admit to Inpatient:: After my assessment, the patient will require hospitalization for at least two midnights. This is because of the severity of symptoms shown, intensity of services needed, and/or the medical risk in this patient being treated as an outpatient. - InPatient: Physician Admission Certification:: SEE NOTE - . Bed Request Type: Telemetry Admitting Physician: Samy Riley Patient Diagnosis: Dyspnea, Atrial fibrillation, Falls frequently, Altered mental state, Diarrhea
[2017-10-31] MEDS ORDERED: Iodixanol 320 MG/ML 100 ML BOTTLE IV ONE (18:04)
[2017-10-31 18:10] LABS: BASO # 0.1 K/uL (0.0-0.2); BASO % 1.2 % (0.0-2.0); EOS % 0.2 % (0.0-4.0); HEMOGLOBIN 14.2 g/dL (11.0-16.0); LYMPH # 0.9 K/uL (1.0-4.3); LYMPH % 11.1 % (20.0-40.0); MEAN CELL VOLUME 91.3 fL (81.0-99.0); MEAN CORPUSCULAR HEMOGLOBIN 31.1 pg (27.0-31.0); MEAN CORPUSCULAR HGB CONC 34.1 g/dL (33.0-37.0); MEAN PLATELET VOLUME 7.4 fL (7.2-11.7); MONO # 0.4 K/uL (0.0-0.8); MONO % 5.1 % (0.0-10.0); NEUT % 82.4 % (50.0-75.0); RBC 4.57 Mil/uL (3.80-5.20); RED CELL DISTRIBUTION WIDTH 14.5 % (11.5-14.5); WHITE BLOOD COUNT 8.4 K/uL (4.8-10.8)
[2017-10-31 18:20] LABS: INR 2.7; PROTHROMBIN TIME 29.1 SECONDS (9.7-12.2)
[2017-10-31 18:27] LABS: ALB/GLOB RATIO 0.9 (1.0-2.1); ALT/SGPT 14 U/L (9-52); AST/SGOT 30 U/L (14-36); BLOOD UREA NITROGEN 18 mg/dL (7-17); CALCIUM 8.8 mg/dl (8.6-10.4); GFR AFRICAN-AMERICAN 57; GFR NON-AFRICAN AMERICAN 47; HDL CHOLESTEROL 65 mg/dL (30-70)
[2017-10-31 18:38] LABS: LDL CHOLESTEROL 111 mg/dL (0-129)
--- NOTE | 2017-10-31 23:59 | CP.PCM.HP ---
History of Present Illness - History of Present Illness History of Present Illness: CC: AMS History Of Present Illness 87 year old female is brought to the ED by EMS for evaluation of altered mental status. As per EMS, patient was found lying on the ground at home unwitnessed and for an unknown duration. As per family, patient has baseline dementia and they note she developed slurred speech. It is unknown when patient was last seen at baseline. As per family, patient has prior history of CVA. Additional history limited secondary to patients clinical condition. neuroimaging showed an old right posterior/frontal region hypodensity that appears to be chronic ischemia. Today, the patient is back to her baseline. She had no new complaints and did not have any focal neurological deficits. Past Patient History - Infectious Disease Hx of Infectious Diseases: None - Tetanus Immunizations Tetanus Immunization: Unknown - Past Medical History & Family History Past Medical History?: Yes - Past Social History Smoking Status: Never Smoked - CARDIAC Hx Atrial Fibrillation: Yes Hx Congestive Heart Failure: Yes Hx Hypertension: Yes Hx Pacemaker: Yes - PULMONARY Hx Chronic Obstructive Pulmonary Disease (COPD): Yes - NEUROLOGICAL Hx Neurological Disorder: No - HEENT Hx HEENT Problems: Yes Hx Cataracts: Yes - RENAL Hx Chronic Kidney Disease: No - ENDOCRINE/METABOLIC Hx Hypothyroidism: Yes - HEMATOLOGICAL/ONCOLOGICAL Hx Blood Disorders: No - INTEGUMENTARY Hx Dermatological Problems: No - MUSCULOSKELETAL/RHEUMATOLOGICAL Hx Falls: Yes - GASTROINTESTINAL Hx Gastrointestinal Disorders: No - GENITOURINARY/GYNECOLOGICAL Hx Genitourinary Disorders: No - PSYCHIATRIC Hx Substance Use: No - SURGICAL HISTORY Hx Appendectomy: Yes Hx Coronary Artery Bypass Graft: Yes Hx Coronary Stent: Yes - ANESTHESIA Hx Anesthesia: Yes Hx Anesthesia Reactions: No Hx Malignant Hyperthermia: No Meds Allergies/Adverse Reactions: Allergies Allergy/AdvReac Type Severity Reaction Status Date / Time No Known Allergies Allergy Verified 10/31/17 18:33 Results - Vital Signs Recent Vital Signs: Last Vital Signs Temp 97.4 F L 10/31/17 21:01 Pulse 95 H 10/31/17 21:25 Resp 18 10/31/17 21:01 BP 115/69 10/31/17 21:01 Pulse Ox 97 10/31/17 21:01 - Labs Result Diagrams: 10/31/17 18:06 10/31/17 18:06 Labs: Laboratory Results - last 24 hr 10/31/17 10/31/17 10/31/17 18:06 18:06 18:06 WBC 8.4 RBC 4.57 Hgb 14.2 D Hct 41.7 MCV 91.3 MCH 31.1 H MCHC 34.1 RDW 14.5 Plt Count 243 MPV 7.4 Neut % (Auto) 82.4 H Lymph % (Auto) 11.1 L [place] % (Auto) 5.1 Eos % (Auto) 0.2 Baso % (Auto) 1.2 Neut # (Auto) 7.0 Lymph # (Auto) 0.9 L [place] # (Auto) 0.4 Eos # (Auto) 0.0 Baso # (Auto) 0.1 PT 29.1 H INR 2.7 APTT 36 H Sodium Potassium Chloride Carbon Dioxide Anion Gap BUN Creatinine Est GFR ( Amer) Est GFR (Non-Af Amer) Random Glucose Hemoglobin A1c Calcium Total Bilirubin AST ALT Alkaline Phosphatase Troponin I NT-Pro-B Natriuret Pep Total Protein Albumin Globulin Albumin/Globulin Ratio Triglycerides Cholesterol LDL Cholesterol Direct HDL Cholesterol Digoxin 1.8 Blood Type Antibody Screen 10/31/17 10/31/17 10/31/17 18:06 18:06 18:06 WBC RBC Hgb Hct MCV MCH MCHC RDW Plt Count MPV Neut % (Auto) Lymph % (Auto) [place] % (Auto) Eos % (Auto) Baso % (Auto) Neut # (Auto) Lymph # (Auto) [place] # (Auto) Eos # (Auto) Baso # (Auto) PT INR APTT Sodium 141 Potassium 4.0 Chloride 99 Carbon Dioxide 29 Anion Gap 16 BUN 18 H Creatinine 1.1 Est GFR ( Amer) 57 Est GFR (Non-Af Amer) 47 Random Glucose 179 H Hemoglobin A1c 5.4 Calcium 8.8 Total Bilirubin 0.7 AST 30 ALT 14 Alkaline Phosphatase 134 H Troponin I < 0.0120 NT-Pro-B Natriuret Pep Total Protein 8.5 H Albumin 4.0 Globulin 4.5 H Albumin/Globulin Ratio 0.9 L Triglycerides 179 H D Cholesterol 217 H LDL Cholesterol Direct 111 HDL Cholesterol 65 Digoxin Blood Type O POSITIVE Antibody Screen Negative 10/31/17 18:09 WBC RBC Hgb Hct MCV MCH MCHC RDW Plt Count MPV Neut % (Auto) Lymph % (Auto) [place] % (Auto) Eos % (Auto) Baso % (Auto) Neut # (Auto) Lymph # (Auto) [place] # (Auto) Eos # (Auto) Baso # (Auto) PT INR APTT Sodium Potassium Chloride Carbon Dioxide Anion Gap BUN Creatinine Est GFR ( Amer) Est GFR (Non-Af Amer) Random Glucose Hemoglobin A1c Calcium Total Bilirubin AST ALT Alkaline Phosphatase Troponin I NT-Pro-B Natriuret Pep 841 Total Protein Albumin Globulin Albumin/Globulin Ratio Triglycerides Cholesterol LDL Cholesterol Direct HDL Cholesterol Digoxin Blood Type Antibody Screen Assessment & Plan (1) CVA (cerebral vascular accident) Status: Acute (2) CVA (cerebral vascular accident) Status: Acute (3) Altered mental state Status: Acute Priority: High (4) Falls frequently Status: Acute (5) CHF (congestive heart failure) Status: Acute (6) COPD (chronic obstructive pulmonary disease) Status: Acute
[2017-11-01 01:29] LABS: CK-MB 0.87 ng/mL (0.0-3.38)
[2017-11-01 07:22] LABS: INR 2.2; PROTHROMBIN TIME 24.2 SECONDS (9.7-12.2)
--- NOTE | 2017-11-01 07:55 | CT ---
PROCEDURE: CT HEAD WITHOUT CONTRAST. HISTORY: Code Stroke COMPARISON: 10/17/2015 TECHNIQUE: Axial computed tomography images were obtained through the head/brain without intravenous contrast. Radiation dose: Total exam DLP = 1179 mGy-cm. This CT exam was performed using one or more of the following dose reduction techniques: Automated exposure control, adjustment of the mA and/or kV according to patient size, and/or use of iterative reconstruction technique. FINDINGS: HEMORRHAGE: No intracranial hemorrhage. BRAIN: Multiple small hypodensities in the basal ganglia suggestive for lacunar infarctions. Mild volume loss in keeping with age. Scattered focal lucencies in the subcortical and periventricular white matter suggestive for chronic microvascular ischemic change. Confluent low attenuation seen within posterior right frontal/parietal periventricular white matter is seen on series 2 images 16 through 18 and may represent chronic ischemic change. VENTRICLES: Unremarkable. No hydrocephalus. CALVARIUM: Benign hyperostosis frontalis. PARANASAL SINUSES: Unremarkable as visualized. No significant inflammatory changes. MASTOID AIR CELLS: Unremarkable as visualized. No inflammatory changes. OTHER FINDINGS: None. IMPRESSION: 1. Mild atrophy and chronic white matter ischemic changes. 2. Scattered focal lucencies in the subcortical and periventricular white matter suggestive for chronic microvascular ischemic change. 3. Confluent low attenuation seen within posterior right frontal/parietal periventricular white matter is seen on series 2 images 16 through 18 and may represent chronic ischemic change. If there is persistent concern for acute ischemic change, consider further evaluation with MRI. These findings were preliminarily reported at 6:20 p.m. on 10/31/[address] Rivera Ray from [employer].
[2017-11-01 08:06] LABS: CK-MB 0.79 ng/mL (0.0-3.38); TROPONIN I 0.02 ng/mL (0.00-0.120)
--- NOTE | 2017-11-01 08:25 | RAD ---
HISTORY: Code Stroke COMPARISON: 06/30/2017 FINDINGS: LUNGS: No active pulmonary disease. PLEURA: No significant pleural effusion identified, no pneumothorax apparent. CARDIOVASCULAR: Normal heart size. Status post aortic and mitral valvular prostheses. Sternotomy wires. No congestive change. OSSEOUS STRUCTURES: No significant abnormalities. VISUALIZED UPPER ABDOMEN: Normal. OTHER FINDINGS: None. IMPRESSION: No active disease.
--- NOTE | 2017-11-01 08:44 | RAD ---
PROCEDURE: Radiographs of the pelvis. HISTORY: PAIN COMPARISON: None. FINDINGS: BONES: Pelvic Bones: Unremarkable. Hips: Grossly unremarkable. JOINTS: Sacroiliac Joints: Unremarkable. Pubic Symphysis: Unremarkable. OTHER FINDINGS: Excreted contrast material urinary collecting system. IMPRESSION: Unremarkable radiographs of the pelvis.
[2017-11-01] MEDS: Potassium Chloride 10 mEq ER Tab PO SCH (09:30)
[2017-11-01] MEDS ORDERED: Enoxaparin 40 mg Syringe SC SCH (10:00)
[2017-11-01] MEDS ORDERED: Digoxin 125 mcg (0.125 mg) Tab PO SCH (10:00)
--- NOTE | 2017-11-01 11:03 | CT ---
PROCEDURE: CT Angiography of the neck and brain dated 11/01/2017 HISTORY: Code stroke COMPARISON: Comparison made with CT scan brain dated 10/31/2017 TECHNIQUE: Contiguous helical/transaxial images of the neck were obtained from the level of the skull-base to the superior mediastinum in the arteriographic phase of enhancement. Coronal and sagittal reformats or also generated. IV contrast dose: 100 cc Visipaque 320 Radiation Dose - DLP: 489.41 mGy-cm FINDINGS: The there are minor partially calcified atherosclerotic plaque seen along the aortic arch. Three-vessel arch with minor partially calcified plaque also seen at the level of the origin of the left common carotid artery and left carotid bifurcation. Both common carotid arteries are widely patent without evidence of occlusion or dissection. Minor partially calcified plaque changes are seen at both carotid bifurcations with no significant stenosis. The distal internal carotid arteries including the petrous cavernous and supraclinoid segments widely patent. The both vertebral arteries are patent throughout left-sided which is only minimally larger in caliber/more dominant than the right side. The basilar artery is widely patent. The visualized major branches of the [place] are also patent. . The distal branches are patent and relatively symmetric as well. No evidence of large aneurysm nor vascular malformation. Multiple small nonspecific bilateral cervical lymph nodes also present. Re- demonstrated are changes of left sided cataract surgery. Multilevel degenerative spondylosis of the cervical spine. Note made of elliptical shaped 11 mm low-attenuation nodule left lobe thyroid gland with a 2nd small approximately 6 mm nodule located immediately subjacent in also in the left lobe. . Thyroid ultrasound followup could be performed for further evaluation There are multiple mediastinal lymph nodes with the largest visible lymph node in the prevascular space measuring approximately 19 mm. There is a 2nd prominent lymph node in the right parasagittal pretracheal region measuring approximately 12.8 mm. Suspect right hilar lymph nodes as well. Followup on CT scan of the chest could be performed for further evaluation. Note also made of several small nodular densities left posterior upper lobe/lung apex possibly inflammatory. IMPRESSION: Minor plaque changes seen along the carotid bifurcations however no evidence of significant stenosis of the extracranial cervical arterial circulation. No evidence of stenosis or occlusion of the intracranial circulation. No evidence of large aneurysm nor vascular malformation. Note made of elliptical shaped 11 mm low-attenuation nodule left lobe thyroid gland with a 2nd small approximately 6 mm nodule located immediately subjacent in also in the left lobe. . Thyroid ultrasound followup could be performed for further evaluation. There are multiple mediastinal lymph nodes with what appears represent right hilar lymph nodes. Multiple tiny nodular densities also noted in the left lung apex possibly postinflammatory Followup nonemergent CT scan of the chest could be performed.
--- NOTE | 2017-11-01 15:28 | CP.PCM.CON ---
History of Present Illness - History of Present Illness History of Present Illness: Mrs. Gandhi is an 87-year-old woman with a past medical history of CABG, CAD, HTN, atrial fibrillation on coumadin, who was found by EMS lying on the ground wit confusion. She was brought in to the ED and neuroimaging showed an old right posterior/frontal region hypodensity that appears to be chronic ischemia. Today, the patient is back to her baseline. She had no new complaints and did not have any focal neurological deficits. Review of Systems - Review of Systems All systems: reviewed and no additional remarkable complaints except Past Patient History - Infectious Disease Hx of Infectious Diseases: None - Tetanus Immunizations Tetanus Immunization: Unknown - Past Medical History & Family History Past Medical History?: Yes - Past Social History Smoking Status: Never Smoked - CARDIAC Hx Congestive Heart Failure: Yes Hx Hypertension: Yes - PULMONARY Hx Chronic Obstructive Pulmonary Disease (COPD): Yes - NEUROLOGICAL HX Cerebrovascular Accident: Yes - HEENT Hx HEENT Problems: Yes Hx Cataracts: Yes - RENAL Hx Chronic Kidney Disease: No - ENDOCRINE/METABOLIC Hx Diabetes Mellitus Type 2: Yes - HEMATOLOGICAL/ONCOLOGICAL Hx Blood Disorders: No - INTEGUMENTARY Hx Dermatological Problems: No - MUSCULOSKELETAL/RHEUMATOLOGICAL Hx Falls: Yes - GASTROINTESTINAL Hx Gastrointestinal Disorders: No - GENITOURINARY/GYNECOLOGICAL Hx Genitourinary Disorders: No - PSYCHIATRIC Hx Substance Use: No - SURGICAL HISTORY Hx Appendectomy: Yes Hx Coronary Artery Bypass Graft: Yes Hx Coronary Stent: Yes - ANESTHESIA Hx Anesthesia: Yes Hx Anesthesia Reactions: No Hx Malignant Hyperthermia: No Meds Allergies/Adverse Reactions: Allergies Allergy/AdvReac Type Severity Reaction Status Date / Time No Known Allergies Allergy Verified 10/31/17 18:33 - Medications Medications: Current Medications Alprazolam (Xanax) 0.25 mg PO BID PRN PRN Reason: Anxiety Stop: 11/08/17 00:04 Aspirin (Ecotrin) 81 mg PO DAILY REPLACED BY [facility] Last Admin: 11/01/17 15:11 Dose: 81 mg Carvedilol (Coreg) 3.125 mg PO BID REPLACED BY [facility] Last Admin: 11/01/17 09:31 Dose: 3.125 mg Digoxin (Digoxin) 0.125 mg PO DAILY REPLAC[facility] BY [facility] Last Admin: 11/01/17 09:29 Dose: 0.125 mg Donepezil HCl (Aricept) 5 mg PO [facility] Enalapril Maleate (Vasotec) 2.5 mg PO DAILY REPLACED BY [facility] Last Admin: 11/01/17 09:31 Dose: 2.5 mg Ferrous Sulfate (Feosol) [facility] [place] Last Admin: 11/01/17 09:31 Dose: 325 mg Furosemide (Lasix) 20 mg PO DAILY REPLACED BY [facility] Last Admin: 11/01/17 09:29 Dose: 20 mg Potassium Chloride (Klor-Con 10) 10 meq PO DAILY REPLACED BY [facility] Last Admin: 11/01/17 09:30 Dose: 10 meq Rosuvastatin Calcium (Crestor) 10 mg PO [facility] Physical Exam - Neurological Exam Neurological exam: Alert, CN II-XII Intact, Normal Gait, Oriented x3, Reflexes Normal Results - Vital Signs Recent Vital Signs: Last Vital Signs Temp 97.5 F L 11/01/17 07:10 Pulse 74 11/01/17 12:00 Resp 18 11/01/17 09:27 BP 126/66 11/01/17 09:31 Pulse Ox 94 L 11/01/17 07:10 - Labs Result Diagrams: 10/31/17 18:06 10/31/17 18:06 Labs: Laboratory Results - last 24 hr 10/31/17 10/31/17 10/31/17 18:06 18:06 18:06 WBC 8.4 RBC 4.57 Hgb 14.2 D Hct 41.7 MCV 91.3 MCH 31.1 H MCHC 34.1 RDW 14.5 Plt Count 243 MPV 7.4 Neut % (Auto) 82.4 H Lymph % (Auto) 11.1 L [place] % (Auto) 5.1 Eos % (Auto) 0.2 Baso % (Auto) 1.2 Neut # (Auto) 7.0 Lymph # (Auto) 0.9 L [place] # (Auto) 0.4 Eos # (Auto) 0.0 Baso # (Auto) 0.1 PT 29.1 H INR 2.7 APTT 36 H Sodium Potassium Chloride Carbon Dioxide Anion Gap BUN Creatinine Est GFR ( Amer) Est GFR (Non-Af Amer) POC Glucose (mg/dL) Random Glucose Hemoglobin A1c Calcium Total Bilirubin AST ALT Alkaline Phosphatase Total Creatine Kinase CK-MB (Mass) Troponin I NT-Pro-B Natriuret Pep Total Protein Albumin Globulin Albumin/Globulin Ratio Triglycerides Cholesterol LDL Cholesterol Direct HDL Cholesterol Digoxin 1.8 Blood Type Antibody Screen 10/31/17 10/31/17 10/31/17 18:06 18:06 18:06 WBC RBC Hgb Hct MCV MCH MCHC RDW Plt Count MPV Neut % (Auto) Lymph % (Auto) [place] % (Auto) Eos % (Auto) Baso % (Auto) Neut # (Auto) Lymph # (Auto) [place] # (Auto) Eos # (Auto) Baso # (Auto) PT INR APTT Sodium 141 Potassium 4.0 Chloride 99 Carbon Dioxide 29 Anion Gap 16 BUN 18 H Creatinine 1.1 Est GFR ( Amer) 57 Est GFR (Non-Af Amer) 47 POC Glucose (mg/dL) Random Glucose 179 H Hemoglobin A1c 5.4 Calcium 8.8 Total Bilirubin 0.7 AST 30 ALT 14 Alkaline Phosphatase 134 H Total Creatine Kinase CK-MB (Mass) Troponin I < 0.0120 NT-Pro-B Natriuret Pep Total Protein 8.5 H Albumin 4.0 Globulin 4.5 H Albumin/Globulin Ratio 0.9 L Triglycerides 179 H D Cholesterol 217 H LDL Cholesterol Direct 111 HDL Cholesterol 65 Digoxin Blood Type O POSITIVE Antibody Screen Negative 10/31/17 11/01/17 11/01/17 18:09 00:57 06:58 WBC RBC Hgb Hct MCV MCH MCHC RDW Plt Count MPV Neut % (Auto) Lymph % (Auto) [place] % (Auto) Eos % (Auto) Baso % (Auto) Neut # (Auto) Lymph # (Auto) [place] # (Auto) Eos # (Auto) Baso # (Auto) PT 24.2 H INR 2.2 D APTT Sodium Potassium Chloride Carbon Dioxide Anion Gap BUN Creatinine Est GFR ( Amer) Est GFR (Non-Af Amer) POC Glucose (mg/dL) Random Glucose Hemoglobin A1c Calcium Total Bilirubin AST ALT Alkaline Phosphatase Total Creatine Kinase 94 CK-MB (Mass) 0.87 Troponin I < 0.0120 NT-Pro-B Natriuret Pep 841 Total Protein Albumin Globulin Albumin/Globulin Ratio Triglycerides Cholesterol LDL Cholesterol Direct HDL Cholesterol Digoxin Blood Type Antibody Screen 11/01/17 11/01/17 11/01/17 06:58 07:09 11:43 WBC RBC Hgb Hct MCV MCH MCHC RDW Plt Count MPV Neut % (Auto) Lymph % (Auto) [place] % (Auto) Eos % (Auto) Baso % (Auto) Neut # (Auto) Lymph # (Auto) [place] # (Auto) Eos # (Auto) Baso # (Auto) PT INR APTT Sodium Potassium Chloride Carbon Dioxide Anion Gap BUN Creatinine Est GFR ( Amer) Est GFR (Non-Af Amer) POC Glucose (mg/dL) 91 97 Random Glucose Hemoglobin A1c Calcium Total Bilirubin AST ALT Alkaline Phosphatase Total Creatine Kinase 86 CK-MB (Mass) 0.79 Troponin I 0.0200 NT-Pro-B Natriuret Pep Total Protein Albumin Globulin Albumin/Globulin Ratio Triglycerides Cholesterol LDL Cholesterol Direct HDL Cholesterol Digoxin Blood Type Antibody Screen Assessment & Plan (1) Altered mental state Assessment and Plan: This could have been due to baseline dementia, or may have been due to TIA or a seizure. I recommend resuming coumadin for stroke prevention to maintain an INR of 2-3 and we will obtain an MRI of the brain without contrast as well as an EEG. Since the episode was unwitnessed and it is not certain how long she was lying on the ground floor, it is difficult to say whether or not she had a seizure, therefor we will not start an AED at this time. Thank you. Status: Acute Priority: High
--- NOTE | 2017-11-01 15:37 | CP.PCM.PN ---
Subjective - Date & Time of Evaluation Date of Evaluation: 11/01/17 Time of Evaluation: 15:34 - Subjective Subjective: PT SEEN BY NEURO, DR. HERRERA. MRI AND EEG RECOMMENDED AND ORDERED. DR. FARMER ALSO CLEARED THE PT TO RECEIVE COUMADIN BUT WITHOUT ASA. DR. RILEY IN AGREEMENT. COUMADIN 4 MG PO TONIGHT ORDERED; ASA STOPPED. ALSO TO CLARIFY, PER PT'S DOCUMENTED HISTORY AND THE ER MD NOTE, PT HAS A PACEMAKER. HOWEVER, PT DENIES EVER HAVING A PPM AND UPON MY EXAM OF THE PT SHE HAS NO PPM. ALSO NO PPM NOTED ON CXR. NO FURTHER ORDERS. Objective - Vital Signs/Intake and Output Vital Signs (last 24 hours): Temp Pulse Resp BP Pulse Ox 97.5 F L 74 18 126/66 94 L 11/01/17 07:10 11/01/17 12:00 11/01/17 09:27 11/01/17 09:31 11/01/17 07:10 Intake and Output: 11/01/17 11/01/17 06:59 18:59 Intake Total 0 Balance 0 - Medications Medications: Current Medications Alprazolam (Xanax) 0.25 mg PO BID PRN PRN Reason: Anxiety Stop: 11/08/17 00:04 Carvedilol (Coreg) 3.125 mg PO BID [facility] Last Admin: 11/01/17 09:31 Dose: 3.125 mg Digoxin (Digoxin) 0.125 mg PO DAILY [facility] Last Admin: 11/01/17 09:29 Dose: 0.125 mg Donepezil HCl (Aricept) 5 mg PO [facility] Enalapril Maleate (Vasotec) 2.5 mg PO DAILY [facility] Last Admin: 11/01/17 09:31 Dose: 2.5 mg Ferrous Sulfate (Feosol) [facility] [place] Last Admin: 11/01/17 09:31 Dose: 325 mg Furosemide (Lasix) 20 mg PO DAILY [facility] Last Admin: 11/01/17 09:29 Dose: 20 mg Potassium Chloride (Klor-Con 10) 10 meq PO DAILY [facility] Last Admin: 11/01/17 09:30 Dose: 10 meq Rosuvastatin Calcium (Crestor) 10 mg PO [facility] - Labs Labs: 10/31/17 18:06 10/31/17 18:06 PT 24.2 SECONDS (9.7-12.2) H 11/01/17 06:58 INR 2.2 D 11/01/17 06:58 APTT 36 SECONDS (21-34) H 10/31/17 18:06
--- NOTE | 2017-11-02 01:40 | CP.PCM.PN ---
Subjective - Date & Time of Evaluation Date of Evaluation: 11/01/17 Time of Evaluation: 19:00 - Subjective Subjective: Pt seen and examined today, neuroimaging showed an old right posterior/frontal region hypodensity that appears to be chronic ischemia. Today, the patient is back to her baseline. She had no new complaints and did not have any focal neurological deficits. Objective - Vital Signs/Intake and Output Vital Signs (last 24 hours): Temp Pulse Resp BP Pulse Ox 97.4 F L 70 20 110/65 96 11/01/17 15:15 11/02/17 00:41 11/01/17 15:15 11/01/17 15:15 11/01/17 15:15 Intake and Output: 11/01/17 11/02/17 18:59 06:59 Intake Total 240 Output Total 300 Balance -60 - Medications Medications: Current Medications Alprazolam (Xanax) 0.25 mg PO BID PRN PRN Reason: Anxiety Stop: 11/08/17 00:04 Carvedilol (Coreg) 3.125 mg PO BID [facility] Last Admin: 11/01/17 17:11 Dose: 3.125 mg Digoxin (Digoxin) 0.125 mg PO DAILY [facility] Last Admin: 11/01/17 09:29 Dose: 0.125 mg Donepezil HCl (Aricept) 5 mg PO [facility] Last Admin: 11/01/17 21:31 Dose: 5 mg Enalapril Maleate (Vasotec) 2.5 mg PO DAILY [facility] Last Admin: 11/01/17 09:31 Dose: 2.5 mg Ferrous Sulfate (Feosol) [facility] [place] Last Admin: 11/01/17 09:31 Dose: 325 mg Furosemide (Lasix) 20 mg PO DAILY [facility] Last Admin: 11/01/17 09:29 Dose: 20 mg Potassium Chloride (Klor-Con 10) 10 meq PO DAILY [facility] Last Admin: 11/01/17 09:30 Dose: 10 meq Rosuvastatin Calcium (Crestor) 10 mg PO [facility] Last Admin: 11/01/17 21:31 Dose: 10 mg - Labs Labs: 10/31/17 18:06 10/31/17 18:06 PT 24.2 SECONDS (9.7-12.2) H 11/01/17 06:58 INR 2.2 D 11/01/17 06:58 APTT 36 SECONDS (21-34) H 10/31/17 18:06
--- NOTE | 2017-11-02 06:23 | CP.PCM.PN ---
Subjective - Date & Time of Evaluation Date of Evaluation: 11/02/17 Time of Evaluation: 06:22 - Subjective Subjective: Ms. Gandhi was seen and examined at the bedside. She is alert, awake with episode of forgetfulness. She denies any headache, dizziness, weakness, nausea, or vomiting. She is able to follow simple commands. There was no untoward events overnight. Objective - Vital Signs/Intake and Output Vital Signs (last 24 hours): Temp Pulse Resp BP Pulse Ox 97.9 F 60 20 127/69 96 11/02/17 04:25 11/02/17 04:25 11/02/17 04:25 11/02/17 04:25 11/02/17 04:25 Intake and Output: 11/01/17 11/02/17 18:59 06:59 Intake Total 240 Output Total 300 Balance -60 - Medications Medications: Current Medications Alprazolam (Xanax) 0.25 mg PO BID PRN PRN Reason: Anxiety Stop: 11/08/17 00:04 Carvedilol (Coreg) 3.125 mg PO BID [facility] Last Admin: 11/01/17 17:11 Dose: 3.125 mg Digoxin (Digoxin) 0.125 mg PO DAILY [facility] Last Admin: 11/01/17 09:29 Dose: 0.125 mg Donepezil HCl (Aricept) 5 mg PO HS [facility] Last Admin: 11/01/17 21:31 Dose: 5 mg Enalapril Maleate (Vasotec) 2.5 mg PO DAILY [facility] Last Admin: 11/01/17 09:31 Dose: 2.5 mg Ferrous Sulfate (Feosol) [facility] [place] Last Admin: 11/01/17 09:31 Dose: 325 mg Furosemide (Lasix) 20 mg PO DAILY [facility] Last Admin: 11/01/17 09:29 Dose: 20 mg Potassium Chloride (Klor-Con 10) 10 meq PO DAILY [facility] Last Admin: 11/01/17 09:30 Dose: 10 meq Rosuvastatin Calcium (Crestor) 10 mg PO HS [facility] Last Admin: 11/01/17 21:31 Dose: 10 mg - Labs Labs: 10/31/17 18:06 10/31/17 18:06 PT 24.2 SECONDS (9.7-12.2) H 11/01/17 06:58 INR 2.2 D 11/01/17 06:58 APTT 36 SECONDS (21-34) H 10/31/17 18:06 - Constitutional Appears: No Acute Distress - Head Exam Head Exam: NORMAL INSPECTION - Neurological Exam Neurological Exam: Alert, Awake Neuro motor strength exam: Left Upper Extremity: 4, Right Upper Extremity: 4, Left Lower Extremity: 4, Right Lower Extremity: 4 Additional comments: Alert, awake, follows simple commands. sensation is intact. Assessment and Plan (1) Altered mental state Assessment & Plan: Case discussed with Dr. Goodson, continue all current medical, physical, occupational therapies. Pending MRI of the brain and EEG. Recommend coumadin for stroke prevention and keep INR 2-3. Status: Acute
[2017-11-02 07:21] LABS: HEMOGLOBIN 13.6 g/dL (11.0-16.0); MEAN CELL VOLUME 91.6 fL (81.0-99.0); MEAN CORPUSCULAR HGB CONC 33.8 g/dL (33.0-37.0); MEAN PLATELET VOLUME 7.5 fL (7.2-11.7); RBC 4.39 Mil/uL (3.80-5.20); RED CELL DISTRIBUTION WIDTH 14.2 % (11.5-14.5); WHITE BLOOD COUNT 5.7 K/uL (4.8-10.8)
[2017-11-02 07:35] LABS: CALCIUM 8.8 mg/dl (8.6-10.4); INR 1.7; PROTHROMBIN TIME 18.1 SECONDS (9.7-12.2)
[2017-11-02] MEDS: Potassium Chloride 10 mEq ER Tab PO SCH (10:09)
--- NOTE | 2017-11-02 10:59 | MRI ---
PROCEDURE: MRI BRAIN WITHOUT CONTRAST HISTORY: CODE STROKE; SYNCOPE COMPARISON: None. Whole comparison made with CT scan brain 10/31/2017. TECHNIQUE: Multiplanar, multisequence MR images of the brain were obtained without intravenous contrast enhancement. FINDINGS: HEMORRHAGE: Acute parenchymal, subarachnoid or extra-axial hemorrhage. No evidence of hemosiderin deposition seen on gradient echo weighted sequence. DWI: No evidence of an acute or early subacute infarction seen on diffusion imaging. The. BRAIN PARENCHYMA: Mild moderate diffuse/confluent most pronounced in the right periatrial/very occipital horn white matter. Changes of mid extend anteriorly into the subcortical white matter right posterior temporal region bordering the posterior inferior margin of the sylvian fissure. Additionally, there are a tiny chronic lacunar type infarcts scattered about the deep and subcortical white matter, brainstem, both basal nuclei and cerebellar hemispheres. Moderate generalized volume loss. VENTRICLES: No obstructive hydrocephalus. CRANIUM: No acute calvarial abnormalities ORBITS: Orbits and contents grossly unremarkable. PARANASAL SINUSES/MASTOIDS: Clear VASCULAR SYSTEM: Visualized major vascular flow voids at skull base are patent OTHER FINDINGS: None. IMPRESSION: No acute intracranial hemorrhage or infarctions. Chronic white matter ischemic changes with small lacunar type infarcts scattered deep and subcortical white matter, both basal nuclei, both cerebellar hemispheres and brainstem as above. Moderate generalized volume loss.
[2017-11-02] MEDS: Digoxin 125 mcg (0.125 mg) Tab PO SCH (17:44)
--- NOTE | 2017-11-02 22:30 | CP.PCM.PN ---
Subjective - Date & Time of Evaluation Date of Evaluation: 11/02/17 Time of Evaluation: 19:00 - Subjective Subjective: Pt seen and examined at bedside Objective - Vital Signs/Intake and Output Vital Signs (last 24 hours): Temp Pulse Resp BP Pulse Ox 98.0 F 60 22 132/68 100 11/02/17 20:00 11/02/17 20:00 11/02/17 20:00 11/02/17 20:00 11/02/17 20:00 Intake and Output: 11/02/17 11/03/17 18:59 06:59 Intake Total 600 Output Total 200 Balance 400 - Medications Medications: Current Medications Alprazolam (Xanax) 0.25 mg PO BID PRN PRN Reason: Anxiety Stop: 11/08/17 00:04 Last Admin: 11/02/17 19:28 Dose: 0.25 mg Carvedilol (Coreg) 3.125 mg PO BID [facility] Last Admin: 11/02/17 17:44 Dose: 3.125 mg Digoxin (Digoxin) 0.125 mg PO QPM [facility] Last Admin: 11/02/17 17:44 Dose: 0.125 mg Donepezil HCl (Aricept) 5 mg PO HS [facility] Last Admin: 11/02/17 21:15 Dose: 5 mg Enalapril Maleate (Vasotec) 2.5 mg PO DAILY [facility] Last Admin: 11/02/17 10:09 Dose: 2.5 mg Ferrous Sulfate (Feosol) 325 mg PO QAM [facility] Last Admin: 11/02/17 10:08 Dose: 325 mg Furosemide (Lasix) 20 mg PO DAILY [facility] Last Admin: 11/02/17 10:09 Dose: 20 mg Potassium Chloride (Klor-Con 10) 10 meq PO DAILY [facility] Last Admin: 11/02/17 10:09 Dose: 10 meq Rosuvastatin Calcium (Crestor) 10 mg PO HS [facility] Last Admin: 11/02/17 21:15 Dose: 10 mg - Labs Labs: 11/02/17 07:12 11/02/17 07:12 PT 18.1 SECONDS (9.7-12.2) H D 11/02/17 07:12 INR 1.7 D 11/02/17 07:12 APTT 36 SECONDS (21-34) H 10/31/17 18:06 Assessment and Plan (1) CVA (cerebral vascular accident) Status: Acute (2) CVA (cerebral vascular accident) Status: Acute (3) Altered mental state Status: Acute (4) Falls frequently Status: Acute (5) CHF (congestive heart failure) Status: Acute (6) COPD (chronic obstructive pulmonary disease) Status: Acute
[2017-11-03 07:24] LABS: INR 1.6; PROTHROMBIN TIME 17.9 SECONDS (9.7-12.2)
[2017-11-03] MEDS: Potassium Chloride 10 mEq ER Tab PO SCH (10:23)
--- NOTE | 2017-11-03 14:30 | CP.PCM.PN ---
Subjective - Date & Time of Evaluation Date of Evaluation: 11/03/17 Time of Evaluation: 14:29 - Subjective Subjective: Ms. Gandhi was seen and examined at the bedside. She is alert, awake with episode of forgetfulness. She denies any headache, dizziness, weakness, nausea, or vomiting. She is able to follow simple commands. She is able to verbalize needs to staff and ambulate with minimal assistance. MRI of the brain showed no acute intracranial hemorrhage or infarctions. Chronic white matter ischemic changes with small lacunar type infarcts scattered deep and subcortical white matter, both basal nuclei, both cerebellar hemispheres and brainstem. Moderate generalized volume loss.There was no untoward events overnight. Objective - Vital Signs/Intake and Output Vital Signs (last 24 hours): Temp Pulse Resp BP Pulse Ox 97.8 F 71 18 140/64 96 11/03/17 07:10 11/03/17 08:00 11/03/17 07:10 11/03/17 10:23 11/03/17 07:10 Intake and Output: 11/03/17 11/03/17 06:59 18:59 Intake Total 10 Balance 10 - Medications Medications: Current Medications Alprazolam (Xanax) 0.25 mg PO BID PRN PRN Reason: Anxiety Stop: 11/08/17 00:04 Last Admin: 11/02/17 19:28 Dose: 0.25 mg Carvedilol (Coreg) 3.125 mg PO BID [facility] Last Admin: 11/03/17 10:23 Dose: 3.125 mg Digoxin (Digoxin) 0.125 mg PO QPM [facility] Last Admin: 11/02/17 17:44 Dose: 0.125 mg Donepezil HCl (Aricept) 5 mg PO HS [facility] Last Admin: 11/02/17 21:15 Dose: 5 mg Enalapril Maleate (Vasotec) 2.5 mg PO DAILY [facility] Last Admin: 11/03/17 10:23 Dose: 2.5 mg Ferrous Sulfate (Feosol) 325 mg PO QAM [facility] Last Admin: 11/03/17 10:28 Dose: 325 mg Furosemide (Lasix) 20 mg PO DAILY [facility] Last Admin: 11/03/17 10:23 Dose: 20 mg Potassium Chloride (Klor-Con 10) 10 meq PO DAILY [facility] Last Admin: 11/03/17 10:23 Dose: 10 meq Rosuvastatin Calcium (Crestor) 10 mg PO HS [facility] Last Admin: 11/02/17 21:15 Dose: 10 mg Warfarin Sodium (Coumadin) 7.5 mg PO 1800 [facility] Stop: 11/03/17 18:01 - Labs Labs: 11/02/17 07:12 11/02/17 07:12 PT 17.9 SECONDS (9.7-12.2) H 11/03/17 07:11 INR 1.6 11/03/17 07:11 APTT 36 SECONDS (21-34) H 10/31/17 18:06 - Constitutional Appears: No Acute Distress - Head Exam Head Exam: NORMAL INSPECTION - Neurological Exam Neurological Exam: Alert, Awake Neuro motor strength exam: Left Upper Extremity: 4, Right Upper Extremity: 4, Left Lower Extremity: 4, Right Lower Extremity: 4 Additional comments: She is able to verbalize needs to staff and ambulate with minimal assistance. Sensation is intact. Assessment and Plan (1) Altered mental state Assessment & Plan: Case discussed with Dr. Goodson, continue all current medical, physical, and occupational therapies. Recommend continue coumadin with INT between 2-3 for stroke prevention. Pending EEG results. Status: Acute
[2017-11-03 16:18] LABS: SQUAMOUS EPITHIAL 1 /hpf (0-5); URINE BACTERIA OCC (<OCC); URINE BILIRUBIN NEGATIVE (NEGATIVE); URINE BLOOD 1+ (NEGATIVE); URINE CLARITY Hazy (Clear); URINE COLOR Yellow (YELLOW); URINE GLUCOSE (UA) NORMAL (Normal); URINE LEUKOCYTE ESTERASE 3+ Leu/uL (Negative); URINE PROTEIN NEGATIVE (NEGATIVE)
[2017-11-03] MEDS: Digoxin 125 mcg (0.125 mg) Tab PO SCH (19:10)
--- NOTE | 2017-11-04 04:43 | CP.PCM.PN ---
Subjective - Date & Time of Evaluation Date of Evaluation: 11/03/17 Time of Evaluation: 19:00 - Subjective Subjective: Pt is afberile, INR is sub theraputic, she is less short of breath Objective - Vital Signs/Intake and Output Vital Signs (last 24 hours): Temp Pulse Resp BP Pulse Ox 97.9 F 83 20 141/61 97 11/03/17 23:40 11/03/17 23:40 11/03/17 23:40 11/03/17 23:40 11/03/17 23:40 Intake and Output: 11/03/17 11/04/17 18:59 06:59 Intake Total 500 Balance 500 - Medications Medications: Current Medications Alprazolam (Xanax) 0.25 mg PO BID PRN PRN Reason: Anxiety Stop: 11/08/17 00:04 Last Admin: 11/02/17 19:28 Dose: 0.25 mg Carvedilol (Coreg) 3.125 mg PO BID [facility] Last Admin: 11/03/17 19:10 Dose: 3.125 mg Digoxin (Digoxin) 0.125 mg PO QPM [facility] Last Admin: 11/03/17 19:10 Dose: 0.125 mg Donepezil HCl (Aricept) 10 mg PO HS [facility] Enalapril Maleate (Vasotec) 2.5 mg PO DAILY [facility] Last Admin: 11/03/17 10:23 Dose: 2.5 mg Ferrous Sulfate (Feosol) 325 mg PO QAM [facility] Last Admin: 11/03/17 10:28 Dose: 325 mg Furosemide (Lasix) 20 mg PO DAILY [facility] Last Admin: 11/03/17 10:23 Dose: 20 mg Ceftriaxone Sodium (Rocephin Iv 1 Gm Duplex) 50 mls @ 100 mls/hr IVPB DAILY [facility] PRN Reason: Protocol Potassium Chloride (Klor-Con 10) 10 meq PO DAILY [facility] Last Admin: 11/03/17 10:23 Dose: 10 meq Rosuvastatin Calcium (Crestor) 10 mg PO HS [facility] Last Admin: 11/03/17 21:32 Dose: 10 mg - Labs Labs: 11/02/17 07:12 11/02/17 07:12 PT 17.9 SECONDS (9.7-12.2) H 11/03/17 07:11 INR 1.6 11/03/17 07:11 APTT 36 SECONDS (21-34) H 10/31/17 18:06 - Constitutional Appears: No Acute Distress - Head Exam Head Exam: ATRAUMATIC, NORMAL INSPECTION, NORMOCEPHALIC - Eye Exam Eye Exam: EOMI, Normal appearance, PERRL Pupil Exam: NORMAL ACCOMODATION, PERRL - Respiratory Exam Respiratory Exam: Decreased Breath Sounds, Rales, Rhonchi - Cardiovascular Exam Cardiovascular Exam: REGULAR RHYTHM, +S1, +S2. absent: Murmur - GI/Abdominal Exam GI & Abdominal Exam: Soft, Normal Bowel Sounds. absent: Tenderness - Back Exam Back Exam: NORMAL INSPECTION - Neurological Exam Neurological Exam: Alert, Awake, CN II-XII Intact, Normal Gait, Oriented x3 Assessment and Plan (1) CVA (cerebral vascular accident) Status: Acute (2) CVA (cerebral vascular accident) Status: Acute (3) Altered mental state Status: Acute (4) Falls frequently Status: Acute (5) CHF (congestive heart failure) Status: Acute (6) COPD (chronic obstructive pulmonary disease) Status: Acute (7) UTI (urinary tract infection) Assessment & Plan: urine cultures empiric rocephin Status: Acute
[2017-11-04 07:35] LABS: INR 1.6; PROTHROMBIN TIME 17.9 SECONDS (9.7-12.2)
[2017-11-04] MEDS: Potassium Chloride 10 mEq ER Tab PO SCH (09:15)
[2017-11-04] MEDS: cefTRIAXone IV 1 gm in Dextros 50 ML IVPB SCH (09:26)
[2017-11-04 15:53] VITALS: RESP 20
[2017-11-04] MEDS: Digoxin 125 mcg (0.125 mg) Tab PO SCH (17:49)
[2017-11-04 17:50] VITALS: PULSE 71
[2017-11-05 06:38] LABS: INR 2.1; PROTHROMBIN TIME 23.1 SECONDS (9.7-12.2)
[2017-11-05 07:45] VITALS: TEMP 97.9; O2SAT 96
--- NOTE | 2017-11-05 08:11 | CP.PCM.PN ---
Subjective - Date & Time of Evaluation Date of Evaluation: 11/05/17 Time of Evaluation: 08:11 - Subjective Subjective: Ms. Gandhi was seen and examined at the bedside. She is alert, awake with episode of forgetfulness. She denies any headache, dizziness, weakness, nausea, or vomiting. She is able to follow simple commands. She is able to verbalize needs to staff and ambulate with minimal assistance. Encourage patient to increase PO intake.There was no untoward events overnight. Objective - Vital Signs/Intake and Output Vital Signs (last 24 hours): Temp Pulse Resp BP Pulse Ox 97.9 F 66 20 166/69 H 96 11/05/17 07:05 11/05/17 07:05 11/05/17 07:05 11/05/17 07:05 11/05/17 07:05 Intake and Output: 11/05/17 11/05/17 06:59 18:59 Intake Total 490 Balance 490 - Medications Medications: Current Medications Alprazolam (Xanax) 0.25 mg PO BID PRN PRN Reason: Anxiety Stop: 11/08/17 00:04 Last Admin: 11/02/17 19:28 Dose: 0.25 mg Carvedilol (Coreg) 3.125 mg PO BID [facility] Last Admin: 11/04/17 17:51 Dose: Not Given Digoxin (Digoxin) 0.125 mg PO QPM [facility] Last Admin: 11/04/17 17:49 Dose: 0.125 mg Donepezil HCl (Aricept) 10 mg PO HS [facility] Last Admin: 11/04/17 21:42 Dose: 10 mg Enalapril Maleate (Vasotec) 2.5 mg PO DAILY [facility] Last Admin: 11/04/17 09:15 Dose: 2.5 mg Ferrous Sulfate (Feosol) 325 mg PO QAM [facility] Last Admin: 11/04/17 09:15 Dose: 325 mg Furosemide (Lasix) 20 mg PO DAILY [facility] Last Admin: 11/04/17 09:15 Dose: 20 mg Ceftriaxone Sodium (Rocephin Iv 1 Gm Duplex) 50 mls @ 100 mls/hr IVPB DAILY [facility] PRN Reason: Protocol Last Admin: 11/04/17 09:26 Dose: 100 mls/hr Potassium Chloride (Klor-Con 10) 10 meq PO DAILY [facility] Last Admin: 11/04/17 09:15 Dose: 10 meq Rosuvastatin Calcium (Crestor) 10 mg PO HS [facility] Last Admin: 11/04/17 21:42 Dose: 10 mg - Labs Labs: 11/02/17 07:12 11/02/17 07:12 PT 23.1 SECONDS (9.7-12.2) H D 11/05/17 06:29 INR 2.1 D 11/05/17 06:29 APTT 36 SECONDS (21-34) H 10/31/17 18:06 - Constitutional Appears: No Acute Distress - Head Exam Head Exam: NORMAL INSPECTION - Neurological Exam Neurological Exam: Alert, Awake Neuro motor strength exam: Left Upper Extremity: 5, Right Upper Extremity: 5, Left Lower Extremity: 5, Right Lower Extremity: 5 Additional comments: Neurological unchanged from previous examination. Assessment and Plan (1) Altered mental state Assessment & Plan: Case discussed with Dr. Goodson, continue all current medical, physical, and occupational therapies. Recommend continue coumadin with INT between 2-3 for stroke prevention. Pending EEG results, will follow up. Status: Acute
--- NOTE | 2017-11-05 09:23 | CP.PCM.PN ---
Subjective - Date & Time of Evaluation Date of Evaluation: 11/04/17 Time of Evaluation: 18:00 - Subjective Subjective: Pt seen and examined Objective - Vital Signs/Intake and Output Vital Signs (last 24 hours): Temp Pulse Resp BP Pulse Ox 97.9 F 66 20 166/69 H 96 11/05/17 07:05 11/05/17 07:05 11/05/17 07:05 11/05/17 07:05 11/05/17 07:05 Intake and Output: 11/05/17 11/05/17 06:59 18:59 Intake Total 490 Balance 490 - Medications Medications: Current Medications Alprazolam (Xanax) 0.25 mg PO BID PRN PRN Reason: Anxiety Stop: 11/08/17 00:04 Last Admin: 11/02/17 19:28 Dose: 0.25 mg Carvedilol (Coreg) 3.125 mg PO BID [facility] Last Admin: 11/04/17 17:51 Dose: Not Given Digoxin (Digoxin) 0.125 mg PO QPM [facility] Last Admin: 11/04/17 17:49 Dose: 0.125 mg Donepezil HCl (Aricept) 10 mg PO HS [facility] Last Admin: 11/04/17 21:42 Dose: 10 mg Enalapril Maleate (Vasotec) 2.5 mg PO DAILY [facility] Last Admin: 11/04/17 09:15 Dose: 2.5 mg Ferrous Sulfate (Feosol) 325 mg PO QAM [facility] Last Admin: 11/04/17 09:15 Dose: 325 mg Furosemide (Lasix) 20 mg PO DAILY [facility] Last Admin: 11/04/17 09:15 Dose: 20 mg Ceftriaxone Sodium (Rocephin Iv 1 Gm Duplex) 50 mls @ 100 mls/hr IVPB DAILY [facility] PRN Reason: Protocol Last Admin: 11/04/17 09:26 Dose: 100 mls/hr Potassium Chloride (Klor-Con 10) 10 meq PO DAILY [facility] Last Admin: 11/04/17 09:15 Dose: 10 meq Rosuvastatin Calcium (Crestor) 10 mg PO HS [facility] Last Admin: 11/04/17 21:42 Dose: 10 mg - Labs Labs: 11/02/17 07:12 11/02/17 07:12 PT 23.1 SECONDS (9.7-12.2) H D 11/05/17 06:29 INR 2.1 D 11/05/17 06:29 APTT 36 SECONDS (21-34) H 10/31/17 18:06 Assessment and Plan (1) CVA (cerebral vascular accident) Status: Acute (2) CVA (cerebral vascular accident) Status: Acute (3) Altered mental state Status: Acute (4) Falls frequently Status: Acute (5) CHF (congestive heart failure) Status: Acute (6) COPD (chronic obstructive pulmonary disease) Status: Acute (7) UTI (urinary tract infection) Status: Acute
--- NOTE | 2017-11-05 09:24 | CP.PCM.PN ---
Subjective - Date & Time of Evaluation Date of Evaluation: 11/05/17 Time of Evaluation: 18:00 - Subjective Subjective: Pt seen and examined at bedside Objective - Vital Signs/Intake and Output Vital Signs (last 24 hours): Temp Pulse Resp BP Pulse Ox 97.9 F 66 20 166/69 H 96 11/05/17 07:05 11/05/17 07:05 11/05/17 07:05 11/05/17 07:05 11/05/17 07:05 Intake and Output: 11/05/17 11/05/17 06:59 18:59 Intake Total 490 Balance 490 - Medications Medications: Current Medications Alprazolam (Xanax) 0.25 mg PO BID PRN PRN Reason: Anxiety Stop: 11/08/17 00:04 Last Admin: 11/02/17 19:28 Dose: 0.25 mg Carvedilol (Coreg) 3.125 mg PO BID [facility] Last Admin: 11/04/17 17:51 Dose: Not Given Digoxin (Digoxin) 0.125 mg PO QPM [facility] Last Admin: 11/04/17 17:49 Dose: 0.125 mg Donepezil HCl (Aricept) 10 mg PO HS [facility] Last Admin: 11/04/17 21:42 Dose: 10 mg Enalapril Maleate (Vasotec) 2.5 mg PO DAILY [facility] Last Admin: 11/04/17 09:15 Dose: 2.5 mg Ferrous Sulfate (Feosol) 325 mg PO QAM [facility] Last Admin: 11/04/17 09:15 Dose: 325 mg Furosemide (Lasix) 20 mg PO DAILY [facility] Last Admin: 11/04/17 09:15 Dose: 20 mg Ceftriaxone Sodium (Rocephin Iv 1 Gm Duplex) 50 mls @ 100 mls/hr IVPB DAILY [facility] PRN Reason: Protocol Last Admin: 11/04/17 09:26 Dose: 100 mls/hr Potassium Chloride (Klor-Con 10) 10 meq PO DAILY [facility] Last Admin: 11/04/17 09:15 Dose: 10 meq Rosuvastatin Calcium (Crestor) 10 mg PO HS [facility] Last Admin: 11/04/17 21:42 Dose: 10 mg - Labs Labs: 11/02/17 07:12 11/02/17 07:12 PT 23.1 SECONDS (9.7-12.2) H D 11/05/17 06:29 INR 2.1 D 11/05/17 06:29 APTT 36 SECONDS (21-34) H 10/31/17 18:06 Assessment and Plan (1) CVA (cerebral vascular accident) Status: Acute (2) CVA (cerebral vascular accident) Status: Acute (3) Altered mental state Status: Acute (4) Falls frequently Status: Acute (5) CHF (congestive heart failure) Status: Acute (6) COPD (chronic obstructive pulmonary disease) Status: Acute (7) UTI (urinary tract infection) Status: Acute
[2017-11-05 10:32] VITALS: BP 117/70
[2017-11-05] MEDS: cefTRIAXone IV 1 gm in Dextros 50 ML IVPB SCH (10:32)
[2017-11-05] MEDS: Potassium Chloride 10 mEq ER Tab PO SCH (10:32)
--- NOTE | 2017-11-05 13:58 | CP.PCM.PN ---
Subjective - Date & Time of Evaluation Date of Evaluation: 11/05/17 Time of Evaluation: 14:02 - Subjective Subjective: PT CLEARED FOR D/C TO [place] TODAY PER Lakhwinder RILEY. PT AND SON IN AGREEMENT WITH HARRI[facility]. PT TO CONTINUE ROCEPHIN FOR 3 MORE DAYS AT [place]. TO GO UNDER THE SERVICE OF DR. RILEY. TO RECEIVE WARFARIN 7.5 MG PO X1 DOSE PRIOR TO D/C. SW TO ARRANGE TRANSPORTATION THIS AFTERNOON. NO FURTHER ORDERS. -PLACE UNDER THE SERVICE OF DR. RILEY WHILE AT [facility]----CALL THE OFFICE UPON ARRIVAL FOR ADMITTING ORDERS. -MAY FOLLOW UP WITH DR. HERRERA (NEUROLOGIST) IN THE OFFICE AFTER DISCHARGE FROM REHAB. -CONTINUE MEDICATIONS PER THE MED REC FORM---CHANGES CAN BE MADE BY DR. RILEY. -DAILY WARFARIN DOSES PER DR. RILEY; ASK DURING ADMISSION ORDERS. -CONTINUE ROCEPHIN 1 GM IV DAILY X3 MORE DAYS (START ON 11/06/17 AND LAST DOSE TO BE GIVEN ON 11/08/17). -PHYSICAL THERAPY TOLERATED. -FOR FURTHER ORDERS, CONTACT DR. RILEY. Objective - Vital Signs/Intake and Output Vital Signs (last 24 hours): Temp Pulse Resp BP Pulse Ox 97.9 F 66 20 117/70 96 11/05/17 07:05 11/05/17 07:05 11/05/17 07:05 11/05/17 10:31 11/05/17 07:05 Intake and Output: 11/05/17 11/05/17 06:59 18:59 Intake Total 490 Balance 490 - Medications Medications: Current Medications Alprazolam (Xanax) 0.25 mg PO BID PRN PRN Reason: Anxiety Stop: 11/08/17 00:04 Last Admin: 11/02/17 19:28 Dose: 0.25 mg Carvedilol (Coreg) 3.125 mg PO BID [facility] Last Admin: 11/05/17 10:31 Dose: 3.125 mg Digoxin (Digoxin) 0.125 mg PO QPM [facility] Last Admin: 11/04/17 17:49 Dose: 0.125 mg Donepezil HCl (Aricept) 10 mg PO HS [facility] Last Admin: 11/04/17 21:42 Dose: 10 mg Enalapril Maleate (Vasotec) 2.5 mg PO DAILY [facility] Last Admin: 11/05/17 10:31 Dose: 2.5 mg Ferrous Sulfate (Feosol) 325 mg PO QAM [facility] Last Admin: 11/05/17 10:31 Dose: 325 mg Furosemide (Lasix) 20 mg PO DAILY [facility] Last Admin: 11/05/17 10:31 Dose: 20 mg Ceftriaxone Sodium (Rocephin Iv 1 Gm Duplex) 50 mls @ 100 mls/hr IVPB DAILY [facility] PRN Reason: Protocol Last Admin: 11/05/17 10:32 Dose: 100 mls/hr Potassium Chloride (Klor-Con 10) 10 meq PO DAILY [facility] Last Admin: 11/05/17 10:32 Dose: 10 meq Rosuvastatin Calcium (Crestor) 10 mg PO HS [facility] Last Admin: 11/04/17 21:42 Dose: 10 mg Warfarin Sodium (Coumadin) 7.5 mg PO ONCE ONE Stop: 11/05/17 14:01 - Labs Labs: 11/02/17 07:12 11/02/17 07:12 PT 23.1 SECONDS (9.7-12.2) H D 11/05/17 06:29 INR 2.1 D 11/05/17 06:29 APTT 36 SECONDS (21-34) H 10/31/17 18:06
[2017-11-05 16:09] VITALS: PULSE 68
== END 2017-11-05 16:14 | DRG 65 ==
LOC: C.ER 17:47 → C.9E 18:35 → C.6T 20:12
PROVIDERS: ADMIT Internal Medicine; ATTEND Internal Medicine
DX: I63.9 Cerebral infarction, unspecified (principal); N39.0 Urinary tract infection, site not specified; R29.6 Repeated falls; I50.9 Heart failure, unspecified; I11.0 Hypertensive heart disease with heart failure; J44.9 Chronic obstructive pulmonary disease, unspecified; F03.90 Unspecified dementia, unspecified severity, without behavioral disturbance, psychotic disturbance, mood disturbance, and anxiety; R47.81 Slurred speech; I48.91 Unspecified atrial fibrillation; Z95.0 Presence of cardiac pacemaker; E03.9 Hypothyroidism, unspecified; Z95.1 Presence of aortocoronary bypass graft; Z95.5 Presence of coronary angioplasty implant and graft; F32.9 Major depressive disorder, single episode, unspecified; E78.5 Hyperlipidemia, unspecified; E11.9 Type 2 diabetes mellitus without complications; R19.7 Diarrhea, unspecified; Z79.01 Long term (current) use of anticoagulants; I25.10 Atherosclerotic heart disease of native coronary artery without angina pectoris

== ENCOUNTER 2017-12-21 10:08 | Inpatient (IN) | payer MEDICARE ==
[2017-12-21 10:09] VITALS: BMI 27.4
--- NOTE | 2017-12-21 10:53 | C.PDOC ---
History Of Present Illness 87 y/o female present to ED for complaints of dizziness that began 2 days ago. Denies urinary problems, trauma, injury, or any other physical complaints. Time Seen by Provider: 12/21/17 10:27 Chief Complaint (Nursing): Dizziness/Lightheaded History Per: Patient History/Exam Limitations: no limitations Onset/Duration Of Symptoms: Hrs Current Symptoms Are (Timing): Still Present Associated Symptoms Preceding Syncopal Episode: No Predromal Symptoms (Sudden Onset) Seizure Or Post-ictal Symptoms: None Fall Associated With With Symptoms: No Recent travel outside of the [place]: No - Symptoms Of CVA Associated Symptoms: denies: Impaired Speech, Seizure Activity, New Vision Deficit(Left), New Vision Deficit(Right), Decreased Ability To Walk, New Confusion Recent Aspirin Use: Unknown Current Coumadin Use?: Unknown Recent Head Trauma: No Past Medical History Reviewed: Historical Data, Nursing Documentation, Vital Signs Vital Signs: Last Vital Signs Temp 97.5 F L 12/21/17 13:41 Pulse 74 12/21/17 13:41 Resp 19 12/21/17 13:41 BP 109/68 12/21/17 13:41 Pulse Ox 98 12/21/17 14:04 - Medical History PMH: Atrial Fibrillation, CHF, COPD, Depression, Diabetes, HTN, Hyperlipidemia, Hypothyroidism Surgical History: Appendectomy, CABG, Coronary Stent, Pacemaker - [facility] Procedures FLUOROSCOPY OF LEFT HEART USING LOW OSMOLAR CONTRAST (08/08/16) FLUOROSCOPY OF MULT COR ART USING L OSM CONTRAST (08/08/16) MEASURE OF CARDIAC SAMPL & PRESSURE, L HEART, PERC APPROACH (08/08/16) Family History: States: Unknown Family Hx - Social History Hx Tobacco Use: No Hx Alcohol Use: No Hx Substance Use: No - Immunization History Hx Tetanus Toxoid Vaccination: No Hx Influenza Vaccination: No Hx Pneumococcal Vaccination: No Review Of Systems Constitutional: Negative for: Fever, Chills Gastrointestinal: Negative for: Nausea, Vomiting, Abdominal Pain, Diarrhea Genitourinary: Negative for: Dysuria, Hematuria, Vaginal Discharge, Vaginal Bleeding Skin: Negative for: Rash Neurological: Positive for: Dizziness. Negative for: Weakness, Numbness Physical Exam - Physical Exam Appears: Well, Non-toxic, No Acute Distress, Other (Elderly white female ) Skin: Normal Color, Warm, Dry Head: Atraumatic, Normacephalic Eye(s): bilateral: Normal Inspection, PERRL, EOMI Ear(s): Bilateral: Normal Nose: Normal, No Discharge Oral Mucosa: Moist Throat: Normal, No Erythema, No Exudate, No Drooling Neck: Trachea Midline, No Midline Cervical Tenderness, No Paracervical Tenderness, Supple Chest: Symmetrical, No Deformity, No Tenderness Cardiovascular: Rhythm Regular, No Murmur Respiratory: Normal Breath Sounds, No Decreased Breath Sounds, No Rales, No Rhonchi, No Wheezing Gastrointestinal/Abdominal: Soft, No Tenderness, No Guarding, No Rebound Extremity: Normal ROM, No Tenderness, No Pedal Edema, No Deformity, No Swelling Extremity: Bilateral: Atraumatic, Normal Color And Temperature, Normal ROM Pulses: Left Dorsalis Pedis: Normal Neurological/Psych: Oriented x3 (Awake and Alert), Normal Speech, Normal Motor, Normal Sensation, Normal Reflexes, Other (No focal deficits ) Gait: Steady ED Course And Treatment - Laboratory Results Result Diagrams: 12/21/17 12:33 12/21/17 12:33 Lab Interpretation: Abnormal (UA 924 WBC's, trop neg.) ECG: Interpreted By Me ECG Rhythm: Atrial Fibrillation ECG Interpretation: Normal Rate From EC O2 Sat by Pulse Oximetry: 98 (RA) Pulse Ox Interpretation: Normal - Radiology CXR: Interpreted by Ct CXR Interpretation: Yes: No Acute Disease - Other Rad CXR X-Ray: Viewed By Ct, Read By Radiologist Interpretation: IMPRESSION: No active disease.No significant interval change compared to the prior examination(s). - CT Scan/US Head CT Other Rad Studies (CT/US): Read By Radiologist, Radiology Report Reviewed CT/US Interpretation: IMPRESSION: Chronic ischemic change in the posterior right frontal parietal periventricular and subcortical white matter. Chronic microvascular ischemic changes. Mild atrophy. If symptoms persists, consider correlation with MRI. Reassessment Condition: Improved - Physician Consult Information Outcome Of Conversation: 1400: d/w Dr. Dickinson, admitted prior, ok to admit. Medical Decision Making Medical Decision Making: Administered IV fluids. Ordered blood work, CT head, EKG, CXR, urinalysis, and blood and urine culture. dizzy from UTI, ? early sepsis but no leukocytosis nor elev HR but may be muted due to advanced age Hydration, mariano-cultur, IV Ceftriaxone. admit. Disposition Doctor Will See Patient In The: Hospital Counseled Patient/Family Regarding: Studies Performed, Diagnosis - Disposition Disposition: HOSPITALIZED Disposition Time: 14:03 Condition: GOOD - Clinical Impression Clinical Impression: Dizziness, UTI (urinary tract infection) - Scribe Statement The provider has reviewed the documentation as recorded by the Emanuel Farias All medical record entries made by the Maggiibsergio were at my direction and personally dictated by me. I have reviewed the chart and agree that the record accurately reflects my personal performance of the history, physical exam, medical decision making, and the department course for this patient. I have also personally directed, reviewed, and agree with the discharge instructions and disposition.
--- NOTE | 2017-12-21 11:57 | RAD ---
PROCEDURE: CHEST RADIOGRAPH, 1 VIEW HISTORY: SOB COMPARISON: 10/31/2017 FINDINGS: LUNGS: Clear. PLEURA: No pneumothorax or pleural fluid seen. CARDIOVASCULAR: No radiographic findings to suggest acute or significant cardiovascular disease. Mitral valve prosthesis identified. OSSEOUS STRUCTURES: No significant abnormalities. VISUALIZED UPPER ABDOMEN: Normal. OTHER FINDINGS: None. IMPRESSION: No active disease.No significant interval change compared to the prior examination(s). Concordant results with the preliminary interpretation rendered by the emergency department physician procedure.
--- NOTE | 2017-12-21 12:23 | CT ---
PROCEDURE: CT HEAD WITHOUT CONTRAST. HISTORY: Dizziness. Atrial fibrillation. COMPARISON: None available. TECHNIQUE: Axial computed tomography images were obtained through the head/brain without intravenous contrast. Radiation dose: Total exam DLP = 1040 mGy-cm. This CT exam was performed using one or more of the following dose reduction techniques: Automated exposure control, adjustment of the mA and/or kV according to patient size, and/or use of iterative reconstruction technique. FINDINGS: HEMORRHAGE: No intracranial hemorrhage. BRAIN: No mass effect or edema. Mild atrophy. Scattered focal lucencies in the subcortical and periventricular white matter suggestive for chronic microvascular ischemic change. Confluent low attenuation seen within the posterior right frontal/parietal periventricular white matter is again identified suggestive for chronic ischemic change. VENTRICLES: Unremarkable. No hydrocephalus. CALVARIUM: Unremarkable. PARANASAL SINUSES: Unremarkable as visualized. No significant inflammatory changes. MASTOID AIR CELLS: Unremarkable as visualized. No inflammatory changes. OTHER FINDINGS: Intracranial arterial calcifications. IMPRESSION: Chronic ischemic change in the posterior right frontal parietal periventricular and subcortical white matter. Chronic microvascular ischemic changes. Mild atrophy. If symptoms persists, consider correlation with MRI.
[2017-12-21 12:43] LABS: BASO % 0.8 % (0.0-2.0); EOS % 0.7 % (0.0-4.0); HEMOGLOBIN 13.2 g/dL (11.0-16.0); LYMPH # 1.6 K/uL (1.0-4.3); LYMPH % 31.4 % (20.0-40.0); MEAN CELL VOLUME 92.8 fL (81.0-99.0); MEAN CORPUSCULAR HEMOGLOBIN 31.3 pg (27.0-31.0); MEAN CORPUSCULAR HGB CONC 33.7 g/dL (33.0-37.0); MONO # 0.6 K/uL (0.0-0.8); MONO % 10.7 % (0.0-10.0); NEUT % 56.4 % (50.0-75.0); NRBC % 0.1 % (0.0-2.0); RBC 4.23 Mil/uL (3.80-5.20); RED CELL DISTRIBUTION WIDTH 14.1 % (11.5-14.5); WHITE BLOOD COUNT 5.2 K/uL (4.8-10.8)
[2017-12-21 12:46] LABS: INR 1.7; PROTHROMBIN TIME 18.2 SECONDS (9.7-12.2)
[2017-12-21 13:09] LABS: ALBUMIN 3.9 g/dL (3.5-5.0); ALT/SGPT 11 U/L (9-52); AST/SGOT 31 U/L (14-36); BLOOD UREA NITROGEN 13 mg/dL (7-17); CALCIUM 8.7 mg/dl (8.6-10.4); GFR AFRICAN-AMERICAN > 60; GFR NON-AFRICAN AMERICAN 59
[2017-12-21 13:16] LABS: B-TYPE NATRIURETIC PEPTIDE 1060 pg/mL (0-900)
[2017-12-21 13:38] LABS: SQUAMOUS EPITHIAL 3 /hpf (0-5); URINE BACTERIA RARE (<OCC); URINE BILIRUBIN NEGATIVE (NEGATIVE); URINE BLOOD 1+ (NEGATIVE); URINE CLARITY Hazy (Clear); URINE COLOR Yellow (YELLOW); URINE GLUCOSE (UA) NORMAL (Normal); URINE LEUKOCYTE ESTERASE 3+ Leu/uL (Negative); URINE PROTEIN NEGATIVE (NEGATIVE); WBC CLUMPS OCC /hpf
[2017-12-21] MEDS ORDERED: cefTRIAXone IV 1 gm in Dextros 50 ML IV ONE ×2 (13:56→16:00)
[2017-12-21] MEDS ORDERED: Sodium Chloride 0.9% 1,000 ML IV ONE (13:57)
--- NOTE | 2017-12-21 22:07 | CP.PCM.HP ---
History of Present Illness - History of Present Illness History of Present Illness: Chief Complaint : Dizziness/Lightheaded HPI: 87 y/o female well known to me with history of HTN, Hyperlipidemia, present to ED for complaints of dizziness, weakness, dysuria, urgency,abdominal pain that began 2 days ago. Denies urinary problems, trauma, injury, or any other physical complaints. Present on Admission - Present on Admission Any Indicators Present on Admission: Yes Review of Systems - Review of Systems Systems not reviewed;Unavailable: Acuity of Condition - Constitutional Constitutional: Fatigue, Lethargy, Malaise, Weakness - EENT Eyes: absent: As Per HPI, Blind Spots, Blurred Vision, Change in Vision, Decreased Night Vision, Diplopia, Discharge, Dry Eye, Exophthalmos, Floaters, Irritation, Itchy Eyes, Loss of Peripheral Vision, Pain, Photophobia, Requires Corrective Lenses, Sees Flashes, Spots in Vision, Tunnel Vision, Other Visual Disturbances, Loss of Vision, Other Nose/Mouth/Throat: absent: As Per HPI, Epistaxis, Nasal Congestion, Nasal Discharge, Nasal Obstruction, Nasal Trauma, Nose Pain, Post Nasal Drip, Sinus Pain, Sinus Pressure, Bleeding Gums, Change in Voice, Dental Pain, Dry Mouth, Dysphagia, Halitosis, Hoarsness, Lip Swelling, Mouth Lesions, Mouth Pain, Odynophagia, Sore Throat, Throat Swelling, Tongue Swelling, Facial Pain, Neck Pain, Neck Mass, Other - Cardiovascular Cardiovascular: absent: As Per HPI, Acrocyanosis, Chest Pain, Chest Pain at Rest , Chest Pain with Activity, Claudication, Diaphoresis, Dyspnea, Dyspnea on Exertion, Edema, Irregular Heart Rhythm, Pain Radiating to Arm/Neck/Jaw, Leg Edema, Leg Ulcers, Lightheadedness, Orthopnea, Palpitations, Paroxysmal Nocturnal Dyspnea, Pedal Edema, Radiating Pain, Rapid Heart Rate, Slow Heart Rate, Syncope, Other - Respiratory Respiratory: absent: As Per HPI, Cough, Dyspnea, Hemoptysis, Dyspnea on Exertion , Wheezing, Snoring, Stridor, Pain on Inspiration, Chest Congestion, Excessive Mucous Production, Change in Mucous Color, Pain with Coughing, Other - Gastrointestinal Gastrointestinal: Abdominal Pain - Genitourinary Genitourinary: Dysuria, Urinary Frequency Past Patient History - Infectious Disease Hx of Infectious Diseases: None - Tetanus Immunizations Tetanus Immunization: Unknown - Past Medical History & Family History Past Medical History?: Yes - Past Social History Smoking Status: Never Smoked - CARDIAC Hx Atrial Fibrillation: Yes Hx Congestive Heart Failure: Yes Hx Hypertension: Yes Hx Pacemaker: Yes - PULMONARY Hx Chronic Obstructive Pulmonary Disease (COPD): Yes - NEUROLOGICAL Hx Neurological Disorder: No - HEENT Hx HEENT Problems: Yes Hx Cataracts: Yes - RENAL Hx Chronic Kidney Disease: No - ENDOCRINE/METABOLIC Hx Hypothyroidism: Yes - HEMATOLOGICAL/ONCOLOGICAL Hx Blood Disorders: No - INTEGUMENTARY Hx Dermatological Problems: No - MUSCULOSKELETAL/RHEUMATOLOGICAL Hx Falls: Yes - GASTROINTESTINAL Hx Gastrointestinal Disorders: No - GENITOURINARY/GYNECOLOGICAL Hx Genitourinary Disorders: No - PSYCHIATRIC Hx Depression: Yes Hx Substance Use: No - SURGICAL HISTORY Hx Appendectomy: Yes Hx Coronary Artery Bypass Graft: Yes Hx Coronary Stent: Yes - ANESTHESIA Hx Anesthesia: Yes Hx Anesthesia Reactions: No Hx Malignant Hyperthermia: No Meds Allergies/Adverse Reactions: Allergies Allergy/AdvReac Type Severity Reaction Status Date / Time No Known Allergies Allergy Verified 12/21/17 10:26 Physical Exam - Constitutional Appears: No Acute Distress - Head Exam Head Exam: ATRAUMATIC, NORMAL INSPECTION, NORMOCEPHALIC - Eye Exam Eye Exam: EOMI, Normal appearance, PERRL Pupil Exam: NORMAL ACCOMODATION, PERRL - ENT Exam ENT Exam: Mucous Membranes Moist, Normal Exam - Neck Exam Neck exam: Positive for: Normal Inspection - Respiratory Exam Respiratory Exam: Decreased Breath Sounds, Rales, Rhonchi - Cardiovascular Exam Cardiovascular Exam: REGULAR RHYTHM - GI/Abdominal Exam GI & Abdominal Exam: Normal Bowel Sounds, Soft. absent: Tenderness - Rectal Exam Rectal Exam: Deferred Results - Vital Signs Recent Vital Signs: Last Vital Signs Temp 97.4 F L 12/21/17 17:40 Pulse 80 12/21/17 17:40 Resp 20 12/21/17 17:40 BP 175/62 H 12/21/17 17:40 Pulse Ox 96 12/21/17 17:40 - Labs Result Diagrams: 12/23/17 07:32 12/23/17 07:32 Labs: Laboratory Results - last 24 hr 12/21/17 12/21/17 12/21/17 10:18 12:33 12:33 WBC 5.2 RBC 4.23 Hgb 13.2 Hct 39.3 MCV 92.8 MCH 31.3 H MCHC 33.7 RDW 14.1 Plt Count 214 MPV 8.0 Neut % (Auto) 56.4 Lymph % (Auto) 31.4 Whiteside % (Auto) 10.7 H Eos % (Auto) 0.7 Baso % (Auto) 0.8 Neut # (Auto) 3.0 Lymph # (Auto) 1.6 Whiteside # (Auto) 0.6 Eos # (Auto) 0.0 Baso # (Auto) 0.0 PT 18.2 H INR 1.7 APTT 36 H Sodium Potassium Chloride Carbon Dioxide Anion Gap BUN Creatinine Est GFR ( Amer) Est GFR (Non-Af Amer) POC Glucose (mg/dL) 95 Random Glucose Calcium Total Bilirubin AST ALT Alkaline Phosphatase Troponin I NT-Pro-B Natriuret Pep Total Protein Albumin Globulin Albumin/Globulin Ratio Urine Color Urine Clarity Urine pH Ur Specific [place] Urine Protein Urine Glucose (UA) Urine Ketones Urine Blood Urine Nitrate Urine Bilirubin Urine Urobilinogen Ur Leukocyte Esterase Urine WBC (Auto) Urine RBC (Auto) Urine WBC Clumps (Auto) Ur Squamous Epith Cells Urine Bacteria 12/21/17 12/21/17 12:33 13:20 WBC RBC Hgb Hct MCV MCH MCHC RDW Plt Count MPV Neut % (Auto) Lymph % (Auto) [place]iteside % (Auto) Eos % (Auto) Baso % (Auto) Neut # (Auto) Lymph # (Auto) [place] # (Auto) Eos # (Auto) Baso # (Auto) PT INR APTT Sodium 138 Potassium 3.9 Chloride 100 Carbon Dioxide 29 Anion Gap 12 BUN 13 Creatinine 0.9 Est GFR ( Amer) > 60 Est GFR (Non-Af Amer) 59 POC Glucose (mg/dL) Random Glucose 96 Calcium 8.7 Total Bilirubin 0.7 AST 31 ALT 11 Alkaline Phosphatase 141 H Troponin I < 0.0120 NT-Pro-B Natriuret Pep 1060 H Total Protein 7.8 Albumin 3.9 Globulin 3.9 Albumin/Globulin Ratio 1.0 Urine Color Yellow Urine Clarity Hazy Urine pH 6.0 Ur Specific [place] 1.011 Urine Protein Negative Urine Glucose (UA) Normal Urine Ketones Negative Urine Blood 1+ H Urine Nitrate Negative Urine Bilirubin Negative Urine Urobilinogen 2.0 H Ur Leukocyte Esterase 3+ H Urine WBC (Auto) 924 H Urine RBC (Auto) 14 H Urine WBC Clumps (Auto) Occ H Ur Squamous Epith Cells 3 Urine Bacteria Rare Assessment & Plan (1) UTI (urinary tract infection) Status: Acute (2) Dizziness Status: Acute (3) CHF (congestive heart failure) Status: Acute (4) COPD (chronic obstructive pulmonary disease) Status: Acute (5) Dehydration Status: Acute
[2017-12-22] MEDS ORDERED: CEFTRIAXONE 1 GM IVPB SCH (10:00)
[2017-12-22] MEDS ORDERED: Pneumococcal 23-Valent Vaccine IM ONE (10:00)
[2017-12-22] MEDS: Potassium Chloride 10 mEq ER Tab PO SCH (10:02)
[2017-12-22] MEDS: Enoxaparin 40 mg Syringe SC SCH (10:03)
[2017-12-22] MEDS: Digoxin 125 mcg (0.125 mg) Tab PO SCH (17:33)
[2017-12-22] MEDS: cefTRIAXone IV 1 gm in Dextros 50 ML IVPB SCH (17:38)
--- NOTE | 2017-12-22 22:30 | CARD ---
APPROVED REPORT EKG Measurement Heart [id number] <Conclusion> Atrial fibrillation Abnormal ECG
[2017-12-23 07:47] LABS: BASO % 0.8 % (0.0-2.0); EOS # 0.1 K/uL (0.0-0.7); EOS % 2.3 % (0.0-4.0); HEMOGLOBIN 12.1 g/dL (11.0-16.0); LYMPH # 1.5 K/uL (1.0-4.3); LYMPH % 33.1 % (20.0-40.0); MEAN CELL VOLUME 92.1 fL (81.0-99.0); MEAN CORPUSCULAR HEMOGLOBIN 31.5 pg (27.0-31.0); MEAN CORPUSCULAR HGB CONC 34.2 g/dL (33.0-37.0); MEAN PLATELET VOLUME 8.1 fL (7.2-11.7); MONO # 0.6 K/uL (0.0-0.8); MONO % 12.5 % (0.0-10.0); NEUT # 2.3 K/uL (1.8-7.0); NEUT % 51.3 % (50.0-75.0); RBC 3.84 Mil/uL (3.80-5.20); RED CELL DISTRIBUTION WIDTH 13.9 % (11.5-14.5); WHITE BLOOD COUNT 4.5 K/uL (4.8-10.8)
[2017-12-23 08:07] LABS: BLOOD UREA NITROGEN 10 mg/dL (7-17); CALCIUM 8.7 mg/dl (8.6-10.4); GFR AFRICAN-AMERICAN > 60; GFR NON-AFRICAN AMERICAN 59
[2017-12-23] MEDS ORDERED: Pneumococcal 23-Valent Vaccine IM ONE (10:00)
[2017-12-23] MEDS: Potassium Chloride 10 mEq ER Tab PO SCH (10:13)
[2017-12-23] MEDS: Enoxaparin 40 mg Syringe SC SCH (10:14)
--- NOTE | 2017-12-23 15:59 | CP.PCM.PN ---
Subjective - Date & Time of Evaluation Date of Evaluation: 12/23/17 Time of Evaluation: 18:00 - Subjective Subjective: Pt seen and examined, less dehydrated, feels weak though better then yesterday Objective - Vital Signs/Intake and Output Vital Signs (last 24 hours): Temp Pulse Resp BP Pulse Ox 98.1 F 75 20 122/60 96 12/23/17 07:29 12/23/17 07:29 12/23/17 07:29 12/23/17 10:13 12/23/17 07:29 Intake and Output: 12/23/17 12/23/17 06:59 18:59 Intake Total 250 440 Balance 250 440 - Medications Medications: Current Medications Alprazolam (Xanax) 0.25 mg PO BID PRN PRN Reason: Anxiety Stop: 12/28/17 19:18 Carvedilol (Coreg) 3.125 mg PO BID [facility] Last Admin: 12/23/17 10:18 Dose: Not Given Digoxin (Digoxin) 0.125 mg PO DAILY@1800 [facility] Last Admin: 12/22/17 17:33 Dose: 0.125 mg Donepezil HCl (Aricept) 10 mg PO HS [facility] Last Admin: 12/22/17 21:18 Dose: 10 mg Enalapril Maleate (Vasotec) 5 mg PO DAILY [facility] Last Admin: 12/23/17 10:13 Dose: 5 mg Enoxaparin Sodium (Lovenox) 40 mg SC DAILY [facility] Last Admin: 12/23/17 10:14 Dose: 40 mg Furosemide (Lasix) 20 mg PO DAILY [facility] Last Admin: 12/22/17 10:02 Dose: 20 mg Ceftriaxone Sodium (Rocephin Iv 1 Gm Duplex) 50 mls @ 100 mls/hr IVPB Q24H [facility] Last Admin: 12/22/17 17:38 Dose: 100 mls/hr Ondansetron HCl (Zofran Inj) 4 mg IVP Q8H PRN PRN Reason: Nausea/Vomiting Last Admin: 12/22/17 13:09 Dose: 4 mg Pantoprazole Sodium (Protonix Inj) 40 mg IVP DAILY [facility] Last Admin: 12/23/17 10:14 Dose: 40 mg Potassium Chloride (Klor-Con 10) 10 meq PO DAILY [facility] Last Admin: 12/23/17 10:13 Dose: 10 meq Rosuvastatin Calcium (Crestor) 10 mg PO HS [facility] Last Admin: 12/22/17 21:18 Dose: 10 mg - Labs Labs: 12/23/17 07:32 12/23/17 07:32 PT 18.2 SECONDS (9.7-12.2) H 12/21/17 12:33 INR 1.7 12/21/17 12:33 APTT 36 SECONDS (21-34) H 12/21/17 12:33 - Constitutional Appears: No Acute Distress - Head Exam Head Exam: ATRAUMATIC, NORMAL INSPECTION, NORMOCEPHALIC - Eye Exam Eye Exam: EOMI, Normal appearance, PERRL Pupil Exam: NORMAL ACCOMODATION, PERRL - Neck Exam Neck Exam: Full ROM, Normal Inspection. absent: Lymphadenopathy - Respiratory Exam Respiratory Exam: Clear to Ausculation Bilateral, NORMAL BREATHING PATTERN - Cardiovascular Exam Cardiovascular Exam: REGULAR RHYTHM, +S1, +S2. absent: Murmur - GI/Abdominal Exam GI & Abdominal Exam: Soft, Normal Bowel Sounds. absent: Tenderness Assessment and Plan (1) UTI (urinary tract infection) Status: Acute (2) Dizziness Status: Acute (3) CHF (congestive heart failure) Status: Acute (4) COPD (chronic obstructive pulmonary disease) Status: Acute (5) Dehydration Status: Acute
[2017-12-23] MEDS: cefTRIAXone IV 1 gm in Dextros 50 ML IVPB SCH (16:00)
[2017-12-23] MEDS: Digoxin 125 mcg (0.125 mg) Tab PO SCH (17:29)
[2017-12-24] MEDS: Potassium Chloride 10 mEq ER Tab PO SCH (10:25)
[2017-12-24] MEDS: Enoxaparin 40 mg Syringe SC SCH (10:25)
--- NOTE | 2017-12-24 13:56 | RAD ---
Chest x-ray two views History: Shortness of breath. Comparison: None available. Findings: Status post median sternotomy. Prior valve replacement. Diffuse increased interstitial markings. Patchy increased markings at the left lung base. Right hilar prominence. Calcification at the aortic knob. Tortuous ectatic aorta. Cardiomegaly. Degenerative changes in the spine and shoulders. Suggestion of loss of height of several thoracic vertebral bodies. Correlation with CT scan may be helpful if clinically indicated. Impression: Status post median sternotomy. Prior valve replacement. Diffuse increased interstitial markings. Patchy increased markings at the left lung base. Right hilar prominence. Calcification at the aortic knob. Tortuous ectatic aorta. Cardiomegaly. Degenerative changes in the spine and shoulders. Suggestion of loss of height of several thoracic vertebral bodies. Correlation with CT scan may be helpful if clinically indicated.
[2017-12-24] MEDS: cefTRIAXone IV 1 gm in Dextros 50 ML IVPB SCH (16:00)
--- NOTE | 2017-12-24 17:07 | CP.PCM.PN ---
Subjective - Date & Time of Evaluation Date of Evaluation: 12/24/17 Time of Evaluation: 17:07 - Subjective Subjective: Alert, awake, not in distress. Objective - Vital Signs/Intake and Output Vital Signs (last 24 hours): Temp Pulse Resp BP Pulse Ox 97.4 F L 59 L 20 132/65 99 12/24/17 16:00 12/24/17 16:00 12/24/17 16:00 12/24/17 16:00 12/24/17 16:00 Intake and Output: 12/24/17 12/24/17 06:59 18:59 Intake Total 610 300 Balance 610 300 - Medications Medications: Current Medications Alprazolam (Xanax) 0.25 mg PO BID PRN PRN Reason: Anxiety Stop: 12/28/17 19:18 Last Admin: 12/24/17 14:53 Dose: 0.25 mg Carvedilol (Coreg) 3.125 mg PO BID [facility] Last Admin: 12/24/17 10:24 Dose: 3.125 mg Digoxin (Digoxin) 0.125 mg PO DAILY@1800 [facility] Last Admin: 12/23/17 17:29 Dose: 0.125 mg Donepezil HCl (Aricept) 10 mg PO HS [facility] Last Admin: 12/23/17 21:53 Dose: 10 mg Enalapril Maleate (Vasotec) 5 mg PO DAILY [facility] Last Admin: 12/24/17 10:24 Dose: 5 mg Enoxaparin Sodium (Lovenox) 40 mg SC DAILY [facility] Last Admin: 12/24/17 10:25 Dose: 40 mg Furosemide (Lasix) 20 mg PO DAILY [facility] Last Admin: 12/24/17 10:24 Dose: 20 mg Ceftriaxone Sodium (Rocephin Iv 1 Gm Duplex) 50 mls @ 100 mls/hr IVPB Q24H [facility] Last Admin: 12/23/17 16:00 Dose: 100 mls/hr Ondansetron HCl (Zofran Inj) 4 mg IVP Q8H PRN PRN Reason: Nausea/Vomiting Last Admin: 12/22/17 13:09 Dose: 4 mg Pantoprazole Sodium (Protonix Inj) 40 mg IVP DAILY [facility] Last Admin: 12/24/17 10:24 Dose: 40 mg Potassium Chloride (Klor-Con 10) 10 meq PO DAILY [facility] Last Admin: 12/24/17 10:25 Dose: 10 meq Rosuvastatin Calcium (Crestor) 10 mg PO HS [facility] Last Admin: 12/23/17 21:53 Dose: 10 mg - Labs Labs: 12/23/17 07:32 12/23/17 07:32 PT 18.2 SECONDS (9.7-12.2) H 12/21/17 12:33 INR 1.7 12/21/17 12:33 APTT 36 SECONDS (21-34) H 12/21/17 12:33 Assessment and Plan - Assessment and Plan (Free Text) Assessment: Patient is seen and examined. Feeling better than before, no nausea or vomiting. Patient gets anxious with going home. Had a talk with her son today expressed that he won't be able to make it today but will come and pick her up tomorrow. Discussed with DR Dickinson, patient is medically stable to be discharged. Will give keflex for 5 days.
[2017-12-24] MEDS: Digoxin 125 mcg (0.125 mg) Tab PO SCH (17:18)
--- NOTE | 2017-12-24 17:20 | PCM.HF ---
Heart Failure Core Measure - Heart Failure Ejection Fraction: 40 % or Greater (EF 63%) LORNE Inhibitor Prescribed: Yes Beta-Cholo Prescribed: Carvedilol
--- NOTE | 2017-12-24 23:08 | CP.PCM.PN ---
Subjective - Date & Time of Evaluation Date of Evaluation: 12/24/17 Time of Evaluation: 18:00 - Subjective Subjective: PT SEEN AND EXAMINED AT BEDSIDE Objective - Vital Signs/Intake and Output Vital Signs (last 24 hours): Temp Pulse Resp BP Pulse Ox 97.4 F L 59 L 20 132/65 99 12/24/17 16:00 12/24/17 16:00 12/24/17 16:00 12/24/17 16:00 12/24/17 16:00 Intake and Output: 12/24/17 12/25/17 18:59 06:59 Intake Total 300 250 Balance 300 250 - Medications Medications: Current Medications Alprazolam (Xanax) 0.25 mg PO BID PRN PRN Reason: Anxiety Stop: 12/28/17 19:18 Last Admin: 12/24/17 14:53 Dose: 0.25 mg Carvedilol (Coreg) 3.125 mg PO BID [facility] Last Admin: 12/24/17 17:18 Dose: 3.125 mg Digoxin (Digoxin) 0.125 mg PO DAILY@1800 [facility] Last Admin: 12/24/17 17:18 Dose: 0.125 mg Donepezil HCl (Aricept) 10 mg PO HS [facility] Last Admin: 12/24/17 21:09 Dose: 10 mg Enalapril Maleate (Vasotec) 5 mg PO DAILY [facility] Last Admin: 12/24/17 10:24 Dose: 5 mg Enoxaparin Sodium (Lovenox) 40 mg SC DAILY [facility] Last Admin: 12/24/17 10:25 Dose: 40 mg Furosemide (Lasix) 20 mg PO DAILY [facility] Last Admin: 12/24/17 10:24 Dose: 20 mg Ceftriaxone Sodium (Rocephin Iv 1 Gm Duplex) 50 mls @ 100 mls/hr IVPB Q24H [facility] Last Admin: 12/24/17 16:00 Dose: 100 mls/hr Ondansetron HCl (Zofran Inj) 4 mg IVP Q8H PRN PRN Reason: Nausea/Vomiting Last Admin: 12/22/17 13:09 Dose: 4 mg Pantoprazole Sodium (Protonix Inj) 40 mg IVP DAILY [facility] Last Admin: 12/24/17 10:24 Dose: 40 mg Potassium Chloride (Klor-Con 10) 10 meq PO DAILY [facility] Last Admin: 12/24/17 10:25 Dose: 10 meq Rosuvastatin Calcium (Crestor) 10 mg PO HS [facility] Last Admin: 12/24/17 21:09 Dose: 10 mg - Labs Labs: 12/23/17 07:32 12/23/17 07:32 PT 18.2 SECONDS (9.7-12.2) H 12/21/17 12:33 INR 1.7 12/21/17 12:33 APTT 36 SECONDS (21-34) H 12/21/17 12:33 Assessment and Plan (1) UTI (urinary tract infection) Status: Acute (2) Dizziness Status: Acute (3) CHF (congestive heart failure) Status: Acute (4) COPD (chronic obstructive pulmonary disease) Status: Acute (5) Dehydration Status: Acute
[2017-12-25] MEDS: Enoxaparin 40 mg Syringe SC SCH (11:09)
[2017-12-25] MEDS: Potassium Chloride 10 mEq ER Tab PO SCH (11:10)
--- NOTE | 2017-12-25 12:18 | CP.PCM.PN ---
Subjective - Date & Time of Evaluation Date of Evaluation: 12/25/17 Time of Evaluation: 12:18 - Subjective Subjective: PT WAS D/C' YESTERDAY BY [facility]. PER DR. RILEY THIS MORNING, D/C PT HOME TODAY. I REVIEWED CHART BUT IT IS UNSURE WHY PT WAS NOT SENT HOME LAST NIGHT. I SPOKE TO PRIMARY RN RAFI AT LENGTH, WHO HAS CONCERNS PT IS CONFUSED AND UNSTEADY TODAY AND ALMOST FELL AT BEDSIDE. PT DOES HAVE H/O DEMENTIA, AND FROM MY PREVIOUS INTERACTION WITH HER (DURING LAST ADMISSION) SHE DOES HAVE PERIODS OF CONFUSION. PT'S SON YARED MEJÍA AT BEDSIDE THIS MORNING AND I SPOKE TO HIM AT LENGTH. 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 PT DOES HAVE HOME HEALTH AIDE, HOWEVER, ITS ONLY FOR APPROX 2 HOURS A DAY, 3 TIMES PER WEEK. PT IS UNSTEADY TODAY AND CONFUSED. AT THIS TIME YARED AND I AGREE THAT [facility] (YARED IS REQUESTING [facility], PT WAS THERE RECENTLY) IS THE BEST OPTION FOR HIS MOTHER. HE WILL BE SEEKING MEDICAID AND CUSTODIAL PLACEMENT FOR HER IN THE NEAR FUTURE. I HAVE RE-ORDERED PHYSICAL THERAPY----RE-EVAL UNSTEADY GAIT PT IS UNSTEADY TODAY AND A FALL RISK. SHE DOES HAVE H/O FREQUENT FALLS AT HOME. I HAVE ALSO DISCUSSED THIS WITH WEEKEND SW, WHO AGREES WITH REFERRAL TO [facility]. THIS WILL HAVE TO BE DONE ON WEDNESDAY SINCE THEIR ADMISSIONS OFFICE IS CLOSED DURING THE WEEKEND. DR. RILEY MADE AWARE. NO FURTHER ORDERS. Objective - Vital Signs/Intake and Output Vital Signs (last 24 hours): Temp Pulse Resp BP Pulse Ox 98.3 F 91 H 20 133/61 95 12/25/17 07:40 12/25/17 07:40 12/25/17 07:40 12/25/17 11:10 12/25/17 07:40 Intake and Output: 12/25/17 12/25/17 06:59 18:59 Intake Total 370 Balance 370 - Medications Medications: Current Medications Alprazolam (Xanax) 0.25 mg PO BID PRN PRN Reason: Anxiety Stop: 12/28/17 19:18 Last Admin: 12/25/17 11:09 Dose: 0.25 mg Carvedilol (Coreg) 3.125 mg PO BID [facility] Last Admin: 12/25/17 11:11 Dose: 3.125 mg Digoxin (Digoxin) 0.125 mg PO DAILY@1800 [facility] Last Admin: 12/24/17 17:18 Dose: 0.125 mg Donepezil HCl (Aricept) 10 mg PO HS [facility] Last Admin: 12/24/17 21:09 Dose: 10 mg Enalapril Maleate (Vasotec) 5 mg PO DAILY [facility] Last Admin: 12/25/17 11:09 Dose: 5 mg Enoxaparin Sodium (Lovenox) 40 mg SC DAILY [facility] Last Admin: 12/25/17 11:09 Dose: 40 mg Furosemide (Lasix) 20 mg PO DAILY [facility] Last Admin: 12/25/17 11:10 Dose: 20 mg Ceftriaxone Sodium (Rocephin Iv 1 Gm Duplex) 50 mls @ 100 mls/hr IVPB Q24H [facility] Last Admin: 12/24/17 16:00 Dose: 100 mls/hr Ondansetron HCl (Zofran Inj) 4 mg IVP Q8H PRN PRN Reason: Nausea/Vomiting Last Admin: 12/22/17 13:09 Dose: 4 mg Pantoprazole Sodium (Protonix Inj) 40 mg IVP DAILY [facility] Last Admin: 12/25/17 11:09 Dose: 40 mg Potassium Chloride (Klor-Con 10) 10 meq PO DAILY [facility] Last Admin: 12/25/17 11:10 Dose: 10 meq Rosuvastatin Calcium (Crestor) 10 mg PO HS [facility] Last Admin: 12/24/17 21:09 Dose: 10 mg - Labs Labs: 12/23/17 07:32 12/23/17 07:32 PT 18.2 SECONDS (9.7-12.2) H 12/21/17 12:33 INR 1.7 12/21/17 12:33 APTT 36 SECONDS (21-34) H 12/21/17 12:33
[2017-12-25] MEDS: cefTRIAXone IV 1 gm in Dextros 50 ML IVPB SCH (16:08)
[2017-12-25] MEDS: Digoxin 125 mcg (0.125 mg) Tab PO SCH (17:23)
--- NOTE | 2017-12-25 23:52 | CP.PCM.PN ---
Subjective - Date & Time of Evaluation Date of Evaluation: 12/25/17 Time of Evaluation: 20:00 - Subjective Subjective: PT IS CONFUSED AND UNSTEADY TODAY AND ALMOST FELL AT BEDSIDE. PT DOES HAVE H/O DEMENTIA, AND FROM MY PREVIOUS INTERACTION WITH HER (DURING LAST ADMISSION) SHE DOES HAVE PERIODS OF CONFUSION. PT'S SON YARED MEJÍA AT BEDSIDE THIS MORNING AND I SPOKE TO HIM AT LENGTH. 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 PT DOES HAVE HOME HEALTH AIDE, HOWEVER, ITS ONLY FOR APPROX 2 HOURS A DAY, 3 TIMES PER WEEK. PT IS UNSTEADY TODAY AND CONFUSED. Objective - Vital Signs/Intake and Output Vital Signs (last 24 hours): Temp Pulse Resp BP Pulse Ox 98.5 F 85 20 110/59 L 98 12/25/17 16:00 12/25/17 16:00 12/25/17 16:00 12/25/17 16:00 12/25/17 16:00 Intake and Output: 12/25/17 12/26/17 18:59 06:59 Intake Total 120 250 Balance 120 250 - Medications Medications: Current Medications Alprazolam (Xanax) 0.25 mg PO BID PRN PRN Reason: Anxiety Stop: 12/28/17 19:18 Last Admin: 12/25/17 11:09 Dose: 0.25 mg Carvedilol (Coreg) 3.125 mg PO BID [facility] Last Admin: 12/25/17 17:23 Dose: 3.125 mg Digoxin (Digoxin) 0.125 mg PO DAILY@1800 [facility] Last Admin: 12/25/17 17:23 Dose: 0.125 mg Donepezil HCl (Aricept) 10 mg PO HS [facility] Last Admin: 12/25/17 21:36 Dose: 10 mg Enalapril Maleate (Vasotec) 5 mg PO DAILY [facility] Last Admin: 12/25/17 11:09 Dose: 5 mg Enoxaparin Sodium (Lovenox) 40 mg SC DAILY [facility] Last Admin: 12/25/17 11:09 Dose: 40 mg Furosemide (Lasix) 20 mg PO DAILY [facility] Last Admin: 12/25/17 11:10 Dose: 20 mg Ondansetron HCl (Zofran Inj) 4 mg IVP Q8H PRN PRN Reason: Nausea/Vomiting Last Admin: 12/22/17 13:09 Dose: 4 mg Pantoprazole Sodium (Protonix Inj) 40 mg IVP DAILY [facility] Last Admin: 12/25/17 11:09 Dose: 40 mg Potassium Chloride (Klor-Con 10) 10 meq PO DAILY [facility] Last Admin: 12/25/17 11:10 Dose: 10 meq Rosuvastatin Calcium (Crestor) 10 mg PO HS [facility] Last Admin: 12/25/17 21:36 Dose: 10 mg - Labs Labs: 12/23/17 07:32 12/23/17 07:32 PT 18.2 SECONDS (9.7-12.2) H 12/21/17 12:33 INR 1.7 12/21/17 12:33 APTT 36 SECONDS (21-34) H 12/21/17 12:33 Assessment and Plan (1) UTI (urinary tract infection) Status: Acute (2) Dizziness Status: Acute (3) CHF (congestive heart failure) Status: Acute (4) COPD (chronic obstructive pulmonary disease) Status: Acute (5) Dehydration Status: Acute
[2017-12-26] MEDS: Potassium Chloride 10 mEq ER Tab PO SCH (09:44)
[2017-12-26] MEDS: Enoxaparin 40 mg Syringe SC SCH (09:45)
[2017-12-26] MEDS: Digoxin 125 mcg (0.125 mg) Tab PO SCH (17:15)
--- NOTE | 2017-12-27 03:08 | CP.PCM.PN ---
Subjective - Date & Time of Evaluation Date of Evaluation: 12/26/17 Time of Evaluation: 19:50 - Subjective Subjective: pt seen and evalauted, she is agitated , restless thererfore not SAFE to Discharge , she is to be to evaluated by social media specialist, physical therapy and possible Rehab Objective - Vital Signs/Intake and Output Vital Signs (last 24 hours): Temp Pulse Resp BP Pulse Ox 98 F 82 20 102/62 95 12/27/17 00:00 12/27/17 00:00 12/27/17 00:00 12/27/17 00:00 12/27/17 00:00 Intake and Output: 12/26/17 12/27/17 18:59 06:59 Intake Total 120 400 Balance 120 400 - Medications Medications: Current Medications Alprazolam (Xanax) 0.25 mg PO BID PRN PRN Reason: Anxiety Stop: 12/28/17 19:18 Last Admin: 12/26/17 13:05 Dose: 0.25 mg Carvedilol (Coreg) 3.125 mg PO BID [facility] Last Admin: 12/26/17 17:15 Dose: 3.125 mg Digoxin (Digoxin) 0.125 mg PO DAILY@1800 [facility] Last Admin: 12/26/17 17:15 Dose: 0.125 mg Donepezil HCl (Aricept) 10 mg PO [facility] Last Admin: 12/26/17 21:25 Dose: 10 mg Enalapril Maleate (Vasotec) 5 mg PO DAILY [facility] Last Admin: 12/26/17 09:46 Dose: 5 mg Enoxaparin Sodium (Lovenox) 40 mg SC DAILY [facility] Last Admin: 12/26/17 09:45 Dose: 40 mg Furosemide (Lasix) 20 mg PO DAILY [facility] Last Admin: 12/26/17 09:44 Dose: 20 mg Haloperidol Lactate (Haldol) 1 mg IM Q6 PRN PRN Reason: Agitation Last Admin: 12/26/17 16:32 Dose: 1 mg Pantoprazole Sodium (Protonix Inj) 40 mg IVP DAILY [facility] Last Admin: 12/26/17 09:44 Dose: 40 mg Potassium Chloride (Klor-Con 10) 10 meq PO DAILY [facility] Last Admin: 12/26/17 09:44 Dose: 10 meq Rosuvastatin Calcium (Crestor) 10 mg PO [facility] Last Admin: 12/26/17 21:25 Dose: 10 mg - Labs Labs: 12/23/17 07:32 12/23/17 07:32 PT 18.2 SECONDS (9.7-12.2) H 12/21/17 12:33 INR 1.7 12/21/17 12:33 APTT 36 SECONDS (21-34) H 12/21/17 12:33 - Constitutional Appears: No Acute Distress, Agitated, Confused - Head Exam Head Exam: ATRAUMATIC, NORMAL INSPECTION, NORMOCEPHALIC - Eye Exam Eye Exam: EOMI, Normal appearance, PERRL Pupil Exam: NORMAL ACCOMODATION, PERRL - Respiratory Exam Respiratory Exam: Clear to Ausculation Bilateral, NORMAL BREATHING PATTERN - Cardiovascular Exam Cardiovascular Exam: REGULAR RHYTHM, +S1, +S2. absent: Murmur - GI/Abdominal Exam GI & Abdominal Exam: Soft, Normal Bowel Sounds. absent: Tenderness - Neurological Exam Neurological Exam: Abnormal Gait - Psychiatric Exam Psychiatric exam: Agitated, Anxious - Skin Skin Exam: Dry, Intact, Normal Color, Warm Assessment and Plan (1) UTI (urinary tract infection) Status: Acute (2) Dizziness Status: Acute (3) CHF (congestive heart failure) Status: Acute (4) COPD (chronic obstructive pulmonary disease) Status: Acute (5) Dehydration Status: Acute (6) Toxic metabolic encephalopathy Status: Acute
[2017-12-27 10:46] LABS: BASO # 0.1 K/uL (0.0-0.2); EOS % 0.9 % (0.0-4.0); HEMOGLOBIN 13.4 g/dL (11.0-16.0); LYMPH # 1.5 K/uL (1.0-4.3); LYMPH % 27.4 % (20.0-40.0); MEAN CELL VOLUME 91.7 fL (81.0-99.0); MEAN CORPUSCULAR HEMOGLOBIN 31.4 pg (27.0-31.0); MEAN CORPUSCULAR HGB CONC 34.3 g/dL (33.0-37.0); MONO # 0.6 K/uL (0.0-0.8); MONO % 10.4 % (0.0-10.0); NEUT # 3.3 K/uL (1.8-7.0); NEUT % 60.3 % (50.0-75.0); NRBC % 0.2 % (0.0-2.0); RBC 4.27 Mil/uL (3.80-5.20); RED CELL DISTRIBUTION WIDTH 13.8 % (11.5-14.5); WHITE BLOOD COUNT 5.4 K/uL (4.8-10.8)
[2017-12-27] MEDS: Potassium Chloride 10 mEq ER Tab PO SCH (10:59)
[2017-12-27] MEDS: Enoxaparin 40 mg Syringe SC SCH (11:00)
[2017-12-27 11:01] LABS: BLOOD UREA NITROGEN 22 mg/dL (7-17); CALCIUM 8.8 mg/dl (8.6-10.4); GFR AFRICAN-AMERICAN > 60; GFR NON-AFRICAN AMERICAN 53
[2017-12-27] MEDS: Digoxin 125 mcg (0.125 mg) Tab PO SCH (22:06)
--- NOTE | 2017-12-27 23:39 | CP.PCM.PN ---
Subjective - Date & Time of Evaluation Date of Evaluation: 12/27/17 Time of Evaluation: 18:35 - Subjective Subjective: Pt seen and examined at bedside Objective - Vital Signs/Intake and Output Vital Signs (last 24 hours): Temp Pulse Resp BP Pulse Ox 97.1 F L 64 20 107/61 96 12/27/17 15:30 12/27/17 15:30 12/27/17 15:30 12/27/17 15:30 12/27/17 15:30 Intake and Output: 12/27/17 12/28/17 18:59 06:59 Intake Total 450 250 Balance 450 250 - Medications Medications: Current Medications Alprazolam (Xanax) 0.25 mg PO BID PRN PRN Reason: Anxiety Stop: 12/28/17 19:18 Last Admin: 12/26/17 13:05 Dose: 0.25 mg Carvedilol (Coreg) 3.125 mg PO BID [facility] Last Admin: 12/27/17 17:46 Dose: 3.125 mg Digoxin (Digoxin) 0.125 mg PO DAILY@1800 [facility] Last Admin: 12/27/17 22:06 Dose: 0.125 mg Donepezil HCl (Aricept) 10 mg PO HS [facility] Last Admin: 12/27/17 22:03 Dose: 10 mg Enalapril Maleate (Vasotec) 5 mg PO DAILY [facility] Last Admin: 12/27/17 11:03 Dose: Not Given Enoxaparin Sodium (Lovenox) 40 mg SC DAILY [facility] Last Admin: 12/27/17 11:00 Dose: 40 mg Furosemide (Lasix) 20 mg PO DAILY [facility] Last Admin: 12/27/17 11:02 Dose: 20 mg Haloperidol Lactate (Haldol) 1 mg IM Q6 PRN PRN Reason: Agitation Last Admin: 12/26/17 16:32 Dose: 1 mg Pantoprazole Sodium (Protonix Inj) 40 mg IVP DAILY [facility] Last Admin: 12/27/17 10:59 Dose: 40 mg Potassium Chloride (Klor-Con 10) 10 meq PO DAILY [facility] Last Admin: 12/27/17 10:59 Dose: 10 meq Rosuvastatin Calcium (Crestor) 10 mg PO HS [facility] Last Admin: 12/27/17 22:03 Dose: 10 mg - Labs Labs: 12/27/17 10:38 12/27/17 10:38 PT 18.2 SECONDS (9.7-12.2) H 12/21/17 12:33 INR 1.7 12/21/17 12:33 APTT 36 SECONDS (21-34) H 12/21/17 12:33 Assessment and Plan (1) UTI (urinary tract infection) Status: Acute (2) Dizziness Status: Acute (3) CHF (congestive heart failure) Status: Acute (4) COPD (chronic obstructive pulmonary disease) Status: Acute (5) Dehydration Status: Acute (6) Toxic metabolic encephalopathy Status: Acute
--- NOTE | 2017-12-28 03:29 | PN ---
DATE: 12/26/2017 Covering for Samy Dickinson MD. SUBJECTIVE: I saw the patient, and the was at the bedside. The patient denies any dizziness, and there was no reported fall or imbalance. PHYSICAL EXAMINATION: VITAL SIGNS: Blood pressure 107/61, heart rate 64, temperature 97.1, respirations 20. HEENT: Normocephalic. CHEST: Clear. HEART: S1, S2, irregular. EXTREMITIES: No edema. LABORATORY DATA: On the 12/23/2017, SMA-7, sodium 141, potassium 3.7, chloride 103, CO2 of 31, glucose 91, BUN 10, creatinine 0.9. The same day hemoglobin and hematocrit were 12.1 and 35.3, white count 4.5, platelet count 215,000. IMAGING STUDIES: Head CT scan without contrast, chronic ischemic changes in the posterior frontoparietal periventricular and subcortical white matter. Mild atrophy. EKG revealed atrial fibrillation at the rate of 75. Echocardiographic study performed in 06/2017 revealed normal ejection fraction. Normal right ventricular systolic pressure. Prosthetic aortic valve well seated and opens well with normal gradient. Prosthetic mitral valve appears well seated with the opening of the mitral valve appears to be limited. Normal prosthetic mitral valve gradient. [id number] tricuspid insufficiency. 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 Recent brain MRI in 10/2017 revealed no acute intracranial hemorrhage or infarction. Chronic white matter ischemic changes with small lacunar type infarct; scattered, deep and subcortical white matter, both basal nuclei, both cerebral hemispheres and brainstem. Chest x-ray revealed permanent bronchovascular markings, prosthetic mitral ring was noted. ASSESSMENT: 1. Syncopal episode. 2. Chronic atrial fibrillation. 3. Status post mitral valve replacement. RECOMMENDATIONS: Continue current Coreg 3.125 mg once a day, Crestor 10 mg once a day, digoxin 0.125 mg once a day, Haldol 1 mg intramuscular every 6 hours p.r.n, Klor-Con 10 mEq once daily, Lasix 20 mg once a day, Lovenox 40 mg subcutaneously once a day, Vasotec 5 mg once a day, alprazolam 0.25 mg twice a day p.r.n. Review of the patient's home medications does not reveal any anticoagulant agent for the atrial fibrillation or the prosthetic mitral valve, and I will discuss the need for anticoagulation, . Pancho Mejia MD
[2017-12-28] MEDS: Potassium Chloride 10 mEq ER Tab PO SCH (10:18)
[2017-12-28] MEDS: Enoxaparin 40 mg Syringe SC SCH (10:19)
[2017-12-28] MEDS: Digoxin 125 mcg (0.125 mg) Tab PO SCH (18:03)
[2017-12-28] MEDS: Enoxaparin 60 mg Syringe SC SCH (18:05)
--- NOTE | 2017-12-28 22:52 | PN ---
DATE: 12/28/[address] Samy Dickinson. SUBJECTIVE: The patient denies chest pain or shortness of breath. She is confused. PHYSICAL EXAMINATION: VITAL SIGNS: Blood pressure 118/66, heart rate 75, temperature 98.2, respirations 20. HEENT: Normocephalic. CHEST: Clear. HEART: S1 and S2, irregular. ABDOMEN: Soft. EXTREMITIES: Trace leg edema. ASSESSMENT: 1. Dizziness. 2. Atrial fibrillation. 3. Chronic obstructive lung disease. 4. Fhci-qn-jihngrhy pulmonary hypertension. 5. Status post prosthetic mitral valve replacement. PLAN: Continue current Aricept 10 mg once a day, Crestor 10 mg once a day, digoxin 0.125 mg daily, Haldol 1 mg IM every 6 hours p.r.n., Lasix 20 mg once a day, Vasotec 5 mg once a day. Increase Lovenox to 50 mg subcutaneously twice a day. Pancho Mejia MD
[2017-12-29 09:21] LABS: INR 1.1; PROTHROMBIN TIME 11.5 SECONDS (9.7-12.2)
[2017-12-29] MEDS: Enoxaparin 60 mg Syringe SC SCH ×2 (09:49→17:17)
[2017-12-29] MEDS: Potassium Chloride 10 mEq ER Tab PO SCH (09:49)
[2017-12-29] MEDS: Digoxin 125 mcg (0.125 mg) Tab PO SCH (17:16)
--- NOTE | 2017-12-29 19:37 | PN ---
DATE: 12/29/2017 SUBJECTIVE: The patient denies any chest pain or shortness of breath. PHYSICAL EXAMINATION: VITAL SIGNS: Blood pressure 123/79, heart rate 85, temperature 98.6, and respirations 20. HEENT: Normocephalic. CHEST: Clear. HEART: S1 and S2 regular. ABDOMEN: Soft. EXTREMITIES: Trace leg edema. ASSESSMENT: 1. Status post mitral and aortic valve replacement. 2. Chronic atrial fibrillation. 3. Dizziness on admission. 4. Chronic obstructive pulmonary disease. 5. Slbj-xv-aztpboko pulmonary hypertension. PLAN: Continue Coreg 3.125 mg twice a day, Crestor 10 mg once a day, digoxin 0.125 mg once a day, Klor-Con at 10 mEq once a day, Lasix 20 mg once a day, subcutaneous Lovenox 60 mg once a day, Protonix to 5 mg once a day. Pancho Mejia MD
[2017-12-30] MEDS: Potassium Chloride 10 mEq ER Tab PO SCH (10:56)
[2017-12-30] MEDS: Enoxaparin 60 mg Syringe SC SCH ×2 (10:57→17:18)
[2017-12-30] MEDS: Digoxin 125 mcg (0.125 mg) Tab PO SCH (17:18)
[2017-12-31 09:05] LABS: SQUAMOUS EPITHIAL 5 /hpf (0-5); URINE BACTERIA RARE (<OCC); URINE BILIRUBIN NEGATIVE (NEGATIVE); URINE BLOOD NEGATIVE (NEGATIVE); URINE CLARITY Clear (Clear); URINE COLOR Yellow (YELLOW); URINE GLUCOSE (UA) NORMAL (Normal); URINE LEUKOCYTE ESTERASE 3+ Leu/uL (Negative); URINE PROTEIN NEGATIVE (NEGATIVE); URINE UROBILINOGEN NORMAL mg/dL (0.2-1.0)
[2017-12-31] MEDS: Enoxaparin 60 mg Syringe SC SCH ×2 (09:20→17:03)
[2017-12-31] MEDS: Pantoprazole 40 mg EC Tab PO SCH (09:20)
[2017-12-31] MEDS: Potassium Chloride 10 mEq ER Tab PO SCH (09:20)
[2017-12-31] MEDS: Digoxin 125 mcg (0.125 mg) Tab PO SCH (17:03)
--- NOTE | 2017-12-31 23:12 | CP.PCM.PN ---
Objective - Vital Signs/Intake and Output Vital Signs (last 24 hours): Temp Pulse Resp BP Pulse Ox 98 F 79 18 102/57 L 92 L 12/31/17 16:00 12/31/17 16:00 12/31/17 16:00 12/31/17 16:00 12/31/17 16:00 Intake and Output: 12/31/17 01/01/18 18:59 06:59 Intake Total 500 400 Balance 500 400 - Medications Medications: Current Medications Carvedilol (Coreg) 3.125 mg PO BID [facility] Last Admin: 12/31/17 17:03 Dose: Not Given Digoxin (Digoxin) 0.125 mg PO DAILY@1800 [facility] Last Admin: 12/31/17 17:03 Dose: 0.125 mg Donepezil HCl (Aricept) 10 mg PO [facility] Last Admin: 12/31/17 21:05 Dose: 10 mg Enalapril Maleate (Vasotec) 5 mg PO DAILY [facility] Last Admin: 12/31/17 09:20 Dose: 5 mg Enoxaparin Sodium (Lovenox) 60 mg SC BID [facility] Last Admin: 12/31/17 17:03 Dose: 60 mg Furosemide (Lasix) 20 mg PO DAILY [facility] Last Admin: 12/31/17 09:23 Dose: 20 mg Haloperidol Lactate (Haldol) 1 mg IM Q6 PRN PRN Reason: Agitation Last Admin: 12/26/17 16:32 Dose: 1 mg Pantoprazole Sodium (Protonix Ec Tab) 40 mg PO DAILY [facility] Last Admin: 12/31/17 09:20 Dose: 40 mg Potassium Chloride (Klor-Con 10) 10 meq PO DAILY [facility] Last Admin: 12/31/17 09:20 Dose: 10 meq Rosuvastatin Calcium (Crestor) 10 mg PO HS [facility] Last Admin: 12/31/17 21:05 Dose: 10 mg - Labs Labs: 12/27/17 10:38 12/27/17 10:38 PT 11.5 SECONDS (9.7-12.2) 12/29/17 08:55 INR 1.1 12/29/17 08:55 APTT 31 SECONDS (21-34) 12/29/17 08:55 Assessment and Plan (1) UTI (urinary tract infection) Status: Acute (2) Dizziness Status: Acute (3) CHF (congestive heart failure) Status: Acute (4) COPD (chronic obstructive pulmonary disease) Status: Acute (5) Dehydration Status: Acute (6) Toxic metabolic encephalopathy Status: Acute
[2018-01-01 01:22] VITALS: RESP 20
--- NOTE | 2018-01-01 02:39 | PN ---
DATE: 12/31/2017 SUBJECTIVE: The patient is feeling better. She is waiting for subacute rehab with skilled nursing placement. Social service is working for paperwork. PHYSICAL EXAMINATION: VITAL SIGNS: Blood pressure 102/77, pulse 79, respiratory rate 18, temperature 98. LUNGS: Clear. CARDIOVASCULAR: S1 and S2, regular. CENTRAL NERVOUS SYSTEM: Confused. ASSESSMENT: 1. Recurrent fall. 2. Urinary tract infection. 3. . PLAN: Continue current medications. Awaiting skilled nursing placement . Samy Dickinson MD
[2018-01-01 07:44] LABS: HEMOGLOBIN 14.2 g/dL (11.0-16.0); MEAN CELL VOLUME 92.1 fL (81.0-99.0); MEAN CORPUSCULAR HEMOGLOBIN 31.6 pg (27.0-31.0); MEAN CORPUSCULAR HGB CONC 34.3 g/dL (33.0-37.0); MEAN PLATELET VOLUME 8.6 fL (7.2-11.7); RBC 4.5 Mil/uL (3.80-5.20); RED CELL DISTRIBUTION WIDTH 13.7 % (11.5-14.5); WHITE BLOOD COUNT 4.9 K/uL (4.8-10.8)
[2018-01-01 07:54] LABS: BLOOD UREA NITROGEN 23 mg/dL (7-17); CALCIUM 9.2 mg/dl (8.6-10.4); GFR AFRICAN-AMERICAN > 60; GFR NON-AFRICAN AMERICAN 53
[2018-01-01] MEDS: Enoxaparin 60 mg Syringe SC SCH ×2 (09:32→17:43)
[2018-01-01] MEDS: Potassium Chloride 10 mEq ER Tab PO SCH (09:36)
[2018-01-01] MEDS: Pantoprazole 40 mg EC Tab PO SCH (09:36)
[2018-01-01] MEDS: Digoxin 125 mcg (0.125 mg) Tab PO SCH (17:43)
--- NOTE | 2018-01-01 23:32 | CP.PCM.PN ---
Objective - Vital Signs/Intake and Output Vital Signs (last 24 hours): Temp Pulse Resp BP Pulse Ox 97.7 F 77 20 121/69 96 01/01/18 16:00 01/01/18 16:00 01/01/18 16:00 01/01/18 16:00 01/01/18 16:00 Intake and Output: 01/01/18 01/02/18 18:59 06:59 Intake Total 300 Balance 300 - Medications Medications: Current Medications Carvedilol (Coreg) 3.125 mg PO BID [facility] Last Admin: 01/01/18 17:43 Dose: 3.125 mg Digoxin (Digoxin) 0.125 mg PO DAILY@1800 [facility] Last Admin: 01/01/18 17:43 Dose: 0.125 mg Donepezil HCl (Aricept) 10 mg PO [facility] Last Admin: 01/01/18 21:30 Dose: 10 mg Enalapril Maleate (Vasotec) 5 mg PO DAILY [facility] Last Admin: 01/01/18 09:34 Dose: 5 mg Enoxaparin Sodium (Lovenox) 60 mg SC BID [facility] Last Admin: 01/01/18 17:43 Dose: 60 mg Furosemide (Lasix) 20 mg PO DAILY [facility] Last Admin: 01/01/18 09:37 Dose: 20 mg Haloperidol Lactate (Haldol) 1 mg IM Q6 PRN PRN Reason: Agitation Last Admin: 12/26/17 16:32 Dose: 1 mg Pantoprazole Sodium (Protonix Ec Tab) 40 mg PO DAILY [facility] Last Admin: 01/01/18 09:36 Dose: 40 mg Potassium Chloride (Klor-Con 10) 10 meq PO DAILY [facility] Last Admin: 01/01/18 09:36 Dose: 10 meq Rosuvastatin Calcium (Crestor) 10 mg PO HS [facility] Last Admin: 01/01/18 21:30 Dose: 10 mg - Labs Labs: 01/01/18 07:29 01/01/18 07:29 PT 11.5 SECONDS (9.7-12.2) 12/29/17 08:55 INR 1.1 12/29/17 08:55 APTT 31 SECONDS (21-34) 12/29/17 08:55 Assessment and Plan (1) UTI (urinary tract infection) Status: Acute (2) Dizziness Status: Acute (3) CHF (congestive heart failure) Status: Acute (4) COPD (chronic obstructive pulmonary disease) Status: Acute (5) Dehydration Status: Acute (6) Toxic metabolic encephalopathy Status: Acute
[2018-01-02] MEDS: Pantoprazole 40 mg EC Tab PO SCH (10:46)
[2018-01-02] MEDS: Enoxaparin 60 mg Syringe SC SCH ×2 (10:51→17:04)
[2018-01-02] MEDS: Potassium Chloride 10 mEq ER Tab PO SCH (10:52)
--- NOTE | 2018-01-02 16:09 | PN ---
DATE: 01/01/2018 SUBJECTIVE: The patient is confused. She is awake. She is able to ask some questions which are appropriate, but she is forgetful. She is waiting for placement. Her urine culture is positive for gram-positive cocci, pending identity and sensitivity. It possibly is enterococcus. The patient is afebrile. She does not have symptoms. We will obtain the culture and sensitivity. No fever. PHYSICAL EXAMINATION: VITAL SIGNS: Blood pressure 121/69, pulse 77, respiratory rate 20, temperature 97.7. LUNGS: Clear. No rales, no rhonchi. CVS: S1 and S2 regular. ABDOMEN: Soft. ASSESSMENT: 1. Urinary tract infection. 2. Altered mental status, delirium versus dementia. 3. Hypertension. PLAN: Await urine culture, medical management, and monitor the patient. Samy Dickinson MD
[2018-01-02] MEDS: Digoxin 125 mcg (0.125 mg) Tab PO SCH (17:04)
--- NOTE | 2018-01-02 23:34 | CP.PCM.PN ---
Objective - Vital Signs/Intake and Output Vital Signs (last 24 hours): Temp Pulse Resp BP Pulse Ox 97.9 F 80 20 102/64 95 01/02/18 15:02 01/02/18 15:02 01/02/18 15:02 01/02/18 15:02 01/02/18 15:02 Intake and Output: 01/02/18 01/03/18 18:59 06:59 Intake Total 450 350 Balance 450 350 - Medications Medications: Current Medications Carvedilol (Coreg) 3.125 mg PO BID [facility] Last Admin: 01/02/18 17:03 Dose: Not Given Digoxin (Digoxin) 0.125 mg PO DAILY@1800 [facility] Last Admin: 01/02/18 17:04 Dose: 0.125 mg Donepezil HCl (Aricept) 10 mg PO HS [facility] Last Admin: 01/02/18 21:52 Dose: 10 mg Enalapril Maleate (Vasotec) 5 mg PO DAILY [facility] Last Admin: 01/02/18 10:46 Dose: 5 mg Enoxaparin Sodium (Lovenox) 60 mg SC BID [facility] Last Admin: 01/02/18 17:04 Dose: 60 mg Furosemide (Lasix) 20 mg PO DAILY [facility] Last Admin: 01/02/18 10:51 Dose: 20 mg Haloperidol Lactate (Haldol) 1 mg IM Q6 PRN PRN Reason: Agitation Last Admin: 12/26/17 16:32 Dose: 1 mg Ampicillin 500 mg/ Sodium (Chloride) 100 mls @ 100 mls/hr IVPB Q6 [facility] PRN Reason: Protocol Last Admin: 01/02/18 17:05 Dose: 100 mls/hr Pantoprazole Sodium (Protonix Ec Tab) 40 mg PO DAILY [facility] Last Admin: 01/02/18 10:46 Dose: 40 mg Potassium Chloride (Klor-Con 10) 10 meq PO DAILY [facility] Last Admin: 01/02/18 10:52 Dose: 10 meq Rosuvastatin Calcium (Crestor) 10 mg PO HS [facility] Last Admin: 01/02/18 21:52 Dose: 10 mg - Labs Labs: 01/01/18 07:29 01/01/18 07:29 PT 11.5 SECONDS (9.7-12.2) 12/29/17 08:55 INR 1.1 12/29/17 08:55 APTT 31 SECONDS (21-34) 12/29/17 08:55 Assessment and Plan (1) UTI (urinary tract infection) Status: Acute (2) Dizziness Status: Acute (3) CHF (congestive heart failure) Status: Acute (4) COPD (chronic obstructive pulmonary disease) Status: Acute (5) Dehydration Status: Acute (6) Toxic metabolic encephalopathy Status: Acute
[2018-01-03] MEDS: Pantoprazole 40 mg EC Tab PO SCH (10:10)
[2018-01-03] MEDS: Potassium Chloride 10 mEq ER Tab PO SCH (10:10)
[2018-01-03] MEDS: Enoxaparin 60 mg Syringe SC SCH ×2 (10:10→17:13)
[2018-01-03] MEDS: Digoxin 125 mcg (0.125 mg) Tab PO SCH (17:03)
--- NOTE | 2018-01-03 17:52 | PCM.HF ---
Heart Failure Core Measure LORNE Inhibitor Prescribed: Yes Beta-Cholo Prescribed: Carvedilol
--- NOTE | 2018-01-03 17:56 | CP.PCM.PN ---
Subjective - Date & Time of Evaluation Date of Evaluation: 01/03/18 Time of Evaluation: 17:56 - Subjective Subjective: Awake, alert, no acute distress. Objective - Vital Signs/Intake and Output Vital Signs (last 24 hours): Temp Pulse Resp BP Pulse Ox 98.3 F 60 20 105/71 97 01/03/18 15:58 01/03/18 15:58 01/03/18 15:58 01/03/18 15:58 01/03/18 15:58 Intake and Output: 01/03/18 01/03/18 06:59 18:59 Intake Total 700 450 Balance 700 450 - Medications Medications: Current Medications Carvedilol (Coreg) 3.125 mg PO BID [facility] Last Admin: 01/03/18 17:04 Dose: Not Given Digoxin (Digoxin) 0.125 mg PO DAILY@1800 [facility] Last Admin: 01/03/18 17:03 Dose: Not Given Donepezil HCl (Aricept) 10 mg PO HS [facility] Last Admin: 01/02/18 21:52 Dose: 10 mg Enalapril Maleate (Vasotec) 5 mg PO DAILY [facility] Last Admin: 01/03/18 10:09 Dose: Not Given Enoxaparin Sodium (Lovenox) 60 mg SC BID [facility] Last Admin: 01/03/18 17:13 Dose: 60 mg Furosemide (Lasix) 20 mg PO DAILY [facility] Last Admin: 01/03/18 10:10 Dose: Not Given Haloperidol Lactate (Haldol) 1 mg IM Q6 PRN PRN Reason: Agitation Last Admin: 12/26/17 16:32 Dose: 1 mg Ampicillin 500 mg/ Sodium (Chloride) 100 mls @ 100 mls/hr IVPB Q6 [facility] PRN Reason: Protocol Last Admin: 01/03/18 17:12 Dose: 100 mls/hr Pantoprazole Sodium (Protonix Ec Tab) 40 mg PO DAILY [facility] Last Admin: 01/03/18 10:10 Dose: 40 mg Potassium Chloride (Klor-Con 10) 10 meq PO DAILY [facility] Last Admin: 01/03/18 10:10 Dose: 10 meq Rosuvastatin Calcium (Crestor) 10 mg PO HS [facility] Last Admin: 01/02/18 21:52 Dose: 10 mg - Labs Labs: 01/01/18 07:29 01/01/18 07:29 PT 11.5 SECONDS (9.7-12.2) 12/29/17 08:55 INR 1.1 12/29/17 08:55 APTT 31 SECONDS (21-34) 12/29/17 08:55 Assessment and Plan - Assessment and Plan (Free Text) Assessment: 87 year old female admitted with UTI, sepsis, awake, confused, no agitation, seen and examined. Discussed with DR Dickinson, plan to discharge to [facility] on ampicillin x 7 days. No acute distress noted.
--- NOTE | 2018-01-03 23:42 | CP.PCM.PN ---
Subjective - Date & Time of Evaluation Date of Evaluation: 01/03/18 Time of Evaluation: 19:00 - Subjective Subjective: Pt seen and examined at bedside Objective - Vital Signs/Intake and Output Vital Signs (last 24 hours): Temp Pulse Resp BP Pulse Ox 98.3 F 60 20 105/71 97 01/03/18 15:58 01/03/18 15:58 01/03/18 15:58 01/03/18 15:58 01/03/18 15:58 Intake and Output: 01/03/18 01/04/18 18:59 06:59 Intake Total 450 Balance 450 - Medications Medications: Current Medications Carvedilol (Coreg) 3.125 mg PO BID [facility] Last Admin: 01/03/18 17:04 Dose: Not Given Digoxin (Digoxin) 0.125 mg PO DAILY@1800 [facility] Last Admin: 01/03/18 17:03 Dose: Not Given Donepezil HCl (Aricept) 10 mg PO HS [facility] Last Admin: 01/03/18 22:17 Dose: 10 mg Enalapril Maleate (Vasotec) 5 mg PO DAILY [facility] Last Admin: 01/03/18 10:09 Dose: Not Given Enoxaparin Sodium (Lovenox) 60 mg SC BID [facility] Last Admin: 01/03/18 17:13 Dose: 60 mg Furosemide (Lasix) 20 mg PO DAILY [facility] Last Admin: 01/03/18 10:10 Dose: Not Given Haloperidol Lactate (Haldol) 1 mg IM Q6 PRN PRN Reason: Agitation Last Admin: 12/26/17 16:32 Dose: 1 mg Ampicillin 500 mg/ Sodium (Chloride) 100 mls @ 100 mls/hr IVPB Q6 [facility] PRN Reason: Protocol Last Admin: 01/03/18 17:12 Dose: 100 mls/hr Pantoprazole Sodium (Protonix Ec Tab) 40 mg PO DAILY [facility] Last Admin: 01/03/18 10:10 Dose: 40 mg Potassium Chloride (Klor-Con 10) 10 meq PO DAILY [facility] Last Admin: 01/03/18 10:10 Dose: 10 meq Rosuvastatin Calcium (Crestor) 10 mg PO HS [facility] Last Admin: 01/03/18 22:17 Dose: 10 mg - Labs Labs: 01/01/18 07:29 01/01/18 07:29 PT 11.5 SECONDS (9.7-12.2) 12/29/17 08:55 INR 1.1 12/29/17 08:55 APTT 31 SECONDS (21-34) 12/29/17 08:55 Assessment and Plan (1) UTI (urinary tract infection) Status: Acute (2) Dizziness Status: Acute (3) CHF (congestive heart failure) Status: Acute (4) COPD (chronic obstructive pulmonary disease) Status: Acute (5) Dehydration Status: Acute (6) Toxic metabolic encephalopathy Status: Acute
--- NOTE | 2018-01-04 01:07 | PN ---
DATE: 01/03/2018 SUBJECTIVE: The patient is afebrile. She is on IV ampicillin for Enterococcus. PHYSICAL EXAMINATION: LUNGS: Clear. CVS: S1 and S2 regular. ABDOMEN: Soft. ASSESSMENT: 1. Urinary tract infection with Enterococcus faecalis. 2. Hypertension. 3. Dementia. PLAN: Medical management. Samy Dickinson MD
[2018-01-04] MEDS: Potassium Chloride 10 mEq ER Tab PO SCH (10:33)
[2018-01-04] MEDS: Enoxaparin 60 mg Syringe SC SCH ×2 (10:34→17:47)
[2018-01-04] MEDS: Pantoprazole 40 mg EC Tab PO SCH (10:34)
[2018-01-04] MEDS: Digoxin 125 mcg (0.125 mg) Tab PO SCH (17:47)
--- NOTE | 2018-01-04 23:51 | CP.PCM.PN ---
Subjective - Date & Time of Evaluation Date of Evaluation: 01/04/18 Time of Evaluation: 18:30 - Subjective Subjective: Pt seen and examined at bedside, PT IS WAITING FOR HARRIET, ON ANTIBIOTIC AMPICILLIN Objective - Vital Signs/Intake and Output Vital Signs (last 24 hours): Temp Pulse Resp BP Pulse Ox 98.1 F 85 20 117/67 95 01/04/18 15:35 01/04/18 15:35 01/04/18 15:35 01/04/18 15:35 01/04/18 15:35 Intake and Output: 01/04/18 01/05/18 18:59 06:59 Intake Total 460 Balance 460 - Medications Medications: Current Medications Carvedilol (Coreg) 3.125 mg PO BID [facility] Last Admin: 01/04/18 17:47 Dose: 3.125 mg Digoxin (Digoxin) 0.125 mg PO DAILY@1800 [facility] Last Admin: 01/04/18 17:47 Dose: 0.125 mg Donepezil HCl (Aricept) 10 mg PO HS [facility] Last Admin: 01/04/18 21:42 Dose: 10 mg Enalapril Maleate (Vasotec) 5 mg PO DAILY [facility] Last Admin: 01/04/18 10:33 Dose: 5 mg Enoxaparin Sodium (Lovenox) 60 mg SC BID [facility] Last Admin: 01/04/18 17:47 Dose: 60 mg Furosemide (Lasix) 20 mg PO DAILY [facility] Last Admin: 01/04/18 10:33 Dose: 20 mg Haloperidol Lactate (Haldol) 1 mg IM Q6 PRN PRN Reason: Agitation Last Admin: 12/26/17 16:32 Dose: 1 mg Ampicillin 500 mg/ Sodium (Chloride) 100 mls @ 100 mls/hr IVPB Q6 [facility] PRN Reason: Protocol Last Admin: 01/04/18 17:48 Dose: 100 mls/hr Pantoprazole Sodium (Protonix Ec Tab) 40 mg PO DAILY [facility] Last Admin: 01/04/18 10:34 Dose: 40 mg Potassium Chloride (Klor-Con 10) 10 meq PO DAILY [facility] Last Admin: 01/04/18 10:33 Dose: 10 meq Rosuvastatin Calcium (Crestor) 10 mg PO HS [facility] Last Admin: 01/04/18 21:42 Dose: 10 mg - Labs Labs: 01/01/18 07:29 01/01/18 07:29 PT 11.5 SECONDS (9.7-12.2) 12/29/17 08:55 INR 1.1 12/29/17 08:55 APTT 31 SECONDS (21-34) 12/29/17 08:55 - Constitutional Appears: No Acute Distress - Head Exam Head Exam: ATRAUMATIC, NORMAL INSPECTION, NORMOCEPHALIC - Eye Exam Eye Exam: EOMI, Normal appearance, PERRL Pupil Exam: NORMAL ACCOMODATION, PERRL - Respiratory Exam Respiratory Exam: Clear to Ausculation Bilateral, NORMAL BREATHING PATTERN - Cardiovascular Exam Cardiovascular Exam: REGULAR RHYTHM, +S1, +S2. absent: Murmur - GI/Abdominal Exam GI & Abdominal Exam: Soft, Normal Bowel Sounds. absent: Tenderness - Rectal Exam Rectal Exam: Deferred Assessment and Plan (1) UTI (urinary tract infection) Assessment & Plan: ENTERROCOCCUS ANTIBIOTC REPEAT CULTURES AFTER ANTIBIOTIC COURSE IS FINISHED Status: Acute (2) Dizziness Status: Acute (3) CHF (congestive heart failure) Status: Acute (4) COPD (chronic obstructive pulmonary disease) Status: Acute (5) Dehydration Status: Acute (6) Toxic metabolic encephalopathy Status: Acute
[2018-01-05] MEDS: Pantoprazole 40 mg EC Tab PO SCH (09:57)
[2018-01-05] MEDS: Potassium Chloride 10 mEq ER Tab PO SCH (09:57)
[2018-01-05] MEDS: Enoxaparin 60 mg Syringe SC SCH ×2 (09:58→17:38)
[2018-01-05] MEDS: Digoxin 125 mcg (0.125 mg) Tab PO SCH (17:38)
--- NOTE | 2018-01-05 22:18 | CP.PCM.PN ---
Subjective - Date & Time of Evaluation Date of Evaluation: 01/05/18 Time of Evaluation: 19:35 - Subjective Subjective: Pt seen and examined at bedside, Objective - Vital Signs/Intake and Output Vital Signs (last 24 hours): Temp Pulse Resp BP Pulse Ox 97.1 F L 75 20 103/63 98 01/05/18 16:00 01/05/18 16:00 01/05/18 16:00 01/05/18 16:00 01/05/18 16:00 - Medications Medications: Current Medications Carvedilol (Coreg) 3.125 mg PO BID [facility] Last Admin: 01/05/18 17:38 Dose: Not Given Digoxin (Digoxin) 0.125 mg PO DAILY@1800 [facility] Last Admin: 01/05/18 17:38 Dose: 0.125 mg Donepezil HCl (Aricept) 10 mg PO HS [facility] Last Admin: 01/05/18 21:16 Dose: 10 mg Donepezil HCl (Aricept) 5 mg PO HS [facility] Last Admin: 01/05/18 21:22 Dose: Not Given Enalapril Maleate (Vasotec) 5 mg PO DAILY [facility] Last Admin: 01/05/18 09:57 Dose: 5 mg Enoxaparin Sodium (Lovenox) 60 mg SC BID [facility] Last Admin: 01/05/18 17:38 Dose: 60 mg Furosemide (Lasix) 20 mg PO DAILY [facility] Last Admin: 01/05/18 09:59 Dose: 20 mg Haloperidol Lactate (Haldol) 1 mg IM Q6 PRN PRN Reason: Agitation Last Admin: 12/26/17 16:32 Dose: 1 mg Ampicillin 500 mg/ Sodium (Chloride) 100 mls @ 100 mls/hr IVPB Q6 [facility] PRN Reason: Protocol Last Admin: 01/05/18 17:37 Dose: 100 mls/hr Pantoprazole Sodium (Protonix Ec Tab) 40 mg PO DAILY [facility] Last Admin: 01/05/18 09:57 Dose: 40 mg Potassium Chloride (Klor-Con 10) 10 meq PO DAILY [facility] Last Admin: 01/05/18 09:57 Dose: 10 meq Rosuvastatin Calcium (Crestor) 10 mg PO HS [facility] Last Admin: 01/05/18 21:16 Dose: 10 mg - Labs Labs: 01/01/18 07:29 01/01/18 07:29 PT 11.5 SECONDS (9.7-12.2) 12/29/17 08:55 INR 1.1 12/29/17 08:55 APTT 31 SECONDS (21-34) 12/29/17 08:55 Assessment and Plan (1) UTI (urinary tract infection) Status: Acute (2) Dizziness Status: Acute (3) CHF (congestive heart failure) Status: Acute (4) COPD (chronic obstructive pulmonary disease) Status: Acute (5) Dehydration Status: Acute (6) Toxic metabolic encephalopathy Status: Acute
[2018-01-06 08:24] VITALS: O2SAT 97
[2018-01-06] MEDS: Pantoprazole 40 mg EC Tab PO SCH (11:02)
[2018-01-06] MEDS: Potassium Chloride 10 mEq ER Tab PO SCH (11:02)
[2018-01-06] MEDS: Enoxaparin 60 mg Syringe SC SCH ×2 (11:03→18:19)
[2018-01-06 16:48] VITALS: BP 100/60; PULSE 69; TEMP 97.9
--- NOTE | 2018-01-06 17:52 | CP.PCM.PN ---
Subjective - Date & Time of Evaluation Date of Evaluation: 01/06/18 Time of Evaluation: 17:52 Objective - Vital Signs/Intake and Output Vital Signs (last 24 hours): Temp Pulse Resp BP Pulse Ox 97.9 F 69 20 100/60 97 01/06/18 16:00 01/06/18 16:00 01/06/18 16:00 01/06/18 16:00 01/06/18 16:00 Intake and Output: 01/06/18 01/06/18 06:59 18:59 Intake Total 450 Balance 450 - Medications Medications: Current Medications Ampicillin (Ampicillin) 500 mg PO QID [facility] PRN Reason: Protocol Stop: 01/09/18 22:00 Carvedilol (Coreg) 3.125 mg PO BID [facility] Last Admin: 01/06/18 11:02 Dose: 3.125 mg Digoxin (Digoxin) 0.125 mg PO DAILY@1800 [facility] Last Admin: 01/05/18 17:38 Dose: 0.125 mg Donepezil HCl (Aricept) 10 mg PO HS [facility] Last Admin: 01/05/18 21:16 Dose: 10 mg Donepezil HCl (Aricept) 5 mg PO HS [facility] Last Admin: 01/05/18 21:22 Dose: Not Given Enalapril Maleate (Vasotec) 5 mg PO DAILY [facility] Last Admin: 01/06/18 11:02 Dose: 5 mg Enoxaparin Sodium (Lovenox) 60 mg SC BID [facility] Last Admin: 01/06/18 11:03 Dose: 60 mg Furosemide (Lasix) 20 mg PO DAILY [facility] Last Admin: 01/06/18 11:02 Dose: 20 mg Pantoprazole Sodium (Protonix Ec Tab) 40 mg PO DAILY [facility] Last Admin: 01/06/18 11:02 Dose: 40 mg Potassium Chloride (Klor-Con 10) 10 meq PO DAILY [facility] Last Admin: 01/06/18 11:02 Dose: 10 meq Rosuvastatin Calcium (Crestor) 10 mg PO HS [facility] Last Admin: 01/05/18 21:16 Dose: 10 mg - Labs Labs: 01/01/18 07:29 01/01/18 07:29 PT 11.5 SECONDS (9.7-12.2) 12/29/17 08:55 INR 1.1 12/29/17 08:55 APTT 31 SECONDS (21-34) 12/29/17 08:55 Assessment and Plan - Assessment and Plan (Free Text) Assessment: 87 YEAR old female admitted with UTI, sepsis , alert, responsive, no distress. Patient wants to go home instead of rehab , the son will be coming to bring her home. Discussed with DR Dickinson, planned to discharge home today on ampicillin 500mg qid x7 days. Advised to follow up in the office in 1 week
[2018-01-06] MEDS: Digoxin 125 mcg (0.125 mg) Tab PO SCH (18:35)
[2018-01-06 18:36] VITALS: PULSE 69
--- NOTE | 2018-01-07 07:11 | CP.PCM.DIS ---
Provider - Provider Date of Admission: 12/21/17 13:58 Attending physician: Samy Dickinson MD Time Spent in preparation of Discharge (in minutes): 45 Diagnosis - Discharge Diagnosis (1) UTI (urinary tract infection) Status: Acute (2) Dizziness Status: Acute (3) CHF (congestive heart failure) Status: Acute (4) COPD (chronic obstructive pulmonary disease) Status: Acute (5) Dehydration Status: Acute (6) Toxic metabolic encephalopathy Status: Acute Hospital Course - Lab Results Lab Results: Micro Results 12/31/17 08:45 Urine Urine Culture - Final Enterococcus Faecalis 12/21/17 15:15 Blood-Venous Blood Culture - Final NO GROWTH AFTER 5 DAYS 12/21/17 15:15 Blood-Venous Gram Stain - Final TEST NOT PERFORMED 12/21/17 15:45 Blood-Venous S.aureus & Coag-Neg Staph PNA FISH - Final 12/21/17 15:45 Blood-Venous Blood Culture - Final Coagulase Neg Staphylococcus 12/21/17 15:45 Blood-Venous Gram Stain - Final 12/21/17 14:30 Urine,Clean Catch Urine Culture - Final Escherichia Coli Most Recent Lab Values WBC 4.9 K/uL (4.8-10.8) 01/01/18 07:29 RBC 4.50 Mil/uL (3.80-5.20) 01/01/18 07:29 Hgb 14.2 g/dL (11.0-16.0) 01/01/18 07:29 Hct 41.4 % (34.0-47.0) 01/01/18 07:29 MCV 92.1 fL (81.0-99.0) 01/01/18 07:29 MCH 31.6 pg (27.0-31.0) H 01/01/18 07:29 MCHC 34.3 g/dL (33.0-37.0) 01/01/18 07:29 RDW 13.7 % (11.5-14.5) 01/01/18 07:29 Plt Count 230 K/uL (130-400) 01/01/18 07:29 MPV 8.6 fL (7.2-11.7) 01/01/18 07:29 Neut % (Auto) 60.3 % (50.0-75.0) 12/27/17 10:38 Lymph % (Auto) 27.4 % (20.0-40.0) 12/27/17 10:38 [place] % (Auto) 10.4 % (0.0-10.0) H 12/27/17 10:38 Eos % (Auto) 0.9 % (0.0-4.0) 12/27/17 10:38 Baso % (Auto) 1.0 % (0.0-2.0) 12/27/17 10:38 Neut # (Auto) 3.3 K/uL (1.8-7.0) 12/27/17 10:38 Lymph # (Auto) 1.5 K/uL (1.0-4.3) 12/27/17 10:38 [place] # (Auto) 0.6 K/uL (0.0-0.8) 12/27/17 10:38 Eos # (Auto) 0.0 K/uL (0.0-0.7) 12/27/17 10:38 Baso # (Auto) 0.1 K/uL (0.0-0.2) 12/27/17 10:38 PT 11.5 SECONDS (9.7-12.2) 12/29/17 08:55 INR 1.1 12/29/17 08:55 APTT 31 SECONDS (21-34) 12/29/17 08:55 Sodium 139 mmol/L (132-148) 01/01/18 07:29 Potassium 4.1 mmol/L (3.6-5.2) 01/01/18 07:29 Chloride 100 mmol/L (98-107) 01/01/18 07:29 Carbon Dioxide 27 mmol/L (22-30) 01/01/18 07:29 Anion Gap 16 (10-20) 01/01/18 07:29 BUN 23 mg/dL (7-17) H 01/01/18 07:29 Creatinine 1.0 mg/dL (0.7-1.2) 01/01/18 07:29 Est GFR ( Amer) > 60 01/01/18 07:29 Est GFR (Non-Af Amer) 53 01/01/18 07:29 POC Glucose (mg/dL) 86 mg/dL (65-110) 12/27/17 06:43 Random Glucose 98 mg/dL (65-105) 01/01/18 07:29 Calcium 9.2 mg/dl (8.6-10.4) 01/01/18 07:29 Total Bilirubin 0.7 mg/dL (0.2-1.3) 12/21/17 12:33 AST 31 U/L (14-36) 12/21/17 12:33 ALT 11 U/L (9-52) 12/21/17 12:33 Alkaline Phosphatase 141 U/L (38-126) H 12/21/17 12:33 Troponin I < 0.0120 ng/mL (0.00-0.120) 12/21/17 12:33 NT-Pro-B Natriuret Pep 1060 pg/mL (0-900) H 12/21/17 12:33 Total Protein 7.8 g/dL (6.3-8.3) 12/21/17 12:33 Albumin 3.9 g/dL (3.5-5.0) 12/21/17 12:33 Globulin 3.9 gm/dL (2.2-3.9) 12/21/17 12:33 Albumin/Globulin Ratio 1.0 (1.0-2.1) 12/21/17 12:33 Urine Color Yellow (YELLOW) 12/31/17 08:45 Urine Clarity Clear (Clear) 12/31/17 08:45 Urine pH 5.0 (5.0-8.0) 12/31/17 08:45 Ur Specific [place] 1.014 (1.003-1.030) 12/31/17 08:45 Urine Protein Negative mg/dL (NEGATIVE) 12/31/17 08:45 Urine Glucose (UA) Normal mg/dL (Normal) 12/31/17 08:45 Urine Ketones Negative mg/dL (NEGATIVE) 12/31/17 08:45 Urine Blood Negative (NEGATIVE) 12/31/17 08:45 Urine Nitrate Negative (NEGATIVE) 12/31/17 08:45 Urine Bilirubin Negative (NEGATIVE) 12/31/17 08:45 Urine Urobilinogen Normal mg/dL (0.2-1.0) 12/31/17 08:45 Ur Leukocyte Esterase 3+ [place]/uL (Negative) H 12/31/17 08:45 Urine WBC (Auto) 13 /hpf (0-5) H 12/31/17 08:45 Urine RBC (Auto) 4 /hpf (0-3) H 12/31/17 08:45 Urine WBC Clumps (Auto) Occ /hpf (NONE) H 12/21/17 13:20 Ur Squamous Epith Cells 5 /hpf (0-5) 12/31/17 08:45 Urine Bacteria Rare (<OCC) 12/31/17 08:45 Digoxin 0.8 ng/mL (0.8-2.0) 12/23/17 07:32 - Hospital Course Hospital Course: Pt is seen and examined, is stable for discharge today, advised to follow up in 1 week out patient Discharge Exam - Head Exam Head Exam: ATRAUMATIC, NORMAL INSPECTION, NORMOCEPHALIC Discharge Plan - Discharge Medications Prescriptions: AMPicillin [Ampicillin] 500 mg PO QID #28 cap Donepezil [Aricept] 5 mg PO HS #30 tab - Follow Up Plan Condition: GOOD Disposition: HOME/ ROUTINE Instructions: Heart Failure, Adult (DC), Dizziness, Nonvertigo, (DC), Urinary Tract Infection in Women (DC) Referrals: Samy Dickinson MD [Staff Provider] -
== END 2018-01-06 21:00 | disposition home or self-care (01) | DRG 871 ==
LOC: C.ER 10:08 → C.9E 13:58 → C.3T 16:37
PROVIDERS: ADMIT Internal Medicine; ATTEND Internal Medicine
DX: A41.9 Sepsis, unspecified organism (principal); G92 Toxic encephalopathy; N39.0 Urinary tract infection, site not specified; B95.2 Enterococcus as the cause of diseases classified elsewhere; E03.9 Hypothyroidism, unspecified; E11.9 Type 2 diabetes mellitus without complications; E78.5 Hyperlipidemia, unspecified; E86.0 Dehydration; F03.90 Unspecified dementia, unspecified severity, without behavioral disturbance, psychotic disturbance, mood disturbance, and anxiety; I11.0 Hypertensive heart disease with heart failure; I27.20 Pulmonary hypertension, unspecified; I48.2 Chronic atrial fibrillation; I50.9 Heart failure, unspecified; J44.9 Chronic obstructive pulmonary disease, unspecified; Z91.81 History of falling; Z95.0 Presence of cardiac pacemaker; Z95.1 Presence of aortocoronary bypass graft; Z95.2 Presence of prosthetic heart valve; Z95.5 Presence of coronary angioplasty implant and graft

== ENCOUNTER 2018-03-05 15:31 | Inpatient (IN) | payer MEDICARE ==
[2018-03-05 15:31] VITALS: BMI 27.4
[2018-03-05 16:06] LABS: BASO % 0.1 % (0.0-2.0); EOS % 0.1 % (0.0-4.0); HEMOGLOBIN 11.9 g/dL (11.0-16.0); LYMPH # 0.3 K/uL (1.0-4.3); LYMPH % 2.2 % (20.0-40.0); MEAN CELL VOLUME 89.6 fL (81.0-99.0); MEAN CORPUSCULAR HEMOGLOBIN 30.8 pg (27.0-31.0); MEAN CORPUSCULAR HGB CONC 34.4 g/dL (33.0-37.0); MEAN PLATELET VOLUME 7.5 fL (7.2-11.7); MONO # 0.3 K/uL (0.0-0.8); MONO % 2.2 % (0.0-10.0); NEUT # 14.7 K/uL (1.8-7.0); NEUT % 95.4 % (50.0-75.0); PLATELET COUNT 281 K/uL (130-400); RBC 3.85 Mil/uL (3.80-5.20); RED CELL DISTRIBUTION WIDTH 14.9 % (11.5-14.5); WHITE BLOOD COUNT 15.4 K/uL (4.8-10.8)
[2018-03-05 16:10] LABS: VENOUS BLOOD GAS BASE EXCESS 3.9 mmol/L (0.0-2.0); VENOUS BLOOD GAS PCO2 38 mmHg (40-60); VENOUS BLOOD GAS PO2 39 mm/Hg (30-55); VENOUS BLOOD PH 7.47 (7.32-7.43)
[2018-03-05 16:16] LABS: ALB/GLOB RATIO 0.9 (1.0-2.1); ALBUMIN 3.4 g/dL (3.5-5.0); ALT/SGPT 37 U/L (9-52); AST/SGOT 48 U/L (14-36); BLOOD UREA NITROGEN 15 mg/dL (7-17); CALCIUM 8.6 mg/dl (8.6-10.4); GFR NON-AFRICAN AMERICAN 59
[2018-03-05 16:17] LABS: PROTHROMBIN TIME 33.3 SECONDS (9.7-12.2)
[2018-03-05 16:23] LABS: SQUAMOUS EPITHIAL 1 /hpf (0-5); URINE BACTERIA MANY (<OCC); URINE BILIRUBIN NEGATIVE (NEGATIVE); URINE BLOOD 2+ (NEGATIVE); URINE CLARITY Hazy (Clear); URINE GLUCOSE (UA) NORMAL (Normal); URINE LEUKOCYTE ESTERASE 3+ Leu/uL (Negative); URINE PROTEIN 2+ mg/dL (NEGATIVE); WBC CLUMPS MOD /hpf
[2018-03-05 16:28] LABS: B-TYPE NATRIURETIC PEPTIDE 3640 pg/mL (0-900)
[2018-03-05 16:43] LABS: URINE COLOR YELLOW (YELLOW)
--- NOTE | 2018-03-05 17:01 | RAD ---
Chest x-ray single frontal view History: Palpitations. Comparison: None available. Findings: Prominent diffuse increased interstitial lung markings. Patchy consolidative changes in the right hilar region extending into the midlung zone. Bilateral hilar prominence. Cardiomegaly. Status post median sternotomy. Prior valve replacement. Calcification at the aortic knob. Degenerative changes in the spine and shoulders. Impression: Prominent diffuse increased interstitial lung markings. Patchy consolidative changes in the right hilar region extending into the midlung zone. Bilateral hilar prominence. Cardiomegaly. Status post median sternotomy. Prior valve replacement. Calcification at the aortic knob. Degenerative changes in the spine and shoulders.
[2018-03-05] MEDS ORDERED: cefTRIAXone IV 1 gm in Dextros 50 ML IV STA (17:07)
--- NOTE | 2018-03-05 17:07 | CT ---
Date of service: 03/05/2018 PROCEDURE: CT HEAD WITHOUT CONTRAST. HISTORY: SYNCOPE COMPARISON: CT head dated 12/21/2017 TECHNIQUE: Axial computed tomography images were obtained through the head/brain without intravenous contrast. Radiation dose: Total exam DLP = 1075 mGy-cm. This CT exam was performed using one or more of the following dose reduction techniques: Automated exposure control, adjustment of the mA and/or kV according to patient size, and/or use of iterative reconstruction technique. FINDINGS: HEMORRHAGE: No intracranial hemorrhage. BRAIN: No mass effect or edema. Scattered focal lucencies in the subcortical and periventricular white matter suggestive for chronic microvascular ischemic change. Persistent more chronic low attenuation seen within the posterior right frontal parietal subcortical white matter suggestive for chronic ischemic change. Punctate bilateral basal ganglia calcifications. VENTRICLES: Unremarkable. No hydrocephalus. CALVARIUM: Unremarkable. PARANASAL SINUSES: Unremarkable as visualized. No significant inflammatory changes. MASTOID AIR CELLS: Unremarkable as visualized. No inflammatory changes. OTHER FINDINGS: None. IMPRESSION: No acute intracranial abnormality. Chronic microvascular ischemic changes. If symptoms persist, consider correlation with MRI.
[2018-03-05] MEDS ORDERED: Potassium Chloride 20 mEq ER Tab PO STA (17:08)
--- NOTE | 2018-03-05 17:12 | C.PDOC ---
History Of Present Illness Patient BIBA for witnessed syncopal episode, on EMS arrival patient found to be in rapid atrial fibrillation. Patient was given 15mg Cardizem, then 20mg Cardizem in the field. Patient states she felt chest pain, SOB and lightheadedness prior to the syncope, and has some current chest pain and SOB. She denies headache, visual changes, facial droop, extremity weakness, sensory changes. 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) Current Symptoms Are (Timing): Still Present Severity: Mild Past Medical History Reviewed: Historical Data, Nursing Documentation, Vital Signs Vital Signs: Last Vital Signs Temp 97.3 F L 03/09/18 07:00 Pulse 87 03/09/18 08:05 Resp 20 03/09/18 07:00 BP 143/78 03/09/18 11:14 Pulse Ox 94 L 03/09/18 14:47 - Medical History PMH: Atrial Fibrillation, CHF, COPD, Depression, Diabetes, HTN, Hyperlipidemia, Hypothyroidism Surgical History: Appendectomy, CABG, Coronary Stent, Pacemaker - [facility] Procedures FLUOROSCOPY OF LEFT HEART USING LOW OSMOLAR CONTRAST (08/08/16) FLUOROSCOPY OF MULT COR ART USING L OSM CONTRAST (08/08/16) MEASURE OF CARDIAC SAMPL & PRESSURE, L HEART, PERC APPROACH (08/08/16) Family History: States: No Known Family Hx - Social History Hx Tobacco Use: No Hx Alcohol Use: No Hx Substance Use: No - Immunization History Hx Tetanus Toxoid Vaccination: No Hx Influenza Vaccination: No Hx Pneumococcal Vaccination: No Review Of Systems Constitutional: Positive for: Fever Cardiovascular: Positive for: Chest Pain. Negative for: Palpitations Respiratory: Positive for: Shortness of Breath Gastrointestinal: Positive for: Nausea, Vomiting, Abdominal Pain, Diarrhea Genitourinary: Negative for: Dysuria, Hematuria Skin: Negative for: Rash Physical Exam - Physical Exam Appears: Well, Non-toxic Head: Normacephalic Oral Mucosa: Moist Cardiovascular: Rhythm Irregular (tachycardic ) Respiratory: Normal Breath Sounds, No Rales, No Rhonchi, No Wheezing Gastrointestinal/Abdominal: Bowel Sounds, Soft, Tenderness (suprapubic TTP), No Distention, No Guarding, No Rebound Extremity: Pedal Edema (+1 pitting edema B/L LEs) Pulses: Left Dorsalis Pedis: Normal, Right Dorsalis Pedis: Normal Neurological/Psych: Oriented x3 ED Course And Treatment - Laboratory Results Result Diagrams: 03/07/18 07:01 03/07/18 16:50 ECG: Interpreted By Me, Viewed By Me (atrial fibrillation 104 bpm, normal axis, T wave inversions III, aVF, V5, no acute ST changes) ECG Interpretation: Abnormal O2 Sat by Pulse Oximetry: 94 (ra) Pulse Ox Interpretation: Normal - Radiology CXR: Interpreted by Me, Viewed By Me CXR Interpretation: Yes: No Acute Disease. No: Infiltrates - CT Scan/US CT HEAD Other Rad Studies (CT/US): Read By Radiologist, Radiology Report Reviewed CT/US Interpretation: Accession No. : [id number]. Patient Name / ID : JUDE ZHANG / [id number]. Exam Date : 03/05/2018 16:46:43 ( Approved ). Study Comment : Sex / Age : F / [id number]. Creator : Clifton Coyne. Dictator : Arsneio Sotelo MD. Carpentry Specialist : Yarn Dumper : Arsenio Sotelo MD. Approver2 : Report Date : 03/05/2018 16:55:28. My Comment : . Date of service: 03/05/2018. PROCEDURE: CT HEAD WITHOUT CONTRAST. HISTORY: SYNCOPE. COMPARISON: CT head dated 12/21/2017. TECHNIQUE: Axial computed tomography images were obtained through the head/brain without intravenous contrast. Radiation dose: Total exam DLP = 1075 mGy-cm. This CT exam was performed using one or more of the following dose reduction techniques: Automated exposure control, adjustment of the mA and/or kV according to patient size, and/or use of iterative reconstruction technique. FINDINGS: HEMORRHAGE: No intracranial hemorrhage. BRAIN: No mass effect or edema. Scattered focal lucencies in the subcortical and periventricular white matter suggestive for chronic microvascular ischemic change. Persistent more chronic low attenuation seen within the posterior right frontal parietal subcortical white matter suggestive for chronic ischemic change. Punctate bilateral basal ganglia calcifications. VENTRICLES: Unremarkable. No hydrocephalus. CALVARIUM: Unremarkable. PARANASAL SINUSES: Unremarkable as visualized. No significant inflammatory changes. MASTOID AIR CELLS: Unremarkable as visualized. No inflammatory changes. OTHER FINDINGS: None. IMPRESSION: No acute intracranial abnormality. Chronic microvascular ischemic changes. If symptoms persist, consider correlation with MRI. Progress Note: Blood work, CT head, EKG, UA ordered and reviewed. Patient given IV NS bolus, IV rocephin. - Physician Consult Information Physician Contacted: Samy Dickinson Outcome Of Conversation: Discussed patient with Dr. Dickinson, he agrees with admission for syncope, atrial fibrillation with RVR, fever, UTI, leukocytosis. Disposition - Disposition Disposition: HOSPITALIZED Disposition Time: 17:53 Condition: STABLE - Clinical Impression Clinical Impression: Syncope, Atrial fibrillation, Fever, UTI (urinary tract infection), Leukocytosis, Atrial fibrillation with RVR Decision To Admit - Pt Status Changed To: Hospital Disposition Of: Inpatient - Admit Certification Admit to Inpatient:: After my assessment, the patient will require hospitalization for at least two midnights. This is because of the severity of symptoms shown, intensity of services needed, and/or the medical risk in this patient being treated as an outpatient. - InPatient: Physician Admission Certification: I certify that this patient requires 2 or more midnights of care for the following reason:: see notes - . Bed Request Type: Telemetry Admitting Physician: Samy Dickinson Patient Diagnosis: Syncope, Atrial fibrillation, Fever, UTI (urinary tract infection), Leukocytosis, Atrial fibrillation with RVR
[2018-03-05] MEDS ORDERED: Potassium Chloride 20 mEq ER Tab PO ONE (17:18)
[2018-03-05] MEDS ORDERED: cefTRIAXone 1 gm 1 GM/100 ML BAG IVPB ONE (17:19)
[2018-03-05 18:06] LABS: BANDS 2 % (0-2); LYMPHOCYTE 4 % (20-40); MONOCYTE 4 % (0-10); NEUTROPHIL 90 % (50-75); TOTAL CELLS COUNTED 100
[2018-03-05 18:07] LABS: PLATELET ESTIMATE NORMAL (NORMAL)
--- NOTE | 2018-03-06 00:36 | CP.PCM.HP ---
History of Present Illness - History of Present Illness History of Present Illness: 88 y/o h/f with htn, a.fibrillation memory loss and she came with weakness, feevr chills rigors weakness, palpitations dizziness, fatigue, dysuria Present on Admission - Present on Admission History of DVT/PE: No History of Uncontrolled Diabetes: No Urinary Catheter: No Decubitus Ulcer Present: No Review of Systems - Review of Systems Systems not reviewed;Unavailable: Unstable Vital Signs, Altered Mental Status - Constitutional Constitutional: Chills, Malaise, Night Sweats, Weight Loss, Weakness - EENT Ears: Disequilibrium - Cardiovascular Cardiovascular: Palpitations - Respiratory Respiratory: Dyspnea - Gastrointestinal Gastrointestinal: Bloating, Heartburn - Genitourinary Genitourinary: Difficulty Urinating, Freq UTI - Musculoskeletal Musculoskeletal: Arthralgias - Integumentary Integumentary: Dry Skin - Psychiatric Psychiatric: Difficulty Concentrating, Irritability - Endocrine Endocrine: Fatigue Past Patient History - Infectious Disease Hx of Infectious Diseases: None - Tetanus Immunizations Tetanus Immunization: Unknown - Past Medical History & Family History Past Medical History?: Yes - Past Social History Smoking Status: Never Smoked - CARDIAC Hx Atrial Fibrillation: Yes Hx Congestive Heart Failure: Yes Hx Hypertension: Yes Hx Pacemaker: Yes - PULMONARY Hx Chronic Obstructive Pulmonary Disease (COPD): Yes - NEUROLOGICAL Hx Neurological Disorder: No - HEENT Hx HEENT Problems: Yes Hx Cataracts: Yes - RENAL Hx Chronic Kidney Disease: No - ENDOCRINE/METABOLIC Hx Hypothyroidism: Yes - HEMATOLOGICAL/ONCOLOGICAL Hx Blood Disorders: No - INTEGUMENTARY Hx Dermatological Problems: No - MUSCULOSKELETAL/RHEUMATOLOGICAL Hx Falls: Yes - GASTROINTESTINAL Hx Gastrointestinal Disorders: No - GENITOURINARY/GYNECOLOGICAL Hx Genitourinary Disorders: No - PSYCHIATRIC Hx Depression: Yes Hx Substance Use: No - SURGICAL HISTORY Hx Appendectomy: Yes Hx Coronary Artery Bypass Graft: Yes Hx Coronary Stent: Yes - ANESTHESIA Hx Anesthesia: Yes Hx Anesthesia Reactions: No Hx Malignant Hyperthermia: No Meds Allergies/Adverse Reactions: Allergies Allergy/AdvReac Type Severity Reaction Status Date / Time No Known Allergies Allergy Verified 03/05/18 15:46 Physical Exam - Constitutional Appears: In Acute Distress, Confused, Chronically Ill - Head Exam Head Exam: ATRAUMATIC, NORMAL INSPECTION, NORMOCEPHALIC - Eye Exam Eye Exam: EOMI, Normal appearance, PERRL Pupil Exam: NORMAL ACCOMODATION - ENT Exam ENT Exam: Mucous Membranes Moist, Normal Exam, Normal External Ear Exam, Normal Oropharynx - Neck Exam Neck exam: Positive for: Normal Inspection - Respiratory Exam Respiratory Exam: Clear to Auscultation Bilateral, NORMAL BREATHING PATTERN - Cardiovascular Exam Cardiovascular Exam: Tachycardia, Irregular Rhythm, +S1, +S2 - GI/Abdominal Exam GI & Abdominal Exam: Hyperactive Bowel Sounds, Soft - Rectal Exam Rectal Exam: NORMAL INSPECTION - Extremities Exam Extremities exam: Positive for: normal capillary refill, pedal pulses present - Neurological Exam Neurological exam: Abnormal Gait, Alert, Altered, Reflexes Normal - Psychiatric Exam Psychiatric exam: Anxious, Flat Affect - Skin Skin Exam: Intact Results - Vital Signs Recent Vital Signs: Last Vital Signs Temp 98.4 F 03/05/18 21:07 Pulse 74 03/05/18 21:07 Resp 20 03/05/18 21:07 BP 94/57 L 03/05/18 21:07 Pulse Ox 97 03/05/18 21:07 - Labs Result Diagrams: 03/05/18 16:01 03/05/18 16:01 Labs: Laboratory Results - last 24 hr 03/05/18 03/05/18 03/05/18 16:01 16:01 16:01 WBC 15.4 H D RBC 3.85 Hgb 11.9 D Hct 34.5 MCV 89.6 D MCH 30.8 MCHC 34.4 RDW 14.9 H Plt Count 281 MPV 7.5 Neut % (Auto) 95.4 H Lymph % (Auto) 2.2 L [place] % (Auto) 2.2 Eos % (Auto) 0.1 Baso % (Auto) 0.1 Neut # (Auto) 14.7 H Lymph # (Auto) 0.3 L [place] # (Auto) 0.3 Eos # (Auto) 0.0 Baso # (Auto) 0.0 Neutrophils % (Manual) 90 H Band Neutrophils % 2 Lymphocytes % (Manual) 4 L Monocytes % (Manual) 4 Platelet Estimate Normal PT 33.3 H INR 3.0 APTT 33 pO2 VBG pH VBG pCO2 VBG HCO3 VBG Total CO2 VBG O2 Sat (Calc) VBG Base Excess VBG Potassium Glucose Lactate Sodium 138 Potassium 3.1 L Chloride 102 Carbon Dioxide 25 Anion Gap 15 BUN 15 Creatinine 0.9 Est GFR ( Amer) > 60 Est GFR (Non-Af Amer) 59 Random Glucose 121 H Calcium 8.6 Total Bilirubin 0.9 AST 48 H D ALT 37 Alkaline Phosphatase 336 H D Troponin I 0.0310 NT-Pro-B Natriuret Pep 3640 H Total Protein 7.2 Albumin 3.4 L Globulin 3.8 Albumin/Globulin Ratio 0.9 L Venous Blood Potassium Urine Color Urine Clarity Urine pH Ur Specific [place] Urine Protein Urine Glucose (UA) Urine Ketones Urine Blood Urine Nitrate Urine Bilirubin Urine Urobilinogen Ur Leukocyte Esterase Urine WBC (Auto) Urine RBC (Auto) Urine WBC Clumps (Auto) Ur Squamous Epith Cells Urine Bacteria 03/05/18 03/05/18 16:07 16:15 WBC RBC Hgb Hct MCV MCH MCHC RDW Plt Count MPV Neut % (Auto) Lymph % (Auto) [place] % (Auto) Eos % (Auto) Baso % (Auto) Neut # (Auto) Lymph # (Auto) [place] # (Auto) Eos # (Auto) Baso # (Auto) Neutrophils % (Manual) Band Neutrophils % Lymphocytes % (Manual) Monocytes % (Manual) Platelet Estimate PT INR APTT pO2 39 VBG pH 7.47 H VBG pCO2 38 L VBG HCO3 27.4 VBG Total CO2 28.9 H VBG O2 Sat (Calc) 80.2 H VBG Base Excess 3.9 H VBG Potassium 2.9 L Glucose 113 H Lactate 1.2 Sodium 138.0 Potassium Chloride 105.0 Carbon Dioxide Anion Gap BUN Creatinine Est GFR ( Amer) Est GFR (Non-Af Amer) Random Glucose Calcium Total Bilirubin AST ALT Alkaline Phosphatase Troponin I NT-Pro-B Natriuret Pep Total Protein Albumin Globulin Albumin/Globulin Ratio Venous Blood Potassium 2.9 L Urine Color Yellow Urine Clarity Hazy Urine pH 5.0 Ur Specific [place] 1.012 Urine Protein 2+ H Urine Glucose (UA) Normal Urine Ketones Negative Urine Blood 2+ H Urine Nitrate Positive H Urine Bilirubin Negative Urine Urobilinogen 4.0 H Ur Leukocyte Esterase 3+ H Urine WBC (Auto) 174 H Urine RBC (Auto) 60 H Urine WBC Clumps (Auto) Mod H Ur Squamous Epith Cells 1 Urine Bacteria Many H Assessment & Plan (1) Encephalopathy acute Status: Acute Priority: High (2) Atrial fibrillation Status: Chronic Priority: Medium (3) UTI (urinary tract infection) Status: Acute Priority: High (4) Sepsis Status: Acute Priority: High
[2018-03-06 08:54] LABS: INR 4.2
[2018-03-06] MEDS: Digoxin 125 mcg (0.125 mg) Tab PO SCH (10:56)
[2018-03-06] MEDS: Potassium Chloride 10 mEq ER Tab PO SCH (10:56)
[2018-03-06] MEDS ORDERED: Aluminum Hydroxide/Magnesium Hydroxide Susp (30 mL) PO ONE (18:20)
--- NOTE | 2018-03-06 22:23 | CP.PCM.CON ---
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 Tobacco: smoked one or two cigarettes when 18-21 yrs old. Denies illicit drug use. Patient lives alone. Neftali Gonzalez [phone] PMD: Dr. baker Allergies: NKDA Decubitus Ulcer Present: No Review of Systems - Review of Systems Systems not reviewed;Unavailable: Unstable Vital Signs, Altered Mental Status - Constitutional Constitutional: Chills, Malaise, Night Sweats, Weight Loss, Weakness - EENT Ears: Disequilibrium - Cardiovascular Cardiovascular: Palpitations - Respiratory Respiratory: Dyspnea - Gastrointestinal Gastrointestinal: Bloating, Heartburn - Genitourinary Genitourinary: Difficulty Urinating, Freq UTI - Musculoskeletal Musculoskeletal: Arthralgias - Integumentary Integumentary: Dry Skin - Psychiatric Psychiatric: Difficulty Concentrating, Irritability - Endocrine Endocrine: Fatigue Physical Exam - Constitutional Appears: Well, No Acute Distress - Head Exam Head Exam: NORMAL INSPECTION - Eye Exam Eye Exam: EOMI, Normal appearance Pupil Exam: NORMAL ACCOMODATION - ENT Exam ENT Exam: Mucous Membranes Moist - Neck Exam Neck exam: Positive for: Full Rom. Negative for: Tenderness - Respiratory Exam Respiratory Exam: Clear to Auscultation Bilateral. absent: Accessory Muscle Use , Respiratory Distress - Cardiovascular Exam Cardiovascular Exam: Clicks, Irregular Rhythm, +S1, +S2 - GI/Abdominal Exam GI & Abdominal Exam: Normal Bowel Sounds, Soft. absent: Guarding, Tenderness - Extremities Exam Extremities exam: Positive for: full ROM, normal inspection. Negative for: pedal edema - Neurological Exam Neurological exam: Alert, CN II-XII Intact, Oriented x3 - Expanded Neurological Exam Expanded Cranial nerves: EOM's Intact: Normal, Facial Sensation: Normal, Nystagmus: Normal, Tongue Deviation: Normal Neuro motor strength exam: Left Upper Extremity: 5, Right Upper Extremity: 5, Left Lower Extremity: 5, Right Lower Extremity: 5 Coma Scale Eye Opening: SPONTANEOUS Coma Scale Motor Response: OBEYS COMMANDS Coma Scale Verbal: Oriented Coma Scale Total: 15 - Psychiatric Exam Psychiatric exam: Normal Affect, Normal Mood - Skin Skin Exam: Intact Past Patient History - Infectious Disease Hx of Infectious Diseases: None - Tetanus Immunizations Tetanus Immunization: Unknown - Past Medical History & Family History Past Medical History?: Yes - Past Social History Smoking Status: Never Smoked - CARDIAC Hx Atrial Fibrillation: Yes Hx Congestive Heart Failure: Yes Hx Hypertension: Yes Hx Pacemaker: Yes - PULMONARY Hx Chronic Obstructive Pulmonary Disease (COPD): Yes - NEUROLOGICAL Hx Neurological Disorder: No - HEENT Hx HEENT Problems: Yes Hx Cataracts: Yes - RENAL Hx Chronic Kidney Disease: No - ENDOCRINE/METABOLIC Hx Hypothyroidism: Yes - HEMATOLOGICAL/ONCOLOGICAL Hx Blood Disorders: No - INTEGUMENTARY Hx Dermatological Problems: No - MUSCULOSKELETAL/RHEUMATOLOGICAL Hx Falls: Yes - GASTROINTESTINAL Hx Gastrointestinal Disorders: No - GENITOURINARY/GYNECOLOGICAL Hx Genitourinary Disorders: No - PSYCHIATRIC Hx Depression: Yes Hx Substance Use: No - SURGICAL HISTORY Hx Appendectomy: Yes Hx Coronary Artery Bypass Graft: Yes Hx Coronary Stent: Yes - ANESTHESIA Hx Anesthesia: Yes Hx Anesthesia Reactions: No Hx Malignant Hyperthermia: No Meds Allergies/Adverse Reactions: Allergies Allergy/AdvReac Type Severity Reaction Status Date / Time No Known Allergies Allergy Verified 03/05/18 15:46 - Medications Medications: Current Medications Acetaminophen (Tylenol 325mg Tab) 650 mg PO Q6 PRN PRN Reason: Fever >100.4 F Alprazolam (Xanax) 0.25 mg PO BID PRN PRN Reason: Anxiety Stop: 03/12/18 17:57 Carvedilol (Coreg) 3.125 mg PO BID [facility] Last Admin: 03/06/18 19:05 Dose: 3.125 mg Digoxin (Digoxin) 0.125 mg PO DAILY [facility] Last Admin: 03/06/18 10:56 Dose: 0.125 mg Donepezil HCl (Aricept) 5 mg PO HS [facility] Last Admin: 03/06/18 21:19 Dose: 5 mg Enalapril Maleate (Vasotec) 2.5 mg PO DAILY [facility] Last Admin: 03/06/18 10:53 Dose: 2.5 mg Ferrous Sulfate (Feosol) 325 mg PO QAM [facility] Last Admin: 03/06/18 11:30 Dose: 325 mg Furosemide (Lasix) 20 mg PO DAILY [facility] Last Admin: 03/06/18 10:56 Dose: 20 mg Ceftriaxone Sodium 1 gm/ (Sodium Chloride) 100 mls @ 100 mls/hr IVPB DAILY [facility] PRN Reason: Protocol Last Admin: 03/06/18 10:56 Dose: 100 mls/hr Potassium Chloride (Klor-Con 10) 10 meq PO DAILY [facility] Last Admin: 03/06/18 10:56 Dose: 10 meq Rosuvastatin Calcium (Crestor) 10 mg PO HS [facility] Last Admin: 03/06/18 21:19 Dose: 10 mg Results - Vital Signs Recent Vital Signs: Last Vital Signs Temp 99.4 F 03/06/18 15:15 Pulse 82 03/06/18 15:15 Resp 20 03/06/18 15:15 BP 123/72 03/06/18 15:15 Pulse Ox 98 03/06/18 15:15 - Labs Result Diagrams: 03/05/18 16:01 03/05/18 16:01 Labs: Laboratory Results - last 24 hr 03/06/18 08:05 PT 46.0 H D INR 4.2 D Assessment & Plan - Assessment and Plan (Free Text) Assessment: UTI/Sepsis Antiobiotics as per PMD HTN Furosemide 40mg A fib AC held due to tarry stools History of CABG x 2 ? Bio AVR and MVR Carvedilol 6.25mg BID Atorvastatin 20mg Ranexa 500mg BID Iron Deficiency Anemia Prophylaxis: SCDs GI: GIB? GI consult
--- NOTE | 2018-03-06 23:44 | CP.PCM.PN ---
Subjective - Subjective Subjective: weak, less sob, no fever, no nausea Objective - Vital Signs/Intake and Output Vital Signs (last 24 hours): Temp Pulse Resp BP Pulse Ox 99.4 F 82 20 123/72 98 03/06/18 15:15 03/06/18 15:15 03/06/18 15:15 03/06/18 15:15 03/06/18 15:15 - Medications Medications: Current Medications Acetaminophen (Tylenol 325mg Tab) 650 mg PO Q6 PRN PRN Reason: Fever >100.4 F Alprazolam (Xanax) 0.25 mg PO BID PRN PRN Reason: Anxiety Stop: 03/12/18 17:57 Carvedilol (Coreg) 3.125 mg PO BID [facility] Last Admin: 03/06/18 19:05 Dose: 3.125 mg Digoxin (Digoxin) 0.125 mg PO DAILY [facility] Last Admin: 03/06/18 10:56 Dose: 0.125 mg Donepezil HCl (Aricept) 5 mg PO HS [facility] Last Admin: 03/06/18 21:19 Dose: 5 mg Enalapril Maleate (Vasotec) 2.5 mg PO DAILY [facility] Last Admin: 03/06/18 10:53 Dose: 2.5 mg Ferrous Sulfate (Feosol) 325 mg PO QAM [facility] Last Admin: 03/06/18 11:30 Dose: 325 mg Furosemide (Lasix) 20 mg PO DAILY [facility] Last Admin: 03/06/18 10:56 Dose: 20 mg Ceftriaxone Sodium 1 gm/ (Sodium Chloride) 100 mls @ 100 mls/hr IVPB DAILY [facility] PRN Reason: Protocol Last Admin: 03/06/18 10:56 Dose: 100 mls/hr Potassium Chloride (Klor-Con 10) 10 meq PO DAILY [facility] Last Admin: 03/06/18 10:56 Dose: 10 meq Rosuvastatin Calcium (Crestor) 10 mg PO HS [facility] Last Admin: 03/06/18 21:19 Dose: 10 mg - Labs Labs: 03/05/18 16:01 03/05/18 16:01 PT 46.0 SECONDS (9.7-12.2) H D 03/06/18 08:05 INR 4.2 D 03/06/18 08:05 APTT 33 SECONDS (21-34) 03/05/18 16:01 - Constitutional Appears: Non-toxic - Head Exam Head Exam: ATRAUMATIC, NORMAL INSPECTION, NORMOCEPHALIC - ENT Exam ENT Exam: Mucous Membranes Moist, Normal Exam - Neck Exam Neck Exam: Normal Inspection - Respiratory Exam Respiratory Exam: Clear to Ausculation Bilateral - Cardiovascular Exam Cardiovascular Exam: +S1, +S2. absent: REGULAR RHYTHM - GI/Abdominal Exam GI & Abdominal Exam: Soft, Normal Bowel Sounds - Rectal Exam Rectal Exam: NORMAL INSPECTION - Extremities Exam Extremities Exam: Full ROM, Normal Capillary Refill, Normal Inspection - Neurological Exam Neurological Exam: Alert, Awake, CN II-XII Intact, Normal Gait, Oriented x3 Neuro motor strength exam: Left Upper Extremity: 5, Right Upper Extremity: 5, Left Lower Extremity: 5, Right Lower Extremity: 5 - Psychiatric Exam Psychiatric exam: Anxious Assessment and Plan (1) Encephalopathy acute Status: Resolved (2) Atrial fibrillation Status: Chronic (3) UTI (urinary tract infection) Assessment & Plan: pending cultures Status: Acute (4) Sepsis Status: Acute
[2018-03-07 07:23] LABS: HEMOGLOBIN 11.2 g/dL (11.0-16.0); MEAN CELL VOLUME 89.6 fL (81.0-99.0); MEAN CORPUSCULAR HEMOGLOBIN 31.1 pg (27.0-31.0); MEAN CORPUSCULAR HGB CONC 34.7 g/dL (33.0-37.0); MEAN PLATELET VOLUME 7.4 fL (7.2-11.7); RBC 3.6 Mil/uL (3.80-5.20); RED CELL DISTRIBUTION WIDTH 14.5 % (11.5-14.5); WHITE BLOOD COUNT 11.8 K/uL (4.8-10.8)
[2018-03-07] MEDS: Digoxin 125 mcg (0.125 mg) Tab PO SCH (09:50)
[2018-03-07] MEDS: Potassium Chloride 10 mEq ER Tab PO SCH (09:53)
[2018-03-07 12:18] LABS: INR 3.5
[2018-03-07] MEDS: Piperacill/Tazo 3.375gm in Dex 3.375 GM/50 ML BAG IVPB SCH ×2 (14:00→19:13)
[2018-03-07 15:58] VITALS: RESP 20
[2018-03-07 17:04] LABS: PROTHROMBIN TIME 35.6 SECONDS (9.7-12.2)
[2018-03-07 17:13] LABS: ALB/GLOB RATIO 0.8 (1.0-2.1); ALBUMIN 3.1 g/dL (3.5-5.0); ALT/SGPT 25 U/L (9-52); AST/SGOT 28 U/L (14-36); BLOOD UREA NITROGEN 10 mg/dL (7-17); CALCIUM 8.3 mg/dl (8.6-10.4); GFR NON-AFRICAN AMERICAN > 60
--- NOTE | 2018-03-07 17:25 | CP.PCM.PN ---
<Sada Aldana - Last Filed: 03/07/18 17:22> Subjective - Date & Time of Evaluation Date of Evaluation: 03/07/18 Time of Evaluation: 09:40 - Subjective Subjective: Cardiology progress note (Dr. Duval's service) Patient was seen and examined at bedside. Patient denies chest discomfort but admits to SOB and palpitations. As per nursing, no acute changes overnight. Objective - Vital Signs/Intake and Output Vital Signs (last 24 hours): Temp Pulse Resp BP Pulse Ox 98.7 F 79 20 118/68 99 03/07/18 15:57 03/07/18 15:57 03/07/18 15:57 03/07/18 15:57 03/07/18 15:57 - Medications Medications: Current Medications Acetaminophen (Tylenol 325mg Tab) 650 mg PO Q6 PRN PRN Reason: Fever >100.4 F Alprazolam (Xanax) 0.25 mg PO BID PRN PRN Reason: Anxiety Stop: 03/12/18 17:57 Carvedilol (Coreg) 3.125 mg PO BID [facility] Last Admin: 03/07/18 09:53 Dose: 3.125 mg Digoxin (Digoxin) 0.125 mg PO DAILY [facility] Last Admin: 03/07/18 09:50 Dose: 0.125 mg Donepezil HCl (Aricept) 5 mg PO HS [facility] Last Admin: 03/06/18 21:19 Dose: 5 mg Enalapril Maleate (Vasotec) 2.5 mg PO DAILY [facility] Last Admin: 03/07/18 09:53 Dose: 2.5 mg Ferrous Sulfate (Feosol) 325 mg PO QAM [facility] Last Admin: 03/07/18 09:53 Dose: 325 mg Furosemide (Lasix) 20 mg PO DAILY [facility] Last Admin: 03/07/18 09:53 Dose: 20 mg Ceftriaxone Sodium 1 gm/ (Sodium Chloride) 100 mls @ 100 mls/hr IVPB DAILY [facility] PRN Reason: Protocol Last Admin: 03/07/18 09:53 Dose: 100 mls/hr Piperacillin Sod/Tazobactam Sod (Zosyn 3.375 Gm Iv Premix) 3.375 gm in 50 mls @ 100 mls/hr IVPB Q6H [facility] PRN Reason: Protocol Last Admin: 03/07/18 14:00 Dose: 100 mls/hr Potassium Chloride (Klor-Con 10) 10 meq PO DAILY [facility] Last Admin: 03/07/18 09:53 Dose: 10 meq Rosuvastatin Calcium (Crestor) 10 mg PO HS [facility] Last Admin: 03/06/18 21:19 Dose: 10 mg Warfarin Sodium (Coumadin) 5 mg PO 1800 [facility] Stop: 03/07/18 18:01 - Labs Labs: 03/07/18 07:01 03/07/18 16:50 PT 35.6 SECONDS (9.7-12.2) H 03/07/18 16:50 INR 3.5 03/07/18 11:46 APTT 33 SECONDS (21-34) 03/05/18 16:01 - Constitutional Appears: No Acute Distress - Head Exam Head Exam: ATRAUMATIC, NORMAL INSPECTION - Eye Exam Eye Exam: EOMI - ENT Exam ENT Exam: Mucous Membranes Moist - Respiratory Exam Respiratory Exam: NORMAL BREATHING PATTERN. absent: Rales, Rhonchi, Wheezes - Cardiovascular Exam Cardiovascular Exam: Irregular Rhythm - GI/Abdominal Exam GI & Abdominal Exam: Soft, Normal Bowel Sounds - Extremities Exam Extremities Exam: Normal Inspection. absent: Calf Tenderness, Full ROM, Pedal Edema - Neurological Exam Neurological Exam: Alert, Awake, Oriented x3 - Psychiatric Exam Psychiatric exam: Normal Affect - Skin Skin Exam: Normal Color Assessment and Plan (1) Atrial fibrillation Assessment & Plan: Patient is a 88 year old female with past medical history of HTN, Atrial Fibrillation, Pacemaker, Takatsubo's cardiomyopathy who is admitted for generalized weakness, cardiology consult was placed for chronic atrial fibrillation and Hx of CABG Plan: Continue current management with Digoxin 0.125mg PO daily, Coreg 3.125mg PO BID Crestor 10mg PO HS Hold coumadin till INR<2. INR goal is 2-3 Please monitor digoxin levels All plans and management discussed with Dr. Duval Status: Chronic <Broderick Duval - Last Filed: 03/07/18 21:46> Objective - Vital Signs/Intake and Output Vital Signs (last 24 hours): Temp Pulse Resp BP Pulse Ox 98.7 F 79 20 118/68 99 03/07/18 15:57 03/07/18 15:57 03/07/18 15:57 03/07/18 15:57 03/07/18 15:57 - Medications Medications: Current Medications Acetaminophen (Tylenol 325mg Tab) 650 mg PO Q6 PRN PRN Reason: Fever >100.4 F Alprazolam (Xanax) 0.25 mg PO BID PRN PRN Reason: Anxiety Stop: 03/12/18 17:57 Carvedilol (Coreg) 3.125 mg PO BID [facility] Last Admin: 03/07/18 19:13 Dose: 3.125 mg Digoxin (Digoxin) 0.125 mg PO DAILY [facility] Last Admin: 03/07/18 09:50 Dose: 0.125 mg Donepezil HCl (Aricept) 5 mg PO HS [facility] Last Admin: 03/06/18 21:19 Dose: 5 mg Enalapril Maleate (Vasotec) 2.5 mg PO DAILY [facility] Last Admin: 03/07/18 09:53 Dose: 2.5 mg Ferrous Sulfate (Feosol) 325 mg PO QAM [facility] Last Admin: 03/07/18 09:53 Dose: 325 mg Furosemide (Lasix) 20 mg PO DAILY [facility] Last Admin: 03/07/18 09:53 Dose: 20 mg Ceftriaxone Sodium 1 gm/ (Sodium Chloride) 100 mls @ 100 mls/hr IVPB DAILY [facility] PRN Reason: Protocol Last Admin: 03/07/18 09:53 Dose: 100 mls/hr Piperacillin Sod/Tazobactam Sod (Zosyn 3.375 Gm Iv Premix) 3.375 gm in 50 mls @ 100 mls/hr IVPB Q6H [facility] PRN Reason: Protocol Last Admin: 03/07/18 19:13 Dose: 100 mls/hr Potassium Chloride (Klor-Con 10) 10 meq PO DAILY [facility] Last Admin: 03/07/18 09:53 Dose: 10 meq Rosuvastatin Calcium (Crestor) 10 mg PO HS [facility] Last Admin: 03/06/18 21:19 Dose: 10 mg Warfarin Sodium (Coumadin) 5 mg PO 1800 [facility] Stop: 03/07/18 18:01 - Labs Labs: 03/07/18 07:01 03/07/18 16:50 PT 35.6 SECONDS (9.7-12.2) H 03/07/18 16:50 INR 3.2 03/07/18 16:50 APTT 33 SECONDS (21-34) 03/05/18 16:01 Assessment and Plan - Assessment and Plan (Free Text) Assessment: Patient seen and evaluated personally by me Plan of care d/w the resident and as documented
[2018-03-07 17:47] LABS: INR 3.2
--- NOTE | 2018-03-07 22:52 | CP.PCM.PN ---
Objective - Vital Signs/Intake and Output Vital Signs (last 24 hours): Temp Pulse Resp BP Pulse Ox 98.7 F 79 20 118/68 99 03/07/18 15:57 03/07/18 15:57 03/07/18 15:57 03/07/18 15:57 03/07/18 15:57 - Medications Medications: Current Medications Acetaminophen (Tylenol 325mg Tab) 650 mg PO Q6 PRN PRN Reason: Fever >100.4 F Alprazolam (Xanax) 0.25 mg PO BID PRN PRN Reason: Anxiety Stop: 03/12/18 17:57 Carvedilol (Coreg) 3.125 mg PO BID [facility] Last Admin: 03/07/18 19:13 Dose: 3.125 mg Digoxin (Digoxin) 0.125 mg PO DAILY [facility] Last Admin: 03/07/18 09:50 Dose: 0.125 mg Donepezil HCl (Aricept) 5 mg PO HS [facility] Last Admin: 03/07/18 21:58 Dose: 5 mg Enalapril Maleate (Vasotec) 2.5 mg PO DAILY [facility] Last Admin: 03/07/18 09:53 Dose: 2.5 mg Ferrous Sulfate (Feosol) 325 mg PO QAM [facility] Last Admin: 03/07/18 09:53 Dose: 325 mg Furosemide (Lasix) 20 mg PO DAILY [facility] Last Admin: 03/07/18 09:53 Dose: 20 mg Ceftriaxone Sodium 1 gm/ (Sodium Chloride) 100 mls @ 100 mls/hr IVPB DAILY [facility] PRN Reason: Protocol Last Admin: 03/07/18 09:53 Dose: 100 mls/hr Piperacillin Sod/Tazobactam Sod (Zosyn 3.375 Gm Iv Premix) 3.375 gm in 50 mls @ 100 mls/hr IVPB Q6H [facility] PRN Reason: Protocol Last Admin: 03/07/18 19:13 Dose: 100 mls/hr Potassium Chloride (Klor-Con 10) 10 meq PO DAILY [facility] Last Admin: 03/07/18 09:53 Dose: 10 meq Rosuvastatin Calcium (Crestor) 10 mg PO HS [facility] Last Admin: 03/07/18 21:58 Dose: 10 mg - Labs Labs: 03/07/18 07:01 03/07/18 16:50 PT 35.6 SECONDS (9.7-12.2) H 03/07/18 16:50 INR 3.2 03/07/18 16:50 APTT 33 SECONDS (21-34) 03/05/18 16:01 Assessment and Plan (1) Atrial fibrillation Status: Chronic (2) UTI (urinary tract infection) Status: Acute (3) Sepsis Status: Acute
[2018-03-08] MEDS: Piperacill/Tazo 3.375gm in Dex 3.375 GM/50 ML BAG IVPB SCH ×4 (01:20→18:37)
--- NOTE | 2018-03-08 09:53 | RAD ---
Date of service: 03/07/2018 HISTORY: retractions COMPARISON: Comparison made with chest radiograph dated 03/05/2018 FINDINGS: LUNGS: Persistent right upper lobe infiltrate. Suspect mild chronic compensated pulmonary venous congestive changes. PLEURA: No significant pleural effusion identified, no pneumothorax apparent. CARDIOVASCULAR: Sternotomy wires and valve replacement again noted. Heart size stable. OSSEOUS STRUCTURES: No significant abnormalities. VISUALIZED UPPER ABDOMEN: Normal. OTHER FINDINGS: None. IMPRESSION: Persistent right upper lobe infiltrate. Suspect mild chronic compensated pulmonary venous congestive changes.
[2018-03-08] MEDS: Digoxin 125 mcg (0.125 mg) Tab PO SCH (11:30)
[2018-03-08] MEDS: Potassium Chloride 10 mEq ER Tab PO SCH (11:31)
[2018-03-08 11:58] LABS: INR 2.2
--- NOTE | 2018-03-08 14:19 | CP.PCM.PN ---
<Sada Aldana E - Last Filed: 03/08/18 14:14> Subjective - Date & Time of Evaluation Date of Evaluation: 03/08/18 Time of Evaluation: 07:50 - Subjective Subjective: Cardiology progress note ( Dr. Duval's service) Patient was seen and examined at bedside. As per nursing staff, no acute issues overnight. Patient admits to mild SOB but denies chest pain, palpitations and dark tarry stool. Objective - Vital Signs/Intake and Output Vital Signs (last 24 hours): Temp Pulse Resp BP Pulse Ox 97.4 F L 83 20 138/72 99 03/08/18 07:00 03/08/18 07:00 03/08/18 07:00 03/08/18 11:32 03/08/18 07:00 Intake and Output: 03/08/18 03/08/18 06:59 18:59 Intake Total 50 Balance 50 - Medications Medications: Current Medications Acetaminophen (Tylenol 325mg Tab) 650 mg PO Q6 PRN PRN Reason: Fever >100.4 F Alprazolam (Xanax) 0.25 mg PO BID PRN PRN Reason: Anxiety Stop: 03/12/18 17:57 Carvedilol (Coreg) 3.125 mg PO BID [facility] Last Admin: 03/08/18 11:31 Dose: 3.125 mg Digoxin (Digoxin) 0.125 mg PO DAILY [facility] Last Admin: 03/08/18 11:30 Dose: 0.125 mg Donepezil HCl (Aricept) 5 mg PO HS [facility] Last Admin: 03/07/18 21:58 Dose: 5 mg Enalapril Maleate (Vasotec) 2.5 mg PO DAILY [facility] Last Admin: 03/08/18 11:31 Dose: 2.5 mg Ferrous Sulfate (Feosol) 325 mg PO QAM [facility] Last Admin: 03/08/18 11:00 Dose: 325 mg Furosemide (Lasix) 20 mg PO DAILY [facility] Last Admin: 03/08/18 11:32 Dose: 20 mg Ceftriaxone Sodium 1 gm/ (Sodium Chloride) 100 mls @ 100 mls/hr IVPB DAILY [facility] PRN Reason: Protocol Last Admin: 03/08/18 10:30 Dose: 100 mls/hr Piperacillin Sod/Tazobactam Sod (Zosyn 3.375 Gm Iv Premix) 3.375 gm in 50 mls @ 100 mls/hr IVPB Q6H [facility] PRN Reason: Protocol Last Admin: 03/08/18 06:23 Dose: 100 mls/hr Potassium Chloride (Klor-Con 10) 10 meq PO DAILY [facility] Last Admin: 03/08/18 11:31 Dose: 10 meq Rosuvastatin Calcium (Crestor) 10 mg PO HS [facility] Last Admin: 03/07/18 21:58 Dose: 10 mg - Labs Labs: 03/07/18 07:01 03/07/18 16:50 PT 24.0 SECONDS (9.7-12.2) H D 03/08/18 11:41 INR 2.2 D 03/08/18 11:41 APTT 33 SECONDS (21-34) 03/05/18 16:01 - Constitutional Appears: Well, No Acute Distress - Head Exam Head Exam: ATRAUMATIC, NORMAL INSPECTION - Eye Exam Eye Exam: EOMI, Normal appearance - ENT Exam ENT Exam: Mucous Membranes Moist - Respiratory Exam Respiratory Exam: Clear to Ausculation Bilateral, NORMAL BREATHING PATTERN. absent: Rales, Rhonchi, Wheezes - Cardiovascular Exam Cardiovascular Exam: Irregular Rhythm, +S1, +S2 - GI/Abdominal Exam GI & Abdominal Exam: Soft, Normal Bowel Sounds. absent: Guarding, Rigid, Tenderness - Neurological Exam Neurological Exam: Alert, Normal Gait, Oriented x3 - Psychiatric Exam Psychiatric exam: Normal Mood Assessment and Plan (1) Atrial fibrillation Assessment & Plan: Patient is a 88 year old female with past medical history of HTN, Atrial Fibrillation, Pacemaker, Takatsubo's cardiomyopathy who is admitted for generalized weakness, cardiology consult was placed for chronic atrial fibrillation and Hx of CABG Plan: Continue current management with Digoxin 0.125mg PO daily, Coreg 3.125mg PO BID Crestor 10mg PO HS Hold coumadin till INR<2. INR goal is 2-3 Please monitor digoxin levels Status: Chronic (2) Elevated INR Assessment & Plan: Current INR: 2.2 Stool Occult: Negative done in light of complaint of dark tarry stool As per cardiology recommendation, please restart coumadin when INR< 2 or at 2.0. Goal for patient is 2-3.0 Status: Acute (3) Elevated brain natriuretic peptide (BNP) level Assessment & Plan: BNP: 3640 Chest X-ray (03/07/18): Suspect mild chronic compensated pulmonary venous congestive changes. Lasix 20mg PO daily Status: Acute (4) Leukocytosis Assessment & Plan: WBC down trending Chest X-ray (03/07/18): Persistent right upper lobe infiltrate BC AND UC: E. coli Medications: * Rocephin 1gm IV daily * Zosyn 3.375gm IV q6h Status: Acute (5) Hypertension Assessment & Plan: Vasotec 2.5mg PO daily Status: Acute (6) Memory loss Assessment & Plan: Aricept 5mg PO HS Status: Acute (7) Anxiety Assessment & Plan: Xanax 0.25mg PO BID PRN All plans and management discussed with Dr. Duval No further cardiac intervention at this point Please restart coumadin when INR is 2 or less than 2 Thank you for the opportunity to participate in your care All plans and managment discussed with Dr. Duval Status: Acute <Broderick Duval - Last Filed: 03/08/18 22:35> Objective - Vital Signs/Intake and Output Vital Signs (last 24 hours): Temp Pulse Resp BP Pulse Ox 98.1 F 84 20 129/52 L 98 03/08/18 15:15 03/08/18 16:30 03/08/18 15:15 03/08/18 15:15 03/08/18 15:15 - Medications Medications: Current Medications Acetaminophen (Tylenol 325mg Tab) 650 mg PO Q6 PRN PRN Reason: Fever >100.4 F Alprazolam (Xanax) 0.25 mg PO BID PRN PRN Reason: Anxiety Stop: 03/12/18 17:57 Carvedilol (Coreg) 3.125 mg PO BID [facility] Last Admin: 03/08/18 18:36 Dose: 3.125 mg Digoxin (Digoxin) 0.125 mg PO DAILY [facility] Last Admin: 03/08/18 11:30 Dose: 0.125 mg Donepezil HCl (Aricept) 5 mg PO HS [facility] Last Admin: 03/07/18 21:58 Dose: 5 mg Enalapril Maleate (Vasotec) 2.5 mg PO DAILY [facility] Last Admin: 03/08/18 11:31 Dose: 2.5 mg Ferrous Sulfate (Feosol) 325 mg PO QAM [facility] Last Admin: 03/08/18 11:00 Dose: 325 mg Furosemide (Lasix) 20 mg PO DAILY [facility] Last Admin: 03/08/18 11:32 Dose: 20 mg Ceftriaxone Sodium 1 gm/ (Sodium Chloride) 100 mls @ 100 mls/hr IVPB DAILY [facility] PRN Reason: Protocol Last Admin: 03/08/18 10:30 Dose: 100 mls/hr Piperacillin Sod/Tazobactam Sod (Zosyn 3.375 Gm Iv Premix) 3.375 gm in 50 mls @ 100 mls/hr IVPB Q6H [facility] PRN Reason: Protocol Last Admin: 03/08/18 18:37 Dose: 100 mls/hr Potassium Chloride (Klor-Con 10) 10 meq PO DAILY [facility] Last Admin: 03/08/18 11:31 Dose: 10 meq Rosuvastatin Calcium (Crestor) 10 mg PO HS [facility] Last Admin: 03/07/18 21:58 Dose: 10 mg - Labs Labs: 03/07/18 07:01 03/07/18 16:50 PT 23.2 SECONDS (9.7-12.2) H 03/08/18 17:23 INR 2.1 03/08/18 17:23 APTT 33 SECONDS (21-34) 03/05/18 16:01 Assessment and Plan - Assessment and Plan (Free Text) Assessment: Patient seen and evaluated personally by mo Plan of care d/w the medical communication specialist and as documented
--- NOTE | 2018-03-08 15:18 | PN ---
DATE: 03/08/2018 SUBJECTIVE: The patient has ESBL positive E. coli in the urine she is on contact isolation. She is feeling better. PHYSICAL EXAMINATION: VITAL SIGNS: BP 118/68, pulse 79, respiratory rate 20, temperature 98.7. LUNGS: Clear. CVS: S1 and S2, irregularly irregular. ABDOMEN: Soft. ASSESSMENT: 1. Atrial fibrillation, on Coumadin. 2. Urinary tract infection, rule out sepsis. 3. Dehydration. 4. Congestive heart failure. PLAN: Zosyn, monitor patient. Samy Dickinson MD
--- NOTE | 2018-03-08 16:18 | PN ---
DATE: 03/08/2018 LOCATION: 671, bed A. SUBJECTIVE: This is an 88-year-old female seen and examined without any significant reported clinical changes. No reported active bleeding. No reported actual chest pain. The patient still has intermittent period of shortness of breath with generalized weakness and malaise with less oral intake. The entire chart is reviewed including but not limited to the most recent lab and radiology study results, current and the previous medication list, current and the previous medical events. The patient is initially seen for GI consultation on 03/07/2018 as requested by the admitting medical staff. Today's lab results still pending; however, the patient still has low hemoglobin and hematocrit with increased blood glucose level and low calcium with elevated alkaline phosphatase, but low albumin. PHYSICAL EXAMINATION: GENERAL: An 88-year-old female. VITAL SIGNS: Afebrile with pulse of 80, respiratory rate 20 to 22, blood pressure of 130/72. HEENT: Showed pale, dry oral mucous membrane. Nonicteric sclerae. LUNGS: Few scattered crepitation. Decreased air entry at bases. HEART: Positive S1 and S2. ABDOMEN: Soft with mild generalized tenderness. No mass or organomegaly. No rebound tenderness or guarding. EXTREMITIES: Without significant edema, clubbing, or cyanosis. NEUROLOGIC: No reported new neurological deficits, sensory or motor. IMPRESSION: 1. Re-exacerbation of peptic ulcer disease. 2. Cardiac arrhythmia. 3. Mild anemia. 4. Known history of hypertension, depression, chronic obstructive pulmonary disease, congestive heart failure, hyperlipidemia with hypothyroidism. 5. Status post coronary artery bypass graft and previous history of coronary stent insertion by history. SUGGESTION: 1. Continue current management. 2. Cancer markers. 3. Guaiac all the stool every day x3. 4. No aggressive GI markers in the meantime and proton pump inhibitors to be adjusted. Riley Lopez MD
[2018-03-08 17:44] LABS: INR 2.1; PROTHROMBIN TIME 23.2 SECONDS (9.7-12.2)
--- NOTE | 2018-03-08 22:42 | CP.PCM.PN ---
Objective - Vital Signs/Intake and Output Vital Signs (last 24 hours): Temp Pulse Resp BP Pulse Ox 98.1 F 84 20 129/52 L 98 03/08/18 15:15 03/08/18 16:30 03/08/18 15:15 03/08/18 15:15 03/08/18 15:15 - Medications Medications: Current Medications Acetaminophen (Tylenol 325mg Tab) 650 mg PO Q6 PRN PRN Reason: Fever >100.4 F Alprazolam (Xanax) 0.25 mg PO BID PRN PRN Reason: Anxiety Stop: 03/12/18 17:57 Carvedilol (Coreg) 3.125 mg PO BID [facility] Last Admin: 03/08/18 18:36 Dose: 3.125 mg Digoxin (Digoxin) 0.125 mg PO DAILY [facility] Last Admin: 03/08/18 11:30 Dose: 0.125 mg Donepezil HCl (Aricept) 5 mg PO HS [facility] Last Admin: 03/07/18 21:58 Dose: 5 mg Enalapril Maleate (Vasotec) 2.5 mg PO DAILY [facility] Last Admin: 03/08/18 11:31 Dose: 2.5 mg Ferrous Sulfate (Feosol) 325 mg PO QAM [facility] Last Admin: 03/08/18 11:00 Dose: 325 mg Furosemide (Lasix) 20 mg PO DAILY [facility] Last Admin: 03/08/18 11:32 Dose: 20 mg Ceftriaxone Sodium 1 gm/ (Sodium Chloride) 100 mls @ 100 mls/hr IVPB DAILY [facility] PRN Reason: Protocol Last Admin: 03/08/18 10:30 Dose: 100 mls/hr Piperacillin Sod/Tazobactam Sod (Zosyn 3.375 Gm Iv Premix) 3.375 gm in 50 mls @ 100 mls/hr IVPB Q6H [facility] PRN Reason: Protocol Last Admin: 03/08/18 18:37 Dose: 100 mls/hr Potassium Chloride (Klor-Con 10) 10 meq PO DAILY [facility] Last Admin: 03/08/18 11:31 Dose: 10 meq Rosuvastatin Calcium (Crestor) 10 mg PO HS [facility] Last Admin: 03/07/18 21:58 Dose: 10 mg - Labs Labs: 03/07/18 07:01 03/07/18 16:50 PT 23.2 SECONDS (9.7-12.2) H 03/08/18 17:23 INR 2.1 03/08/18 17:23 APTT 33 SECONDS (21-34) 03/05/18 16:01 Assessment and Plan (1) Atrial fibrillation Status: Chronic (2) UTI (urinary tract infection) Status: Acute (3) Sepsis Status: Acute
[2018-03-09] MEDS: Piperacill/Tazo 3.375gm in Dex 3.375 GM/50 ML BAG IVPB SCH ×3 (00:59→18:25)
--- NOTE | 2018-03-09 04:13 | PN ---
DATE: 03/08/2018 SUBJECTIVE: The patient is feeling better. No fever. Blood cultures are positive for ESBL positive E. coli, and the patient is on Zosyn. PHYSICAL EXAMINATION: VITAL SIGNS: BP 129/52, pulse 58, respiratory rate 20, temperature 98.1. LUNGS: Clear. CARDIOVASCULAR SYSTEM: S1 and S2 are regular. ABDOMEN: Soft. ASSESSMENT: 1. Atrial fibrillation. 2. Septicemia with urinary tract infection. 3. Dehydration. PLAN: Continue current medications. Monitor the patient. Samy Dickinson MD
[2018-03-09 08:38] LABS: INR 1.6; PROTHROMBIN TIME 17.9 SECONDS (9.7-12.2)
[2018-03-09] MEDS: Potassium Chloride 10 mEq ER Tab PO SCH (10:00)
[2018-03-09] MEDS: Digoxin 125 mcg (0.125 mg) Tab PO SCH (11:13)
[2018-03-09 11:52] LABS: INR 1.7; PROTHROMBIN TIME 18.3 SECONDS (9.7-12.2)
--- NOTE | 2018-03-09 15:20 | CP.PCM.PN ---
Subjective - Date & Time of Evaluation Date of Evaluation: 03/09/18 Time of Evaluation: 15:17 - Subjective Subjective: DISCUSSED DISPO PLAN WITH DR. RILEY. PT NEEDS 1 MORE WEEK OF IV ZOSYN FOR + URINE AND BLOOD CULTURES. FOR ISAAK; PT AND SON YARED IN AGREEMENT. PT TO HAVE REPEAT BLOOD CULTURES IN 1 WEEK AFTER ZOSYN REGIMEN COMPLETED. PICC LINE TO BE INSERTED TODAY FOR 1 WEEK OF IV ABX. I DISCUSSED THE BENEFITS AND COMPLICATIONS OF THE PICC LINE WITH PT AND SON, YARED (VIA TELEPHONE). YARED GAVE CONSENT FOR PICC INSERTION PT HAS DEMENTIA. YARED AND PT VERBALIZE UNDERSTANDING FOR THE NEED OF PICC LINE AND HARRIET X1 WEEK. 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 PT [place] [facility] [place] AND SON IN AGREEMENT. SW AWARE AND WILL MAKE TRANSPORTATION ARRANGEMENTS THEN. NO FURTHER ORDERS. Objective - Vital Signs/Intake and Output Vital Signs (last 24 hours): Temp Pulse Resp BP Pulse Ox 97.3 F L 87 20 143/78 94 L 03/09/18 07:00 03/09/18 08:05 03/09/18 07:00 03/09/18 11:14 03/09/18 14:47 Intake and Output: 03/09/18 03/09/18 06:59 18:59 Intake Total 250 Balance 250 - Medications Medications: Current Medications Acetaminophen (Tylenol 325mg Tab) 650 mg PO Q6 PRN PRN Reason: Fever >100.4 F Last Admin: 03/09/18 03:01 Dose: 650 mg Alprazolam (Xanax) 0.25 mg PO BID PRN PRN Reason: Anxiety Stop: 03/12/18 17:57 Carvedilol (Coreg) 3.125 mg PO BID [facility] Last Admin: 03/09/18 11:14 Dose: 3.125 mg Digoxin (Digoxin) 0.125 mg PO DAILY [facility] Last Admin: 03/09/18 11:13 Dose: 0.125 mg Donepezil HCl (Aricept) 5 mg PO [facility] Last Admin: 03/08/18 22:50 Dose: 5 mg Enalapril Maleate (Vasotec) 2.5 mg PO DAILY [facility] Last Admin: 03/09/18 11:13 Dose: 2.5 mg Ferrous Sulfate (Feosol) 325 mg PO QAM [facility] Last Admin: 03/09/18 10:00 Dose: 325 mg Furosemide (Lasix) 20 mg PO DAILY [facility] Last Admin: 03/09/18 11:14 Dose: 20 mg Piperacillin Sod/Tazobactam Sod (Zosyn 3.375 Gm Iv Premix) 3.375 gm in 50 mls @ 100 mls/hr IVPB Q6H [facility] PRN Reason: Protocol Last Admin: 03/09/18 06:07 Dose: 100 mls/hr Potassium Chloride (Klor-Con 10) 10 meq PO DAILY [facility] Last Admin: 03/09/18 10:00 Dose: 10 meq Rosuvastatin Calcium (Crestor) 10 mg PO HS [facility] Last Admin: 03/08/18 22:51 Dose: 10 mg Warfarin Sodium (Coumadin) 6 mg PO 1800 [facility] Stop: 03/09/18 18:01 - Labs Labs: 03/07/18 07:01 03/07/18 16:50 PT 18.3 SECONDS (9.7-12.2) H 03/09/18 11:38 INR 1.7 03/09/18 11:38 APTT 33 SECONDS (21-34) 03/05/18 16:01
--- NOTE | 2018-03-09 16:15 | CP.PCM.PN ---
<Sada Aldana E - Last Filed: 03/09/18 16:12> Subjective - Date & Time of Evaluation Date of Evaluation: 03/09/18 Time of Evaluation: 10:45 - Subjective Subjective: Cardiology progress note ( Dr. Duval's service) Patient was seen and examined at bedside. As per nursing staff, no acute issues overnight. During the encounter, patient denies any discomfort such as SOB, chest pain, palpitations, dizziness, lightheadedness. Objective - Vital Signs/Intake and Output Vital Signs (last 24 hours): Temp Pulse Resp BP Pulse Ox 98.2 F 77 20 136/79 99 03/09/18 16:05 03/09/18 16:05 03/09/18 16:05 03/09/18 16:05 03/09/18 16:05 Intake and Output: 03/09/18 03/09/18 06:59 18:59 Intake Total 250 Balance 250 - Medications Medications: Current Medications Acetaminophen (Tylenol 325mg Tab) 650 mg PO Q6 PRN PRN Reason: Fever >100.4 F Last Admin: 03/09/18 03:01 Dose: 650 mg Alprazolam (Xanax) 0.25 mg PO BID PRN PRN Reason: Anxiety Stop: 03/12/18 17:57 Carvedilol (Coreg) 3.125 mg PO BID [facility] Last Admin: 03/09/18 11:14 Dose: 3.125 mg Digoxin (Digoxin) 0.125 mg PO DAILY [facility] Last Admin: 03/09/18 11:13 Dose: 0.125 mg Donepezil HCl (Aricept) 5 mg PO HS [facility] Last Admin: 03/08/18 22:50 Dose: 5 mg Enalapril Maleate (Vasotec) 2.5 mg PO DAILY [facility] Last Admin: 03/09/18 11:13 Dose: 2.5 mg Ferrous Sulfate (Feosol) 325 mg PO QAM [facility] Last Admin: 03/09/18 10:00 Dose: 325 mg Furosemide (Lasix) 20 mg PO DAILY [facility] Last Admin: 03/09/18 11:14 Dose: 20 mg Piperacillin Sod/Tazobactam Sod (Zosyn 3.375 Gm Iv Premix) 3.375 gm in 50 mls @ 100 mls/hr IVPB Q6H [facility] PRN Reason: Protocol Last Admin: 03/09/18 06:07 Dose: 100 mls/hr Potassium Chloride (Klor-Con 10) 10 meq PO DAILY [facility] Last Admin: 03/09/18 10:00 Dose: 10 meq Rosuvastatin Calcium (Crestor) 10 mg PO HS [facility] Last Admin: 03/08/18 22:51 Dose: 10 mg Warfarin Sodium (Coumadin) 6 mg PO 1800 [facility] Stop: 03/09/18 18:01 - Labs Labs: 03/07/18 07:01 03/07/18 16:50 PT 18.3 SECONDS (9.7-12.2) H 03/09/18 11:38 INR 1.7 03/09/18 11:38 APTT 33 SECONDS (21-34) 03/05/18 16:01 - Constitutional Appears: No Acute Distress - Head Exam Head Exam: ATRAUMATIC, NORMAL INSPECTION - Eye Exam Eye Exam: EOMI - ENT Exam ENT Exam: Mucous Membranes Moist - Respiratory Exam Respiratory Exam: Clear to Ausculation Bilateral, NORMAL BREATHING PATTERN - Cardiovascular Exam Cardiovascular Exam: Irregular Rhythm, +S1, +S2 - GI/Abdominal Exam GI & Abdominal Exam: Soft, Normal Bowel Sounds. absent: Firm, Guarding, Rigid, Tenderness - Extremities Exam Extremities Exam: Normal Inspection. absent: Calf Tenderness, Pedal Edema - Neurological Exam Neurological Exam: Alert, Awake, Oriented x3 - Psychiatric Exam Psychiatric exam: Normal Affect - Skin Skin Exam: Normal Color Assessment and Plan (1) Atrial fibrillation Assessment & Plan: Patient is a 88 year old female with past medical history of HTN, Atrial Fibrillation, Pacemaker, Takatsubo's cardiomyopathy who is admitted for generalized weakness, cardiology consult was placed for chronic atrial fibrillation and Hx of CABG Plan: Continue current management with Digoxin 0.125mg PO daily, Coreg 3.125mg PO BID , coumadin 6mg PO daily Crestor 10mg PO HS Hold coumadin till INR<2. INR goal is 2-3 Digoxin: <0.4 L Status: Chronic (2) Elevated INR Assessment & Plan: Current INR: 2.2 Stool Occult: Negative done in light of complaint of dark tarry stool As per cardiology recommendation, please restart coumadin when INR< 2 or at 2.0. Goal for patient is 2-3.0 Status: Acute (3) Elevated brain natriuretic peptide (BNP) level Assessment & Plan: BNP: 3640 Chest X-ray (03/07/18): Suspect mild chronic compensated pulmonary venous congestive changes. Lasix 20mg PO daily Status: Acute (4) Leukocytosis Assessment & Plan: WBC down trending Chest X-ray (03/07/18): Persistent right upper lobe infiltrate BC AND UC: E. coli Medications: * Zosyn 3.375gm IV q6h Status: Acute (5) Hypertension Assessment & Plan: Vasotec 2.5mg PO daily Status: Acute (6) Memory loss Assessment & Plan: Aricept 5mg PO HS Status: Acute (7) Anxiety Assessment & Plan: Xanax 0.25mg PO BID PRN No further cardiac intervention at this point Please restart coumadin when INR is 2 or less than 2. INR goal while on coumadin , 2-3 Please re-consult as needed Thank you for the opportunity to participate in your care All plans and management discussed with Dr. Duval Status: Acute <Broderick Duval - Last Filed: 03/09/18 22:45> Objective - Vital Signs/Intake and Output Vital Signs (last 24 hours): Temp Pulse Resp BP Pulse Ox 98.2 F 77 20 136/79 99 03/09/18 16:05 03/09/18 16:05 03/09/18 16:05 03/09/18 16:05 03/09/18 16:05 - Medications Medications: Current Medications Acetaminophen (Tylenol 325mg Tab) 650 mg PO Q6 PRN PRN Reason: Fever >100.4 F Last Admin: 03/09/18 03:01 Dose: 650 mg Alprazolam (Xanax) 0.25 mg PO BID PRN PRN Reason: Anxiety Stop: 03/12/18 17:57 Carvedilol (Coreg) 3.125 mg PO BID [facility] Last Admin: 03/09/18 18:24 Dose: 3.125 mg Digoxin (Digoxin) 0.125 mg PO DAILY [facility] Last Admin: 03/09/18 11:13 Dose: 0.125 mg Donepezil HCl (Aricept) 5 mg PO HS [facility] Last Admin: 03/09/18 22:33 Dose: 5 mg Enalapril Maleate (Vasotec) 2.5 mg PO DAILY [facility] Last Admin: 03/09/18 11:13 Dose: 2.5 mg Ferrous Sulfate (Feosol) 325 mg PO QAM [facility] Last Admin: 03/09/18 10:00 Dose: 325 mg Furosemide (Lasix) 20 mg PO DAILY [facility] Last Admin: 03/09/18 11:14 Dose: 20 mg Piperacillin Sod/Tazobactam Sod (Zosyn 3.375 Gm Iv Premix) 3.375 gm in 50 mls @ 100 mls/hr IVPB Q6H [facility] PRN Reason: Protocol Last Admin: 03/09/18 18:25 Dose: 100 mls/hr Potassium Chloride (Klor-Con 10) 10 meq PO DAILY [facility] Last Admin: 03/09/18 10:00 Dose: 10 meq Rosuvastatin Calcium (Crestor) 10 mg PO HS [facility] Last Admin: 03/09/18 22:33 Dose: 10 mg - Labs Labs: 03/07/18 07:01 03/07/18 16:50 PT 17.4 SECONDS (9.7-12.2) H 03/09/18 17:19 INR 1.6 03/09/18 17:19 APTT 33 SECONDS (21-34) 03/05/18 16:01 Assessment and Plan - Assessment and Plan (Free Text) Assessment: Patient seen and evaluated personally by pa Plan of care d/w the medical case manager and as documented
--- NOTE | 2018-03-09 16:44 | RAD ---
HISTORY: Picc Insertion COMPARISON: Chest x-ray performed 03/07/18 TECHNIQUE: Chest, one view. FINDINGS: Right-sided PICC extends expected location of the cavoatrial junction. LUNGS: Persistent right upper lobe infiltrate. Mild to moderate pulmonary venous congestion. Please note that chest x-ray has limited sensitivity for the detection of pulmonary masses. PLEURA: No significant pleural effusion identified. No definite pneumothorax . CARDIOVASCULAR: Median sternotomy wires. Prosthetic cardiac valve. Cardiomegaly. Dense atherosclerotic calcifications of the aorta. OSSEOUS STRUCTURES: Osseous demineralization. Degenerative changes. VISUALIZED UPPER ABDOMEN: Unremarkable. OTHER FINDINGS: None. IMPRESSION: Right-sided PICC extends expected location of the cavoatrial junction. Persistent right upper lobe infiltrate. Mild to moderate pulmonary venous congestion. Median sternotomy wires. Prosthetic cardiac valve. Cardiomegaly. Dense atherosclerotic calcifications of the aorta.
[2018-03-09 17:33] LABS: INR 1.6; PROTHROMBIN TIME 17.4 SECONDS (9.7-12.2)
--- NOTE | 2018-03-09 22:41 | CP.PCM.PN ---
Objective - Vital Signs/Intake and Output Vital Signs (last 24 hours): Temp Pulse Resp BP Pulse Ox 98.2 F 77 20 136/79 99 03/09/18 16:05 03/09/18 16:05 03/09/18 16:05 03/09/18 16:05 03/09/18 16:05 - Medications Medications: Current Medications Acetaminophen (Tylenol 325mg Tab) 650 mg PO Q6 PRN PRN Reason: Fever >100.4 F Last Admin: 03/09/18 03:01 Dose: 650 mg Alprazolam (Xanax) 0.25 mg PO BID PRN PRN Reason: Anxiety Stop: 03/12/18 17:57 Carvedilol (Coreg) 3.125 mg PO BID [facility] Last Admin: 03/09/18 18:24 Dose: 3.125 mg Digoxin (Digoxin) 0.125 mg PO DAILY [facility] Last Admin: 03/09/18 11:13 Dose: 0.125 mg Donepezil HCl (Aricept) 5 mg PO HS [facility] Last Admin: 03/09/18 22:33 Dose: 5 mg Enalapril Maleate (Vasotec) 2.5 mg PO DAILY [facility] Last Admin: 03/09/18 11:13 Dose: 2.5 mg Ferrous Sulfate (Feosol) 325 mg PO QAM [facility] Last Admin: 03/09/18 10:00 Dose: 325 mg Furosemide (Lasix) 20 mg PO DAILY [facility] Last Admin: 03/09/18 11:14 Dose: 20 mg Piperacillin Sod/Tazobactam Sod (Zosyn 3.375 Gm Iv Premix) 3.375 gm in 50 mls @ 100 mls/hr IVPB Q6H [facility] PRN Reason: Protocol Last Admin: 03/09/18 18:25 Dose: 100 mls/hr Potassium Chloride (Klor-Con 10) 10 meq PO DAILY [facility] Last Admin: 03/09/18 10:00 Dose: 10 meq Rosuvastatin Calcium (Crestor) 10 mg PO HS [facility] Last Admin: 03/09/18 22:33 Dose: 10 mg - Labs Labs: 03/07/18 07:01 03/07/18 16:50 PT 17.4 SECONDS (9.7-12.2) H 03/09/18 17:19 INR 1.6 03/09/18 17:19 APTT 33 SECONDS (21-34) 03/05/18 16:01 Assessment and Plan (1) Atrial fibrillation Status: Chronic (2) UTI (urinary tract infection) Status: Acute (3) Sepsis Status: Acute
--- NOTE | 2018-03-09 23:34 | PN ---
DATE: 03/09/2018 LOCATION: 671, bed A. SUBJECTIVE: This is an 88 years old female seen and examined in rounds without reported recent active bleeding. The patient is status post PICC line insertion with a complaint of generalized weakness and malaise, but no reported hematemesis. The entire chart is reviewed including, but not limited to the most recent lab and radiology study results, current and previous medication list, current and previous medical events and today's lab showed increased PT to 17.4 with INR 1.6. Rest of lab results is still pending. The patient reported to have low hematocrit as well as increased white blood cells, mildly increased AST, but low albumin. Chest x-ray done today, official report is seen with persistent right upper lobe infiltrate with mild pulmonary congestion. PHYSICAL EXAMINATION: GENERAL: An 88 years old female appeared to be awake, alert, afebrile. HEENT: Pulse of 70, respiratory rate 20-22, blood pressure of 138/74. HEENT: Showed pale dry oral mucoid membrane mildly, nonicteric sclerae. LUNGS: Few scattered crepitation. Decreased air entry at bases. HEART: Positive S1 and S2. ABDOMEN: Soft with slight generalized mild tenderness and mild distention. No mass or organomegaly. No rebound tenderness or guarding. EXTREMITIES: Without significant clubbing, cyanosis or edema. No reported new neurological deficits, sensory or motor. IMPRESSION: 1. Cardiac arrhythmias. 2. Reexacerbation of peptic ulcer disease. 3. Known history of but not limited to chronic obstructive pulmonary disease with recently diagnosed pneumonia, hypertension with depression. 4. Known history of hyperlipidemia with hypothyroidism. 5. Recent episode of mild congestive heart failure. 6. Mild anemia most likely secondary to chronic disease. 7. Leukocytosis due to her anemia. 8. Known history of status post coronary artery bypass graft, history of status post cardiac stent insertion. 9. Coagulopathy, drug-induced. 10. Known history of severe anxiety syndrome. SUGGESTIONS: 1. Continue current management. 2. Follow up cancer markers. 3. Antireflux measure. 4. Further recommendation to follow. Riley Lopez MD
[2018-03-10] MEDS: Piperacill/Tazo 3.375gm in Dex 3.375 GM/50 ML BAG IVPB SCH ×3 (00:34→12:22)
[2018-03-10 07:31] LABS: INR 1.8; PROTHROMBIN TIME 19.9 SECONDS (9.7-12.2)
[2018-03-10 07:37] LABS: BLOOD UREA NITROGEN 7 mg/dL (7-17); CALCIUM 8.8 mg/dl (8.6-10.4); GFR NON-AFRICAN AMERICAN 59
[2018-03-10 08:01] VITALS: BP 110/67; PULSE 95; TEMP 98; O2SAT 98
--- NOTE | 2018-03-10 10:09 | PN ---
DATE: 03/09/2018 SUBJECTIVE: The patient is feeling better. She is not short of breath. The patient is afebrile. She is on vancomycin, and the patient is waiting for repeat blood cultures. Her first blood culture was positive for E. coli. PHYSICAL EXAMINATION: VITAL SIGNS: BP 136/79, pulse 77, respiratory rate 20, temperature 98.2. LUNGS: Clear. CARDIOVASCULAR SYSTEM: S1 and S2, irregular. ABDOMEN: Soft. ASSESSMENT: 1. Congestive heart failure. 2. Atrial fibrillation. 3. Gram-negative septicemia with urinary tract infection. PLAN: We will repeat blood cultures. Monitor the patient. The patient will need one more week of antibiotics . Samy Dickinson MD
[2018-03-10] MEDS: Potassium Chloride 10 mEq ER Tab PO SCH (10:20)
[2018-03-10] MEDS: Digoxin 125 mcg (0.125 mg) Tab PO SCH (10:20)
[2018-03-10 10:23] VITALS: PULSE 95
--- NOTE | 2018-03-10 11:31 | CP.PCM.PN ---
Subjective - Date & Time of Evaluation Date of Evaluation: 03/10/18 Time of Evaluation: 11:14 - Subjective Subjective: PT CLEAR[place] FOR [place] TODAY [place] [facility] [place]. PT TO HAVE REPEAT BLOOD CX DONE PRIOR TO ADMISSION AND DR. RILEY CAN F/U W RESULTS OUTPATIENT. PT TO ALSO RECEIVE TODAY'S DOSE OF DAILY WARFARIN PRIOR TO DISCHARGE. PT TO BE PLACED UNDER THE SERVICE OF DR. RILEY WHILE [place] [facility] [place]. PT'S SON, YARED, ALSO MADE AWARE OF D/C TODAY. SW TO ARRANGE TRANSPORTATION TO THE FACILITY TODAY. NO FURTHER ORDERS. -PLACE UNDER THE SERVICE OF DR. RILEY [place] [facility] [place]CALL UPON ARRIVAL FOR ADMITTING ORDER AND BED ASSIGNMENT. -CONTINUE MEDICATIONS PER MED REC FORM, INCLUDING DAILY WARFARIN---WARFARIN ORDERS AND CHANGES CAN BE MADE BY DR. RILEY. -CONTINUE ZOSYN 3.375 GM IV Q6 HOURS X7 DAYS (START ON 03/10/18 AND LAST DOSE TO BE GIVEN ON 03/16/18 EVENING). -PICC LINE CARE PER FACILITY PROTOCOL. PICC LINE CAN BE REMOVED AFTER ANTIBIOTIC REGIMEN COMPLETED. -FALL PRECAUTIONS PER FACILITY PROTOCOL. -FOR FURTHER ORDERS, CONTACT DR. RILEY. Objective - Vital Signs/Intake and Output Vital Signs (last 24 hours): Temp Pulse Resp BP Pulse Ox 98.0 F 95 H 20 110/67 98 03/10/18 08:00 03/10/18 08:00 03/10/18 08:00 03/10/18 10:21 03/10/18 08:00 Intake and Output: 03/10/18 03/10/18 06:59 18:59 Intake Total 300 Balance 300 - Medications Medications: Current Medications Acetaminophen (Tylenol 325mg Tab) 650 mg PO Q6 PRN PRN Reason: Fever >100.4 F Last Admin: 03/09/18 03:01 Dose: 650 mg Alprazolam (Xanax) 0.25 mg PO BID PRN PRN Reason: Anxiety Stop: 03/12/18 17:57 Carvedilol (Coreg) 3.125 mg PO BID [facility] Last Admin: 03/10/18 10:21 Dose: 3.125 mg Digoxin (Digoxin) 0.125 mg PO DAILY [facility] Last Admin: 03/10/18 10:20 Dose: 0.125 mg Donepezil HCl (Aricept) 5 mg PO HS [facility] Last Admin: 03/09/18 22:33 Dose: 5 mg Enalapril Maleate (Vasotec) 2.5 mg PO DAILY [facility] Last Admin: 03/10/18 10:21 Dose: 2.5 mg Ferrous Sulfate (Feosol) 325 mg PO QAM [facility] Last Admin: 03/10/18 10:22 Dose: 325 mg Furosemide (Lasix) 20 mg PO DAILY [facility] Last Admin: 03/10/18 10:21 Dose: 20 mg Piperacillin Sod/Tazobactam Sod (Zosyn 3.375 Gm Iv Premix) 3.375 gm in 50 mls @ 100 mls/hr IVPB Q6H [facility] PRN Reason: Protocol Last Admin: 03/10/18 05:59 Dose: 100 mls/hr Potassium Chloride (Klor-Con 10) 10 meq PO DAILY [facility] Last Admin: 03/10/18 10:20 Dose: 10 meq Rosuvastatin Calcium (Crestor) 10 mg PO HS [facility] Last Admin: 03/09/18 22:33 Dose: 10 mg Warfarin Sodium (Coumadin) 6 mg PO 1800 [facility] Stop: 03/10/18 18:01 - Labs Labs: 03/07/18 07:01 03/10/18 07:00 PT 19.9 SECONDS (9.7-12.2) H 03/10/18 07:00 INR 1.8 03/10/18 07:00 APTT 33 SECONDS (21-34) 03/05/18 16:01
--- NOTE | 2018-03-10 21:32 | PN ---
DATE: 03/10/2018 LOCATION: 671, bed A. SUBJECTIVE: This is an 88-year-old female, seen and examined in rounds today without reported significant clinical changes. No reported active bleeding, nausea, or vomiting. The most recent lab results showed white blood cells of 11.8, normal hemoglobin. No reported chest pain or palpitation, who is status post PICC insertion. PT reported to be 19.3 post-Coumadin intake with CO2 content of 32 indicative of respiratory alkalosis. Most recent the patient's chest x-ray done on 03/09/2018, official report is seen with evidence of persistent right upper lobe infiltrate with moderate pulmonary congestion. PHYSICAL EXAMINATION: GENERAL: An 88-year-old female. VITAL SIGNS: Afebrile with pulse of 92, respiratory rate 20 to 22, blood pressure 118/60. HEENT: Showed pale, dry oral mucous membrane. Nonicteric sclerae. LUNGS: Few scattered crepitation. Decreased air entry at bases. HEART: Positive S1 and S2. ABDOMEN: Soft with mild generalized tenderness. No mass or organomegaly. No rebound tenderness or guarding. EXTREMITIES: Mild lower extremity edematous changes. No clubbing or cyanosis. NEUROLOGIC: No reported new neurological deficits, sensory or motor. IMPRESSION: 1. Pneumonia by recent history. 2. Mild anemia. 3. Re-exacerbation of peptic ulcer disease, improving. 4. Known history of chronic obstructive pulmonary disease, depression, hypertension with hyperlipidemia and hypothyroidism. 5. Recent history of mild congestive heart failure. 6. Known history of status post coronary artery bypass grafting, status post cardiac stent insertion. 7. Coagulopathy, drug-induced. SUGGESTIONS: 1. Agree with your plan. 2. Follow up cancer markers. 3. No evidence of active bleeding and no need for aggressive GI procedure at this point. 4. We will follow up closely with you as outpatient. Riley Lopez MD
--- NOTE | 2018-03-10 22:35 | CP.PCM.DIS ---
Provider - Provider Date of Admission: 03/05/18 17:53 Attending physician: Samy Dickinson MD Diagnosis - Discharge Diagnosis (1) Atrial fibrillation Status: Chronic Priority: Medium (2) UTI (urinary tract infection) Status: Acute Priority: High (3) Sepsis Status: Acute Priority: High Hospital Course - Lab Results Lab Results: Micro Results 03/05/18 16:00 Blood Blood Culture - Final NO GROWTH AFTER 5 DAYS 03/05/18 16:00 Blood Gram Stain - Final TEST NOT PERFORMED 03/05/18 16:30 Blood Blood Culture - Final Escherichia Coli 03/05/18 16:30 Blood Gram Stain - Final 03/05/18 16:15 Urine,Catheterized Urine Culture - Final Escherichia Coli Most Recent Lab Values WBC 11.8 K/uL (4.8-10.8) H 03/07/18 07:01 RBC 3.60 Mil/uL (3.80-5.20) L 03/07/18 07:01 Hgb 11.2 g/dL (11.0-16.0) 03/07/18 07:01 Hct 32.3 % (34.0-47.0) L 03/07/18 07:01 MCV 89.6 fL (81.0-99.0) 03/07/18 07:01 MCH 31.1 pg (27.0-31.0) H 03/07/18 07:01 MCHC 34.7 g/dL (33.0-37.0) 03/07/18 07:01 RDW 14.5 % (11.5-14.5) 03/07/18 07:01 Plt Count 319 K/uL (130-400) 03/07/18 07:01 MPV 7.4 fL (7.2-11.7) 03/07/18 07:01 Neut % (Auto) 95.4 % (50.0-75.0) H 03/05/18 16:01 Lymph % (Auto) 2.2 % (20.0-40.0) L 03/05/18 16:01 [place] % (Auto) 2.2 % (0.0-10.0) 03/05/18 16:01 Eos % (Auto) 0.1 % (0.0-4.0) 03/05/18 16:01 Baso % (Auto) 0.1 % (0.0-2.0) 03/05/18 16:01 Neut # (Auto) 14.7 K/uL (1.8-7.0) H 03/05/18 16:01 Lymph # (Auto) 0.3 K/uL (1.0-4.3) L 03/05/18 16:01 [place] # (Auto) 0.3 K/uL (0.0-0.8) 03/05/18 16:01 Eos # (Auto) 0.0 K/uL (0.0-0.7) 03/05/18 16:01 Baso # (Auto) 0.0 K/uL (0.0-0.2) 03/05/18 16:01 Neutrophils % (Manual) 90 % (50-75) H 03/05/18 16:01 Band Neutrophils % 2 % (0-2) 03/05/18 16:01 Lymphocytes % (Manual) 4 % (20-40) L 03/05/18 16:01 Monocytes % (Manual) 4 % (0-10) 03/05/18 16:01 Platelet Estimate Normal (NORMAL) 03/05/18 16:01 PT 19.9 SECONDS (9.7-12.2) H 03/10/18 07:00 INR 1.8 03/10/18 07:00 APTT 33 SECONDS (21-34) 03/05/18 16:01 pO2 39 mm/Hg (30-55) 03/05/18 16:07 VBG pH 7.47 (7.32-7.43) H 03/05/18 16:07 VBG pCO2 38 mmHg (40-60) L 03/05/18 16:07 VBG HCO3 27.4 mmol/L 03/05/18 16:07 VBG Total CO2 28.9 mmol/L (22-28) H 03/05/18 16:07 VBG O2 Sat (Calc) 80.2 % (40-65) H 03/05/18 16:07 VBG Base Excess 3.9 mmol/L (0.0-2.0) H 03/05/18 16:07 VBG Potassium 2.9 mmol/L (3.6-5.2) L 03/05/18 16:07 Sodium 138.0 mmol/l (132-148) 03/05/18 16:07 Chloride 105.0 mmol/L (98-107) 03/05/18 16:07 Glucose 113 mg/dl (65-105) H 03/05/18 16:07 Lactate 1.2 mmol/L (0.7-2.1) 03/05/18 16:07 Sodium 141 mmol/L (132-148) 03/10/18 07:00 Potassium 3.6 mmol/L (3.6-5.2) 03/10/18 07:00 Chloride 99 mmol/L (98-107) 03/10/18 07:00 Carbon Dioxide 32 mmol/L (22-30) H 03/10/18 07:00 Anion Gap 14 (10-20) 03/10/18 07:00 BUN 7 mg/dL (7-17) 03/10/18 07:00 Creatinine 0.9 mg/dL (0.7-1.2) 03/10/18 07:00 Est GFR ( Amer) > 60 03/10/18 07:00 Est GFR (Non-Af Amer) 59 03/10/18 07:00 Random Glucose 99 mg/dL (65-105) 03/10/18 07:00 Calcium 8.8 mg/dl (8.6-10.4) 03/10/18 07:00 Total Bilirubin 0.6 mg/dL (0.2-1.3) 03/07/18 16:50 AST 28 U/L (14-36) 03/07/18 16:50 ALT 25 U/L (9-52) 03/07/18 16:50 Alkaline Phosphatase 235 U/L (38-126) H D 03/07/18 16:50 Troponin I 0.0310 ng/mL (0.00-0.120) 03/05/18 16:01 NT-Pro-B Natriuret Pep 3640 pg/mL (0-900) H 03/05/18 16:01 Total Protein 6.9 g/dL (6.3-8.3) 03/07/18 16:50 Albumin 3.1 g/dL (3.5-5.0) L 03/07/18 16:50 Globulin 3.8 gm/dL (2.2-3.9) 03/07/18 16:50 Albumin/Globulin Ratio 0.8 (1.0-2.1) L 03/07/18 16:50 Venous Blood Potassium 2.9 mmol/L (3.6-5.2) L 03/05/18 16:07 Urine Color Yellow (YELLOW) 03/05/18 16:15 Urine Clarity Hazy (Clear) 03/05/18 16:15 Urine pH 5.0 (5.0-8.0) 03/05/18 16:15 Ur Specific [place] 1.012 (1.003-1.030) 03/05/18 16:15 Urine Protein 2+ mg/dL (NEGATIVE) H 03/05/18 16:15 Urine Glucose (UA) Normal mg/dL (Normal) 03/05/18 16:15 Urine Ketones Negative mg/dL (NEGATIVE) 03/05/18 16:15 Urine Blood 2+ (NEGATIVE) H 03/05/18 16:15 Urine Nitrate Positive (NEGATIVE) H 03/05/18 16:15 Urine Bilirubin Negative (NEGATIVE) 03/05/18 16:15 Urine Urobilinogen 4.0 mg/dL (0.2-1.0) H 03/05/18 16:15 Ur Leukocyte Esterase 3+ [place]/uL (Negative) H 03/05/18 16:15 Urine WBC (Auto) 174 /hpf (0-5) H 03/05/18 16:15 Urine RBC (Auto) 60 /hpf (0-3) H 03/05/18 16:15 Urine WBC Clumps (Auto) Mod /hpf (NONE) H 03/05/18 16:15 Ur Squamous Epith Cells 1 /hpf (0-5) 03/05/18 16:15 Urine Bacteria Many (<OCC) H 03/05/18 16:15 Stool Occult Blood Negative (NEGATIVE) 03/06/18 23:58 Digoxin < 0.4 ng/mL (0.8-2.0) L 03/09/18 08:16 Discharge Exam - Head Exam Head Exam: ATRAUMATIC, NORMAL INSPECTION Discharge Plan - Discharge Medications Prescriptions: Piperacill/Tazo 3.375gm in Dex [Zosyn 3.375 Gm IV Premix] 3.375 gm IV Q6 7 Days bag - Follow Up Plan Condition: STABLE Disposition: REHAB FACILITY/REHAB UNIT Instructions: Preventing Falls in the Older Adult, Atrial Fibrillation (DC), Urinary Tract Infection, Adult (DC), Altered Mental Status (DC), E. coli Infection (DC), Warfarin, Leukocytosis (GEN) Additional Instructions: -PLACE UNDER THE SERVICE OF DR. DICKINSON [place] [facility] [place]CALL UPON ARRIVAL FOR ADMITTING ORDER AND BED ASSIGNMENT. -CONTINUE MEDICATIONS PER MED REC FORM, INCLUDING DAILY WARFARIN---WARFARIN ORDERS AND CHANGES CAN BE MADE BY DR. DICKINSON. -CONTINUE ZOSYN 3.375 GM IV Q6 HOURS X7 DAYS (START ON 03/10/18 AND LAST DOSE TO BE GIVEN ON 03/16/18 EVENING). -PICC LINE CARE PER FACILITY PROTOCOL. PICC LINE CAN BE REMOVED AFTER ANTIBIOTIC REGIMEN COMPLETED. -FALL PRECAUTIONS PER FACILITY PROTOCOL. -FOR FURTHER ORDERS, CONTACT DR. DICKINSON. Referrals: Broderick Duval MD [Staff Provider] - Riley Ramon [Staff Provider] - Samy Dickinson MD [Staff Provider] -
--- NOTE | 2018-03-11 22:15 | DS ---
ADMISSION DIAGNOSIS: Sepsis. DISCHARGE DIAGNOSES: Septicemia with urinary tract infection, atrial fibrillation, congestive heart failure. HISTORY OF PRESENT ILLNESS: This is an 88-year-old female with history of multiple medical problems including dementia, hypertension, atrial fibrillation, on oral anticoagulant with Coumadin, who is complaint with diet, medication, and followup. On the day of admission, she patient was admitted with low blood pressure, tachycardia, high WBC, urinary tract infection. She responded to antibiotics. The patient's urine grew E. coli, blood grew E. coli; and the patient responded to vancomycin. She is afebrile. She has been discharged with outpatient followup. PHYSICAL EXAMINATION: VITAL SIGNS: Blood pressure 110/67, pulse 95, respiratory rate 20, temperature 98. LUNGS: Clear. CARDIOVASCULAR: S1 and S2, irregular. ABDOMEN: Soft and nontender. [employer]ER: The patient is awake, alert, demented. The patient's chest x-ray was negative for any active infiltrate. The patient had repeated chest x-ray done. ASSESSMENT AND PLAN: The patient had atherosclerotic vascular disease, and the patient also has history of heart surgery, history of prosthetic valve. She is being discharged. She will be followed up as outpatient. Samy Dickinson MD
== END 2018-03-10 16:05 | DRG 871 ==
LOC: C.ER 15:31 → C.9E 17:53 → C.6T 20:08
PROVIDERS: ADMIT Internal Medicine; ATTEND Internal Medicine
PROC: 5A09457 Assistance with Respiratory Ventilation, 24-96 Consecutive Hours, Continuous Positive Airway Pressure (ICD-10-PCS; principal; 2018-03-07)
PROC: 02HV33Z Insertion of Infusion Device into Superior Vena Cava, Percutaneous Approach (ICD-10-PCS; 2018-03-09)
DX: A41.50 Gram-negative sepsis, unspecified (principal); G93.40 Encephalopathy, unspecified; N39.0 Urinary tract infection, site not specified; I42.9 Cardiomyopathy, unspecified; D68.9 Coagulation defect, unspecified; K27.3 Acute peptic ulcer, site unspecified, without hemorrhage or perforation; I11.0 Hypertensive heart disease with heart failure; D50.9 Iron deficiency anemia, unspecified; E03.9 Hypothyroidism, unspecified; I48.91 Unspecified atrial fibrillation; E11.9 Type 2 diabetes mellitus without complications; I50.9 Heart failure, unspecified; Z95.0 Presence of cardiac pacemaker; E78.5 Hyperlipidemia, unspecified; J44.9 Chronic obstructive pulmonary disease, unspecified; Z95.2 Presence of prosthetic heart valve; Z95.1 Presence of aortocoronary bypass graft; D63.8 Anemia in other chronic diseases classified elsewhere; E86.0 Dehydration

== ENCOUNTER 2018-09-30 13:06 | Inpatient (IN) | payer MEDICARE | END 2018-10-19 14:54 | disposition home or self-care (01) | DRG 280 | LOC: C.5S 10-07 10:01 → C.ER 13:06 → C.9I 10-08 19:49 | PROC: 4A023N7 Measurement of Cardiac Sampling and Pressure, Left Heart, Percutaneous Approach (ICD-10-PCS; principal; 2018-10-05) | PROC: B2111ZZ Fluoroscopy of Multiple Coronary Arteries using Low Osmolar Contrast (ICD-10-PCS; 2018-10-05) | PROC: B2131ZZ Fluoroscopy of Multiple Coronary Artery Bypass Grafts using Low Osmolar Contrast (ICD-10-PCS; 2018-10-05) | DX: I21.4 Non-ST elevation (NSTEMI) myocardial infarction (principal); I50.21 Acute systolic (congestive) heart failure; A41.9 Sepsis, unspecified organism; N17.9 Acute kidney failure, unspecified; R18.8 Other ascites; B96.20 Unspecified Escherichia coli [E. coli] as the cause of diseases classified elsewhere; E78.5 Hyperlipidemia, unspecified; E86.0 Dehydration; F02.80 Dementia in other diseases classified elsewhere, unspecified severity, without behavioral disturbance, psychotic disturbance, mood disturbance, and anxiety; G30.9 Alzheimer's disease, unspecified; I11.0 Hypertensive heart disease with heart failure; I25.5 Ischemic cardiomyopathy; I48.91 Unspecified atrial fibrillation; J44.9 Chronic obstructive pulmonary disease, unspecified; Z87.891 Personal history of nicotine dependence; Z95.1 Presence of aortocoronary bypass graft; Z95.3 Presence of xenogenic heart valve ==